=== PATIENT | female | born 1935 | race Caucasian/White ===

== ENCOUNTER 2017-02-13 10:57 | Inpatient (IN) ==
[2017-02-13] MEDS ORDERED: methylPREDNISolone 125 MG/2 ML VIAL IVP ONE (11:03)
[2017-02-13] MEDS ORDERED: Ipratropium/Albuterol Neb 3 ML IH ONE (11:03)
[2017-02-13] MEDS ORDERED: *HR* LORazepam 2 MG/ML VIAL IVP ONE (11:08)
--- NOTE | 2017-02-13 11:19 | Emergency Department Note ---
Disposition Clinical Impression: Supratherapeutic INR Acute on chronic congestive heart failure Qualifiers: Congestive heart failure type: unspecified congestive heart failure type Qualified Code(s): I50.9 - Heart failure, unspecified Disposition: Admitted As Inpatient Condition: Fair SOB HPI - General Chief Complaint: ED Shortness of Breath/Dyspnea Stated Complaint: REESE Time Seen by Provider: 02/13/17 11:03 Source: EMS Limitations: no limitations Nursing Notes Reviewed: Yes Vital Signs Reviewed: Yes - History of Present Illness Report received by EMS with patient able to nod or shake her head as responses. Patient dyspnea worsening for the past several days. Baseline she requires BiPAP continuous and his history of noncompliance with her BiPAP all the [facility] of [facility]. She tolerated BiPAP while at the facility. When she read it [facility] where she lives, patient became distressed and attempted to remove BiPAP after which her oxygen saturations dropped to approximately 72%. EMS was still there replaced BiPAP, and transported to this facility. Past medical history is negative for gout, COPD with emphysema, GERD, history cellulitis, obstructive sleep apnea, congestive heart failure, Patient is anticoagulated on Coumadin for A. Fib. - Related Data Home Medications Medication Instructions Recorded Confirmed Acetaminophen [Tylenol Arthritis] 650 mg PO Q6H PRN 02/13/17 02/13/17 Alendronate Sodium [Fosamax] 70 mg PO TH 02/13/17 02/13/17 Allopurinol [Zyloprim 100 MG] 100 mg PO DAILY 02/13/17 02/13/17 Budesonide/Formoterol 160/4.5 2 puff IH BIDR 02/13/17 02/13/17 [Symbicort 160/4.5] Calcium Carbonate/Vitamin D3 1 each PO BID 02/13/17 02/13/17 [Calcium 600 + Vit D Tablet] Furosemide [Lasix] 80 mg PO DAILY 02/13/17 02/13/17 Gabapentin [Neurontin] 400 mg PO TID 02/13/17 02/13/17 GuaiFENesin/Dextromethorphan 10 ml PO Q4H PRN 02/13/17 02/13/17 [Robitussin/DM] Guaifenesin [Mucinex] 600 mg PO BID 02/13/17 02/13/17 Hydrocortisone Acetate [Anusol-Hc] 25 mg RC BID PRN 02/13/17 02/13/17 Insulin Glargine [Lantus] 10 unit SQ HS 02/13/17 02/13/17 Ipratropium/Albuterol Neb [Duoneb] 3 ml IH Q6HR PRN 02/13/17 02/13/17 LORazepam [Ativan] 0.5 mg PO Q6H PRN 02/13/17 02/13/17 Labetalol HCl 600 mg PO BID 02/13/17 02/13/17 Levothyroxine Sodium 200 mcg PO 1400 02/13/17 02/13/17 Methocarbamol [Robaxin] 1,000 mg PO TID PRN 02/13/17 02/13/17 Multivitamin [One Daily Essential] 1 tab PO DAILY 02/13/17 02/13/17 Omeprazole [PriLOSEC] 40 mg PO DAILY 02/13/17 02/13/17 Ondansetron HCl [Zofran] 4 mg PO Q6H PRN 02/13/17 02/13/17 OxyCODONE/APAP 5/325 [Percocet 1 each PO Q12H PRN 02/13/17 02/13/17 5/325 MG] Oxygen 3 l NS AD 02/13/17 02/13/17 Potassium Chloride [K-Tab ER] 20 meq PO BID 02/13/17 02/13/17 Sennosides/Docusate Sodium 1 each PO DAILY PRN 02/13/17 02/13/17 [Senna-S Tablet] Sertraline [Zoloft] 50 mg PO DAILY 02/13/17 02/13/17 Simvastatin [Zocor] 20 mg PO HS 02/13/17 02/13/17 Warfarin [Coumadin] 1 mg PO Q48H 02/13/17 02/13/17 Warfarin [Coumadin] 1.5 mg PO Q48H 02/13/17 02/13/17 Allergies Allergy/AdvReac Type Severity Reaction Status Date / Time meperidine [From Demerol] Allergy Anaphylaxis Verified 02/13/17 11:01 Tetracycline Allergy Anaphylaxis Verified 02/13/17 11:01 Limitations: ROS unobtainable due to patients medical condition Past Medical History - Past Medical History Medical history: Reports: atrial fibrillation, CHF, COPD, diabetes, GERD, glaucoma, hyperlipidemia, hypertension, renal disease, thyroid disease Psychiatric history: Reports: anxiety, depression - Social History Smoking Status: Never smoker Smokeless Tobacco Status: No Alcohol use: Reports: none Drug use: Reports: none Physical Exam Patient's temperature is 97.3. She is tachypneic and tachycardic. General: Patient is alert, oriented, and in acute distress. She is currently tolerating BiPAP with O2 saturation in the high 90s. HEENT: No facial asymmetry. Head is normocephalic and atraumatic. PERRLA, EOMI. Cardiovascular: Heart sounds are distant with tachycardic rate without clicks, rubs, gallops, or murmurs. 1+ pitting bilateral pedal edema. Bilateral radial and posterior tibial pulses are 1-2/4 and symmetric. Respiratory: On BiPAP. Symmetric chest rise with her respiratory effort. Prolonged expiratory phase. Bilateral breath sounds are diffusely coarse. Abdomen: [place] obese. Bowel sounds present normoactive x-4 quadrants. Abdomen is soft, nondistended, and nontender. Able to assess organomegaly given patient's body habitus. Psych: Patient's affect is appropriate for situation. - General Limitations: no limitations General appearance: alert Course Course Narrative: Patient is full code per custodial documentation. Patient was at [facility] this morning for same complaint. She was discharged back to [facility] as she was at that time tolerating BiPAP and oxygen well. At [facility], she was attempting to remove BiPAP and was agitated where her oxygen saturation dipped to 72%. The same squad that transferred her from [facility] to [facility] state around and was able to reattach BiPAP and then transferred her to this facility. In route , patient's respirations were in the 30s to saturation on BiPAP in the mid 90s. On arrival, patient had some distress with BiPAP. Will provide Ativan. Review of documentation of [facility]: Patient had 2 asked x-rays at their facility within 2 hours. First x-ray interpretation not provided and documentation. Second x-ray interpretation was unchanged from previous study. They did note left-sided effusion with no pneumothorax. Diffuse haziness with interstitial pacing these more focal and left lower lobe. Electrolyte or unremarkable. No leukocytosis (9.1). ABG drawn today at 4 AM shows pH 7.34, PCO2 52.8, PO2 59, bicarbonate 27.5. Taken on 6 L nasal cannula. Patient received Lasix 40 mg IV x1. We will perform dyspnea and sepsis workup. Clinical concern for pneumonia vs CHF vs UT. Chest x-ray interpreted as likely congestive heart failure. Will begin nitroglycerin IV drip starting at 20 mics per minute as patient's blood pressure , though not hypotensive, is systolic 140s; will start low and titrate up. Patient has elevated INR. Patient A. Fib RVR. Pressure can support cardizem drip. Patient admitted to hospitalist, Dr. Nicole, for acute on CHF. Vital Signs Temperature 97.3 F L 02/13/17 11:00 Pulse Rate 123 02/13/17 11:00 Respiratory Rate 26 02/13/17 11:00 Blood Pressure 144/91 02/13/17 11:00 O2 Sat by Pulse Oximetry 94 02/13/17 11:00 Temperature 98.1 F 02/13/17 19:05 Pulse Rate 110 02/13/17 19:05 Respiratory Rate 26 02/13/17 19:05 Blood Pressure 147/93 02/13/17 19:05 O2 Sat by Pulse Oximetry 100 02/13/17 19:05 Oxygen Delivery Oxygen Delivery CPAP Mask O2 Shortness of Breath/Dyspnea - Medical Records Medical records reviewed: Yes I reviewed the patient's medical records. - Lab Data Lab results reviewed: Yes I reviewed the patient's lab results. Result diagrams: 02/13/17 10:56 02/13/17 10:56 Lab Results 02/13/17 02/13/17 02/13/17 Range/Units 10:56 10:56 10:56 WBC 10.6 (4.3-11.1) K/mcL RBC 3.48 L (3.82-4.97) M/mcL Hgb 9.6 L (11.5-15.4) g/dL Hct 32.7 L (35.3-44.9) % MCV 94.0 (83.0-100.0) fL MCH 27.6 L (28.0-33.3) pg MCHC 29.4 L (31.6-35.5) g/dL RDW 18.1 H (11.5-14.5) % Plt Count 171 (140-400) K/mcL MPV 9.5 (9.4-12.4) fL Immature Gran % 0.6 (0-4) % Seg Neutrophils % 87.2 % Lymphocytes % 7.5 % Monocytes % 3.6 % Eosinophils % 0.6 % Basophils % 0.5 % Neutrophils # 9.3 H (1.6-8.9) K/mcL Lymphocytes # 0.8 (0.6-4.6) K/mcL Monocytes # 0.4 (0.0-1.3) K/mcL Eosinophils # 0.1 (0.0-0.6) K/mcL Basophils # 0.1 (0.0-0.2) K/mcL Nucleated RBCs/100 WBC 0.2 H (0) /100 WBC PT (9.4-12.1) Seconds INR APTT (26.0-36.0) Seconds ABG pH (7.32-7.45) pH Units ABG pCO2 (35-45) mmHg ABG pO2 (85-104) mmHg ABG HCO3 (21-27) mEQ/L ABG Total CO2 (20-26) mEq/L ABG O2 Saturation (95-98) % ABG Base Excess (-2.0 to 3.0) mEq/L Blood Gas Modality Inspired O2 % Sodium 139 (136-145) mEq/L Potassium 5.1 H (3.5-4.5) mEq/L Chloride 102 (98-109) mEq/L Carbon Dioxide 25 (19-29) mEq/L BUN 22 H (7-20) mg/dL Creatinine 1.28 H (0.57-1.11) mg/dL Est GFR ( Amer) 49 L (> 60) Est GFR (Non-Af Amer) 40 L (> 60) BUN/Creatinine Ratio 17 (6-26) Glucose 163 H (70-99) mg/dL POC Glucose (58-89) Est Mean Plasma Glucose mg/dl Hemoglobin A1c ( - 5.6) % Calculated Osmolality 295 (280-300) Lactic Acid (0.5-2.2) mmol/L Calcium 9.3 (8.6-10.8) mg/dL Phosphorus 3.4 (2.3-4.7) mg/dL Magnesium 1.8 (1.6-2.6) mg/dL Troponin I 0.01 (0-0.03) ng/mL B-Natriuretic Peptide (0-100) pg/mL Urine Color (Yellow) Urine Clarity (Clear) Urine pH (5.0-8.0) pH Units Ur Specific [place] (1.010-1.025) Urine Protein (Neg-Trace) mg/dL Urine Glucose (UA) (Normal) mg/dL Urine Ketones (Negative) mg/dL Urine Blood (Negative) Urine Nitrite (Negative) Urine Bilirubin (Negative) Urine Urobilinogen (Normal) mg/dL Ur Leukocyte Esterase (Negative) Urine Microscopic RBC (0-3) per hpf Urine Microscopic WBC (0-3) per hpf Ur Squamous Epith Cells (None-Few) per lpf Urine Bacteria (None-Few) per hpf Hyaline Casts (None-Few) per lpf Ur Culture Indicated? (NO) 02/13/17 02/13/17 02/13/17 Range/Units 10:56 10:56 10:56 WBC (4.3-11.1) K/mcL RBC (3.82-4.97) M/mcL Hgb (11.5-15.4) g/dL Hct (35.3-44.9) % MCV (83.0-100.0) fL MCH (28.0-33.3) pg MCHC (31.6-35.5) g/dL RDW (11.5-14.5) % Plt Count (140-400) K/mcL MPV (9.4-12.4) fL Immature Gran % (0-4) % Seg Neutrophils % % Lymphocytes % % Monocytes % % Eosinophils % % Basophils % % Neutrophils # (1.6-8.9) K/mcL Lymphocytes # (0.6-4.6) K/mcL Monocytes # (0.0-1.3) K/mcL Eosinophils # (0.0-0.6) K/mcL Basophils # (0.0-0.2) K/mcL Nucleated RBCs/100 WBC (0) /100 WBC PT 52.3 H* (9.4-12.1) Seconds INR 4.6 H* APTT 44.6 H (26.0-36.0) Seconds ABG pH (7.32-7.45) pH Units ABG pCO2 (35-45) mmHg ABG pO2 (85-104) mmHg ABG HCO3 (21-27) mEQ/L ABG Total CO2 (20-26) mEq/L ABG O2 Saturation (95-98) % ABG Base Excess (-2.0 to 3.0) mEq/L Blood Gas Modality Inspired O2 % Sodium (136-145) mEq/L Potassium (3.5-4.5) mEq/L Chloride (98-109) mEq/L Carbon Dioxide (19-29) mEq/L BUN (7-20) mg/dL Creatinine (0.57-1.11) mg/dL Est GFR ( Amer) (> 60) Est GFR (Non-Af Amer) (> 60) BUN/Creatinine Ratio (6-26) Glucose (70-99) mg/dL POC Glucose (58-89) Est Mean Plasma Glucose mg/dl Hemoglobin A1c ( - 5.6) % Calculated Osmolality (280-300) Lactic Acid 1.6 (0.5-2.2) mmol/L Calcium (8.6-10.8) mg/dL Phosphorus (2.3-4.7) mg/dL Magnesium (1.6-2.6) mg/dL Troponin I (0-0.03) ng/mL B-Natriuretic Peptide 1219 H (0-100) pg/mL Urine Color (Yellow) Urine Clarity (Clear) Urine pH (5.0-8.0) pH Units Ur Specific [place] (1.010-1.025) Urine Protein (Neg-Trace) mg/dL Urine Glucose (UA) (Normal) mg/dL Urine Ketones (Negative) mg/dL Urine Blood (Negative) Urine Nitrite (Negative) Urine Bilirubin (Negative) Urine Urobilinogen (Normal) mg/dL Ur Leukocyte Esterase (Negative) Urine Microscopic RBC (0-3) per hpf Urine Microscopic WBC (0-3) per hpf Ur Squamous Epith Cells (None-Few) per lpf Urine Bacteria (None-Few) per hpf Hyaline Casts (None-Few) per lpf Ur Culture Indicated? (NO) 02/13/17 02/13/17 02/13/17 Range/Units 10:56 11:04 11:23 WBC (4.3-11.1) K/mcL RBC (3.82-4.97) M/mcL Hgb (11.5-15.4) g/dL Hct (35.3-44.9) % MCV (83.0-100.0) fL MCH (28.0-33.3) pg MCHC (31.6-35.5) g/dL RDW (11.5-14.5) % Plt Count (140-400) K/mcL MPV (9.4-12.4) fL Immature Gran % (0-4) % Seg Neutrophils % % Lymphocytes % % Monocytes % % Eosinophils % % Basophils % % Neutrophils # (1.6-8.9) K/mcL Lymphocytes # (0.6-4.6) K/mcL Monocytes # (0.0-1.3) K/mcL Eosinophils # (0.0-0.6) K/mcL Basophils # (0.0-0.2) K/mcL Nucleated RBCs/100 WBC (0) /100 WBC PT (9.4-12.1) Seconds INR APTT (26.0-36.0) Seconds ABG pH 7.33 (7.32-7.45) pH Units ABG pCO2 59 H (35-45) mmHg ABG pO2 93 (85-104) mmHg ABG HCO3 31.1 H (21-27) mEQ/L ABG Total CO2 32.9 H (20-26) mEq/L ABG O2 Saturation 97 (95-98) % ABG Base Excess 4.1 H (-2.0 to 3.0) mEq/L Blood Gas Modality [place] Inspired O2 60 % Sodium (136-145) mEq/L Potassium (3.5-4.5) mEq/L Chloride (98-109) mEq/L Carbon Dioxide (19-29) mEq/L BUN (7-20) mg/dL Creatinine (0.57-1.11) mg/dL Est GFR ( Amer) (> 60) Est GFR (Non-Af Amer) (> 60) BUN/Creatinine Ratio (6-26) Glucose (70-99) mg/dL POC Glucose 168 H (58-89) Est Mean Plasma Glucose 111 mg/dl Hemoglobin A1c 5.5 ( - 5.6) % Calculated Osmolality (280-300) Lactic Acid (0.5-2.2) mmol/L Calcium (8.6-10.8) mg/dL Phosphorus (2.3-4.7) mg/dL Magnesium (1.6-2.6) mg/dL Troponin I (0-0.03) ng/mL B-Natriuretic Peptide (0-100) pg/mL Urine Color (Yellow) Urine Clarity (Clear) Urine pH (5.0-8.0) pH Units Ur Specific [place] (1.010-1.025) Urine Protein (Neg-Trace) mg/dL Urine Glucose (UA) (Normal) mg/dL Urine Ketones (Negative) mg/dL Urine Blood (Negative) Urine Nitrite (Negative) Urine Bilirubin (Negative) Urine Urobilinogen (Normal) mg/dL Ur Leukocyte Esterase (Negative) Urine Microscopic RBC (0-3) per hpf Urine Microscopic WBC (0-3) per hpf Ur Squamous Epith Cells (None-Few) per lpf Urine Bacteria (None-Few) per hpf Hyaline Casts (None-Few) per lpf Ur Culture Indicated? (NO) 02/13/17 02/13/17 Range/Units 11:44 13:07 WBC (4.3-11.1) K/mcL RBC (3.82-4.97) M/mcL Hgb (11.5-15.4) g/dL Hct (35.3-44.9) % MCV (83.0-100.0) fL MCH (28.0-33.3) pg MCHC (31.6-35.5) g/dL RDW (11.5-14.5) % Plt Count (140-400) K/mcL MPV (9.4-12.4) fL Immature Gran % (0-4) % Seg Neutrophils % % Lymphocytes % % Monocytes % % Eosinophils % % Basophils % % Neutrophils # (1.6-8.9) K/mcL Lymphocytes # (0.6-4.6) K/mcL Monocytes # (0.0-1.3) K/mcL Eosinophils # (0.0-0.6) K/mcL Basophils # (0.0-0.2) K/mcL Nucleated RBCs/100 WBC (0) /100 WBC PT (9.4-12.1) Seconds INR APTT (26.0-36.0) Seconds ABG pH (7.32-7.45) pH Units ABG pCO2 (35-45) mmHg ABG pO2 (85-104) mmHg ABG HCO3 (21-27) mEQ/L ABG Total CO2 (20-26) mEq/L ABG O2 Saturation (95-98) % ABG Base Excess (-2.0 to 3.0) mEq/L Blood Gas Modality Inspired O2 % Sodium (136-145) mEq/L Potassium (3.5-4.5) mEq/L Chloride (98-109) mEq/L Carbon Dioxide (19-29) mEq/L BUN (7-20) mg/dL Creatinine (0.57-1.11) mg/dL Est GFR ( Amer) (> 60) Est GFR (Non-Af Amer) (> 60) BUN/Creatinine Ratio (6-26) Glucose (70-99) mg/dL POC Glucose (58-89) Est Mean Plasma Glucose mg/dl Hemoglobin A1c ( - 5.6) % Calculated Osmolality (280-300) Lactic Acid 1.3 (0.5-2.2) mmol/L Calcium (8.6-10.8) mg/dL Phosphorus (2.3-4.7) mg/dL Magnesium (1.6-2.6) mg/dL Troponin I (0-0.03) ng/mL B-Natriuretic Peptide (0-100) pg/mL Urine Color Yellow (Yellow) Urine Clarity Clear (Clear) Urine pH 5.5 (5.0-8.0) pH Units Ur Specific [place] 1.013 (1.010-1.025) Urine Protein Negative (Neg-Trace) mg/dL Urine Glucose (UA) Normal (Normal) mg/dL Urine Ketones Negative (Negative) mg/dL Urine Blood Negative (Negative) Urine Nitrite Positive A (Negative) Urine Bilirubin Negative (Negative) Urine Urobilinogen Normal (Normal) mg/dL Ur Leukocyte Esterase Small H (Negative) Urine Microscopic RBC 0-3 (0-3) per hpf Urine Microscopic WBC 5-15 H (0-3) per hpf Ur Squamous Epith Cells Many H (None-Few) per lpf Urine Bacteria Moderate H (None-Few) per hpf Hyaline Casts None Seen (None-Few) per lpf Ur Culture Indicated? YES A (NO) - Radiology Data Radiology results reviewed: Yes I reviewed the patient's radiology results. - EKG Data EKG attestation: Yes I reviewed and interpreted this EKG. EKG results narrative: EKG data [place] January 2017 at 11:03 interpreted as A. fib with RVR; rate of 119. No previous EKG for comparison. Per history, A. Fib is not new. Attestation Statement - Attestation Attestation: I examined this patient and my medical decision-making was reviewed with the PASTOR/PA/Advanced Practice Nurse/Resident Physician. I agree with the documented findings, disposition and treatment plan as described except to the extent set forth below. I examined this patient and my medical decision-making was reviewed with the PASTOR/PA/Advanced Practice Nurse/Resident Physician. I agree with the documented findings, disposition and treatment plan as described except to the extent set forth below. Patient to the emergency department with difficulty in breathing. Patient was evaluated at [facility] this morning and was placed on a CPAP. She was sent back to the custodial because she was tolerating it well. Medics were concerned about her respiratory status. She is evaluated when she got back to the custodial and they made the decision to send her here. She had admission there about a month ago for respiratory failure as well. She is supposed to be on a CPAP but her son states that they were unable to find a mask that fit her at the custodial. On exam she is awake alert. Not appropriately. Tachypneic. Diffuse wheezing. Plan. Cardiac workup and nebs. She was placed on BiPAP. X-ray looks consistent with decompensated heart failure. She is placed on a nitro drip. Patient will be admitted. Conversation with son regarding her CODE STATUS. He states that she is a full code and that he wants everything done for her. He states this is what she wants as well. Starting Cardize for A. fib with RVR in the 140s. Patient has a history of A. fib. 40 minutes of critical care exclusive of separately billable procedures.
[2017-02-13 11:33] LABS: ABG Base Excess 4.1 mEq/L (-2.0 to 3.0); ABG HCO3 31.1 mEQ/L (21-27); ABG Oxygen Saturation 97 % (95-98); ABG PCO2 59 mmHg (35-45); ABG PH 7.33 pH Units (7.32-7.45); ABG PO2 93 mmHg (85-104); ABG TCO2 32.9 mEq/L (20-26)
[2017-02-13 11:34] LABS: Basophils # 0.1 K/mcL (0.0-0.2); Basophils % 0.5 %; Eosinophils # 0.1 K/mcL (0.0-0.6); Eosinophils % 0.6 %; Hematocrit 32.7 % (35.3-44.9); Hemoglobin 9.6 g/dL (11.5-15.4); Immature Granulocytes % 0.6 % (0-4); Lymphocytes # 0.8 K/mcL (0.6-4.6); Lymphocytes % 7.5 %; Mean Corpuscular HGB Conc 29.4 g/dL (31.6-35.5); Mean Corpuscular Hemoglobin 27.6 pg (28.0-33.3); Mean Platelet Volume 9.5 fL (9.4-12.4); Monocytes # 0.4 K/mcL (0.0-1.3); Monocytes % 3.6 %; Neutrophils # 9.3 K/mcL (1.6-8.9); Nucleated Red Blood Cells 0.2 /100 WBC (0); Platelet Count 171 K/mcL (140-400); Red Blood Count 3.48 M/mcL (3.82-4.97); Red Cell Distribution Width 18.1 % (11.5-14.5); Segmented Neutrophils % 87.2 %
[2017-02-13 11:34] LABS: Blood Gas FiO2 60 %
[2017-02-13 11:40] LABS: Activated Partial Thrombo Time 44.6 Seconds (26.0-36.0)
[2017-02-13 11:42] LABS: INR 4.6; Prothrombin Time 52.3 Seconds (9.4-12.1)
[2017-02-13 11:44] LABS: Calcium 9.3 mg/dL (8.6-10.8); Magnesium 1.8 mg/dL (1.6-2.6); Phosphorous 3.4 mg/dL (2.3-4.7); Potassium 5.1 mEq/L (3.5-4.5)
[2017-02-13] MEDS ORDERED: Furosemide 40 MG/4 ML VIAL IVP ONE (11:44)
[2017-02-13] MEDS: Nitroglycerin 25 MG/250 ML INFUS..BTL IVC SCH (11:55)
[2017-02-13 11:57] LABS: Bilirubin,Urine Negative (Negative); Blood,Urine Negative (Negative); Clarity,Urine Clear (Clear); Color,Urine Yellow (Yellow); Glucose,Urine (UA) Normal (Normal); Ketones,Urine Negative (Negative); Leukocyte Esterase,Urine Small (Negative); Nitrite,Urine Positive (Negative); PH,Urine 5.5 pH Units (5.0-8.0); Protein,Urine Negative (Neg-Trace); Specific Gravity,Urine 1.013 (1.010-1.025); Urobilinogen,Urine Normal (Normal)
[2017-02-13 11:59] LABS: Bacteria,Urine Moderate per hpf (None-Few); Hyaline Casts,Urine None Seen per lpf (None-Few); RBC,Urine 0-3 per hpf (0-3); Squamous Epithelial Cell,Urine Many per lpf (None-Few)
[2017-02-13] MEDS ORDERED: Naloxone 0.4 MG/ML INJ IVP PRN (14:30)
[2017-02-13] MEDS ORDERED: Acetaminophen 325 MG TABLET PO PRN (14:46)
[2017-02-13] MEDS ORDERED: Sennosides/Docusate Sodium TABLET PO PRN (14:46)
[2017-02-13] MEDS ORDERED: D5% in Water 1,000 ML IVC PRN (14:51)
[2017-02-13] MEDS ORDERED: Dextrose Gel 15 GM PO PRN ×2 (14:51)
[2017-02-13] MEDS ORDERED: *HR* Dextrose 50 % in Water (Syg) 50 ML SYRINGE IVP PRN (14:51)
--- NOTE | 2017-02-13 15:00 | Internal Med History&Physical ---
Date of Encounter: 02/13/17 Time of Encounter: 14:56 Assessment and Plan (1) Acute on chronic congestive heart failure Current visit: Yes Status: Acute Patient presents with difficulty breathing. She is supposed to be on BiPAP 24 7 at home. Chest x-ray shows cardiomegaly with pulmonary edema. BNP elevated to 1219. Bilateral lower extremities with +1 edema. She was given 40 mg of Lasix IV at [facility] this morning, +40 mg of Lasix IV in the ER today. 60 mg Lasix IV push twice a day Nitro drip BiPAP continuous. Daily weights Strict I's and O's 1.5 L fluid restriction Consult to cardiology Qualifiers: Congestive heart failure type: unspecified congestive heart failure type Qualified Code(s): I50.9 - Heart failure, unspecified (2) Acute and chronic respiratory failure Current visit: Yes Status: Chronic Patient requires 24/7 BiPAP at home. Reports indicate patient not tolerating, or not compliant with BiPAP at her nursing facility. She was reportedly satting in the 70s on assessment by EMS. ABG reveals hypercapnia with PCO2 of 59. Acute respiratory failure secondary to exacerbation of congestive heart failure, with pulmonary edema seen on x-ray. BiPAP continuous Titrate oxygen to maintain O2 saturation greater than 88% Respiratory consult 60 mg Lasix IV push twice a day Qualifiers: Respiratory failure complication: hypoxia and hypercapnia Qualified Code(s) : J96.21 - Acute and chronic respiratory failure with hypoxia; J96.22 - Acute and chronic respiratory failure with hypercapnia (3) COPD (chronic obstructive pulmonary disease) Current visit: Yes Status: Acute Patient with known history of COPD, respiratory failure at this time seems to be due to exacerbation of congestive heart failure. Continue home dose of budesonide formoterol twice a day, DuoNeb treatments 4 times a day when necessary. Qualifiers: COPD type: emphysema Emphysema type: unspecified Qualified Code(s): J43.9 - Emphysema, unspecified (4) Full code status Current visit: Yes Status: Acute Paperwork from [facility] status patient is FULL CODE STATUS. He reports say discussion with son confirm this DULL CODE STATUS. Consider consult to palliative care for discussion of quality of life and goals of care. (5) Atrial fibrillation with RVR Current visit: Yes Status: Acute Patient with history of A. fib is on Coumadin for anticoagulation and labetalol for rate control. EKG shows A. fib with RVR heart rate in the 140s. Patient started on Cardizem drip, heart rate has improved to the 1 teens. Titrate Cardizem drip for heart rate less than 90. Continue home dose of labetalol. Hold Coumadin for supratherapeutic INR. Consult to cardiology. (6) Supratherapeutic INR Current visit: Yes Status: Acute Patient is on Coumadin for atrial fibrillation. INR today was supratherapeutic at 4.6. Hemoglobin 9.6, hematocrit 32.7. No signs of bleeding. No indication for transfusion at this time. Hold Coumadin this evening. Recheck CBC and PT/INR with a.m. labs Pharmacy to dose Coumadin tomorrow evening. (7) Hyperkalemia Current visit: Yes Status: Acute Potassium of 5.1. Patient given 80 of Lasix IV today [facility]. Hold potassium supplement. Recheck chemistry with a.m. labs. (8) Type 2 diabetes mellitus Current visit: Yes Status: Acute Diabetic diet Check blood sugar before meals at bedtime Continue basal dose of insulin 10 units Levemir at bedtime Sliding scale insulin before meals at bedtime Hyperglycemic protocol Qualifiers: Diabetes mellitus complication status: without complication Diabetes mellitus jail insulin use: with jail use Qualified Code(s): E11.9 - Type 2 diabetes mellitus without complications; Z79.4 - jail (current) use of insulin (9) DVT prophylaxis Current visit: Yes Status: Acute Antiembolic stockings INR supratherapeutic at 4.6, patient on Coumadin for A. fib, additional pharmacologic prophylaxis not indicated. Internal Medicine - H&P: HPI Chief complaint: shortness of breath Admitted From: Emergency Dept Plans for Post Hospital Care: Transfer [facility] History of present illness: Ms. Renee is a 81 year old female with COPD, diabetes, hypertension, hyperlipidemia, GERD, CAD, atrial fibrillation on Coumadin, CHF, was brought to the emergency Department by squad from her nursing called for difficulty breathing. Patient is reportedly on BiPAP 24 7 at her nursing facility, but reports from records state patient not compliant and/or the [facility]ci did not have appropriate sized mask for patient. She was reportedly brought to [facility] emergency department early this morning with similar complaints , where she was given 40mg of Lasix and started on BiPAP, she improved and was tolerating the BiPAP at bedtime so she was sent back to her [facility]ci. The squad brought her back to the fci was getting her set up in her room, and she was reportedly having difficulty breathing and the staff asked them to take her back for second opinion at [place]. According to ED notes, on arrival, patient was agitated trying to take off her BiPAP. She was given 2mg of Ativan. Her EKG showed A. fib with RVR with heart rate in the 140s. BNP was elevated to 1219. She was hyperkalemic with potassium of 5.1. Creatinine was elevated to 1.28 which is consistent with her history of CKD. INR was supratherapeutic at 4.6. Chest x-ray showed cardiomegaly with pulmonary edema. She was started on a nitro drip for her CHF, and a Cardizem drip for her A. fib with RVR. She was given another 40 mg of Lasix IV push. On exam, patient is somnolent, tachypneic, using accessory muscles, but satting 98% on the BiPAP and appears to tolerate it. Heart has tachycardic rhythm. Past Med Surg Social Fam HX - Past Medical History Medical history: atrial fibrillation, CHF, COPD, diabetes, GERD, glaucoma, hyperlipidemia, hypertension, renal disease, thyroid disease Psychiatric history: anxiety, depression - Social History Smoking Status: Never smoker Smokeless Tobacco Status: No Alcohol use: none Drug use: none - Family History Mother History Unknown: Yes (patient somnolent and unable to answers questions.) Internal Medicine - H&P: Meds Acetaminophen [Tylenol Arthritis] 650 mg PO Q6H PRN 02/13/17 [History] Alendronate Sodium [Fosamax] 70 mg PO TH 02/13/17 [History] Allopurinol [Zyloprim 100 MG] 100 mg PO DAILY 02/13/17 [History] Budesonide/Formoterol 160/4.5 [Symbicort 160/4.5] 2 puff IH BIDR 02/13/17 [ History] Calcium Carbonate/Vitamin D3 [Calcium 600 + Vit D Tablet] 1 each PO BID [History] Furosemide [Lasix] 80 mg PO DAILY 02/13/17 [History] Gabapentin [Neurontin] 400 mg PO TID 02/13/17 [History] GuaiFENesin/Dextromethorphan [Robitussin/DM] 10 ml PO Q4H PRN 02/13/17 [History] Guaifenesin [Mucinex] 600 mg PO BID 02/13/17 [History] Hydrocortisone Acetate [Anusol-Hc] 25 mg RC BID PRN 02/13/17 [History] Insulin Glargine [Lantus] 10 unit SQ HS 02/13/17 [History] Ipratropium/Albuterol Neb [Duoneb] 3 ml IH Q6HR PRN 02/13/17 [History] LORazepam [Ativan] 0.5 mg PO Q6H PRN 02/13/17 [History] Labetalol HCl 600 mg PO BID 02/13/17 [History] Levothyroxine Sodium 200 mcg PO 1400 02/13/17 [History] Methocarbamol [Robaxin] 1,000 mg PO TID PRN 02/13/17 [History] Multivitamin [One Daily Essential] 1 tab PO DAILY 02/13/17 [History] Omeprazole [PriLOSEC] 40 mg PO DAILY 02/13/17 [History] Ondansetron HCl [Zofran] 4 mg PO Q6H PRN 02/13/17 [History] OxyCODONE/APAP 5/325 [Percocet 5/325 MG] 1 each PO Q12H PRN 02/13/17 [History] Oxygen 3 l NS AD 02/13/17 [History] Potassium Chloride [K-Tab ER] 20 meq PO BID 02/13/17 [History] Sennosides/Docusate Sodium [Senna-S Tablet] 1 each PO DAILY PRN 02/13/17 [ History] Sertraline [Zoloft] 50 mg PO DAILY 02/13/17 [History] Simvastatin [Zocor] 20 mg PO HS 02/13/17 [History] Warfarin [Coumadin] 1 mg PO Q48H 02/13/17 [History] Warfarin [Coumadin] 1.5 mg PO Q48H 02/13/17 [History] Allergies meperidine [From Demerol] Allergy (Verified 02/13/17 11:01) Anaphylaxis Tetracycline Allergy (Verified 02/13/17 11:01) Anaphylaxis ROS unobtainable: due to mental status All Systems PM: A 10-system review of systems was performed and is negative for pertinent findings except as documented above in the HPI. - Constitutional Vitals: Temp Pulse Resp BP Pulse Ox 97.3 F L 121 24 149/84 98 02/13/17 11:00 02/13/17 13:35 02/13/17 13:35 02/13/17 13:35 02/13/17 13:35 General appearance: Present: morbidly obese - Head Head exam: Present: atraumatic, normocephalic - Eye Eye exam: Present: conjuntiva pink, sclera anicteric - Neck Neck exam general surgery: Present: supple, trachea midline. Absent: lymphadenopathy - Respiratory Respiratory exam: Present: accessory muscle use, prolonged expiratory phase, respiratory distress, rhonchi, tachypnea. Absent: rales, wheezes - Cardiovascular Cardiovascular exam: Present: +S1, +S2, tachycardia. Absent: diastolic murmur, gallop, rubs, systolic murmur - GI/Abdominal GI/Abdominal exam: Present: normal bowel sounds, soft, no peritoneal signs. Absent: distended, tenderness - Extremities Exam Extremities exam: Present: pedal edema (+1 BLE ), warm, radial pulses palpable and symetrical. Absent: calf tenderness, cyanotic - Neurological Exam Neurological exam: Absent: facial droop Additional comments: patient somnolent, unable to answer questions. - Skin Skin exam: Present: dry, intact Internal Med - H&P Results - Labs CBC & Chem 7: 02/13/17 10:56 02/13/17 10:56 Labs: All Lab Results (24 Hours) 02/13/17 02/13/17 02/13/17 Range/Units 10:56 10:56 10:56 WBC 10.6 (4.3-11.1) K/mcL RBC 3.48 L (3.82-4.97) M/mcL Hgb 9.6 L (11.5-15.4) g/dL Hct 32.7 L (35.3-44.9) % MCV 94.0 (83.0-100.0) fL MCH 27.6 L (28.0-33.3) pg MCHC 29.4 L (31.6-35.5) g/dL RDW 18.1 H (11.5-14.5) % Plt Count 171 (140-400) K/mcL MPV 9.5 (9.4-12.4) fL Immature Gran % 0.6 (0-4) % Seg Neutrophils % 87.2 % Lymphocytes % 7.5 % Monocytes % 3.6 % Eosinophils % 0.6 % Basophils % 0.5 % Neutrophils # 9.3 H (1.6-8.9) K/mcL Lymphocytes # 0.8 (0.6-4.6) K/mcL Monocytes # 0.4 (0.0-1.3) K/mcL Eosinophils # 0.1 (0.0-0.6) K/mcL Basophils # 0.1 (0.0-0.2) K/mcL Nucleated RBCs/100 WBC 0.2 H (0) /100 WBC PT (9.4-12.1) Seconds INR APTT (26.0-36.0) Seconds ABG pH (7.32-7.45) pH Units ABG pCO2 (35-45) mmHg ABG pO2 (85-104) mmHg ABG HCO3 (21-27) mEQ/L ABG Total CO2 (20-26) mEq/L ABG O2 Saturation (95-98) % ABG Base Excess (-2.0 to 3.0) mEq/L Blood Gas Modality Inspired O2 % Sodium 139 (136-145) mEq/L Potassium 5.1 H (3.5-4.5) mEq/L Chloride 102 (98-109) mEq/L Carbon Dioxide 25 (19-29) mEq/L BUN 22 H (7-20) mg/dL Creatinine 1.28 H (0.57-1.11) mg/dL Est GFR ( Amer) 49 L (> 60) Est GFR (Non-Af Amer) 40 L (> 60) BUN/Creatinine Ratio 17 (6-26) Glucose 163 H (70-99) mg/dL POC Glucose (58-89) Calculated Osmolality 295 (280-300) Lactic Acid (0.5-2.2) mmol/L Calcium 9.3 (8.6-10.8) mg/dL Phosphorus 3.4 (2.3-4.7) mg/dL Magnesium 1.8 (1.6-2.6) mg/dL Troponin I 0.01 (0-0.03) ng/mL B-Natriuretic Peptide (0-100) pg/mL Urine Color (Yellow) Urine Clarity (Clear) Urine pH (5.0-8.0) pH Units Ur Specific [place] (1.010-1.025) Urine Protein (Neg-Trace) mg/dL Urine Glucose (UA) (Normal) mg/dL Urine Ketones (Negative) mg/dL Urine Blood (Negative) Urine Nitrite (Negative) Urine Bilirubin (Negative) Urine Urobilinogen (Normal) mg/dL Ur Leukocyte Esterase (Negative) Urine Microscopic RBC (0-3) per hpf Urine Microscopic WBC (0-3) per hpf Ur Squamous Epith Cells (None-Few) per lpf Urine Bacteria (None-Few) per hpf Hyaline Casts (None-Few) per lpf Ur Culture Indicated? (NO) 02/13/17 02/13/17 02/13/17 Range/Units 10:56 10:56 10:56 WBC (4.3-11.1) K/mcL RBC (3.82-4.97) M/mcL Hgb (11.5-15.4) g/dL Hct (35.3-44.9) % MCV (83.0-100.0) fL MCH (28.0-33.3) pg MCHC (31.6-35.5) g/dL RDW (11.5-14.5) % Plt Count (140-400) K/mcL MPV (9.4-12.4) fL Immature Gran % (0-4) % Seg Neutrophils % % Lymphocytes % % Monocytes % % Eosinophils % % Basophils % % Neutrophils # (1.6-8.9) K/mcL Lymphocytes # (0.6-4.6) K/mcL Monocytes # (0.0-1.3) K/mcL Eosinophils # (0.0-0.6) K/mcL Basophils # (0.0-0.2) K/mcL Nucleated RBCs/100 WBC (0) /100 WBC PT 52.3 H* (9.4-12.1) Seconds INR 4.6 H* APTT 44.6 H (26.0-36.0) Seconds ABG pH (7.32-7.45) pH Units ABG pCO2 (35-45) mmHg ABG pO2 (85-104) mmHg ABG HCO3 (21-27) mEQ/L ABG Total CO2 (20-26) mEq/L ABG O2 Saturation (95-98) % ABG Base Excess (-2.0 to 3.0) mEq/L Blood Gas Modality Inspired O2 % Sodium (136-145) mEq/L Potassium (3.5-4.5) mEq/L Chloride (98-109) mEq/L Carbon Dioxide (19-29) mEq/L BUN (7-20) mg/dL Creatinine (0.57-1.11) mg/dL Est GFR ( Amer) (> 60) Est GFR (Non-Af Amer) (> 60) BUN/Creatinine Ratio (6-26) Glucose (70-99) mg/dL POC Glucose (58-89) Calculated Osmolality (280-300) Lactic Acid 1.6 (0.5-2.2) mmol/L Calcium (8.6-10.8) mg/dL Phosphorus (2.3-4.7) mg/dL Magnesium (1.6-2.6) mg/dL Troponin I (0-0.03) ng/mL B-Natriuretic Peptide 1219 H (0-100) pg/mL Urine Color (Yellow) Urine Clarity (Clear) Urine pH (5.0-8.0) pH Units Ur Specific [place] (1.010-1.025) Urine Protein (Neg-Trace) mg/dL Urine Glucose (UA) (Normal) mg/dL Urine Ketones (Negative) mg/dL Urine Blood (Negative) Urine Nitrite (Negative) Urine Bilirubin (Negative) Urine Urobilinogen (Normal) mg/dL Ur Leukocyte Esterase (Negative) Urine Microscopic RBC (0-3) per hpf Urine Microscopic WBC (0-3) per hpf Ur Squamous Epith Cells (None-Few) per lpf Urine Bacteria (None-Few) per hpf Hyaline Casts (None-Few) per lpf Ur Culture Indicated? (NO) 02/13/17 02/13/17 02/13/17 Range/Units 11:04 11:23 11:44 WBC (4.3-11.1) K/mcL RBC (3.82-4.97) M/mcL Hgb (11.5-15.4) g/dL Hct (35.3-44.9) % MCV (83.0-100.0) fL MCH (28.0-33.3) pg MCHC (31.6-35.5) g/dL RDW (11.5-14.5) % Plt Count (140-400) K/mcL MPV (9.4-12.4) fL Immature Gran % (0-4) % Seg Neutrophils % % Lymphocytes % % Monocytes % % Eosinophils % % Basophils % % Neutrophils # (1.6-8.9) K/mcL Lymphocytes # (0.6-4.6) K/mcL Monocytes # (0.0-1.3) K/mcL Eosinophils # (0.0-0.6) K/mcL Basophils # (0.0-0.2) K/mcL Nucleated RBCs/100 WBC (0) /100 WBC PT (9.4-12.1) Seconds INR APTT (26.0-36.0) Seconds ABG pH 7.33 (7.32-7.45) pH Units ABG pCO2 59 H (35-45) mmHg ABG pO2 93 (85-104) mmHg ABG HCO3 31.1 H (21-27) mEQ/L ABG Total CO2 32.9 H (20-26) mEq/L ABG O2 Saturation 97 (95-98) % ABG Base Excess 4.1 H (-2.0 to 3.0) mEq/L Blood Gas Modality [place] Inspired O2 60 % Sodium (136-145) mEq/L Potassium (3.5-4.5) mEq/L Chloride (98-109) mEq/L Carbon Dioxide (19-29) mEq/L BUN (7-20) mg/dL Creatinine (0.57-1.11) mg/dL Est GFR ( Amer) (> 60) Est GFR (Non-Af Amer) (> 60) BUN/Creatinine Ratio (6-26) Glucose (70-99) mg/dL POC Glucose 168 H (58-89) Calculated Osmolality (280-300) Lactic Acid (0.5-2.2) mmol/L Calcium (8.6-10.8) mg/dL Phosphorus (2.3-4.7) mg/dL Magnesium (1.6-2.6) mg/dL Troponin I (0-0.03) ng/mL B-Natriuretic Peptide (0-100) pg/mL Urine Color Yellow (Yellow) Urine Clarity Clear (Clear) Urine pH 5.5 (5.0-8.0) pH Units Ur Specific [place] 1.013 (1.010-1.025) Urine Protein Negative (Neg-Trace) mg/dL Urine Glucose (UA) Normal (Normal) mg/dL Urine Ketones Negative (Negative) mg/dL Urine Blood Negative (Negative) Urine Nitrite Positive A (Negative) Urine Bilirubin Negative (Negative) Urine Urobilinogen Normal (Normal) mg/dL Ur Leukocyte Esterase Small H (Negative) Urine Microscopic RBC 0-3 (0-3) per hpf Urine Microscopic WBC 5-15 H (0-3) per hpf Ur Squamous Epith Cells Many H (None-Few) per lpf Urine Bacteria Moderate H (None-Few) per hpf Hyaline Casts None Seen (None-Few) per lpf Ur Culture Indicated? YES A (NO) 02/13/17 Range/Units 13:07 WBC (4.3-11.1) K/mcL RBC (3.82-4.97) M/mcL Hgb (11.5-15.4) g/dL Hct (35.3-44.9) % MCV (83.0-100.0) fL MCH (28.0-33.3) pg MCHC (31.6-35.5) g/dL RDW (11.5-14.5) % Plt Count (140-400) K/mcL MPV (9.4-12.4) fL Immature Gran % (0-4) % Seg Neutrophils % % Lymphocytes % % Monocytes % % Eosinophils % % Basophils % % Neutrophils # (1.6-8.9) K/mcL Lymphocytes # (0.6-4.6) K/mcL Monocytes # (0.0-1.3) K/mcL Eosinophils # (0.0-0.6) K/mcL Basophils # (0.0-0.2) K/mcL Nucleated RBCs/100 WBC (0) /100 WBC PT (9.4-12.1) Seconds INR APTT (26.0-36.0) Seconds ABG pH (7.32-7.45) pH Units ABG pCO2 (35-45) mmHg ABG pO2 (85-104) mmHg ABG HCO3 (21-27) mEQ/L ABG Total CO2 (20-26) mEq/L ABG O2 Saturation (95-98) % ABG Base Excess (-2.0 to 3.0) mEq/L Blood Gas Modality Inspired O2 % Sodium (136-145) mEq/L Potassium (3.5-4.5) mEq/L Chloride (98-109) mEq/L Carbon Dioxide (19-29) mEq/L BUN (7-20) mg/dL Creatinine (0.57-1.11) mg/dL Est GFR ( Amer) (> 60) Est GFR (Non-Af Amer) (> 60) BUN/Creatinine Ratio (6-26) Glucose (70-99) mg/dL POC Glucose (58-89) Calculated Osmolality (280-300) Lactic Acid 1.3 (0.5-2.2) mmol/L Calcium (8.6-10.8) mg/dL Phosphorus (2.3-4.7) mg/dL Magnesium (1.6-2.6) mg/dL Troponin I (0-0.03) ng/mL B-Natriuretic Peptide (0-100) pg/mL Urine Color (Yellow) Urine Clarity (Clear) Urine pH (5.0-8.0) pH Units Ur Specific [place] (1.010-1.025) Urine Protein (Neg-Trace) mg/dL Urine Glucose (UA) (Normal) mg/dL Urine Ketones (Negative) mg/dL Urine Blood (Negative) Urine Nitrite (Negative) Urine Bilirubin (Negative) Urine Urobilinogen (Normal) mg/dL Ur Leukocyte Esterase (Negative) Urine Microscopic RBC (0-3) per hpf Urine Microscopic WBC (0-3) per hpf Ur Squamous Epith Cells (None-Few) per lpf Urine Bacteria (None-Few) per hpf Hyaline Casts (None-Few) per lpf Ur Culture Indicated? (NO) - Diagnostic Studies Chest x-ray Additional comments: Chest X-Ray 02/13/17 11:03 IMPRESSION: Cardiomegaly and pulmonary edema. Findings may reflect congestive heart failure. D/ / 02/13/2017 11:57:56 Lynda Julio MD / [email or web address] Interpreting Provider: Lynda Julio MD
--- NOTE | 2017-02-13 15:16 | Event Note ---
Date of Encounter: 02/13/17 Time of Encounter: 15:13 Patient seen and examined. 81-year-old [facility] patient on 24/7 BiPAP support. She presents with acute respiratory failure. X-rays suggestive of acute pulmonary edema. IV Lasix and nitroglycerin drip. Patient is also in AFib/flutter with RVR. She is on low-dose Cardizem drip continue. Echocardiogram will be checked. Serial cardiac markers. She denies chest pain. EKG shows no ST segment shifts. No pneumonia on Xray. ABG shows mild respiratory acidosis. She has full code.
[2017-02-13 15:46] LABS: Hemoglobin A1C 5.5 %
--- NOTE | 2017-02-13 15:58 | Cardiology Consult Note ---
Date of Encounter: 02/13/17 Time of Encounter: 15:30 Assessment and Plan (1) Acute on chronic congestive heart failure Current Visit: Yes Status: Acute Per cardiology: -Apparent CHF exacerbation. No previous records for review, pateint states no echo for "several years." -Appears fluid overloaded. 1+ bilatera lower extremity pitting edema. -IV lasix given in ER, IV lasix ordered BID by primary service. On nitro drip. -On Bipap. -CHest x-ray with cardiomegaly and pulmonary edema. -Echo pending. -Agree with strict i/os, daily weights, and fluid restrictions. -Further recommendations pendings echo. Qualifiers: Congestive heart failure type: unspecified congestive heart failure type Qualified Code(s): I50.9 - Heart failure, unspecified (2) Acute and chronic respiratory failure Current Visit: Yes Status: Chronic Per cardiology: -KNown respiratiory failure. -Per patient and family requires BIpap at all time. -On bipap with FiO2 50%. -On nebs. -Management per primary service. -Can consider pulmonary consult. Qualifiers: Respiratory failure complication: hypoxia and hypercapnia Qualified Code(s) : J96.21 - Acute and chronic respiratory failure with hypoxia; J96.22 - Acute and chronic respiratory failure with hypercapnia (3) Atrial fibrillation with RVR Current Visit: Yes Status: Acute Per cardiology: -KNown atrial fibrillation. -Currently atrial fibrillation with RVR, HR 119. -On cardizem drip at 5mg/hour. -ON coumadin, INR supratherapeutic. -Recommned titrating cardizem drip to maintain HR less than 100 and BP greater than 90 systolic. -Further recommendations pending echo. -COumadin per Pharmacy dosing. Discussion w patient/family: The assessment and plan as outlined above was discussed with the patient and/or family members who expressed understanding and agreement. All questions were answered. Thank you for involving us in the care of your patient. Please call with any questions. Discusssed and reviewed with . History of Present Illness Consult date: 02/13/17 Requesting physician: Karen Bishop Consult reason: CHF, atrial fibrillation RVR Chief complaint: shortness of breath History of present illness: Ms. Renee is a 81 year old female with a relevant past medical history of CAD s/ p stent 2001, COPD, sleep apnea, atrial fibrillation, and CHF. Patient was recently discharged from outside facility and was to return to [facility] with Bipap 22/04. Patient arived at [facility] with EMS and refused to wear Bipap. Patient's SpO2 70% at [facility]. EMS loaded patient back in squad and brought patient to [facility]. Pateint was given lasix IV per ER. Patient admits shortness of breath. Denies chest pain. Patient states she feels better now. Past Med Surg Social Fam HX - Past Medical History Attestation: Yes The following information was validated with the patient. Source: patient, obtained from family Medical history: atrial fibrillation, CHF, COPD, diabetes, GERD, glaucoma, hyperlipidemia, hypertension, renal disease, thyroid disease Psychiatric history: anxiety, depression - Social History Smoking Status: Never smoker Smokeless Tobacco Status: No Alcohol use: none Drug use: none - Family History Mother History Unknown: Yes (patient somnolent and unable to answers questions.) Medications and Allergies Acetaminophen [Tylenol Arthritis] 650 mg PO Q6H PRN 02/13/17 [History] Alendronate Sodium [Fosamax] 70 mg PO TH 02/13/17 [History] Allopurinol [Zyloprim 100 MG] 100 mg PO DAILY 02/13/17 [History] Budesonide/Formoterol 160/4.5 [Symbicort 160/4.5] 2 puff IH BIDR 02/13/17 [ History] Calcium Carbonate/Vitamin D3 [Calcium 600 + Vit D Tablet] 1 each PO BID [History] Furosemide [Lasix] 80 mg PO DAILY 02/13/17 [History] Gabapentin [Neurontin] 400 mg PO TID 02/13/17 [History] GuaiFENesin/Dextromethorphan [Robitussin/DM] 10 ml PO Q4H PRN 02/13/17 [History] Guaifenesin [Mucinex] 600 mg PO BID 02/13/17 [History] Hydrocortisone Acetate [Anusol-Hc] 25 mg RC BID PRN 02/13/17 [History] Insulin Glargine [Lantus] 10 unit SQ HS 02/13/17 [History] Ipratropium/Albuterol Neb [Duoneb] 3 ml IH Q6HR PRN 02/13/17 [History] LORazepam [Ativan] 0.5 mg PO Q6H PRN 02/13/17 [History] Labetalol HCl 600 mg PO BID 02/13/17 [History] Levothyroxine Sodium 200 mcg PO 1400 02/13/17 [History] Methocarbamol [Robaxin] 1,000 mg PO TID PRN 02/13/17 [History] Multivitamin [One Daily Essential] 1 tab PO DAILY 02/13/17 [History] Omeprazole [PriLOSEC] 40 mg PO DAILY 02/13/17 [History] Ondansetron HCl [Zofran] 4 mg PO Q6H PRN 02/13/17 [History] OxyCODONE/APAP 5/325 [Percocet 5/325 MG] 1 each PO Q12H PRN 02/13/17 [History] Oxygen 3 l NS AD 02/13/17 [History] Potassium Chloride [K-Tab ER] 20 meq PO BID 02/13/17 [History] Sennosides/Docusate Sodium [Senna-S Tablet] 1 each PO DAILY PRN 02/13/17 [ History] Sertraline [Zoloft] 50 mg PO DAILY 02/13/17 [History] Simvastatin [Zocor] 20 mg PO HS 02/13/17 [History] Warfarin [Coumadin] 1 mg PO Q48H 02/13/17 [History] Warfarin [Coumadin] 1.5 mg PO Q48H 02/13/17 [History] Allergies meperidine [From Demerol] Allergy (Verified 02/13/17 11:01) Anaphylaxis Tetracycline Allergy (Verified 02/13/17 11:01) Anaphylaxis All Systems Review: A 10-system review of systems was performed and is negative for pertinent findings except as documented above in the HPI. - Cardiovascular Cardiovascular: as per HPI, dyspnea at rest, dyspnea on exertion Physical Examination Vital Signs, Last 4 Hours Pulse Resp BP Pulse Ox 02/13/17 15:49 24 147/95 02/13/17 15:38 122 22 148/95 95 General: Conversant, No Apparent Distress HEENT: Atraumatic, Normocephaly, Mucus Membranes Moist Neck: No JVD, Normal carotid pulses Cardiac: Other (Irregularly, irregular) Lungs: Other (Lung sounds dimished throughout. On Bipap with FiO2 50%. ) Neuro: Alert and responsive, No focal deficits noted Abdomen: Soft, Non-Tender Skin: Other (Bilateral lower extremitties with discoloration. ) Musculoskeletal: No Chest Wall Tenderness Extremities: No Clubbing, No Cyanosis, Other (1+ bilateral lower extremity pitting edema. 1+ bilateral lower extremity pedal pulses. ) Results 02/13/17 10:56 02/13/17 10:56 Impressions Chest X-Ray 02/13/17 11:03 IMPRESSION: Cardiomegaly and pulmonary edema. Findings may reflect congestive heart failure. D/ / 02/13/2017 11:57:56 Lynda Julio MD / [email or web address] Interpreting Provider: Lynda Julio MD Active Medications Acetaminophen (Tylenol) 650 mg PO Q6HR PRN PRN Reason: Mild Pain (1-3) Stop: 08/15/17 14:31 Acetaminophen (Tylenol) 650 mg PO Q6H PRN PRN Reason: Mild Pain Allopurinol (Zyloprim) 100 mg PO DAILY [facility] Stop: 08/16/17 09:01 Budesonide/Formoterol Fumarate (Symbicort) 2 puff IH BIDR [facility] PRN Reason: Protocol Stop: 08/15/17 22:01 Dextrose/Water (Dextrose 50% (Syg)) 25 ml IVP AD PRN PRN Reason: Hypoglycemia Stop: 08/15/17 14:52 Furosemide (Lasix) 60 mg IVP BIDDIURETIC [facility] Stop: 08/15/17 17:01 Gabapentin (Neurontin) 400 mg PO TID [facility] Stop: 08/15/17 15:01 Glucagon (Glucagen) 1 mg IM ONCE PRN PRN Reason: Hypoglycemia Stop: 08/15/17 14:52 Glucose (Gluctose) 15 gm PO ONCE PRN PRN Reason: Hypoglycemia Stop: 08/15/17 14:52 Glucose (Gluctose) 30 gm PO ONCE PRN PRN Reason: Hypoglycemia Stop: 08/15/17 14:52 Guaifenesin (Mucinex) 600 mg PO BID [facility] Stop: 08/15/17 21:01 Nitroglycerin (Nitroglycerin) 25 mg in 250 mls @ 12 mls/hr IVC .[id number] VIC PRN Reason: 20 MCG/MIN Stop: 08/15/17 11:46 Last Admin: 02/13/17 11:55 Dose: 20 mcg/min, 12 mls/hr Diltiazem HCl 125 mg/ Dextrose 125 mls @ 5 mls/hr IVC .Q24H VIC; 5 MG/HR PRN Reason: Protocol Stop: 08/15/17 13:16 Last Admin: 02/13/17 13:33 Dose: 5 mg/hr, 5 mls/hr Dextrose (Dextrose 5%) 1,000 mls @ 100 mls/hr IVC .Q10H PRN PRN Reason: HYPOGLYCEMIA Stop: 08/15/17 14:52 Insulin Detemir (Levemir) 10 unit SQ HS [facility] Stop: 08/15/17 21:01 Insulin Human Lispro (Humalog) 0 units SQ HS [facility] PRN Reason: Protocol Stop: 08/15/17 21:01 Insulin Human Lispro (Humalog) 0 units SQ TIDAC [facility] PRN Reason: Protocol Stop: 08/15/17 16:31 Labetalol HCl (Trandate) 600 mg PO BID [facility] Stop: 08/15/17 21:01 Levothyroxine Sodium (Synthroid) 200 mcg PO 0630 [facility] Stop: 08/16/17 06:31 Lorazepam (Ativan) 0.5 mg PO Q6H PRN PRN Reason: Anxiety Stop: 08/15/17 14:47 Naloxone HCl (Narcan) 0.4 mg IVP Q2MIN PRN PRN Reason: Opioid Reversal Stop: 08/15/17 14:31 Omeprazole (Prilosec) 40 mg PO 0630 [facility] Stop: 08/16/17 06:31 Oxycodone/Acetaminophen (Percocet 5/325) 1 each PO Q12H PRN PRN Reason: Mild Pain Stop: 08/15/17 14:47 Senna/Docusate Sodium (Senna Plus) 1 each PO DAILY PRN; Protocol PRN Reason: Constipation Stop: 08/15/17 14:47 Sertraline HCl (Zoloft) 50 mg PO DAILY [facility] Stop: 08/16/17 09:01 Simvastatin (Zocor) 20 mg PO HS [facility] PRN Reason: Protocol Stop: 08/15/17 21:01 Warfarin Sodium (Coumadin Perpt) 1 each PO DAILY@1800 PRN PRN Reason: SEE COMMENTS Stop: 08/16/17 18:01 Laboratory Tests 02/13/17 02/13/17 02/13/17 10:56 10:56 10:56 Hgb 9.6 L Hct 32.7 L INR Potassium 5.1 H Creatinine 1.28 H Troponin I 0.01 B-Natriuretic Peptide 02/13/17 02/13/17 10:56 10:56 Hgb Hct INR 4.6 H* Potassium Creatinine Troponin I B-Natriuretic Peptide 1219 H - Imaging and Cardiology Chest Xray: report reviewed Echo: pending - EKG Interpretation EKG results cardiology: personally reviewed (ECG with atrial fibrillation RVR, HR 119.) Consult Discharge Plan - Plan Referrals: NO,PCP [Primary Care Provider] -
[2017-02-13] MEDS: Furosemide 40 MG/4 ML VIAL IVP SCH (17:05)
[2017-02-13] MEDS: Insulin LISPRO 300 UNITS/3 ML VIAL SQ SCH ×2 (17:12→21:45)
[2017-02-13] MEDS: Gabapentin 400 MG CAPSULE PO SCH ×2 (17:13→21:45)
[2017-02-13] MEDS ORDERED: Ondansetron ODT 4 MG TAB.RAPDIS PO PRN (17:34)
[2017-02-13] MEDS: Ondansetron 4 MG/2 ML VIAL IVP PRN (17:41)
[2017-02-13] MEDS: Budesonide/Formoterol 160/4.5 MDI IH SCH (19:56)
[2017-02-13] MEDS ORDERED: Insulin DETEMIR 100 UNIT/ML X5UNITS SQ SCH (21:00)
[2017-02-13] MEDS ORDERED: Perflutren Lipid Microsphere 1.3 ML in 0.9 % Sodium Chloride 8.7 ML IVP ONE (21:58)
[2017-02-14 05:36] LABS: Activated Partial Thrombo Time 43.3 Seconds (26.0-36.0)
[2017-02-14 05:41] LABS: Hematocrit 29.1 % (35.3-44.9); Hemoglobin 8.7 g/dL (11.5-15.4); Immature Granulocytes % 0.6 % (0-4); Lymphocytes # 0.6 K/mcL (0.6-4.6); Lymphocytes % 5.4 %; Mean Corpuscular HGB Conc 29.9 g/dL (31.6-35.5); Mean Corpuscular Hemoglobin 27.9 pg (28.0-33.3); Mean Corpuscular Volume 93.3 fL (83.0-100.0); Mean Platelet Volume 9.7 fL (9.4-12.4); Monocytes # 0.4 K/mcL (0.0-1.3); Neutrophils # 9.8 K/mcL (1.6-8.9); Platelet Count 171 K/mcL (140-400); Red Blood Count 3.12 M/mcL (3.82-4.97); Red Cell Distribution Width 18.3 % (11.5-14.5)
[2017-02-14 05:54] LABS: INR 6.5
[2017-02-14 05:59] LABS: Calcium 8.9 mg/dL (8.6-10.8); Potassium 4.3 mEq/L (3.5-4.5)
[2017-02-14] MEDS: Gabapentin 400 MG CAPSULE PO SCH ×2 (07:52→20:45)
[2017-02-14] MEDS: Furosemide 40 MG/4 ML VIAL IVP SCH ×2 (07:56→16:11)
[2017-02-14 08:00] LABS: Enterococcus by PCR Not Detected (Not Detect); Staphylococcus aureus by PCR Not Detected (Not Detect); Streptococcus agalactiae(B)PCR Not Detected (Not Detect); Streptococcus by PCR Not Detected (Not Detect); Streptococcus pneumoniae PCR Not Detected (Not Detect); Streptococcus pyogenes (A) PCR Not Detected (Not Detect); blaKPC Carbapenem-Resist Gene Not Detected (Not Detect)
[2017-02-14 08:01] LABS: Acinetobacter baumannii by PCR Not Detected (Not Detect); Candida albicans by PCR Not Detected (Not Detect); Candida glabrata by PCR Not Detected (Not Detect); Candida krusei by PCR Not Detected (Not Detect); Candida parapsilosis by PCR Not Detected (Not Detect); Candida tropicalis by PCR Not Detected (Not Detect); Escherichia coli by PCR ***DETECTED*** (Not Detect); Klebsiella oxytoca by PCR Not Detected (Not Detect); Klebsiella pneumoniae by PCR Not Detected (Not Detect); Pseudomonas aeruginosa by PCR Not Detected (Not Detect); Serratia marcescens by PCR Not Detected (Not Detect)
[2017-02-14] MEDS: Budesonide/Formoterol 160/4.5 MDI IH SCH ×2 (08:49→19:42)
[2017-02-14] MEDS: Ondansetron 4 MG/2 ML VIAL IVP PRN (09:06)
--- NOTE | 2017-02-14 09:10 | Cardiology Progress Note ---
Date of Encounter: 02/14/17 Time of Encounter: 08:30 Assessment and Plan (1) Acute on chronic congestive heart failure Current Visit: Yes Status: Acute Per cardiology: -Apparent CHF exacerbation. No previous records for review, pateint states no echo for "several years." -IV lasix given in ER, IV lasix ordered BID by primary service. On nitro drip. -Net negative 2138ml this admission. -Mild bilateral pedal edema noted. -On Bipap, FiO2 50%. -CHest x-ray with cardiomegaly and pulmonary edema. -Echo pending. -Agree with strict i/os, daily weights, and fluid restrictions. -BNP on admission 1200s. -Further recommendations pendings echo. -Can consider stopping nitro drip. Qualifiers: Congestive heart failure type: unspecified congestive heart failure type Qualified Code(s): I50.9 - Heart failure, unspecified (2) Acute and chronic respiratory failure Current Visit: Yes Status: Chronic Per cardiology: -KNown respiratiory failure. -Per patient and family requires BIpap at all time. -On bipap with FiO2 50%. -On nebs. -Per patient's bedside nurse, tolerated being off Bipap for a short time. -Of note, patient's blood cultures positive for gram negative antonio. -Management per primary service. -Can consider pulmonary consult. Qualifiers: Respiratory failure complication: hypoxia and hypercapnia Qualified Code(s) : J96.21 - Acute and chronic respiratory failure with hypoxia; J96.22 - Acute and chronic respiratory failure with hypercapnia (3) Atrial fibrillation with RVR Current Visit: Yes Status: Acute Per cardiology: -KNown atrial fibrillation. -Currently atrial fibrillation with average HR 93. -On cardizem drip at 10mg/hour. -[id number] score 6 (age, gender, HTN, vascular history). On coumadin. -ON coumadin, INR supratherapeutic. INR higher today. Coumadin being managed by pharmacy while inpatient. No active signs of bleeding noted. OF note, hemoglobin with worsening anemia today. -Will stop IV cardizem and will start cardizem 60mg po [id number]. -Further recommendations pending echo. (4) Anemia Current Visit: Yes Status: Acute Per cardiology: -Unknown history of anemia. -Hemoglobin now 8.7. -On coumadin, however INR supratherapeutic. Being managed by pharmacy while inpatient. -No asa at this time due to anemia and supratherapeutic INR. -Management per primary service. -Recommend close observation with high INR. Qualifiers: Anemia type: unspecified type Qualified Code(s): D64.9 - Anemia, unspecified Discussion w patient/family: The assessment and plan as outlined above was discussed with the patient who expressed understanding and agreement. All questions were answered. Thank you for involving us in the care of your patient. Please call with any questions. Discusssed and reviewed with . Subjective Principal diagnosis: shortness of breath Interval history: Patient was recently discharged from outside facility and was to return to [facility]way with Bipap 22/04. Patient arrived at [facility]-way with EMS and refused to wear Bipap. Patient's SpO2 70% at half-way. EMS loaded patient back in squad and brought patient to [facility]. Pateint was given lasix IV per ER. Patient admits shortness of breath. Denies chest pain. Patient states her breathing is much better today. Patient denies palpitations/fluttering. Objective Vital Signs, Last 4 Hours Temp Pulse Resp BP Pulse Ox 02/14/17 08:46 21 98 02/14/17 07:29 98.0 F 96 25 127/92 98 02/14/17 07:00 97 123/80 02/14/17 06:00 105 114/66 General: Conversant (On bipap. ), No Apparent Distress HEENT: Atraumatic, Normocephaly, Mucus Membranes Moist Neck: No JVD, Normal carotid pulses Cardiac: Other (Irregularly, irregular) Lungs: Other (Lung sounds diminished throughout. ON bipap with FiO2 50%. ) Neuro: Alert and responsive, No focal deficits noted Abdomen: Soft, Non-Tender Skin: No rashes noted on visualized skin, Other (Bilateral lower extremities discolored. ) Musculoskeletal: No Chest Wall Tenderness Extremities: No Clubbing, No Cyanosis, Other (Bilateral pedal pulses 1+, mild bilateral pedal edema noted. ) Results 02/14/17 04:59 02/14/17 04:59 Lab Results Impressions Chest X-Ray 02/13/17 11:03 IMPRESSION: Cardiomegaly and pulmonary edema. Findings may reflect congestive heart failure. D/ / 02/13/2017 11:57:56 Lynda Julio MD / [email or web address] Interpreting Provider: Lynda Julio MD Active Medications Acetaminophen (Tylenol) 650 mg PO Q6HR PRN PRN Reason: Mild Pain (1-3) Stop: 08/15/17 14:31 Acetaminophen (Tylenol) 650 mg PO Q6H PRN PRN Reason: Mild Pain Allopurinol (Zyloprim) 100 mg PO DAILY [facility] Stop: 08/16/17 09:01 Last Admin: 02/14/17 07:55 Dose: 100 mg Budesonide/Formoterol Fumarate (Symbicort) 2 puff IH BIDR [facility] PRN Reason: Protocol Stop: 08/15/17 22:01 Last Admin: 02/14/17 08:49 Dose: 2 puff Dextrose/Water (Dextrose 50% (Syg)) 25 ml IVP AD PRN PRN Reason: Hypoglycemia Stop: 08/15/17 14:52 Diltiazem HCl (Cardizem) 60 mg PO Q6HR [facility] Stop: 08/16/17 12:01 Furosemide (Lasix) 60 mg IVP BIDDIURETIC [facility] Stop: 08/15/17 17:01 Last Admin: 02/14/17 07:56 Dose: 60 mg Gabapentin (Neurontin) 400 mg PO TID [facility] Stop: 08/15/17 15:01 Last Admin: 02/14/17 07:52 Dose: 400 mg Glucagon (Glucagen) 1 mg IM ONCE PRN PRN Reason: Hypoglycemia Stop: 08/15/17 14:52 Glucose (Gluctose) 15 gm PO ONCE PRN PRN Reason: Hypoglycemia Stop: 08/15/17 14:52 Glucose (Gluctose) 30 gm PO ONCE PRN PRN Reason: Hypoglycemia Stop: 08/15/17 14:52 Guaifenesin (Mucinex) 600 mg PO BID [facility] Stop: 08/15/17 21:01 Last Admin: 02/14/17 07:56 Dose: 600 mg Nitroglycerin (Nitroglycerin) 25 mg in 250 mls @ 12 mls/hr IVC .[id number] VIC PRN Reason: 20 MCG/MIN Stop: 08/15/17 11:46 Last Infusion: 02/13/17 23:30 Dose: 15 mcg/min, 9 mls/hr Dextrose (Dextrose 5%) 1,000 mls @ 100 mls/hr IVC .Q10H PRN PRN Reason: HYPOGLYCEMIA Stop: 08/15/17 14:52 Insulin Detemir (Levemir) 10 unit SQ HS [facility] Stop: 08/15/17 21:01 Last Admin: 02/13/17 21:45 Dose: 10 unit Insulin Human Lispro (Humalog) 0 units SQ HS [facility] PRN Reason: Protocol Stop: 08/15/17 21:01 Last Admin: 02/13/17 21:45 Dose: Not Given Insulin Human Lispro (Humalog) 0 units SQ TIDAC [facility] PRN Reason: Protocol Stop: 08/15/17 16:31 Last Admin: 02/13/17 17:12 Dose: Not Given Labetalol HCl (Trandate) 600 mg PO BID [facility] Stop: 08/15/17 21:01 Last Admin: 02/14/17 07:52 Dose: 600 mg Levothyroxine Sodium (Synthroid) 200 mcg PO 0630 [facility] Stop: 08/16/17 06:31 Last Admin: 02/14/17 06:36 Dose: 200 mcg Lorazepam (Ativan) 0.5 mg PO Q6H PRN PRN Reason: Anxiety Stop: 08/15/17 14:47 Naloxone HCl (Narcan) 0.4 mg IVP Q2MIN PRN PRN Reason: Opioid Reversal Stop: 08/15/17 14:31 Omeprazole (Prilosec) 40 mg PO 0630 [facility] Stop: 08/16/17 06:31 Last Admin: 02/14/17 06:36 Dose: 40 mg Ondansetron HCl (Zofran) 4 mg IVP Q6HR PRN; Protocol PRN Reason: nausea Stop: 08/15/17 17:35 Last Admin: 02/14/17 09:06 Dose: 4 mg Ondansetron HCl (Zofran Odt) 4 mg PO Q6H PRN PRN Reason: Vomiting Oxycodone/Acetaminophen (Percocet 5/325) 1 each PO Q12H PRN PRN Reason: Mild Pain Stop: 08/15/17 14:47 Senna/Docusate Sodium (Senna Plus) 1 each PO DAILY PRN; Protocol PRN Reason: Constipation Stop: 08/15/17 14:47 Sertraline HCl (Zoloft) 50 mg PO DAILY [facility] Stop: 08/16/17 09:01 Last Admin: 02/14/17 07:52 Dose: 50 mg Simvastatin (Zocor) 20 mg PO HS [facility] PRN Reason: Protocol Stop: 08/15/17 21:01 Last Admin: 02/13/17 21:45 Dose: 20 mg Laboratory Tests 02/13/17 02/13/17 02/13/17 10:56 10:56 10:56 Hgb 9.6 L INR Potassium Creatinine 1.28 H Magnesium 1.8 Troponin I 0.01 B-Natriuretic Peptide Enterobacteriac sp PCR E. coli (PCR) 02/13/17 02/13/17 02/13/17 10:56 10:56 10:56 Hgb INR 4.6 H* Potassium Creatinine Magnesium Troponin I B-Natriuretic Peptide 1219 H Enterobacteriac sp PCR DETECTED A E. coli (PCR) DETECTED A 02/14/17 02/14/17 02/14/17 04:59 04:59 04:59 Hgb 8.7 L INR 6.5 H* Potassium 4.3 Creatinine 1.30 H Magnesium Troponin I B-Natriuretic Peptide Enterobacteriac sp PCR E. coli (PCR) - Imaging and Cardiology Chest Xray: report reviewed Echo: pending - EKG Interpretation EKG results cardiology: other (Telemetry reviewed with average HR 93 atrial fibrillation, previous 12 hours. PVCs and couplet PVCs noted. Longest pause 1.6 seconds.) Consult Discharge Plan - Plan Referrals: NO,PCP [Primary Care Provider] -
[2017-02-14] MEDS: Nitroglycerin 25 MG/250 ML INFUS..BTL IVC SCH (09:49)
[2017-02-14] MEDS: *HR* OxyCODONE/APAP 5/325 TABLET PO PRN (09:52)
[2017-02-14] MEDS: Insulin LISPRO 300 UNITS/3 ML VIAL SQ SCH ×4 (10:59→20:45)
--- NOTE | 2017-02-14 11:25 | ECHO - Doppler Report ---
Echo with Imaging Enhancement Agent Name: Leann Renee Date of Study: 02/13/2017 Date: 1935 Ht: 60.0 in Medical Record#: [id number] Age: 81 Wt: 304.0 lb Gender: Female BSA: 2.23 Order #: [id number] Location: [facility] Room #: 2N3 Reading Physician: Malina Zambrano DO Rounder And Backer: Junie Moran Ordering Physician: Naida Smith CNP Primary Physician: None Indications: Afib, Congestive heart failure exacerbation Impressions: Technically challenging study with suboptimal windows. LV systolic function difficult to estimate even with use of Definity. Function visually appears mildly reduced with mild to moderate LV dilation depending on view imaged. Possibly hypokinesis of the inferolateral wall. RV size is mildly dilated. Function is not well evaluated. Aortic sclerosis. Mild mitral regurgitation. Mild-moderate tricuspid regurgitation. Mild pulmonic regurgitation. Moderate pulmonary hypertension. No prior study for comparison. Left Ventricular Wall Motion: Rest Echo Findings The mid inferior, basal inferior and basal inferior lateral anand were hypokinetic. The mid anterior, basal anterior and mid inferior lateral anand were not visualized. All other wall segments showed normal motion. Findings: Study Quality * Technically sub-optimal due to body habitus. ECG Findings * Atrial fibrillation. Left Ventricle * Indeterminate diastolic function. * LVEF appears mildly reduced. * Mild to moderately dilated dilated left ventricle. Aorta * Normally sized aortic root. Mitral Valve * Normal mitral valve structure. * Mild mitral annular calcification * Mild mitral regurgitation. * MG 4 mmHg at 102 bpm. P1/2t 88 ms, normal calculated MVA. Aortic Valve * Trileaflet aortic valve. * Mildly calcified aortic valve leaflets. * Trace aortic regurgitation. * No aortic stenosis. * Aortic sclerosis. Tricuspid Valve * Tricuspid valve not well visualized. * Mild-moderate tricuspid regurgitation. * Estimated RA pressure is 8 mmHg. * Estimated RVSP is 53 mmHg. * Moderate pulmonary hypertension. Pulmonic Valve * Pulmonic valve is not well visualized. * No pulmonic stenosis. * Mild pulmonic regurgitation. Pulmonary Artery * Pulmonary artery not well visualized. Left Atrium * Severely dilated left atrium. Right Atrium * Moderately dilated right atrium. Interatrial Septum * Interatrial septum not well evaluated. IVC * The IVC is dilated. * > 50% respiratory change Right Ventricle * RV is mildly dilated. Function is not well evaluated. History Hypertension Diabetes Hypercholesteremia Years 51 Packs 2 Family History of CAD History of CAD/PTCA Congestive Heart Failure Contrast: Definity 1.3 ml in 8.7 ml of saline 2 ml. Measurements: BP: 147/ 93 2D Normal Values RVIDd: 3.50 cm <2.7 cm IVSd: 1.50 cm 0.6 - 1.0 cm LVIDd: 5.10 cm 3.7 - 5.6 cm LVPWd: 1.50 cm 0.6 - 1.1 cm LVIDs: 3.30 cm 1.5 - 3.6 cm AO: 3.30 cm < 4.0 cm LA: 5.20 cm 2.0 - 4.0cm %FS: 35.30 cm >25 % LA volume: 156 Mitral Valve Peak Velocity 2.08 m/sec Mean Velocity:1.05 m/sec Peak Grad:17.00 mmHg Mean Grad:5.50 mmHg Pressure Time:88.00 msec Valve Area:2.50 cm2 Peak E:1.72 m/sec LVOT Peak Apolinar:1.43 m/sec Mean Apolinar:.95 m/sec Peak Grad:8.00 mmHg Mean Grad:4.00 mmHg Aortic Valve Peak Apolinar:2.43 m/sec Mean Apolinar:1.66 m/sec Peak Grad:24.00 mmHg Mean Grad:13.00 mmHg Tricuspid Valve TV Regurg Peak Grad: 45.00mmHg TV Regurg Peak Apolinar: 3.35m/sec Updated by Malina Zambrano on 02/14/2017 11:19:22 AM electronically signed on 02/14/2017 11:21:11 AM with status of Final Wall Motion Gonzalez: 1=Normal, 2=Hypokinesis, 3=Akinesis, 4=Dyskinesis, 5=Aneurysmal, 6=Hyperkinetic, X=Not Visualized (Blank)=Missing
--- NOTE | 2017-02-14 17:15 | Electrocardiograph Report ---
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
[2017-02-14] MEDS ORDERED: Warfarin perPT PO PRN (18:00)
--- NOTE | 2017-02-14 18:29 | Internal Med Progress Note ---
Date of Encounter: 02/14/17 Time of Encounter: 08:45 - Assessment and plan (1) Acute and chronic respiratory failure Current Visit: Yes Status: Acute Assessment and plan: Secondary to acute heart failure exacerbation and atrial fibrillation with RVR. Patient uses BiPAP at all times. X-ray showed pulmonary vascular congestion. BNP 1200. Echocardiogram ordered. Appreciate cardiology input. Patient required Cardizem and nitroglycerin drip on admission. Blood pressure and heart rate well-controlled. Stopping Cardizem and nitro drip. Started on Cardizem. Hydralazine when necessary. Qualifiers: Respiratory failure complication: hypoxia and hypercapnia Qualified Code(s) : J96.21 - Acute and chronic respiratory failure with hypoxia; J96.22 - Acute and chronic respiratory failure with hypercapnia (2) Acute on chronic congestive heart failure Current Visit: Yes Status: Acute Assessment and plan: Acute systolic heart failure. As above. Qualifiers: Congestive heart failure type: unspecified congestive heart failure type Qualified Code(s): I50.9 - Heart failure, unspecified (3) Atrial fibrillation with RVR Current Visit: Yes Status: Acute Assessment and plan: Patient with history of of atrial fibrillation on Coumadin. INR at 4.6 on admission. Heart rate in the 140s on admission. Received IV Cardizem drip. Will stop Cardizem drip and start oral Cardizem. Appreciate cardiology input. (4) Bacteremia Current Visit: Yes Status: Acute Assessment and plan: GNR bacteremia. Source is GNR UTI. Urine and Blood cultures growing gram-negative rods. Continue IV ceftriaxone. Follow-up cultures results. Repeat blood culture in the morning. (5) UTI (urinary tract infection) Current Visit: Yes Status: Acute Assessment and plan: Plan as above. Qualifiers: Urinary tract infection type: acute cystitis Hematuria presence: without hematuria Qualified Code(s): N30.00 - Acute cystitis without hematuria (6) Type 2 diabetes mellitus Current Visit: Yes Status: Acute Assessment and plan: insulin sliding scale. Diabetic diet. Qualifiers: Diabetes mellitus complication status: without complication Diabetes mellitus fdc insulin use: with fdc use Qualified Code(s): E11.9 - Type 2 diabetes mellitus without complications; Z79.4 - loan consultant (current) use of insulin (7) COPD (chronic obstructive pulmonary disease) Current Visit: Yes Status: Acute Assessment and plan: Continue home meds. Qualifiers: COPD type: emphysema Emphysema type: unspecified Qualified Code(s): J43.9 - Emphysema, unspecified - Subjective Interval history: Patient reports slow improvement of her breathing. She still feels short of breath on minimal exertion - Constitutional Vitals: Temp Pulse Resp BP Pulse Ox 98.2 F 76 18 113/50 100 02/14/17 16:14 02/14/17 16:14 02/14/17 16:14 02/14/17 16:14 02/14/17 16:14 General appearance: Present: cooperative, morbidly obese, pleasant, no acute distress, answers questions appropriately Exam: BiPAP mask. - Neck Neck exam general surgery: Present: supple, trachea midline. Absent: lymphadenopathy - Respiratory Respiratory exam: Present: CTAB - Cardiovascular Cardiovascular exam: Present: RRR - GI/Abdominal GI/Abdominal exam: Present: normal bowel sounds, soft. Absent: distended, tenderness - Extremities Exam Extremities exam: Present: pedal edema - Neurological Exam Neurological exam: Present: alert, oriented X3. Absent: facial droop, speech deficit Internal Medicine: Result - Labs CBC & Chem 7: 02/14/17 04:59 02/14/17 04:59 Labs: Short CBC 02/14/17 Range/Units 04:59 WBC 10.9 (4.3-11.1) K/mcL Hgb 8.7 L (11.5-15.4) g/dL Hct 29.1 L (35.3-44.9) % Plt Count 171 (140-400) K/mcL Neutrophils # 9.8 H (1.6-8.9) K/mcL BMP 02/14/17 04:59 Sodium 141 Potassium 4.3 Chloride 101 Carbon Dioxide 29 BUN 26 H Creatinine 1.30 H Glucose 146 H Calcium 8.9 - ABG Interpretation ABG results: ABG ABG pH 7.33 pH Units (7.32-7.45) 02/13/17 11:23 ABG pCO2 59 mmHg (35-45) H 02/13/17 11:23 ABG pO2 93 mmHg (85-104) 02/13/17 11:23 ABG O2 Saturation 97 % (95-98) 02/13/17 11:23 PT/INR, D-dimer PT 74.0 Seconds (9.4-12.1) H* 02/14/17 04:59 Consult Discharge Plan - Plan Referrals: NO,PCP [Primary Care Provider] -
[2017-02-15] MEDS: *HR* OxyCODONE/APAP 5/325 TABLET PO PRN (03:52)
[2017-02-15 05:09] LABS: Basophils % 0.3 %; Eosinophils # 0.1 K/mcL (0.0-0.6); Eosinophils % 0.8 %; Hematocrit 29.4 % (35.3-44.9); Hemoglobin 8.8 g/dL (11.5-15.4); Immature Granulocytes % 0.5 % (0-4); Lymphocytes # 1.1 K/mcL (0.6-4.6); Lymphocytes % 9.2 %; Mean Corpuscular HGB Conc 29.9 g/dL (31.6-35.5); Mean Corpuscular Hemoglobin 28.1 pg (28.0-33.3); Mean Corpuscular Volume 93.9 fL (83.0-100.0); Mean Platelet Volume 9.5 fL (9.4-12.4); Monocytes # 0.6 K/mcL (0.0-1.3); Monocytes % 4.7 %; Neutrophils # 10.1 K/mcL (1.6-8.9); Platelet Count 179 K/mcL (140-400); Red Blood Count 3.13 M/mcL (3.82-4.97); Red Cell Distribution Width 18.4 % (11.5-14.5); Segmented Neutrophils % 84.5 %
[2017-02-15 05:27] LABS: Calcium 8.7 mg/dL (8.6-10.8); Magnesium 1.6 mg/dL (1.6-2.6); Phosphorous 3.1 mg/dL (2.3-4.7); Potassium 3.4 mEq/L (3.5-4.5)
[2017-02-15] MEDS: Budesonide/Formoterol 160/4.5 MDI IH SCH ×2 (07:58→20:30)
[2017-02-15] MEDS: Ipratropium/Albuterol Neb 3 ML IH SCH ×4 (07:58→20:29)
[2017-02-15] MEDS: Insulin LISPRO 300 UNITS/3 ML VIAL SQ SCH ×4 (07:59→20:40)
[2017-02-15] MEDS: Furosemide 40 MG/4 ML VIAL IVP SCH (08:08)
[2017-02-15] MEDS: Gabapentin 400 MG CAPSULE PO SCH ×2 (08:08→20:42)
[2017-02-15 09:54] LABS: Prothrombin Time 78.6 Seconds (9.4-12.1)
[2017-02-15 09:55] LABS: INR 6.9
[2017-02-15] MEDS ORDERED: *HR* Phytonadione 5 MG TABLET PO ONE (09:55)
--- NOTE | 2017-02-15 10:17 | Internal Med Progress Note ---
Date of Encounter: 02/15/17 Time of Encounter: 08:30 - Assessment and plan (1) Acute and chronic respiratory failure Current Visit: Yes Status: Acute Assessment and plan: Secondary to acute systolic heart failure exacerbation and atrial fibrillation with RVR. Patient has COPD and uses BiPAP at home. Patient required Cardizem and nitroglycerin drip for a short course on admission. X-ray showed pulmonary vascular congestion. BNP 1200. Echocardiogram shows mildly reduced LVEF, moderate pulmonary hypertension. Appreciate cardiology input. slowly improving, now she is tolerating 4 L high flow nasal cannula well. switch to regular nasal cannula. continue BIPAP at bedtime, Cardizem, nebulizations, lasix, fluid restriction, mucinex, symbicort. Qualifiers: Respiratory failure complication: hypoxia and hypercapnia Qualified Code(s) : J96.21 - Acute and chronic respiratory failure with hypoxia; J96.22 - Acute and chronic respiratory failure with hypercapnia (2) Acute on chronic congestive heart failure Current Visit: Yes Status: Acute Assessment and plan: Acute systolic heart failure. As above. Qualifiers: Congestive heart failure type: unspecified congestive heart failure type Qualified Code(s): I50.9 - Heart failure, unspecified (3) Bacteremia Current Visit: Yes Status: Acute Assessment and plan: GNR bacteremia. Source is GNR UTI. Urine and Blood cultures growing gram-negative rods. Continue IV ceftriaxone. Follow-up cultures results. Repeat blood culture in the morning. (4) Atrial fibrillation with RVR Current Visit: Yes Status: Acute Assessment and plan: Patient with history of of atrial fibrillation on Coumadin. INR at 4.6 on admission. Heart rate in the 140s on admission. Received IV Cardizem drip. 02/15: heart rate is adequate on oral Cardizem. Appreciate cardiology input. (5) UTI (urinary tract infection) Current Visit: Yes Status: Acute Assessment and plan: Plan as above. Qualifiers: Urinary tract infection type: acute cystitis Hematuria presence: without hematuria Qualified Code(s): N30.00 - Acute cystitis without hematuria (6) Type 2 diabetes mellitus Current Visit: Yes Status: Acute Assessment and plan: accuchecks are adequate. insulin sliding scale. Diabetic diet. 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 Qualifiers: COPD type: emphysema Emphysema type: unspecified Qualified Code(s): J43.9 - Emphysema, unspecified - Subjective Interval history: Patient reports her shortness of breath has improved mildly compared to admission. - Constitutional Vitals: Temp Pulse Resp BP Pulse Ox 97.7 F 82 18 128/88 92 02/15/17 07:16 02/15/17 07:53 02/15/17 07:58 02/15/17 07:16 02/15/17 07:58 General appearance: Present: cooperative, morbidly obese, pleasant, no acute distress, answers questions appropriately Exam: high flow nasal cannula - Neck Neck exam general surgery: Present: supple, trachea midline. Absent: lymphadenopathy - Respiratory Respiratory exam: Present: CTAB - Cardiovascular Cardiovascular exam: Present: RRR - GI/Abdominal GI/Abdominal exam: Present: normal bowel sounds, soft. Absent: distended, tenderness - Extremities Exam Extremities exam: Absent: pedal edema - Back Exam Back exam: Absent: CVA tenderness (L), CVA tenderness (R) - Neurological Exam Neurological exam: Present: alert, oriented X3, no focal deficits, strengths equal and symetr throughout. Absent: facial droop, speech deficit - Skin Skin exam: Absent: rash Internal Medicine: Result - Labs CBC & Chem 7: 02/15/17 04:54 02/15/17 04:54 Labs: Short CBC 02/15/17 Range/Units 04:54 WBC 11.9 H (4.3-11.1) K/mcL Hgb 8.8 L (11.5-15.4) g/dL Hct 29.4 L (35.3-44.9) % Plt Count 179 (140-400) K/mcL Neutrophils # 10.1 H (1.6-8.9) K/mcL BMP 02/15/17 04:54 Sodium 143 Potassium 3.4 L Chloride 101 Carbon Dioxide 32 H BUN 30 H Creatinine 1.31 H Glucose 111 H Calcium 8.7 - ABG Interpretation ABG results: ABG ABG pH 7.33 pH Units (7.32-7.45) 02/13/17 11:23 ABG pCO2 59 mmHg (35-45) H 02/13/17 11:23 ABG pO2 93 mmHg (85-104) 02/13/17 11:23 ABG O2 Saturation 97 % (95-98) 02/13/17 11:23 PT/INR, D-dimer PT 78.6 Seconds (9.4-12.1) H* 02/15/17 09:17 - VTE Documentation of Mechanical Device: Graduated compression elastic hosiery Consult Discharge Plan - Plan Referrals: NO,PCP [Primary Care Provider] -
--- NOTE | 2017-02-15 10:55 | Cardiology Progress Note ---
Date of Encounter: 02/15/17 Time of Encounter: 08:00 Assessment and Plan (1) Acute on chronic congestive heart failure Current Visit: Yes Status: Acute Per cardiology: -Apparent CHF exacerbation. No previous records for review, pateint states no echo for "several years." -IV lasix ordered BID by primary service. SLight pedal edema noted. Patient states this is at baseline for her. -Net negative 3840ml this admission. -On nasal cannula at 4LPM. No conversational dyspnea noted. -CHest x-ray with cardiomegaly and pulmonary edema. -Echo technically challenging, LV function appears mildly reduced with mild to moderate LV dilation, possibly hypokinesis of inferolateral wall, RV mildly dialted, aortic sclerosis, mild mitral regurgitation, mild-moderate tricuspid regurgitation, mild pulmonic regurgitation, moderate pulmonary hypertension, mid inferior, basal inferior, and basal lateral anand hypokinetic. -Agree with strict i/os, daily weights, and fluid restrictions. -BNP on admission 1200s. -K today 3.4. -Will convert lasix to PO. -Will start K 10mEq daily. Will re-check BMP tomorrow. -Will continue to monitor. Qualifiers: Congestive heart failure type: unspecified congestive heart failure type Qualified Code(s): I50.9 - Heart failure, unspecified (2) Acute and chronic respiratory failure Current Visit: Yes Status: Acute Per cardiology: -KNown respiratiory failure. -Per patient and family requires BIpap at all time. -On nasal cannula at 4lpm -On nebs. -Per patient's bedside nurse, tolerated being off Bipap for a short time. -Of note, patient's blood cultures positive for gram negative antonio. -Management per primary service. -Can consider pulmonary consult. Qualifiers: Respiratory failure complication: hypoxia and hypercapnia Qualified Code(s) : J96.21 - Acute and chronic respiratory failure with hypoxia; J96.22 - Acute and chronic respiratory failure with hypercapnia (3) Atrial fibrillation with RVR Current Visit: Yes Status: Acute Per cardiology: -KNown atrial fibrillation. -Currently atrial fibrillation with average HR 93. -On cardizem 60mg [id number]. -[id number] score 6 (age, gender, HTN, vascular history). On coumadin. -ON coumadin, INR supratherapeutic. INR higher today. Coumadin being managed by pharmacy while inpatient. No active signs of bleeding noted. OF note, hemoglobin with worsening anemia today. -Will start cardizem CD 240mg po daily. -Will continue to monitor. (4) Anemia Current Visit: Yes Status: Acute Per cardiology: -Unknown history of anemia. -Hemoglobin now 8.8. -On coumadin, however INR supratherapeutic. Being managed by pharmacy while inpatient. -No asa at this time due to anemia and supratherapeutic INR. -Management per primary service. Of note vitamin K being given today by primary team for INR 6.9. -Recommend close observation with high INR. Qualifiers: Anemia type: unspecified type Qualified Code(s): D64.9 - Anemia, unspecified (5) Non-sustained ventricular tachycardia Current Visit: Yes Status: Acute Per cardiology: -Per telemetry review, 3 short runs of non-sustained ventricular tachycardia noted. Longest 7 beats. -Per review of records, patient's home beta gi was stopped per primary service. -Will resume home beta gi. -Recommend close monitoring of telemetry and BP. (6) CAD (coronary artery disease) Current Visit: Yes Status: Chronic Per cardiology: -Remote history of coronary stenting in 2001 per pateint. -Denies chest pain. -Echo as above, unknown previous echo -Troponin negative. -ECG with no ischemic changes. -Can consider further ischemic work up as outpatient. Unable to perform work up as inpatient due to bacteremia, respiratory status, and INR of 6.9. -Will continue to monitor. Qualifiers: Coronary Disease-Associated Artery/Lesion type: [place] artery [place] vs. transplanted heart: [place] heart Associated angina: without angina Qualified Code(s): I25.10 - Atherosclerotic heart disease of [place] coronary artery without angina pectoris (7) Bacteremia Current Visit: Yes Status: Acute Per cardiology: -Gram negative antonio noted by blood culture and urine culture. -ON ATB. -Management per primary service. Discussion w patient/family: The assessment and plan as outlined above was discussed with the patient who expressed understanding and agreement. All questions were answered. Thank you for involving us in the care of your patient. Please call with any questions. Discusssed and reviewed with . Subjective Principal diagnosis: shortness of breath Interval history: Patient was recently discharged from outside facility and was to return to [facility] with Bipap 22/04. Patient arrived at [facility] with EMS and refused to wear Bipap. Patient's SpO2 70% at [facility]. EMS loaded patient back in squad and brought patient to [facility]. Patient has been receiving lasix IV while inpatient. Patient states breathing is much better today. Objective Vital Signs, Last 4 Hours Temp Pulse Resp BP Pulse Ox 02/15/17 07:58 18 92 02/15/17 07:53 82 02/15/17 07:16 97.7 F 82 24 128/88 92 General: Conversant, No Apparent Distress HEENT: Atraumatic, Normocephaly, Mucus Membranes Moist Neck: No JVD, Normal carotid pulses Cardiac: Other (Irregularly, irregular) Lungs: Other (Lungs sounds diminished throughout. On nasal cannula. ) Neuro: Alert and responsive, No focal deficits noted Abdomen: Soft, Non-Tender Skin: No rashes noted on visualized skin Musculoskeletal: No Chest Wall Tenderness Extremities: No Clubbing, No Cyanosis, Other (Mild bilateral lower extremity non -pitting edema. 1+ bilateral pedal pulses. ) Results 02/15/17 04:54 02/15/17 04:54 Lab Results Active Medications Acetaminophen (Tylenol) 650 mg PO Q6HR PRN PRN Reason: Mild Pain (1-3) Stop: 08/15/17 14:31 Albuterol/Ipratropium (Duoneb) 3 ml IH [id number] VIC PRN Reason: Protocol Stop: 08/17/17 08:01 Last Admin: 02/15/17 07:58 Dose: 3 ml Allopurinol (Zyloprim) 100 mg PO DAILY VIC Stop: 08/16/17 09:01 Last Admin: 02/15/17 08:08 Dose: 100 mg Budesonide/Formoterol Fumarate (Symbicort) 2 puff IH BIDR VIC PRN Reason: Protocol Stop: 08/15/17 22:01 Last Admin: 02/15/17 07:58 Dose: 2 puff Dextrose/Water (Dextrose 50% (Syg)) 25 ml IVP AD PRN PRN Reason: Hypoglycemia Stop: 08/15/17 14:52 Diltiazem HCl (Cardizem Cd) 240 mg PO DAILY VIC Stop: 08/17/17 12:01 Furosemide (Lasix) 60 mg IVP BIDDIURETIC VIC Stop: 08/15/17 17:01 Last Admin: 02/15/17 08:08 Dose: 60 mg Gabapentin (Neurontin) 400 mg PO BID VIC Stop: 08/15/17 15:01 Last Admin: 02/15/17 08:08 Dose: 400 mg Glucagon (Glucagen) 1 mg IM ONCE PRN PRN Reason: Hypoglycemia Stop: 08/15/17 14:52 Glucose (Gluctose) 15 gm PO ONCE PRN PRN Reason: Hypoglycemia Stop: 08/15/17 14:52 Glucose (Gluctose) 30 gm PO ONCE PRN PRN Reason: Hypoglycemia Stop: 08/15/17 14:52 Guaifenesin (Mucinex) 600 mg PO BID VIC Stop: 08/15/17 21:01 Last Admin: 02/15/17 08:08 Dose: 600 mg Hydralazine HCl (Hydralazine) 5 mg IVP Q6HR PRN PRN Reason: Hypertension Stop: 08/16/17 18:28 Dextrose (Dextrose 5%) 1,000 mls @ 100 mls/hr IVC .Q10H PRN PRN Reason: HYPOGLYCEMIA Stop: 08/15/17 14:52 Ceftriaxone Sodium 2,000 mg/ (Dextrose) 100 mls @ 200 mls/hr IVPB Q24H VIC Stop: 08/17/17 08:01 Last Admin: 02/15/17 08:09 Dose: 200 mls/hr Insulin Human Lispro (Humalog) 0 units SQ HS VIC PRN Reason: Protocol Stop: 08/15/17 21:01 Last Admin: 02/14/17 20:45 Dose: Not Given Insulin Human Lispro (Humalog) 0 units SQ TIDAC VIC PRN Reason: Protocol Stop: 08/15/17 16:31 Last Admin: 02/15/17 07:59 Dose: Not Given Levothyroxine Sodium (Synthroid) 200 mcg PO 0630 [facility] Stop: 08/16/17 06:31 Last Admin: 02/15/17 06:11 Dose: 200 mcg Lorazepam (Ativan) 0.5 mg PO Q6H PRN PRN Reason: Anxiety Stop: 08/15/17 14:47 Naloxone HCl (Narcan) 0.4 mg IVP Q2MIN PRN PRN Reason: Opioid Reversal Stop: 08/15/17 14:31 Omeprazole (Prilosec) 40 mg PO 0630 VIC Stop: 08/16/17 06:31 Last Admin: 02/15/17 06:11 Dose: 40 mg Ondansetron HCl (Zofran) 4 mg IVP Q6HR PRN; Protocol PRN Reason: nausea Stop: 08/15/17 17:35 Last Admin: 02/14/17 09:06 Dose: 4 mg Ondansetron HCl (Zofran Odt) 4 mg PO Q6H PRN PRN Reason: Vomiting Oxycodone/Acetaminophen (Percocet 5/325) 1 each PO Q12H PRN PRN Reason: moderate to severe pain Stop: 08/15/17 14:47 Last Admin: 02/15/17 03:52 Dose: 1 each Senna/Docusate Sodium (Senna Plus) 1 each PO DAILY PRN; Protocol PRN Reason: Constipation Stop: 08/15/17 14:47 Sertraline HCl (Zoloft) 50 mg PO DAILY VIC Stop: 08/16/17 09:01 Last Admin: 02/15/17 08:08 Dose: 50 mg Simvastatin (Zocor) 20 mg PO HS VIC PRN Reason: Protocol Stop: 08/15/17 21:01 Last Admin: 02/14/17 20:44 Dose: 20 mg Laboratory Tests 02/13/17 02/15/17 02/15/17 10:56 04:54 04:54 WBC 11.9 H Hgb 8.8 L INR Potassium 3.4 L Creatinine 1.31 H B-Natriuretic Peptide 1219 H 02/15/17 09:17 WBC Hgb INR 6.9 H* Potassium Creatinine B-Natriuretic Peptide - Imaging and Cardiology Chest Xray: report reviewed Echo: report reviewed - EKG Interpretation EKG results cardiology: other (Telemetry reviewed with tamie HR 80, atrial fibrillation. Longest pause 1.8 seconds. PVCs, couplets and 3 runs of ventricular tachycardia noted. Longest run of ventricular tachycardia noted to be 7 beats.) - VTE Documentation of Mechanical Device: Graduated compression elastic hosiery Consult Discharge Plan - Plan Referrals: NO,PCP [Primary Care Provider] -
[2017-02-15] MEDS: Diltiazem CD (24hr) 240 MG CAPSULE PO SCH (12:30)
[2017-02-16] MEDS: Ipratropium/Albuterol Neb 3 ML IH SCH ×6 (00:48→21:44)
[2017-02-16 04:17] LABS: Basophils % 0.2 %; Eosinophils # 0.2 K/mcL (0.0-0.6); Eosinophils % 2.1 %; Hemoglobin 9.2 g/dL (11.5-15.4); Immature Granulocytes % 0.4 % (0-4); Lymphocytes # 0.9 K/mcL (0.6-4.6); Mean Corpuscular HGB Conc 29.7 g/dL (31.6-35.5); Mean Corpuscular Hemoglobin 27.7 pg (28.0-33.3); Mean Corpuscular Volume 93.4 fL (83.0-100.0); Mean Platelet Volume 9.2 fL (9.4-12.4); Monocytes # 0.6 K/mcL (0.0-1.3); Monocytes % 5.8 %; Neutrophils # 8.6 K/mcL (1.6-8.9); Platelet Count 178 K/mcL (140-400); Red Blood Count 3.32 M/mcL (3.82-4.97); Segmented Neutrophils % 82.5 %
[2017-02-16 04:31] LABS: Calcium 8.8 mg/dL (8.6-10.8); Magnesium 1.6 mg/dL (1.6-2.6); Potassium 2.9 mEq/L (3.5-4.5)
[2017-02-16 04:46] LABS: INR 2.1; Prothrombin Time 23.4 Seconds (9.4-12.1)
[2017-02-16] MEDS: *HR* OxyCODONE/APAP 5/325 TABLET PO PRN ×2 (06:00→21:27)
[2017-02-16] MEDS ORDERED: Potassium Chloride 20 MEQ, Lidocaine 1% 2 ML in D5% in Water 250 ML IVPB ONE (07:47)
[2017-02-16] MEDS: Insulin LISPRO 300 UNITS/3 ML VIAL SQ SCH ×4 (07:56→21:24)
[2017-02-16] MEDS: Diltiazem CD (24hr) 240 MG CAPSULE PO SCH (08:02)
[2017-02-16] MEDS: Gabapentin 400 MG CAPSULE PO SCH ×2 (08:02→21:23)
[2017-02-16] MEDS: Magnesium Oxide 400 MG TABLET PO SCH (08:02)
[2017-02-16] MEDS: Budesonide/Formoterol 160/4.5 MDI IH SCH ×2 (11:05→21:45)
--- NOTE | 2017-02-16 11:05 | Internal Med Progress Note ---
Date of Encounter: 02/16/17 Time of Encounter: 08:45 - Assessment and plan (1) Acute and chronic respiratory failure Current Visit: Yes Status: Acute Assessment and plan: Secondary to acute systolic heart failure exacerbation and atrial fibrillation with RVR. Patient has COPD and uses BiPAP at home. Patient required Cardizem and nitroglycerin drip for a short course on admission. X-ray showed pulmonary vascular congestion. BNP 1200. Echocardiogram shows mildly reduced LVEF, moderate pulmonary hypertension. Appreciate cardiology input. slowly improving, now she is tolerating 4 L nasal cannula well. Continue BIPAP at bedtime, Cardizem, nebulizations, lasix, fluid restriction, mucinex, symbicort. Qualifiers: Respiratory failure complication: hypoxia and hypercapnia Qualified Code(s) : J96.21 - Acute and chronic respiratory failure with hypoxia; J96.22 - Acute and chronic respiratory failure with hypercapnia (2) Acute on chronic congestive heart failure Current Visit: Yes Status: Acute Assessment and plan: Acute systolic heart failure. As above. Qualifiers: Congestive heart failure type: unspecified congestive heart failure type Qualified Code(s): I50.9 - Heart failure, unspecified (3) Bacteremia Current Visit: Yes Status: Acute Assessment and plan: ESBL E coli bacteremia on 02/13. Source is ESBL E coli UTI. repeat blood cultures negative so far 02/15 Urine and Blood cultures grew ESBL E coli. stop IV ceftriaxone. start IV ertapenem. Repeat blood culture in the morning. (4) Non-sustained ventricular tachycardia Current Visit: Yes Status: Acute Assessment and plan: 02/15: patient had 3 episodes of NSVT (7 beats) continue home med labetalol. (5) Atrial fibrillation with RVR Current Visit: Yes Status: Acute Assessment and plan: Patient with history of of atrial fibrillation on Coumadin. INR at 4.6 on admission. Heart rate in the 140s on admission. Received IV Cardizem drip. heart rate is adequate on oral Cardizem. Appreciate cardiology input. (6) UTI (urinary tract infection) Current Visit: Yes Status: Acute Assessment and plan: ESBL E coli UTI. Plan as above. Qualifiers: Urinary tract infection type: acute cystitis Hematuria presence: without hematuria Qualified Code(s): N30.00 - Acute cystitis without hematuria (7) Type 2 diabetes mellitus Current Visit: Yes Status: Acute Assessment and plan: accuchecks are adequate. insulin sliding scale. Diabetic diet. 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 Qualifiers: COPD type: emphysema Emphysema type: unspecified Qualified Code(s): J43.9 - Emphysema, unspecified - Subjective Interval history: Patient reports her breathing is better compared to admission, has only trouble breathing at exertion. - Constitutional Vitals: Temp Pulse Resp BP Pulse Ox 97.8 F 77 18 155/65 96 02/16/17 07:48 02/16/17 08:00 02/16/17 07:48 02/16/17 07:48 02/16/17 07:48 General appearance: Present: cooperative, A&O X 3, morbidly obese, pleasant, no acute distress, answers questions appropriately - Neck Neck exam general surgery: Present: supple, trachea midline. Absent: lymphadenopathy - Respiratory Respiratory exam: Present: CTAB - Cardiovascular Cardiovascular exam: Present: RRR - GI/Abdominal GI/Abdominal exam: Present: normal bowel sounds, soft. Absent: distended, tenderness - Extremities Exam Extremities exam: Present: pedal edema (1+ le edema) - Neurological Exam Neurological exam: Present: alert, oriented X3, no focal deficits, strengths equal and symetr throughout. Absent: facial droop, speech deficit Internal Medicine: Result - Labs CBC & Chem 7: 02/16/17 03:53 02/16/17 03:53 Labs: Short CBC 02/16/17 Range/Units 03:53 WBC 10.4 (4.3-11.1) K/mcL Hgb 9.2 L (11.5-15.4) g/dL Hct 31.0 L (35.3-44.9) % Plt Count 178 (140-400) K/mcL Neutrophils # 8.6 (1.6-8.9) K/mcL BMP 02/16/17 03:53 Sodium 144 Potassium 2.9 L Chloride 99 Carbon Dioxide 36 H BUN 25 H Creatinine 1.13 H Glucose 125 H Calcium 8.8 - ABG Interpretation ABG results: ABG ABG pH 7.33 pH Units (7.32-7.45) 02/13/17 11:23 ABG pCO2 59 mmHg (35-45) H 02/13/17 11:23 ABG pO2 93 mmHg (85-104) 02/13/17 11:23 ABG O2 Saturation 97 % (95-98) 02/13/17 11:23 PT/INR, D-dimer PT 23.4 Seconds (9.4-12.1) H D 02/16/17 03:53 - VTE Documentation of Mechanical Device: Graduated compression elastic hosiery Consult Discharge Plan - Plan Referrals: NO,PCP [Primary Care Provider] -
--- NOTE | 2017-02-16 11:36 | Cardiology Progress Note ---
Date of Encounter: 02/16/17 Time of Encounter: 11:32 Assessment and Plan (1) Acute on chronic congestive heart failure Current Visit: Yes Status: Acute Per cardiology: Acute on chronc CHF exacerbation. No previous records for review, pateint states no echo for "several years." On oral Lasix. -1977 mL over 24 hours. Continues to have orthopnea. Lasix change from IV to oral yesterday due to increasing creatinine. Creatinine improved today. Potassium only 2.9. Continue potassium replacement. Re-check CXR and BNP. BNP on admission 1200s. Echo technically challenging, LV function appears mildly reduced with mild to moderate LV dilation, possibly hypokinesis of inferolateral wall, RV mildly dialted, aortic sclerosis, mild mitral regurgitation, mild-moderate tricuspid regurgitation, mild pulmonic regurgitation, moderate pulmonary hypertension, mid inferior, basal inferior, and basal lateral anand hypokinetic. Agree with strict i/os, daily weights, and fluid restrictions. Qualifiers: Congestive heart failure type: unspecified congestive heart failure type Qualified Code(s): I50.9 - Heart failure, unspecified (2) Atrial fibrillation with RVR Current Visit: Yes Status: Acute Per cardiology: -KNown atrial fibrillation. -Currently atrial fibrillation with average HR 86. -On cardizem CD 240 mg daily. -[id number] score 6 (age, gender, HTN, vascular history). On coumadin. -ON coumadin, INR 2.2. Coumadin being managed by pharmacy while inpatient. No active signs of bleeding noted. Hgb stable today. -Will continue to monitor. (3) Supratherapeutic INR Current Visit: Yes Status: Acute INR improved. Coumadin dosing per pharmacy. (4) Non-sustained ventricular tachycardia Current Visit: Yes Status: Acute Per cardiology: Telemetry review shows intermittent small runs of NSVT up to 4 beats long. Increase beta gi as tolerated. Replace potassium. (5) CAD (coronary artery disease) Current Visit: Yes Status: Chronic Per cardiology: -Remote history of coronary stenting in 2001 per pateint. -Denies chest pain. -Echo as above, unknown previous echo -Troponin negative. -ECG with no ischemic changes. -Can consider further ischemic work up as outpatient. Unable to perform work up as inpatient due to bacteremia, respiratory status, anemia. -Will continue to monitor. Qualifiers: Coronary Disease-Associated Artery/Lesion type: [place] artery [place] vs. transplanted heart: [place] heart Associated angina: without angina Qualified Code(s): I25.10 - Atherosclerotic heart disease of [place] coronary artery without angina pectoris Discussion w patient/family: The assessment and plan as outlined above was discussed with the patient and/or family members who expressed understanding and agreement. All questions were answered. Thank you for involving us in the care of your patient. Please call with any questions. Subjective Principal diagnosis: shortness of breath Interval history: No new complaints. Continues to have orthopnea. Objective Vital Signs, Last 4 Hours Temp Pulse Resp BP Pulse Ox 02/16/17 11:24 97.6 F 75 18 112/65 95 02/16/17 11:05 18 95 02/16/17 08:00 77 02/16/17 07:48 97.8 F 90 18 155/65 96 General: Conversant, No Apparent Distress HEENT: Atraumatic, Normocephaly, Mucus Membranes Moist Neck: No JVD, Normal carotid pulses Cardiac: Reg Rate and Rhythm (Apical irregular) Lungs: Other (Diminished throughout) Neuro: Alert and responsive, No focal deficits noted Abdomen: Soft, Non-Tender Skin: No rashes noted on visualized skin Musculoskeletal: No Chest Wall Tenderness Extremities: No Clubbing, No Cyanosis, Normal Pulses, Other (Wrinkling of the skin from decreasing edema. 1+ edema up to mid yoo.) Results 02/16/17 03:53 02/16/17 03:53 Lab Results 02/16/17 02/16/17 02/16/17 03:53 03:53 03:53 WBC 10.4 Hgb 9.2 L Hct 31.0 L Plt Count 178 INR 2.1 D Sodium 144 Potassium 2.9 L Chloride 99 Carbon Dioxide 36 H BUN 25 H Creatinine 1.13 H Glucose 125 H Calcium 8.8 Magnesium 1.6 - EKG Interpretation EKG results cardiology: other (24 hour telemetry review shows average heart rate of 86 bpm. Atrial fibrillation rate controlled. There is 4 and 3 beat runs of NSVT seen.) - VTE Documentation of Mechanical Device: Graduated compression elastic hosiery Consult Discharge Plan - Plan Referrals: NO,PCP [Primary Care Provider] -
[2017-02-16] MEDS: Ertapenem 1,000 MG in 0.9 % Sodium Chloride Mini Bag 100 ML IVPB SCH (11:44)
[2017-02-16] MEDS ORDERED: *HR* Warfarin 1 MG TABLET PO SCH (18:00)
[2017-02-17] MEDS: Ipratropium/Albuterol Neb 3 ML IH SCH ×7 (00:13→23:40)
[2017-02-17] MEDS: Acetaminophen 325 MG TABLET PO PRN ×3 (03:54→23:39)
[2017-02-17] MEDS: *HR* LORazepam 0.5 MG TABLET PO PRN ×2 (03:55→21:18)
[2017-02-17 04:09] LABS: Basophils % 0.4 %; Eosinophils # 0.3 K/mcL (0.0-0.6); Eosinophils % 3.3 %; Hematocrit 31.8 % (35.3-44.9); Hemoglobin 9.5 g/dL (11.5-15.4); Immature Granulocytes % 0.4 % (0-4); Lymphocytes # 1.3 K/mcL (0.6-4.6); Lymphocytes % 12.7 %; Mean Corpuscular HGB Conc 29.9 g/dL (31.6-35.5); Mean Corpuscular Hemoglobin 27.9 pg (28.0-33.3); Mean Corpuscular Volume 93.3 fL (83.0-100.0); Mean Platelet Volume 9.5 fL (9.4-12.4); Monocytes # 0.6 K/mcL (0.0-1.3); Monocytes % 5.5 %; Platelet Count 178 K/mcL (140-400); Red Blood Count 3.41 M/mcL (3.82-4.97); Red Cell Distribution Width 17.9 % (11.5-14.5); Segmented Neutrophils % 77.7 %
[2017-02-17 04:11] LABS: INR 1.5; Prothrombin Time 16.1 Seconds (9.4-12.1)
[2017-02-17 04:25] LABS: Calcium 8.6 mg/dL (8.6-10.8); Magnesium 1.6 mg/dL (1.6-2.6); Potassium 3.4 mEq/L (3.5-4.5)
[2017-02-17] MEDS: Insulin LISPRO 300 UNITS/3 ML VIAL SQ SCH ×4 (07:27→21:19)
[2017-02-17] MEDS: Magnesium Oxide 400 MG TABLET PO SCH (07:38)
[2017-02-17] MEDS: Diltiazem CD (24hr) 240 MG CAPSULE PO SCH (07:38)
[2017-02-17] MEDS: Ertapenem 1,000 MG in 0.9 % Sodium Chloride Mini Bag 100 ML IVPB SCH (07:39)
[2017-02-17] MEDS: Gabapentin 400 MG CAPSULE PO SCH ×2 (07:39→21:19)
[2017-02-17] MEDS: Budesonide/Formoterol 160/4.5 MDI IH SCH ×2 (07:57→20:05)
--- NOTE | 2017-02-17 09:59 | Cardiology Progress Note ---
Date of Encounter: 02/17/17 Time of Encounter: 09:56 Assessment and Plan (1) Acute on chronic congestive heart failure Current Visit: Yes Status: Acute [facility]: [facility]. No previous records for review, pateint states no echo for "several years." On oral Lasix. +354 mL over 24 hours. Net negative -4500 ml for stay. Lasix change from IV to oral 02/15/17 due to increasing creatinine. Creatinine improved and stable today. Repeat chest x-ray shows continued pulmonary edema and small bilateral pleural effusions. BNP has decreased from 1219 to 826. Reports improvement in symptoms. Echo technically challenging, LV function appears mildly reduced with mild to moderate LV dilation, possibly hypokinesis of inferolateral wall, RV mildly dialted, aortic sclerosis, mild mitral regurgitation, mild-moderate tricuspid regurgitation, mild pulmonic regurgitation, moderate pulmonary hypertension, mid inferior, basal inferior, and basal lateral anand hypokinetic. Agree with strict I/O's, daily weights, and fluid restrictions. Continue oral lasix a present dose. Schedule potassium replacement. Close out-patient f/u with cardiology. Please call with questions. Qualifiers: Congestive heart failure type: unspecified congestive heart failure type Qualified Code(s): I50.9 - Heart failure, unspecified (2) Atrial fibrillation with RVR Current Visit: Yes Status: Acute Per cardiology: -KNown atrial fibrillation. -Currently atrial fibrillation with average HR 86. Rate controlled. -On cardizem CD 240 mg daily. -[id number] score 6 (age, gender, HTN, vascular history). On coumadin. -ON coumadin, INR 1.5. Coumadin being managed by hospitalist. Initially held for supra-therapeutic INR. Hgb stable. No signs of bleeding. INR monitored by PCP in [facility]. (3) Non-sustained ventricular tachycardia Current Visit: Yes Status: Acute Per cardiology: Telemetry review shows less NSVT with increased bb. Continue potassium replacement as needed. There was one [place] seen. No other runs of NSVT. (4) CAD (coronary artery disease) Current Visit: Yes Status: Chronic Per cardiology: -Remote history of coronary stenting in 2001 per patient. -Denies chest pain. -Echo as above, unknown previous echo -Troponin negative. -ECG with no ischemic changes. -Can consider further ischemic work up as outpatient. Unable to perform work up as inpatient due to bacteremia, respiratory status, anemia. -Will continue to monitor. Qualifiers: Coronary Disease-Associated Artery/Lesion type: [place] artery [place] vs. transplanted heart: [place] heart Associated angina: without angina Qualified Code(s): I25.10 - Atherosclerotic heart disease of [place] coronary artery without angina pectoris Discussion w patient/family: The assessment and plan as outlined above was discussed with the patient and/or family members who expressed understanding and agreement. All questions were answered. Thank you for involving us in the care of your patient. Please call with any questions. Subjective Principal diagnosis: shortness of breath Interval history: No new complaints. Objective Vital Signs, Last 4 Hours Temp Pulse Resp BP Pulse Ox 02/17/17 07:57 18 98 02/17/17 07:52 77 02/17/17 07:19 97.9 F 87 16 123/73 98 General: Conversant, No Apparent Distress HEENT: Atraumatic, Normocephaly, Mucus Membranes Moist Neck: No JVD, Normal carotid pulses Cardiac: Other (Irregularly irregular) Lungs: Normal Breath Sounds, No Wheeze, Rales, Rhonchi Neuro: Alert and responsive, No focal deficits noted Abdomen: Soft, Non-Tender Skin: No rashes noted on visualized skin Musculoskeletal: No Chest Wall Tenderness Extremities: No Clubbing, No Cyanosis, Normal Pulses, Other (Trace bilateral lower extremity edema with wrinkling of the skin secondary to diuresis) Results 02/17/17 03:35 02/17/17 03:35 Lab Results 02/16/17 02/17/17 02/17/17 04:02 03:35 03:35 WBC 10.3 Hgb 9.5 L Hct 31.8 L Plt Count 178 INR Sodium 143 Potassium 3.4 L Chloride 98 Carbon Dioxide 38 H BUN 20 Creatinine 1.18 H Glucose 131 H Calcium 8.6 Magnesium 1.6 B-Natriuretic Peptide 826 H 02/17/17 03:35 WBC Hgb Hct Plt Count INR 1.5 Sodium Potassium Chloride Carbon Dioxide BUN Creatinine Glucose Calcium Magnesium B-Natriuretic Peptide - VTE Documentation of Mechanical Device: Graduated compression elastic hosiery Consult Discharge Plan - Plan Referrals: NO,PCP [Primary Care Provider] -
--- NOTE | 2017-02-17 16:59 | Internal Med Progress Note ---
Date of Encounter: 02/17/17 Time of Encounter: 08:30 - Assessment and plan (1) Acute and chronic respiratory failure Current Visit: Yes Status: Acute Assessment and plan: Secondary to acute systolic heart failure exacerbation and atrial fibrillation with RVR. Patient has COPD and uses BiPAP at home. Patient required Cardizem and nitroglycerin drip for a short course on admission. X-ray showed pulmonary vascular congestion. BNP 1200. Echocardiogram shows mildly reduced LVEF, moderate pulmonary hypertension. Appreciate cardiology input. slowly improving, now she is tolerating 3 L of oxygen via nasal cannula well. Continue BIPAP at bedtime, Cardizem, nebulizations, lasix, fluid restriction, mucinex, and symbicort. Qualifiers: Respiratory failure complication: hypoxia and hypercapnia Qualified Code(s) : J96.21 - Acute and chronic respiratory failure with hypoxia; J96.22 - Acute and chronic respiratory failure with hypercapnia (2) Acute on chronic congestive heart failure Current Visit: Yes Status: Acute Assessment and plan: Acute systolic heart failure. As above. Qualifiers: Congestive heart failure type: unspecified congestive heart failure type Qualified Code(s): I50.9 - Heart failure, unspecified (3) Bacteremia Current Visit: Yes Status: Acute Assessment and plan: ESBL E coli bacteremia on 02/13. Source is ESBL E coli UTI. repeat blood cultures negative so far 02/15 Urine and Blood cultures grew ESBL E coli. continue IV ertapenem. (4) Non-sustained ventricular tachycardia Current Visit: Yes Status: Acute Assessment and plan: no new episodes. 02/15: patient had 3 episodes of NSVT (7 beats) continue home med labetalol. (5) Atrial fibrillation with RVR Current Visit: Yes Status: Acute Assessment and plan: Patient with history of of atrial fibrillation on Coumadin. INR at 4.6 on admission. Heart rate in the 140s on admission. Received IV Cardizem drip. heart rate is adequate on oral Cardizem. Appreciate cardiology input. (6) UTI (urinary tract infection) Current Visit: Yes Status: Acute Assessment and plan: ESBL E coli UTI. Plan as above. Qualifiers: Urinary tract infection type: acute cystitis Hematuria presence: without hematuria Qualified Code(s): N30.00 - Acute cystitis without hematuria (7) Type 2 diabetes mellitus Current Visit: Yes Status: Acute Assessment and plan: accuchecks are adequate. insulin sliding scale. Diabetic diet. 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 Qualifiers: COPD type: emphysema Emphysema type: unspecified Qualified Code(s): J43.9 - Emphysema, unspecified - Subjective Interval history: Patient reports dyspnea on exertion. - Constitutional Vitals: Temp Pulse Resp BP Pulse Ox 97.9 F 79 18 139/89 97 02/17/17 16:38 02/17/17 16:38 02/17/17 16:38 02/17/17 16:38 02/17/17 16:38 General appearance: Present: cooperative, A&O X 3, morbidly obese, pleasant, no acute distress, answers questions appropriately - Respiratory Respiratory exam: Present: rhonchi - Cardiovascular Cardiovascular exam: Present: RRR - GI/Abdominal GI/Abdominal exam: Present: normal bowel sounds, soft. Absent: distended, tenderness - Extremities Exam Extremities exam: Present: pedal edema - Back Exam Back exam: Absent: CVA tenderness (L), CVA tenderness (R) - Neurological Exam Neurological exam: Present: alert, oriented X3. Absent: facial droop, speech deficit Internal Medicine: Result - Labs CBC & Chem 7: 02/17/17 03:35 02/17/17 03:35 Labs: Short CBC 02/17/17 Range/Units 03:35 WBC 10.3 (4.3-11.1) K/mcL Hgb 9.5 L (11.5-15.4) g/dL Hct 31.8 L (35.3-44.9) % Plt Count 178 (140-400) K/mcL Neutrophils # 8.0 (1.6-8.9) K/mcL BMP 02/17/17 03:35 Sodium 143 Potassium 3.4 L Chloride 98 Carbon Dioxide 38 H BUN 20 Creatinine 1.18 H Glucose 131 H Calcium 8.6 - ABG Interpretation ABG results: ABG ABG pH 7.33 pH Units (7.32-7.45) 02/13/17 11:23 ABG pCO2 59 mmHg (35-45) H 02/13/17 11:23 ABG pO2 93 mmHg (85-104) 02/13/17 11:23 ABG O2 Saturation 97 % (95-98) 02/13/17 11:23 PT/INR, D-dimer PT 16.1 Seconds (9.4-12.1) H 02/17/17 03:35 - VTE Documentation of Mechanical Device: Graduated compression elastic hosiery Consult Discharge Plan - Plan Referrals: NO,PCP [Primary Care Provider] -
[2017-02-17] MEDS ORDERED: *HR* Warfarin 1 MG TABLET PO SCH (18:00)
[2017-02-17] MEDS: *HR* OxyCODONE/APAP 5/325 TABLET PO PRN (21:19)
[2017-02-18] MEDS: Ipratropium/Albuterol Neb 3 ML IH SCH ×4 (03:45→15:48)
[2017-02-18 04:38] LABS: INR 1.4; Prothrombin Time 14.8 Seconds (9.4-12.1)
[2017-02-18 04:56] LABS: BUN/Creatinine Ratio 16 (6-26); Blood Urea Nitrogen 16 mg/dL (7-20); Calcium 8.6 mg/dL (8.6-10.8); Carbon Dioxide 32 mEq/L (19-29); Chloride 99 mEq/L (98-109); Glucose 148 mg/dL (70-99); Magnesium 1.7 mg/dL (1.6-2.6); Osmolality,Calculated 296 (280-300); Phosphorous 2.1 mg/dL (2.3-4.7); Potassium 3.4 mEq/L (3.5-4.5); Sodium 141 mEq/L (136-145); eGFR For African Americans > 60 (> 60); eGFR For Non-African Americans 55 (> 60)
[2017-02-18] MEDS: Budesonide/Formoterol 160/4.5 MDI IH SCH (07:45)
[2017-02-18] MEDS: Insulin LISPRO 300 UNITS/3 ML VIAL SQ SCH ×2 (07:51→12:02)
[2017-02-18] MEDS: Diltiazem CD (24hr) 240 MG CAPSULE PO SCH (07:59)
[2017-02-18] MEDS: Magnesium Oxide 400 MG TABLET PO SCH (07:59)
[2017-02-18] MEDS: Gabapentin 400 MG CAPSULE PO SCH (07:59)
[2017-02-18] MEDS: Ertapenem 1,000 MG in 0.9 % Sodium Chloride Mini Bag 100 ML IVPB SCH (08:00)
[2017-02-18] MEDS: *HR* OxyCODONE/APAP 5/325 TABLET PO PRN (08:12)
[2017-02-18 11:31] VITALS: BP 138/78
--- NOTE | 2017-02-18 16:13 | Discharge Summary ---
Date of Encounter: 02/18/17 Time of Encounter: 11:00 - Discharge Diagnosis (1) Acute and chronic respiratory failure Priority: Primary Status: Acute Qualifiers: Respiratory failure complication: hypoxia and hypercapnia Qualified Code(s) : J96.21 - Acute and chronic respiratory failure with hypoxia; J96.22 - Acute and chronic respiratory failure with hypercapnia (2) Acute on chronic congestive heart failure Priority: Primary Status: Acute Qualifiers: Congestive heart failure type: unspecified congestive heart failure type Qualified Code(s): I50.9 - Heart failure, unspecified (3) Bacteremia Priority: Primary Status: Acute (4) Non-sustained ventricular tachycardia Priority: Primary Status: Acute (5) Atrial fibrillation with RVR Priority: Primary Status: Acute (6) UTI (urinary tract infection) Priority: Primary Status: Acute Qualifiers: Urinary tract infection type: acute cystitis Hematuria presence: without hematuria Qualified Code(s): N30.00 - Acute cystitis without hematuria (7) Type 2 diabetes mellitus Priority: Secondary Status: Chronic Qualifiers: Diabetes mellitus complication status: without complication 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: with [facility] use Qualified Code(s): E11.9 - Type 2 diabetes mellitus without complications; 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 (8) RODOLFO (acute kidney injury) Priority: Primary Status: Acute (9) COPD (chronic obstructive pulmonary disease) Priority: Secondary Status: Chronic Qualifiers: COPD type: emphysema Emphysema type: unspecified Qualified Code(s): J43.9 - Emphysema, unspecified - Discharge Medications Prescriptions: Atorvastatin [Lipitor] 40 mg PO HS #30 tablet Ertapenem [INVanz] 1,000 mg IVPB DAILY #10 vial Furosemide [Lasix] 60 mg PO BID #60 tablet LORazepam [Ativan] 0.5 mg PO BID PRN #14 tablet PRN Reason: Anxiety OxyCODONE/APAP 5/325 [Percocet 5/325 MG] 1 each PO Q12H PRN #20 tablet PRN Reason: Mild Pain Home Medications: Acetaminophen [Tylenol Arthritis] 650 mg PO Q6H PRN 02/13/17 [History] Alendronate Sodium [Fosamax] 70 mg PO TH 02/13/17 [History] Allopurinol [Zyloprim 100 MG] 100 mg PO DAILY 02/13/17 [History] Budesonide/Formoterol 160/4.5 [Symbicort 160/4.5] 2 puff IH BIDR 02/13/17 [ History] Calcium Carbonate/Vitamin D3 [Calcium 600 + Vit D Tablet] 1 each PO BID [History] GuaiFENesin/Dextromethorphan [Robitussin/Dm] 10 ml PO Q4H PRN 02/13/17 [History] Hydrocortisone Acetate [Anusol-Hc] 25 mg RC BID PRN 02/13/17 [History] Insulin Glargine [Lantus] 10 unit SQ HS 02/13/17 [History] Levothyroxine Sodium 200 mcg PO 1400 02/13/17 [History] Multivitamin [One Daily Essential] 1 tab PO DAILY 02/13/17 [History] Omeprazole [PriLOSEC] 40 mg PO DAILY 02/13/17 [History] Ondansetron HCl [Zofran] 4 mg PO Q6H PRN 02/13/17 [History] Oxygen 3 l NS AD 02/13/17 [History] Potassium Chloride [K-Tab ER] 20 meq PO BID 02/13/17 [History] Sennosides/Docusate Sodium [Senna-S Tablet] 1 each PO DAILY PRN 02/13/17 [ History] Sertraline [Zoloft] 50 mg PO DAILY 02/13/17 [History] Warfarin [Coumadin] 1 mg PO Q48H 02/13/17 [History] Warfarin [Coumadin] 1.5 mg PO Q48H 02/13/17 [History] Atorvastatin [Lipitor] 40 mg PO HS #30 tablet 02/18/17 [Rx] Diltiazem CD (24hr) [Cardizem CD] 240 mg PO DAILY cap.er.24h 02/18/17 [Rx] Ertapenem [INVanz] 1,000 mg IVPB DAILY #10 vial 02/18/17 [Rx] Furosemide [Lasix] 60 mg PO BID #60 tablet 02/18/17 [Rx] Gabapentin [Neurontin] 400 mg PO BID capsule 02/18/17 [Rx] Ipratropium/Albuterol Neb [Duoneb] 3 ml IH [id number] inhsol 02/18/17 [Rx] LORazepam [Ativan] 0.5 mg PO BID PRN #14 tablet 02/18/17 [Rx] Labetalol [Trandate] 100 mg PO BID tablet 02/18/17 [Rx] Magnesium Oxide [Mag-Ox] 400 mg PO DAILY tablet 02/18/17 [Rx] OxyCODONE/APAP 5/325 [Percocet 5/325 MG] 1 each PO Q12H PRN #20 tablet 02/18/17 [Rx] Allergies/Adverse Reactions: Allergies meperidine [From Demerol] Allergy (Verified 02/13/17 11:01) Anaphylaxis Tetracycline Allergy (Verified 02/13/17 11:01) Anaphylaxis Date of admission: 02/13/17 14:06 Primary care physician: PCP NO Consults: 02/13/17 14:58 Consult to Cardiology [CONS] Routine Comment: Consulting Provider: Cardiology Jessie Reason for Consult: acute on chronic CHF, afib with RVR on bipap, nitro, and cardizem drip Call Completed: Yes 02/18/17 08:10 Consult to Invasive Line Access Team [CONS] Routine Reason for Consult: IV ATB x 10 days Line Type: EPIV - Patient Status Disposition: Transfer SNF Condition: Good Functional capacity at discharge: uses cane/walker Overall status at discharge: patient is progressing back to baseline - Discharge Instructions Instructions: Heart Failure (DC), Atrial Fibrillation (DC), Urinary Tract Infection in Women (DC) Follow Up With: NO,PCP [Primary Care Provider] - - Diet and Activity Diet: low fat, low cholesterol, low salt diet, other (fluid restriction 1.9 liter a day) Interval History: patient reports her breathing is better compared to admission. Hospital course: Ms. Renee is a 81 year old female with past medical history of COPD on 3L NC, [place] on CPAP at home, afib, DM and morbid obesity who presented with progressive shortness of breath. CX-ray showed pulmonary vascular congestion. BNP 1200. She was admitted with diagnosis of respiratory failure secondary to acute systolic heart failure exacerbation and atrial fibrillation with RVR. Patient required Cardizem drip and nitroglycerin drip for a short course and then transitioned to oral cardizem. Echocardiogram shows mildly reduced LVEF. She was also found to have E coli bacteremia and UTI and was started on Ceftriaxone and then switched to Ertapenem after final culture results. Patient improved clinically and was tolerating 3L NC well at discharge. I spoke with son and patient about diagnosis, treatment and diet. They verbalized understanding and agreed with the plan. all questions answered. PLAN: complete course of Ertapenem for a total of 14 days after negative blood cultures. Not on Acei due to RODOLFO. May start Acei/arb as outpatient. f/u in the cardiology clinic as scheduled. CPAP at bedtime. - Time Spent with Patient Total time spent providing and/or coordinating discharge services: - Constitutional Vitals: Temp Pulse Resp BP Pulse Ox 98.4 F 76 16 138/78 98 02/18/17 11:29 02/18/17 11:29 02/18/17 15:48 02/18/17 15:48 02/18/17 15:48 General appearance: Present: cooperative, A&O X 3, morbidly obese, pleasant, no acute distress, answers questions appropriately - Respiratory Respiratory exam: Present: rhonchi - Cardiovascular Cardiovascular exam: Present: RRR - GI/Abdominal GI/Abdominal exam: Present: normal bowel sounds, soft. Absent: distended, tenderness - Extremities Exam Extremities exam: Present: pedal edema - Neurological Exam Neurological exam: Present: alert, oriented X3, no focal deficits - VTE Documentation of Mechanical Device: Graduated compression elastic hosiery
--- NOTE | 2017-02-18 16:29 | Physician Discharge Referral ---
ExtendedCare Referral Info Transfer To: [facility] Provider in Charge: vinnie Provider in Charge after Transfer: PCP Institutional Level of Care: Skilled - Diagnosis (1) Acute and chronic respiratory failure Status: Acute (2) Acute on chronic congestive heart failure Status: Acute (3) Bacteremia Status: Acute (4) Non-sustained ventricular tachycardia Status: Acute (5) Atrial fibrillation with RVR Status: Acute (6) UTI (urinary tract infection) Status: Acute (7) Type 2 diabetes mellitus Status: Acute (8) COPD (chronic obstructive pulmonary disease) Status: Acute - Transfer Medications Prescriptions: Atorvastatin [Lipitor] 40 mg PO HS #30 tablet Ertapenem [INVanz] 1,000 mg IVPB DAILY #10 vial Furosemide [Lasix] 60 mg PO BID #60 tablet LORazepam [Ativan] 0.5 mg PO BID PRN #14 tablet PRN Reason: Anxiety OxyCODONE/APAP 5/325 [Percocet 5/325 MG] 1 each PO Q12H PRN #20 tablet PRN Reason: Mild Pain Home Medications: Acetaminophen [Tylenol Arthritis] 650 mg PO Q6H PRN 02/13/17 [History] Alendronate Sodium [Fosamax] 70 mg PO TH 02/13/17 [History] Allopurinol [Zyloprim 100 MG] 100 mg PO DAILY 02/13/17 [History] Budesonide/Formoterol 160/4.5 [Symbicort 160/4.5] 2 puff IH BIDR 02/13/17 [ History] Calcium Carbonate/Vitamin D3 [Calcium 600 + Vit D Tablet] 1 each PO BID [History] Furosemide [Lasix] 80 mg PO DAILY 02/13/17 [History] Gabapentin [Neurontin] 400 mg PO TID 02/13/17 [History] GuaiFENesin/Dextromethorphan [Robitussin/Dm] 10 ml PO Q4H PRN 02/13/17 [History] Guaifenesin [Mucinex] 600 mg PO BID 02/13/17 [History] Hydrocortisone Acetate [Anusol-Hc] 25 mg RC BID PRN 02/13/17 [History] Insulin Glargine [Lantus] 10 unit SQ HS 02/13/17 [History] Levothyroxine Sodium 200 mcg PO 1400 02/13/17 [History] Multivitamin [One Daily Essential] 1 tab PO DAILY 02/13/17 [History] Omeprazole [PriLOSEC] 40 mg PO DAILY 02/13/17 [History] Ondansetron HCl [Zofran] 4 mg PO Q6H PRN 02/13/17 [History] Oxygen 3 l NS AD 02/13/17 [History] Potassium Chloride [K-Tab ER] 20 meq PO BID 02/13/17 [History] Sennosides/Docusate Sodium [Senna-S Tablet] 1 each PO DAILY PRN 02/13/17 [ History] Sertraline [Zoloft] 50 mg PO DAILY 02/13/17 [History] Warfarin [Coumadin] 1 mg PO Q48H 02/13/17 [History] Warfarin [Coumadin] 1.5 mg PO Q48H 02/13/17 [History] Atorvastatin [Lipitor] 40 mg PO HS #30 tablet 02/18/17 [Rx] Diltiazem CD (24hr) [Cardizem CD] 240 mg PO DAILY cap.er.24h 02/18/17 [Rx] Ertapenem [INVanz] 1,000 mg IVPB DAILY #10 vial 02/18/17 [Rx] Furosemide [Lasix] 60 mg PO BID #60 tablet 02/18/17 [Rx] Gabapentin [Neurontin] 400 mg PO BID capsule 02/18/17 [Rx] Ipratropium/Albuterol Neb [Duoneb] 3 ml IH [id number] inhsol 02/18/17 [Rx] LORazepam [Ativan] 0.5 mg PO BID PRN #14 tablet 02/18/17 [Rx] Labetalol [Trandate] 100 mg PO BID tablet 02/18/17 [Rx] Magnesium Oxide [Mag-Ox] 400 mg PO DAILY tablet 02/18/17 [Rx] OxyCODONE/APAP 5/325 [Percocet 5/325 MG] 1 each PO Q12H PRN #20 tablet 02/18/17 [Rx] Allergies/Adverse Reactions: Allergies meperidine [From Demerol] Allergy (Verified 02/13/17 11:01) Anaphylaxis Tetracycline Allergy (Verified 02/13/17 11:01) Anaphylaxis - Respiratory Orders Oxygen / L per min (2-3) Smoking Cessation: Smoking cessation has been advised. For more information, call the [place] Tobacco Quit Line at 8-314-GUMT-NOW. - Lab Orders Lab Orders: Other (include drug levels w/frequency) (INR, potassium, phosphoros on 02/20/17.) - Advance Directives Code Status: Full Code - Mobility Orders Ambulate - Rehabiliation Orders Rehab Potential: Fair Rehab Orders: Evaluation for Physical Therapy, Evaluation for Occupational Therapy - Treatments List/Other: MAKE SURE PATIENT HAS A LOW SALT AND LOW CHOLESTEROL DIET. START A WEIGHT LOSS PROGRAM AT [facility] MAKE SURE PATIENT WEARS CPAP MACHINE INSTRUCTED. - Diet Orders No Added Salt (ANIA), Cardiac CERTIFICATION: I certify that the transfer of the above named patient to an Extended Care Facility is necessary for the continuing treatment of the diagnosis listed. The above information is true and accurate reflection of patient's current condition. Confidential - Redisclosure prohibited without a patient's written consent.
== END 2017-02-18 19:05 | DRG 291 ==
LOC: EMEROO 10:57 → 2NNU 14:06
PROVIDERS: ADMIT Hospitalist; ATTEND Internal Medicine

== ENCOUNTER 2017-03-20 | Inpatient (IN) ==
[2017-03-20] MEDS ORDERED: 0.9 % Sodium Chloride 1,000 ML IVC ONE (00:09)
--- NOTE | 2017-03-20 00:09 | Emergency Department Note ---
Disposition Clinical Impression: Sepsis Qualifiers: Sepsis type: sepsis due to unspecified organism Qualified Code(s): A41.9 - Sepsis, unspecified organism UTI (urinary tract infection) Qualifiers: Urinary tract infection type: acute cystitis Hematuria presence: without hematuria Qualified Code(s): N30.00 - Acute cystitis without hematuria Acute on chronic congestive heart failure Qualifiers: Congestive heart failure type: unspecified congestive heart failure type Qualified Code(s): I50.9 - Heart failure, unspecified Type 2 diabetes mellitus Qualifiers: Diabetes mellitus complication status: with unspecified complications Diabetes mellitus correction insulin use: unspecified correction insulin use status Qualified Code(s): E11.8 - Type 2 diabetes mellitus with unspecified complications Disposition: Admitted As Inpatient Condition: Good Referrals: NO,PCP [Primary Care Provider] - Forms: ED Satisfaction Letter, Work/School Release Time of Disposition: 02:28 General Adult HPI - General Chief complaint: ED General Medical Stated complaint: Abnormal Labs Time Seen by Provider: 03/20/17 00:06 Source: EMS Mode of arrival: EMS Limitations: altered mental status, age Nursing Notes Reviewed: Yes Vital Signs Reviewed: Yes - History of Present Illness HPI Narrative: 81-year-old female with history of diabetes, hypertension hyperlipidemia, presents with cough and congestion also with dysuria, patient was sent from [place] due to leukocytosis, concern for "an infection" patient states that she has had some cough and congestion, she also states intermittent fevers chills Onset (ago): hour(s) Location: chest Radiation: non-radiation Pain Severity: moderate Improves with: nothing Worsens with: nothing Associated symptoms: Reports: confusion, nausea/vomiting. Denies: chest pain, cough, diaphoresis, headaches, loss of appetite, malaise Treatments Prior to Arrival: none - Related Data Home Medications Medication Instructions Recorded Confirmed Acetaminophen [Tylenol Arthritis] 650 mg PO Q6H PRN 02/13/17 02/13/17 Alendronate Sodium [Fosamax] 70 mg PO TH 02/13/17 02/13/17 Allopurinol [Zyloprim 100 MG] 100 mg PO DAILY 02/13/17 02/13/17 Budesonide/Formoterol 160/4.5 2 puff IH BIDR 02/13/17 02/13/17 [Symbicort 160/4.5] Calcium Carbonate/Vitamin D3 1 each PO BID 02/13/17 02/13/17 [Calcium 600 + Vit D Tablet] GuaiFENesin/Dextromethorphan 10 ml PO Q4H PRN 02/13/17 02/13/17 [Robitussin/Dm] Hydrocortisone Acetate [Anusol-Hc] 25 mg RC BID PRN 02/13/17 02/13/17 Insulin Glargine [Lantus] 10 unit SQ HS 02/13/17 02/13/17 Levothyroxine Sodium 200 mcg PO 1400 02/13/17 02/13/17 Multivitamin [One Daily Essential] 1 tab PO DAILY 02/13/17 02/13/17 Omeprazole [PriLOSEC] 40 mg PO DAILY 02/13/17 02/13/17 Ondansetron HCl [Zofran] 4 mg PO Q6H PRN 02/13/17 02/13/17 Oxygen 3 l NS AD 02/13/17 02/13/17 Potassium Chloride [K-Tab ER] 20 meq PO BID 02/13/17 02/13/17 Sennosides/Docusate Sodium 1 each PO DAILY PRN 02/13/17 02/13/17 [Senna-S Tablet] Sertraline [Zoloft] 50 mg PO DAILY 02/13/17 02/13/17 Warfarin [Coumadin] 1 mg PO Q48H 02/13/17 02/13/17 Warfarin [Coumadin] 1.5 mg PO Q48H 02/13/17 02/13/17 Previous Rx's Medication Instructions Recorded Atorvastatin [Lipitor] 40 mg PO HS #30 tablet 02/18/17 Diltiazem CD (24hr) [Cardizem CD] 240 mg PO DAILY cap.er.24h 02/18/17 Ertapenem [INVanz] 1,000 mg IVPB DAILY #10 vial 02/18/17 Furosemide [Lasix] 60 mg PO BID #60 tablet 02/18/17 Gabapentin [Neurontin] 400 mg PO BID capsule 02/18/17 Ipratropium/Albuterol Neb [Duoneb] 3 ml IH [id number] inhsol 02/18/17 LORazepam [Ativan] 0.5 mg PO BID PRN #14 tablet 02/18/17 Labetalol [Trandate] 100 mg PO BID tablet 02/18/17 Magnesium Oxide [Mag-Ox] 400 mg PO DAILY tablet 02/18/17 OxyCODONE/APAP 5/325 [Percocet 1 each PO Q12H PRN #20 tablet 02/18/17 5/325 MG] Allergies Allergy/AdvReac Type Severity Reaction Status Date / Time meperidine [From Demerol] Allergy Anaphylaxis Verified 02/13/17 11:01 Tetracycline Allergy Anaphylaxis Verified 02/13/17 11:01 All systems ED: reviewed and negative except as stated. (Somewhat limited historian, questionable history) Constitutional: Reports: fever, chills, weakness Cardiovascular: Denies: chest pain, paroxysmal nocturnal dyspnea Respiratory: Reports: as per HPI, cough, dyspnea Gastrointestinal: Reports: as per HPI, nausea. Denies: abdominal pain, vomiting Genitourinary: Reports: as per HPI, urgency, dysuria Musculoskeletal: Denies: back pain, neck pain Integumentary: Denies: rash Neurological: Denies: headache, weakness Past Medical History - Past Medical History Attestation: Yes The following information was validated with the patient. Source: patient Medical history: Reports: atrial fibrillation, CHF, COPD, diabetes, GERD, glaucoma, hyperlipidemia, hypertension, renal disease, thyroid disease Surgical history: Reports: appendectomy, cholecystectomy Psychiatric history: Reports: anxiety, depression - Social History Smoking Status: Never smoker Smokeless Tobacco Status: No Alcohol use: Reports: none Drug use: Reports: none Physical Exam Constitutional: Patient pleasantly confused, in no acute distress, tachycardic and tachypneic Neck: normal inspection, neck is supple, trachea midline Resp: Rhonchi bilaterally and fine bibasilar crackles. CV: tachycardic GI: normal inspection, Soft, NTND, BS present Back: normal inspection, no tenderness to palpation Neuro: A&O3, no gross motor or sensory deficits bilaterally MSK: normal inspection, bilateral UE and LE with normal ROM Skin: extremities with venous stasis dermatitis bilaterally, +2 pitting edema Course Course Narrative: 81-year-old female with shortness of breath, cough congestion, given leukocytosis at outpatient lab will repeat lab work blood cultures, also check a urinalysis, this point patient does meet criteria for Sirs, infection could be pneumonia versus UTI, however her blood pressure is stable we will initially give fluids however concern about volume overload given heart failure and bibasilar crackles and lungs therefore we will give judicious fluids - Reevaluation(s) Reevaluation #1: Patient with evidence of sepsis, UTI, we will not give a 30 mL pretty bolus that she does not meet criteria for severe sepsis or septic shock, we will treat UTI. We with ceftriaxone. Admitted to medicine service Dr. Alicea Time: 02:27 Vital Signs Temperature 98.6 F 03/20/17 00:06 Pulse Rate 100 03/20/17 00:06 Respiratory Rate 24 03/20/17 00:06 Blood Pressure 139/79 03/20/17 00:06 O2 Sat by Pulse Oximetry 89 03/20/17 00:06 Temperature 98.6 F 03/20/17 00:06 Pulse Rate 100 03/20/17 01:22 Respiratory Rate 18 03/20/17 01:22 Blood Pressure 126/72 03/20/17 01:22 O2 Sat by Pulse Oximetry 96 03/20/17 01:22 Oxygen Delivery Oxygen Delivery Room Air Medical Decision Making - Medical Records Medical records reviewed: Yes I reviewed the patient's medical records. - Lab Data Lab results reviewed: Yes I reviewed the patient's lab results. Result diagrams: 03/20/17 00:39 03/20/17 00:39 Lab Results 03/20/17 03/20/17 03/20/17 Range/Units 00:39 00:39 00:39 WBC 16.8 H (4.3-11.1) K/mcL RBC 3.92 (3.82-4.97) M/mcL Hgb 10.7 L (11.5-15.4) g/dL Hct 34.8 L (35.3-44.9) % MCV 88.8 (83.0-100.0) fL MCH 27.3 L (28.0-33.3) pg MCHC 30.7 L (31.6-35.5) g/dL RDW 15.3 H (11.5-14.5) % Plt Count 212 (140-400) K/mcL MPV 9.7 (9.4-12.4) fL Immature Gran % 0.7 (0-4) % Seg Neutrophils % 84.6 % Lymphocytes % 7.7 % Monocytes % 5.3 % Eosinophils % 1.3 % Basophils % 0.4 % Neutrophils # 14.2 H (1.6-8.9) K/mcL Lymphocytes # 1.3 (0.6-4.6) K/mcL Monocytes # 0.9 (0.0-1.3) K/mcL Eosinophils # 0.2 (0.0-0.6) K/mcL Basophils # 0.1 (0.0-0.2) K/mcL Sodium 138 (136-145) mEq/L Potassium 4.4 (3.5-4.5) mEq/L Chloride 100 (98-109) mEq/L Carbon Dioxide 26 (19-29) mEq/L BUN 14 (7-20) mg/dL Creatinine 1.11 (0.57-1.11) mg/dL Est GFR ( Amer) 57 L (> 60) Est GFR (Non-Af Amer) 47 L (> 60) BUN/Creatinine Ratio 13 (6-26) Glucose 116 H (70-99) mg/dL Calculated Osmolality 287 (280-300) Lactic Acid 1.5 (0.5-2.2) mmol/L Calcium 9.5 (8.6-10.8) mg/dL Troponin I (0-0.03) ng/mL Urine Color (Yellow) Urine Clarity (Clear) Urine pH (5.0-8.0) pH Units Ur Specific [place] (1.010-1.025) Urine Protein (Neg-Trace) mg/dL Urine Glucose (UA) (Normal) mg/dL Urine Ketones (Negative) mg/dL Urine Blood (Negative) Urine Nitrite (Negative) Urine Bilirubin (Negative) Urine Urobilinogen (Normal) mg/dL Ur Leukocyte Esterase (Negative) Urine Microscopic RBC (0-3) per hpf Urine Microscopic WBC (0-3) per hpf Ur Squamous Epith Cells (None-Few) per lpf Urine Bacteria (None-Few) per hpf Hyaline Casts (None-Few) per lpf Ur Culture Indicated? (NO) 03/20/17 03/20/17 Range/Units 00:39 01:15 WBC (4.3-11.1) K/mcL RBC (3.82-4.97) M/mcL Hgb (11.5-15.4) g/dL Hct (35.3-44.9) % MCV (83.0-100.0) fL MCH (28.0-33.3) pg MCHC (31.6-35.5) g/dL RDW (11.5-14.5) % Plt Count (140-400) K/mcL MPV (9.4-12.4) fL Immature Gran % (0-4) % Seg Neutrophils % % Lymphocytes % % Monocytes % % Eosinophils % % Basophils % % Neutrophils # (1.6-8.9) K/mcL Lymphocytes # (0.6-4.6) K/mcL Monocytes # (0.0-1.3) K/mcL Eosinophils # (0.0-0.6) K/mcL Basophils # (0.0-0.2) K/mcL Sodium (136-145) mEq/L Potassium (3.5-4.5) mEq/L Chloride (98-109) mEq/L Carbon Dioxide (19-29) mEq/L BUN (7-20) mg/dL Creatinine (0.57-1.11) mg/dL Est GFR ( Amer) (> 60) Est GFR (Non-Af Amer) (> 60) BUN/Creatinine Ratio (6-26) Glucose (70-99) mg/dL Calculated Osmolality (280-300) Lactic Acid (0.5-2.2) mmol/L Calcium (8.6-10.8) mg/dL Troponin I 0.02 (0-0.03) ng/mL Urine Color Yellow (Yellow) Urine Clarity Cloudy A (Clear) Urine pH 7.0 (5.0-8.0) pH Units Ur Specific [place] 1.013 (1.010-1.025) Urine Protein Negative (Neg-Trace) mg/dL Urine Glucose (UA) Normal (Normal) mg/dL Urine Ketones Negative (Negative) mg/dL Urine Blood Negative (Negative) Urine Nitrite Positive A (Negative) Urine Bilirubin Negative (Negative) Urine Urobilinogen Normal (Normal) mg/dL Ur Leukocyte Esterase Small H (Negative) Urine Microscopic RBC 0-3 (0-3) per hpf Urine Microscopic WBC 15-30 H (0-3) per hpf Ur Squamous Epith Cells None Seen (None-Few) per lpf Urine Bacteria Many H (None-Few) per hpf Hyaline Casts None Seen (None-Few) per lpf Ur Culture Indicated? YES A (NO) - Radiology Data Radiology results reviewed: Yes I reviewed the patient's radiology results. Chest X-Ray 03/20/17 00:08 IMPRESSION: Cardiomegaly with mild central pulmonary edema and small bilateral pleural effusions improved since prior examination suggesting improving CHF. D/ / Dariusz Martins MD / Dariusz Martins MD Interpreting Provider: Dariusz Martins MD - EKG Data EKG #1 EKG attestation: Yes I reviewed and interpreted this EKG. EKG shows normal: sinus rhythm (10 2 bpm QRS 92) Rate: normal Rhythm: NSR [place]/QRS: RBBB ( right bundle branch block) Interpretation: nonspecific ST-T wave changes - Core Measures AMI Core Measures Followed: No
--- NOTE | 2017-03-20 00:09 | Emergency Department Note ---
Disposition Clinical Impression: Sepsis, UTI (urinary tract infection), Acute on chronic congestive heart failure, Type 2 diabetes mellitus Disposition: Admitted As Inpatient Condition: Good General Adult HPI - General Chief complaint: ED General Medical Stated complaint: Abnormal Labs Time Seen by Provider: 03/20/17 00:06 - Related Data Home Medications Medication Instructions Recorded Confirmed Acetaminophen [Tylenol Arthritis] 650 mg PO Q6H PRN 02/13/17 03/20/17 Alendronate Sodium [Fosamax] 70 mg PO TH 02/13/17 03/20/17 Allopurinol [Zyloprim 100 MG] 100 mg PO DAILY 02/13/17 03/20/17 Budesonide/Formoterol 160/4.5 2 puff IH BIDR 02/13/17 03/20/17 [Symbicort 160/4.5] Calcium Carbonate/Vitamin D3 1 each PO BID 02/13/17 03/20/17 [Calcium 600 + Vit D Tablet] GuaiFENesin/Dextromethorphan 10 ml PO Q4H PRN 02/13/17 03/20/17 [Robitussin/Dm] Hydrocortisone Acetate [Anusol-Hc] 25 mg RC BID PRN 02/13/17 03/20/17 Levothyroxine Sodium 200 mcg PO 1400 02/13/17 03/20/17 Multivitamin [One Daily Essential] 1 tab PO DAILY 02/13/17 03/20/17 Omeprazole [PriLOSEC] 40 mg PO DAILY 02/13/17 03/20/17 Ondansetron HCl [Zofran] 4 mg PO Q6H PRN 02/13/17 03/20/17 Oxygen 4 l NS AD 02/13/17 03/20/17 Potassium Chloride [K-Tab ER] 20 meq PO BID 02/13/17 03/20/17 Sennosides/Docusate Sodium 1 each PO DAILY PRN 02/13/17 03/20/17 [Senna-S Tablet] Sertraline [Zoloft] 50 mg PO DAILY 02/13/17 03/20/17 GuaiFENesin ER [Mucinex] 600 mg PO BID 03/20/17 03/20/17 Ipratropium/Albuterol Neb [Duoneb] 3 ml IH QID 03/20/17 03/20/17 Warfarin [Coumadin] 2 mg PO DAILY 03/20/17 03/20/17 Previous Rx's Medication Instructions Recorded Atorvastatin [Lipitor] 40 mg PO HS #30 tablet 02/18/17 Diltiazem CD (24hr) [Cardizem CD] 240 mg PO DAILY cap.er.24h 02/18/17 Furosemide [Lasix] 60 mg PO BID #60 tablet 02/18/17 Gabapentin [Neurontin] 400 mg PO BID capsule 02/18/17 LORazepam [Ativan] 0.5 mg PO BID PRN #14 tablet 02/18/17 Labetalol [Trandate] 100 mg PO BID tablet 02/18/17 Magnesium Oxide [Mag-Ox] 400 mg PO DAILY tablet 02/18/17 OxyCODONE/APAP 5/325 [Percocet 1 each PO Q12H PRN #20 tablet 02/18/17 5/325 MG] Allergies Allergy/AdvReac Type Severity Reaction Status Date / Time meperidine [From Demerol] Allergy Anaphylaxis Verified 02/13/17 11:01 Tetracycline Allergy Anaphylaxis Verified 02/13/17 11:01 Past Medical History - Past Medical History Medical history: Reports: atrial fibrillation, CHF, COPD, diabetes, GERD, glaucoma, hyperlipidemia, hypertension, renal disease, thyroid disease Surgical history: Reports: appendectomy, cholecystectomy Psychiatric history: Reports: anxiety, depression - Social History Smoking Status: Never smoker Smokeless Tobacco Status: No Alcohol use: Reports: none Drug use: Reports: none Course Vital Signs Temperature 98.6 F 03/20/17 00:06 Pulse Rate 100 03/20/17 00:06 Respiratory Rate 24 03/20/17 00:06 Blood Pressure 139/79 03/20/17 00:06 O2 Sat by Pulse Oximetry 89 03/20/17 00:06 Temperature 0 F L 03/20/17 02:49 Pulse Rate 100 03/20/17 01:22 Respiratory Rate 20 03/20/17 02:49 Blood Pressure 127/68 03/20/17 02:49 O2 Sat by Pulse Oximetry 96 03/20/17 01:22 Oxygen Delivery Oxygen Delivery Nasal Cannula Medical Decision Making - Lab Data Result diagrams: 03/20/17 00:39 03/20/17 00:39 Lab Results 03/20/17 03/20/17 03/20/17 Range/Units 00:31 00:39 00:39 WBC 16.8 H (4.3-11.1) K/mcL RBC 3.92 (3.82-4.97) M/mcL Hgb 10.7 L (11.5-15.4) g/dL Hct 34.8 L (35.3-44.9) % MCV 88.8 (83.0-100.0) fL MCH 27.3 L (28.0-33.3) pg MCHC 30.7 L (31.6-35.5) g/dL RDW 15.3 H (11.5-14.5) % Plt Count 212 (140-400) K/mcL MPV 9.7 (9.4-12.4) fL Immature Gran % 0.7 (0-4) % Seg Neutrophils % 84.6 % Lymphocytes % 7.7 % Monocytes % 5.3 % Eosinophils % 1.3 % Basophils % 0.4 % Neutrophils # 14.2 H (1.6-8.9) K/mcL Lymphocytes # 1.3 (0.6-4.6) K/mcL Monocytes # 0.9 (0.0-1.3) K/mcL Eosinophils # 0.2 (0.0-0.6) K/mcL Basophils # 0.1 (0.0-0.2) K/mcL PT 27.3 H (9.4-12.1) Seconds INR 2.5 Sodium 138 (136-145) mEq/L Potassium 4.4 (3.5-4.5) mEq/L Chloride 100 (98-109) mEq/L Carbon Dioxide 26 (19-29) mEq/L BUN 14 (7-20) mg/dL Creatinine 1.11 (0.57-1.11) mg/dL Est GFR ( Amer) 57 L (> 60) Est GFR (Non-Af Amer) 47 L (> 60) BUN/Creatinine Ratio 13 (6-26) Glucose 116 H (70-99) mg/dL Calculated Osmolality 287 (280-300) Lactic Acid (0.5-2.2) mmol/L Calcium 9.5 (8.6-10.8) mg/dL Troponin I (0-0.03) ng/mL Urine Color (Yellow) Urine Clarity (Clear) Urine pH (5.0-8.0) pH Units Ur Specific [place] (1.010-1.025) Urine Protein (Neg-Trace) mg/dL Urine Glucose (UA) (Normal) mg/dL Urine Ketones (Negative) mg/dL Urine Blood (Negative) Urine Nitrite (Negative) Urine Bilirubin (Negative) Urine Urobilinogen (Normal) mg/dL Ur Leukocyte Esterase (Negative) Urine Microscopic RBC (0-3) per hpf Urine Microscopic WBC (0-3) per hpf Ur Squamous Epith Cells (None-Few) per lpf Urine Bacteria (None-Few) per hpf Hyaline Casts (None-Few) per lpf Ur Culture Indicated? (NO) 03/20/17 03/20/17 03/20/17 Range/Units 00:39 00:39 01:15 WBC (4.3-11.1) K/mcL RBC (3.82-4.97) M/mcL Hgb (11.5-15.4) g/dL Hct (35.3-44.9) % MCV (83.0-100.0) fL MCH (28.0-33.3) pg MCHC (31.6-35.5) g/dL RDW (11.5-14.5) % Plt Count (140-400) K/mcL MPV (9.4-12.4) fL Immature Gran % (0-4) % Seg Neutrophils % % Lymphocytes % % Monocytes % % Eosinophils % % Basophils % % Neutrophils # (1.6-8.9) K/mcL Lymphocytes # (0.6-4.6) K/mcL Monocytes # (0.0-1.3) K/mcL Eosinophils # (0.0-0.6) K/mcL Basophils # (0.0-0.2) K/mcL PT (9.4-12.1) Seconds INR Sodium (136-145) mEq/L Potassium (3.5-4.5) mEq/L Chloride (98-109) mEq/L Carbon Dioxide (19-29) mEq/L BUN (7-20) mg/dL Creatinine (0.57-1.11) mg/dL Est GFR ( Amer) (> 60) Est GFR (Non-Af Amer) (> 60) BUN/Creatinine Ratio (6-26) Glucose (70-99) mg/dL Calculated Osmolality (280-300) Lactic Acid 1.5 (0.5-2.2) mmol/L Calcium (8.6-10.8) mg/dL Troponin I 0.02 (0-0.03) ng/mL Urine Color Yellow (Yellow) Urine Clarity Cloudy A (Clear) Urine pH 7.0 (5.0-8.0) pH Units Ur Specific [place] 1.013 (1.010-1.025) Urine Protein Negative (Neg-Trace) mg/dL Urine Glucose (UA) Normal (Normal) mg/dL Urine Ketones Negative (Negative) mg/dL Urine Blood Negative (Negative) Urine Nitrite Positive A (Negative) Urine Bilirubin Negative (Negative) Urine Urobilinogen Normal (Normal) mg/dL Ur Leukocyte Esterase Small H (Negative) Urine Microscopic RBC 0-3 (0-3) per hpf Urine Microscopic WBC 15-30 H (0-3) per hpf Ur Squamous Epith Cells None Seen (None-Few) per lpf Urine Bacteria Many H (None-Few) per hpf Hyaline Casts None Seen (None-Few) per lpf Ur Culture Indicated? YES A (NO) Attestation Statement - Attestation Attestation: I examined this patient and my medical decision-making was reviewed with the ELECTRON[employer] PROCESSING SUPERVISOR/PA/Advanced Practice Nurse/Resident Physician. I agree with the documented findings, disposition and treatment plan as described except to the extent set forth below. [id number] time provided Patient arrives by EMS from the extended-care care facility for cough and chest congestion. She is home oxygen dependent. Seen earlier [facility] at [facility]. Appears in no acute distress on exam
[2017-03-20 00:47] LABS: Basophils # 0.1 K/mcL (0.0-0.2); Basophils % 0.4 %; Eosinophils # 0.2 K/mcL (0.0-0.6); Eosinophils % 1.3 %; Hematocrit 34.8 % (35.3-44.9); Hemoglobin 10.7 g/dL (11.5-15.4); Immature Granulocytes % 0.7 % (0-4); Lymphocytes # 1.3 K/mcL (0.6-4.6); Lymphocytes % 7.7 %; Mean Corpuscular HGB Conc 30.7 g/dL (31.6-35.5); Mean Corpuscular Hemoglobin 27.3 pg (28.0-33.3); Mean Corpuscular Volume 88.8 fL (83.0-100.0); Mean Platelet Volume 9.7 fL (9.4-12.4); Monocytes # 0.9 K/mcL (0.0-1.3); Monocytes % 5.3 %; Neutrophils # 14.2 K/mcL (1.6-8.9); Platelet Count 212 K/mcL (140-400); Red Blood Count 3.92 M/mcL (3.82-4.97); Red Cell Distribution Width 15.3 % (11.5-14.5); Segmented Neutrophils % 84.6 %
[2017-03-20 01:01] LABS: Calcium 9.5 mg/dL (8.6-10.8); Potassium 4.4 mEq/L (3.5-4.5)
[2017-03-20 01:26] LABS: Bilirubin,Urine Negative (Negative); Blood,Urine Negative (Negative); Clarity,Urine Cloudy (Clear); Color,Urine Yellow (Yellow); Glucose,Urine (UA) Normal (Normal); Ketones,Urine Negative (Negative); Leukocyte Esterase,Urine Small (Negative); Nitrite,Urine Positive (Negative); Protein,Urine Negative (Neg-Trace); Specific Gravity,Urine 1.013 (1.010-1.025); Urobilinogen,Urine Normal (Normal)
[2017-03-20 01:29] LABS: Bacteria,Urine Many per hpf (None-Few); Hyaline Casts,Urine None Seen per lpf (None-Few); RBC,Urine 0-3 per hpf (0-3); Squamous Epithelial Cell,Urine None Seen per lpf (None-Few); WBC,Urine 15-30 per hpf (0-3)
[2017-03-20 01:49] LABS: INR 2.5; Prothrombin Time 27.3 Seconds (9.4-12.1)
[2017-03-20] MEDS ORDERED: Ondansetron 4 MG/2 ML VIAL IVP PRN (03:01)
[2017-03-20] MEDS ORDERED: Naloxone 0.4 MG/ML INJ IVP PRN (03:01)
--- NOTE | 2017-03-20 03:06 | Internal Med History&Physical ---
Date of Encounter: 03/20/17 Time of Encounter: 03:00 Assessment and Plan (1) Sepsis Current visit: Yes Status: Acute Secondary to UTI. Patient has tachycardia and elevated white count Chest x-ray shows cardiomegaly with mild central pulmonary edema and small bilateral pleural effusions which are improving. Lactic acid is 1.5. Urine cultures and blood cultures pending. Patient recently discharged from hospital after being treated for ESBL in urine. Hold off on fluids for now because of chronic CHF and mild pulmonary edema seen on CXR. Hemodynamically stable. Continue home meds. IV Zosyn, Vancomycin. Labs in a.m. Qualifiers: Sepsis type: sepsis due to unspecified organism Qualified Code(s): A41.9 - Sepsis, unspecified organism (2) Acute on chronic congestive heart failure Current visit: Yes Status: Acute Probable systolic dysfunction. mildly reduced LVEF. CXR - mild pulmonary edema, b/l pleural effusion Cardiology has evaluated on previous admission advised to continue Lasix. continue Cardizem CD 240 mg and Coumadin. Continue home medications. BNP pending Daily weight. Strict intake and output. consult cardiology Qualifiers: Congestive heart failure type: combined Qualified Code(s): I50.43 - Acute on chronic combined systolic (congestive) and diastolic (congestive) heart failure (3) Atrial fibrillation with RVR Current visit: No Status: Acute Chronic atrial fibrillation with RVR. Currently not rate controlled. Continue Coumadin for anticoagulation. Continue home medications for rate control. consult cardiology (4) COPD (chronic obstructive pulmonary disease) Current visit: No Status: Chronic Chronic. Not in exacerbation. Continue 3 L O2 via nasal cannula. As per records patient uses BiPAP at home. Qualifiers: COPD type: unspecified COPD Qualified Code(s): J44.9 - Chronic obstructive pulmonary disease, unspecified (5) Type 2 diabetes mellitus Current visit: Yes Status: Chronic Hyperglycemia, [id number]. Continue sliding scale insulin. Qualifiers: Diabetes mellitus complication status: with unspecified complications Diabetes mellitus buttermaker insulin use: unspecified penitentiary insulin use status Qualified Code(s): E11.8 - Type 2 diabetes mellitus with unspecified complications (6) Declining functional status Current visit: Yes Status: Acute patient is mostly wheelchair bound or bed bound Poor functional status (7) DVT prophylaxis Current visit: No Status: Acute Continue Coumadin. INR therapeutic Internal Medicine - H&P: HPI Admitted From: Emergency Dept History of present illness: Ms. Renee is a 81 year old female with past medical history of atrial fibrillation, CHF, type 2 diabetes mellitus, hypertension, hyperlipidemia, COPD and GERD. She presented to the ED from care home facility. She presented with complaints of shortness of breath, cough and congestion. Patient went to [place], and then sent here. Patient complained of generalized weakness as well. Patient states symptoms started about 1-2 days ago. Symptoms have gradually worsened. No aggravating or alleviating factors. No other associated symptoms. She states she has been taking all her medications. She has been recently discharged after being treated for acute exacerbation of CHF. She was also being treated for a UTI with ESBL with IV ertapenem. On examination patient is awake and alert. Not in any distress. She denies chest pain. She complains of mild shortness of breath. She uses 4 L O2 via nasal cannula. Patient denies abdominal pain, headache, dizziness, palpitations or any other problems. Initial ED workup reveals elevated white count and a UA which is positive for nitrites and leukocyte esterase. Patient is also tachycardic. She does have bilateral crackles and pulmonary edema seen on x-ray , however this is improving. Patient will be given 1 dose IV Lasix and continue the by mouth Lasix that she usually takes. Patient was started on empiric IV antibiotics. We will also continue DuoNeb breathing treatment. She will be on strict I's and O's and also daily weights will be recorded. Patient has been explained about her condition and plan of care in detail. She understood and agreed, has no unanswered questions. Past Med Surg Social Fam HX - Past Medical History Medical history: atrial fibrillation, CHF, COPD, diabetes, GERD, glaucoma, hyperlipidemia, hypertension, renal disease, thyroid disease Psychiatric history: anxiety, depression - Past Surgical History Surgical History: appendectomy, cholecystectomy - Social History Smoking Status: Never smoker Smokeless Tobacco Status: No Alcohol use: none Drug use: none Internal Medicine - H&P: Meds Acetaminophen [Tylenol Arthritis] 650 mg PO Q6H PRN 02/13/17 [History] Alendronate Sodium [Fosamax] 70 mg PO TH 02/13/17 [History] Allopurinol [Zyloprim 100 MG] 100 mg PO DAILY 02/13/17 [History] Budesonide/Formoterol 160/4.5 [Symbicort 160/4.5] 2 puff IH BIDR 02/13/17 [ History] Calcium Carbonate/Vitamin D3 [Calcium 600 + Vit D Tablet] 1 each PO BID [History] GuaiFENesin/Dextromethorphan [Robitussin/Dm] 10 ml PO Q4H PRN 02/13/17 [History] Hydrocortisone Acetate [Anusol-Hc] 25 mg RC BID PRN 02/13/17 [History] Levothyroxine Sodium 200 mcg PO 1400 02/13/17 [History] Multivitamin [One Daily Essential] 1 tab PO DAILY 02/13/17 [History] Omeprazole [PriLOSEC] 40 mg PO DAILY 02/13/17 [History] Ondansetron HCl [Zofran] 4 mg PO Q6H PRN 02/13/17 [History] Oxygen 4 l NS AD 02/13/17 [History] Potassium Chloride [K-Tab ER] 20 meq PO BID 02/13/17 [History] Sennosides/Docusate Sodium [Senna-S Tablet] 1 each PO DAILY PRN 02/13/17 [ History] Sertraline [Zoloft] 50 mg PO DAILY 02/13/17 [History] Atorvastatin [Lipitor] 40 mg PO HS #30 tablet 02/18/17 [Rx] Diltiazem CD (24hr) [Cardizem CD] 240 mg PO DAILY cap.er.24h 02/18/17 [Rx] Furosemide [Lasix] 60 mg PO BID #60 tablet 02/18/17 [Rx] Gabapentin [Neurontin] 400 mg PO BID capsule 02/18/17 [Rx] LORazepam [Ativan] 0.5 mg PO BID PRN #14 tablet 02/18/17 [Rx] Labetalol [Trandate] 100 mg PO BID tablet 02/18/17 [Rx] Magnesium Oxide [Mag-Ox] 400 mg PO DAILY tablet 02/18/17 [Rx] OxyCODONE/APAP 5/325 [Percocet 5/325 MG] 1 each PO Q12H PRN #20 tablet 02/18/17 [Rx] GuaiFENesin ER [Mucinex] 600 mg PO BID 03/20/17 [History] Ipratropium/Albuterol Neb [Duoneb] 3 ml IH QID 03/20/17 [History] Warfarin [Coumadin] 2 mg PO DAILY 03/20/17 [History] Allergies meperidine [From Demerol] Allergy (Verified 02/13/17 11:01) Anaphylaxis Tetracycline Allergy (Verified 02/13/17 11:01) Anaphylaxis All Systems PM: A 10-system review of systems was performed and is negative for pertinent findings except as documented above in the HPI. - Constitutional Constitutional: as per HPI, fatigue, weakness - Cardiovascular Cardiovascular ROS IM: dyspnea, dyspnea on exertion, orthopnea, no chest pain, no lightheadedness - Respiratory Respiratory: cough, dyspnea, dyspnea on exertion, chest congestion - Gastrointestinal Gastrointestinal: no abdominal pain, no bloating, no diarrhea - Neurological Neurological ROS: no abnormal speech, no confusion, no dizziness, no focal weakness, no loss of vision - Constitutional Vitals: Temp Pulse Resp BP Pulse Ox 0 F L 100 20 127/68 96 03/20/17 02:49 03/20/17 01:22 03/20/17 02:49 03/20/17 02:49 03/20/17 01:22 General appearance: Present: A&O X 3, pleasant, no acute distress, answers questions appropriately - Head Head exam: Present: atraumatic - Neck Neck exam general surgery: Present: supple - Respiratory Respiratory exam: Present: rales (b/l with good air entry). Absent: wheezes - Cardiovascular Cardiovascular exam: Present: irregular rhythm, +S1, +S2, systolic murmur - GI/Abdominal GI/Abdominal exam: Present: distended (obese), soft. Absent: guarding, tenderness - Extremities Exam Extremities exam: Present: pedal edema (b/l 3+), radial pulses palpable and symetrical. Absent: cyanotic Additional comments: stasis dermatitis+ - Neurological Exam Neurological exam: Present: alert, oriented X3, no focal deficits. Absent: speech deficit Internal Med - H&P Results - Labs CBC & Chem 7: 03/20/17 00:39 03/20/17 00:39
[2017-03-20] MEDS ORDERED: Sennosides/Docusate Sodium TABLET PO PRN (03:17)
[2017-03-20] MEDS ORDERED: NON-FORMULARY MEDICATION 1 EACH EACH (Oxygen [Oxygen] 4 L) NS SCH (03:30)
[2017-03-20] MEDS ORDERED: Vancomycin 2,000 MG in D5% in Water 500 ML IVPB ONE (04:00)
[2017-03-20] MEDS ORDERED: Furosemide 20 MG/2 ML VIAL IVP ONE (04:00)
[2017-03-20 04:10] LABS: Basophils # 0.1 K/mcL (0.0-0.2); Basophils % 0.3 %; Eosinophils # 0.2 K/mcL (0.0-0.6); Eosinophils % 1.2 %; Hematocrit 30.9 % (35.3-44.9); Hemoglobin 9.6 g/dL (11.5-15.4); Immature Granulocytes % 0.4 % (0-4); Immature Platelets 1.6 % (1.1-6.1); Lymphocytes # 1.5 K/mcL (0.6-4.6); Lymphocytes % 9.2 %; Mean Corpuscular HGB Conc 31.1 g/dL (31.6-35.5); Mean Corpuscular Hemoglobin 27.6 pg (28.0-33.3); Mean Corpuscular Volume 88.8 fL (83.0-100.0); Monocytes % 6.1 %; Neutrophils # 13.4 K/mcL (1.6-8.9); Platelet Count 202 K/mcL (140-400); Red Blood Count 3.48 M/mcL (3.82-4.97); Red Cell Distribution Width 15.4 % (11.5-14.5); Segmented Neutrophils % 82.8 %
[2017-03-20 04:16] LABS: INR 2.6; Prothrombin Time 28.5 Seconds (9.4-12.1)
[2017-03-20 04:21] LABS: BUN/Creatinine Ratio 13 (6-26); Blood Urea Nitrogen 14 mg/dL (7-20); Calcium 8.7 mg/dL (8.6-10.8); Carbon Dioxide 28 mEq/L (19-29); Chloride 102 mEq/L (98-109); Glucose 117 mg/dL (70-99); Osmolality,Calculated 290 (280-300); Potassium 3.7 mEq/L (3.5-4.5); Sodium 139 mEq/L (136-145); eGFR For African Americans > 60 (> 60); eGFR For Non-African Americans 51 (> 60)
[2017-03-20] MEDS: Piperacillin/Tazobactam 3.375 GM in D5% in Water (Mini-Bag+) 100 ML IVPB SCH ×2 (06:46→18:15)
[2017-03-20] MEDS: Multivit/Ca/Min/Fe/FA 1 TAB TABLET PO SCH (07:59)
[2017-03-20] MEDS: Gabapentin 400 MG CAPSULE PO SCH ×2 (07:59→20:58)
[2017-03-20] MEDS: Famotidine 20 MG TABLET PO SCH ×2 (07:59→20:58)
[2017-03-20] MEDS: Magnesium Oxide 400 MG TABLET PO SCH (08:00)
[2017-03-20] MEDS: Diltiazem CD (24hr) 240 MG CAPSULE PO SCH (08:00)
[2017-03-20] MEDS ORDERED: Furosemide 40 MG TABLET PO SCH (08:00)
[2017-03-20] MEDS ORDERED: (Calcium Carbonate/Vitamin D3 [Calcium 600 + Vit D Ta) PO SCH (09:00)
[2017-03-20] MEDS ORDERED: Ipratropium/Albuterol Neb 3 ML IH SCH (09:00)
[2017-03-20] MEDS: Budesonide/Formoterol 160/4.5 MDI IH SCH ×2 (09:18→23:06)
--- NOTE | 2017-03-20 10:28 | Cardiology Consult Note ---
<Donato Dunn - Last Filed: 03/20/17 13:59> Date of Encounter: 03/20/17 Time of Encounter: 10:27 Assessment and Plan (1) Acute on chronic congestive heart failure Current Visit: Yes Status: Acute [facility] cardiology: [facility]. Received one time dose of IV Lasix on admission, currently on PO Lasix 60mg BID. Output -800mL yesterday, no input recorded. Pt reports breathing has improved. BNP 602, CXR with small bilateral pleural effusions, but improving compared to prior. Echo technically challenging, LV function appears mildly reduced with mild to moderate LV dilation, possibly hypokinesis of inferolateral wall, RV mildly dialted, aortic sclerosis, mild mitral regurgitation, mild-moderate tricuspid regurgitation, mild pulmonic regurgitation, moderate pulmonary hypertension, mid inferior, basal inferior, and basal lateral anand hypokinetic. Agree with strict I/O's, daily weights, and fluid restrictions. Would recommend continued IV diuresis while inpt since she still has small bilateral pleural effusions on CXR and since renal function is normal. Close out-patient f/u with cardiology. Anticipate sign off once seen and evaluated by Dr. Zambrano. Qualifiers: Congestive heart failure type: combined Qualified Code(s): I50.43 - Acute on chronic combined systolic (congestive) and diastolic (congestive) heart failure (2) A-fib Current Visit: Yes Status: Chronic Per cardiology: -Known atrial fibrillation. -Currently atrial fibrillation with average HR 93. Rate controlled. -On cardizem CD 240 mg daily and Labetolol 100mg BID. -Yjehu4oqqz score 6 (age, gender, HTN, vascular history). On coumadin. INR therapeutic 2.6. -INR monitored by PCP in [facility]. Qualifiers: Atrial fibrillation type: unspecified Qualified Code(s): I48.91 - Unspecified atrial fibrillation (3) CAD (coronary artery disease) Current Visit: No Status: Chronic Per cardiology: -Remote history of coronary stenting in 2001 per patient. -Denies chest pain. -Echo as above, unknown previous echo -Troponin negative. -ECG with no ischemic changes. -Can consider further ischemic work up as outpatient. Qualifiers: Coronary Disease-Associated Artery/Lesion type: [place] artery [place] vs. transplanted heart: comanche heart Associated angina: without angina Qualified Code(s): I25.10 - Atherosclerotic heart disease of com[place] coronary artery without angina pectoris Discussion w patient/family: The assessment and plan as outlined above was discussed with the patient and/or family members who expressed understanding and agreement. All questions were answered. Thank you for involving us in the care of your patient. Please call with any questions. I will discuss all the above with Dr. Zambrano and make changes as necessary. History of Present Illness Consult date: 03/20/17 Requesting physician: Luz Elena England Consult reason: CHF Chief complaint: shortness of breath History of present illness: Ms. Renee is a pleasant alert and oriented x 3, 81 year old female with PMH of A.Fib, CHF, DM type 2, HTN, hyperlipidemia, COPD, CAD with PCI in remote past and GERD. She presented yesterday to outside facility ED from [facility]. She was then transferred to [place]. She presented with complaints of dyspnea, cough, congestion, and generalized weakness. Patient states symptoms started about 1-2 days ago. Symptoms have gradually worsened. Patient states lower extremity edema is worsening. States is weighed weekly at [facility] but does not know weight history. Patient takes lasix, coumadin, labetolol, and lipitor. Denies missing any medications. Received 1 dose 20 mg IV lasix in the ED. She was recently discharged after being treated for acute exacerbation of CHF at an outside facility. Patient denies CP. Reports dyspnea has improved since admission. Patient reports she does not follow with a family practice physician, stating that the one she used to see in [place] is no longer there. Patient had a scheduled appointment with our cardiology department 03/13/17 that was rescheduled to a later date. Currently a.fib/a. flutter. 24 hour tele avg. HR 91. Pt found to be septic, BNP 602. CXR with bilateral pleural effusions, improving from prior study. Previous CV testing: Echocardiogram 02/13/17: poorly visualized report, function mildly reduced Mild-mod LV dilation Possible hypokinesis inferior lateral wall RV mildly dilated Mild MR Mild-moderate TR Mild NC Moderate pulmonary HTN Past Med Surg Social Fam HX - Past Medical History Medical history: atrial fibrillation, CHF, COPD, coronary artery disease, diabetes, GERD, glaucoma, hyperlipidemia, hypertension, renal disease, thyroid disease Psychiatric history: anxiety, depression - Past Surgical History Surgical History: angioplasty/stent, appendectomy, cholecystectomy - Social History Smoking Status: Never smoker Smokeless Tobacco Status: No Alcohol use: none Drug use: none - Family History Father Hx Family Cancer: Yes (Cancer) Hx Family Neurologic Disorders: Yes (CVA) Medications and Allergies Acetaminophen [Tylenol Arthritis] 650 mg PO Q6H PRN 02/13/17 [History] Alendronate Sodium [Fosamax] 70 mg PO TH 02/13/17 [History] Allopurinol [Zyloprim 100 MG] 100 mg PO DAILY 02/13/17 [History] Budesonide/Formoterol 160/4.5 [Symbicort 160/4.5] 2 puff IH BID 02/13/17 [ History] Calcium Carbonate/Vitamin D3 [Calcium 600 + Vit D Tablet] 1 each PO BID [History] Hydrocortisone Acetate [Anusol-Hc] 25 mg RC BID PRN 02/13/17 [History] Levothyroxine Sodium 200 mcg PO DAILY 02/13/17 [History] Multivitamin [One Daily Essential] 1 tab PO DAILY 02/13/17 [History] Omeprazole [PriLOSEC] 40 mg PO DAILY 02/13/17 [History] Ondansetron HCl [Zofran] 4 mg PO Q6H PRN 02/13/17 [History] Oxygen 4 l NS AD 02/13/17 [History] Potassium Chloride [K-Tab ER] 20 meq PO BID 02/13/17 [History] Sennosides/Docusate Sodium [Senna-S Tablet] 1 each PO DAILY PRN 02/13/17 [ History] Sertraline [Zoloft] 50 mg PO DAILY 02/13/17 [History] Atorvastatin [Lipitor] 40 mg PO HS #30 tablet 02/18/17 [Rx] Diltiazem CD (24hr) [Cardizem CD] 240 mg PO DAILY cap.er.24h 02/18/17 [Rx] Furosemide [Lasix] 60 mg PO BID #60 tablet 02/18/17 [Rx] Gabapentin [Neurontin] 400 mg PO BID capsule 02/18/17 [Rx] LORazepam [Ativan] 0.5 mg PO BID PRN #14 tablet 02/18/17 [Rx] Labetalol [Trandate] 100 mg PO BID tablet 02/18/17 [Rx] Magnesium Oxide [Mag-Ox] 400 mg PO DAILY tablet 02/18/17 [Rx] OxyCODONE/APAP 5/325 [Percocet 5/325 MG] 1 each PO Q12H PRN #20 tablet 02/18/17 [Rx] GuaiFENesin ER [Mucinex] 600 mg PO BID 03/20/17 [History] Ipratropium/Albuterol Neb [Duoneb] 3 ml IH QID 03/20/17 [History] Warfarin [Coumadin] 2 mg PO DAILY 03/20/17 [History] Allergies meperidine [From Demerol] Allergy (Verified 02/13/17 11:01) Anaphylaxis Tetracycline Allergy (Verified 02/13/17 11:01) Anaphylaxis All Systems Review: A 10-system review of systems was performed and is negative for pertinent findings except as documented above in the HPI. - Cardiovascular Cardiovascular: as per HPI, dyspnea at rest, dyspnea on exertion, leg edema - Respiratory Respiratory: cough, dyspnea, wheezing Physical Examination Vital Signs, Last 4 Hours Temp Pulse Resp BP Pulse Ox 03/20/17 07:02 98.6 F 83 16 121/68 97 Vital Signs Temp Pulse Resp BP Pulse Ox 03/20/17 10:52 98.2 F 80 16 111/52 97 03/20/17 07:02 98.6 F 83 16 121/68 97 03/20/17 04:19 97 03/20/17 03:31 99.0 F 95 24 113/79 97 03/20/17 02:49 0 F L 20 127/68 03/20/17 01:22 100 18 126/72 96 03/20/17 00:13 98 03/20/17 00:06 98.6 F 100 24 139/79 89 Intake and Output 03/19/17 03/20/17 03/20/17 23:59 07:59 15:59 Output Total 800 / 800 Balance -800 / -800 Output: Catheter 800 / 800 Other: Weight 129.8 kg Blood Glucose* 173 193 Patient Weight 03/20/17 23:59 Weight 129.8 kg General: Conversant, No Apparent Distress HEENT: Atraumatic, Normocephaly, Mucus Membranes Moist Neck: No JVD, Normal carotid pulses Cardiac: Other (irregular) Lungs: Other (rhonchi and crackles noted) Neuro: Alert and responsive, No focal deficits noted Abdomen: Soft, Non-Tender Skin: No rashes noted on visualized skin Musculoskeletal: No Chest Wall Tenderness Extremities: Other (mild BLE edema) Results 03/20/17 04:01 03/20/17 04:01 Lab Results 03/20/17 03/20/17 03/20/17 04:01 04:01 04:01 WBC 16.2 H Hgb 9.6 L Hct 30.9 L Plt Count 202 INR 2.6 APTT 38.0 H Sodium Potassium Chloride Carbon Dioxide BUN Creatinine Glucose Calcium B-Natriuretic Peptide 03/20/17 03/20/17 04:01 04:01 WBC Hgb Hct Plt Count INR APTT Sodium 139 Potassium 3.7 Chloride 102 Carbon Dioxide 28 BUN 14 Creatinine 1.04 Glucose 117 H Calcium 8.7 B-Natriuretic Peptide 602 H Short CBC 03/20/17 03/20/17 Range/Units 04:01 00:39 WBC 16.2 H 16.8 H (4.3-11.1) K/mcL Hgb 9.6 L 10.7 L (11.5-15.4) g/dL Hct 30.9 L 34.8 L (35.3-44.9) % Plt Count 202 212 (140-400) K/mcL Neutrophils # 13.4 H 14.2 H (1.6-8.9) K/mcL BMP 03/20/17 03/20/17 Range/Units 04:01 00:39 Sodium 139 138 (136-145) mEq/L Potassium 3.7 4.4 (3.5-4.5) mEq/L Chloride 102 100 (98-109) mEq/L Carbon Dioxide 28 26 (19-29) mEq/L BUN 14 14 (7-20) mg/dL Creatinine 1.04 1.11 (0.57-1.11) mg/dL Glucose 117 H 116 H (70-99) mg/dL Calcium 8.7 9.5 (8.6-10.8) mg/dL Cardiac Enzymes 03/20/17 Range/Units 00:39 Troponin I 0.02 (0-0.03) ng/mL Urine 03/20/17 Range/Units 01:15 Urine Color Yellow (Yellow) Urine Clarity Cloudy A (Clear) Urine pH 7.0 (5.0-8.0) pH Units Ur Specific [place] 1.013 (1.010-1.025) Urine Protein Negative (Neg-Trace) mg/dL Urine Glucose (UA) Normal (Normal) mg/dL Impressions Chest X-Ray 03/20/17 00:08 IMPRESSION: Cardiomegaly with mild central pulmonary edema and small bilateral pleural effusions improved since prior examination suggesting improving CHF. D/ / Dariusz Martins MD / Dariusz Martins MD Interpreting Provider: Dariusz Martins MD Active Medications Acetaminophen (Tylenol) 650 mg PO Q6HR PRN PRN Reason: Mild Pain (1-3) Stop: 09/19/17 03:02 Albuterol/Ipratropium (Duoneb) 3 ml IH QIDR VIC PRN Reason: Protocol Stop: 09/19/17 09:01 Atorvastatin Calcium (Lipitor) 40 mg PO HS VIC Stop: 09/19/17 21:01 Budesonide/Formoterol Fumarate (Symbicort) 2 puff IH BIDR VIC PRN Reason: Protocol Stop: 09/19/17 10:01 Last Admin: 03/20/17 09:18 Dose: 2 puff Diltiazem HCl (Cardizem Cd) 240 mg PO DAILY VIC Stop: 09/19/17 09:01 Last Admin: 03/20/17 08:00 Dose: 240 mg Famotidine (Pepcid) 20 mg PO BID VIC Stop: 09/19/17 09:01 Last Admin: 03/20/17 07:59 Dose: 20 mg Furosemide (Lasix) 60 mg PO BIDDIURETIC VIC Stop: 09/19/17 08:01 Last Admin: 03/20/17 08:00 Dose: 60 mg Gabapentin (Neurontin) 400 mg PO BID VIC Stop: 09/19/17 09:01 Last Admin: 03/20/17 07:59 Dose: 400 mg Guaifenesin (Mucinex) 600 mg PO BID VIC Stop: 09/19/17 09:01 Last Admin: 03/20/17 07:59 Dose: 600 mg Piperacillin Sod/Tazobactam (Sod 3.375 gm/ Dextrose) 100 mls @ 25 mls/hr IVPB Q12HR VIC PRN Reason: Protocol Stop: 09/19/17 06:01 Last Admin: 03/20/17 06:46 Dose: 25 mls/hr Vancomycin HCl 1,750 mg/ (Dextrose) 500 mls @ 333.34 mls/hr IVPB Q12H [facility] Stop: 09/19/17 16:01 Labetalol HCl (Trandate) 100 mg PO BID [facility] Stop: 09/19/17 09:01 Last Admin: 03/20/17 07:59 Dose: 100 mg Levothyroxine Sodium (Synthroid) 200 mcg PO 0630 [facility] Stop: 09/19/17 06:31 Last Admin: 03/20/17 06:47 Dose: 200 mcg Magnesium Oxide (Mag-Ox) 400 mg PO DAILY VIC PRN Reason: Protocol Stop: 09/19/17 09:01 Last Admin: 03/20/17 08:00 Dose: 400 mg Multivitamins/Calcium (Thera M Plus) 1 tab PO DAILY [facility] Stop: 09/19/17 09:01 Last Admin: 03/20/17 07:59 Dose: 1 tab Naloxone HCl (Narcan) 0.4 mg IVP Q2MIN PRN PRN Reason: Opioid Reversal Stop: 09/19/17 03:02 Omeprazole (Prilosec) 40 mg PO DAILY [facility] Stop: 09/19/17 09:01 Last Admin: 03/20/17 07:59 Dose: 40 mg Ondansetron HCl (Zofran) 4 mg IVP Q8HR PRN PRN Reason: Nausea And Vomiting Stop: 09/19/17 03:02 Pharmacy Profile Note (Patient Taking Own Medication) 0 each PO BID [facility] Stop: 09/19/17 09:01 Last Admin: 03/20/17 08:00 Dose: Not Given Potassium Chloride (Potassium Chloride) 20 meq PO BID [facility] Stop: 09/19/17 09:01 Last Admin: 03/20/17 07:58 Dose: 20 meq Senna/Docusate Sodium (Senna Plus) 1 each PO DAILY PRN; Protocol PRN Reason: Constipation Stop: 09/19/17 03:18 Sertraline HCl (Zoloft) 50 mg PO DAILY [facility] Stop: 09/19/17 09:01 Last Admin: 03/20/17 07:59 Dose: 50 mg Warfarin Sodium (Coumadin) 2 mg PO 1800 VIC Stop: 09/19/17 18:01 - Imaging and Cardiology Echo: report reviewed - EKG Interpretation EKG results cardiology: personally reviewed, other (24 hour tele AVG HR 93, A- Fib) Consult Discharge Plan - Plan Referrals: NO,PCP [Primary Care Provider] - <MushtaqangelicMalina - Last Filed: 03/20/17 17:03> Date of Encounter: 03/20/17 Assessment and Plan Discussion w patient/family: The assessment and plan as outlined above was discussed with the patient and/or family members who expressed understanding and agreement. All questions were answered. Thank you for involving us in the care of your patient. Please call with any questions. History of Present Illness History of present illness: Ms. Renee is a 81 year old female All Systems Review: A 10-system review of systems was performed and is negative for pertinent findings except as documented above in the HPI. Physical Examination Vital Signs, Last 4 Hours Temp Pulse Resp BP Pulse Ox 03/20/17 15:46 98.1 F 95 18 135/75 96 Results 03/20/17 04:01 03/20/17 04:01 Lab Results 03/20/17 03/20/17 03/20/17 04:01 04:01 04:01 WBC 16.2 H Hgb 9.6 L Hct 30.9 L Plt Count 202 INR 2.6 APTT 38.0 H Sodium Potassium Chloride Carbon Dioxide BUN Creatinine Glucose Calcium B-Natriuretic Peptide 03/20/17 03/20/17 04:01 04:01 WBC Hgb Hct Plt Count INR APTT Sodium 139 Potassium 3.7 Chloride 102 Carbon Dioxide 28 BUN 14 Creatinine 1.04 Glucose 117 H Calcium 8.7 B-Natriuretic Peptide 602 H - Attending Attestation I examined this patient and my medical decision-making was reviewed with the TABLE LEVER OPERATOR/PA/Advanced Practice Nurse/Resident Physician. I agree with the documented findings, disposition and treatment plan. Patient presented with dyspnea and generalized weakness and found to have UTI and probable acute on chronic CHF. A recent echo was technically challenging and unable to estimate EF but suspected mild reduction. Recommend IV diuresis, daily weights and fluid restriction. Otherwise, she has known AFIB and appears to be rate controlled on AVN blockers and coumadin for anticoagulation. Recommend close outpatient follow up with cardiology. Will sign off. Please call with questions.
[2017-03-20] MEDS: Ipratropium/Albuterol Neb 3 ML IH SCH ×3 (11:57→23:06)
[2017-03-20] MEDS: Acetaminophen 325 MG TABLET PO PRN (15:12)
[2017-03-20] MEDS ORDERED: *HR* Dextrose 50 % in Water (Syg) 50 ML SYRINGE IVP PRN (16:20)
[2017-03-20] MEDS ORDERED: Dextrose Gel 15 GM PO PRN ×2 (16:20)
[2017-03-20] MEDS ORDERED: D5% in Water 1,000 ML IVC PRN (16:20)
--- NOTE | 2017-03-20 16:21 | Event Note ---
Date of Encounter: 03/20/17 Time of Encounter: 16:16 Patient is an 81y/o female with history of Afib on anticoagulation, CAD, CHF who was admitted for sepsis secondary to UTI and CHF decompensation. patient seen and examined at bedside. resting in bed and reports of feeling significantly better since admission. States her breathing is much better and is currently AAO x 3. Cardiology input appreciated. Will continue IV diuresis, monitor strict I/Os, daily weights, fluid restriction diet. O2 supplementation as needed Rate currently controlled and INR within therapeutic range Will continue empiric IV abx and follow up blood and urine cultures Noted to be hyperglycemic however last HbA1c in 02/13/17 was 5.5. Will closely monitor
--- NOTE | 2017-03-20 17:57 | Electrocardiograph Report ---
[place] [id number] Test Date: 2017-03-20 Pat Name: Leann Renee Department: 105 Room: 3B Gender: F Crew Chief: THUY : 1935 Requested By: Ruby Bowen Order Number: [id number] Reading MD: Jiagr Leal MD Measurements Intervals [place] Rate: 102 P: OK: 0 QRS: 68 QRSD: 92 T: 115 QT: 370 QTc: 429 Interpretive Statements ATRIAL FIBRILLATION WITH RAPID VENTRICULAR RESPONSE LOW QRS VOLTAGE IN EXTREMITY LEADS Electronically Signed On 03-20-2017 17:55:50 EDT by Jigar Leal MD
--- NOTE | 2017-03-20 17:58 | Electrocardiograph Report ---
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
[2017-03-20] MEDS ORDERED: Warfarin perPT PO PRN (18:00)
[2017-03-20] MEDS: Furosemide 40 MG/4 ML VIAL IVP SCH (18:15)
[2017-03-20] MEDS: Vancomycin 1,750 MG in D5% in Water 500 ML IVPB SCH (18:15)
[2017-03-20] MEDS: *HR* Warfarin 2 MG TABLET PO SCH (18:15)
[2017-03-20] MEDS: Insulin LISPRO 300 UNITS/3 ML VIAL SQ SCH ×2 (18:16→20:59)
[2017-03-21 03:51] LABS: Basophils # 0.1 K/mcL (0.0-0.2); Basophils % 0.6 %; Eosinophils # 0.4 K/mcL (0.0-0.6); Eosinophils % 3.7 %; Hematocrit 32.4 % (35.3-44.9); Hemoglobin 9.9 g/dL (11.5-15.4); Immature Granulocytes % 0.8 % (0-4); Lymphocytes # 1.2 K/mcL (0.6-4.6); Lymphocytes % 10.9 %; Mean Corpuscular HGB Conc 30.6 g/dL (31.6-35.5); Mean Corpuscular Hemoglobin 27.1 pg (28.0-33.3); Mean Corpuscular Volume 88.8 fL (83.0-100.0); Mean Platelet Volume 9.8 fL (9.4-12.4); Monocytes # 0.8 K/mcL (0.0-1.3); Monocytes % 7.5 %; Neutrophils # 8.1 K/mcL (1.6-8.9); Platelet Count 187 K/mcL (140-400); Red Blood Count 3.65 M/mcL (3.82-4.97); Segmented Neutrophils % 76.5 %
[2017-03-21 03:55] LABS: INR 2.7; Prothrombin Time 30.3 Seconds (9.4-12.1)
[2017-03-21 04:02] LABS: Hemoglobin A1C 5.7 %
[2017-03-21 04:08] LABS: Calcium 8.9 mg/dL (8.6-10.8); Magnesium 1.8 mg/dL (1.6-2.6); Phosphorous 3.8 mg/dL (2.3-4.7); Potassium 3.7 mEq/L (3.5-4.5)
[2017-03-21] MEDS: Ipratropium/Albuterol Neb 3 ML IH SCH ×4 (04:18→21:46)
[2017-03-21] MEDS: Vancomycin 1,750 MG in D5% in Water 500 ML IVPB SCH ×2 (06:11→15:35)
[2017-03-21] MEDS: Piperacillin/Tazobactam 3.375 GM in D5% in Water (Mini-Bag+) 100 ML IVPB SCH ×2 (06:11→17:57)
[2017-03-21] MEDS: Acetaminophen 325 MG TABLET PO PRN ×2 (06:16→21:02)
[2017-03-21] MEDS: Insulin LISPRO 300 UNITS/3 ML VIAL SQ SCH ×4 (08:38→21:01)
[2017-03-21] MEDS: Famotidine 20 MG TABLET PO SCH (08:38)
[2017-03-21] MEDS: Magnesium Oxide 400 MG TABLET PO SCH (08:38)
[2017-03-21] MEDS: Diltiazem CD (24hr) 240 MG CAPSULE PO SCH (08:38)
[2017-03-21] MEDS: Multivit/Ca/Min/Fe/FA 1 TAB TABLET PO SCH (08:39)
[2017-03-21] MEDS: Cholecalciferol (D-3) 1,000 UNIT TABLET PO SCH (08:39)
[2017-03-21] MEDS: Gabapentin 400 MG CAPSULE PO SCH ×2 (08:39→21:01)
[2017-03-21] MEDS: Furosemide 40 MG/4 ML VIAL IVP SCH (08:39)
[2017-03-21] MEDS: Budesonide/Formoterol 160/4.5 MDI IH SCH ×2 (10:11→21:46)
[2017-03-21] MEDS ORDERED: 0.9 % Sodium Chloride 250 ML IVC SCH (16:00)
--- NOTE | 2017-03-21 16:04 | Internal Med Progress Note ---
Date of Encounter: 03/21/17 Time of Encounter: 16:01 - Assessment and plan (1) UTI (urinary tract infection) Current Visit: No Status: Acute Assessment and plan: History of UTI with ESBL continue empiric IV abx therapy urine culture preliminary shows GNR will de-escalate therapy as per culture reports hold Vancomycin given trough Qualifiers: Urinary tract infection type: acute cystitis Hematuria presence: without hematuria Qualified Code(s): N30.00 - Acute cystitis without hematuria (2) Acute on chronic congestive heart failure Current Visit: Yes Status: Acute Assessment and plan: continue IV diuresis given RODOLFO and Vanco toxicity, will decrease lasix to 40IV qd closely monitor respiratory status will increase diuresis if signs of volume overload occur will closely monitor monitor I/Os, daily weights Qualifiers: Congestive heart failure type: combined Qualified Code(s): I50.43 - Acute on chronic combined systolic (congestive) and diastolic (congestive) heart failure (3) COPD (chronic obstructive pulmonary disease) Current Visit: No Status: Chronic Assessment and plan: not in acute exacerbation continue home meds O2 supplementation Qualifiers: COPD type: unspecified COPD Qualified Code(s): J44.9 - Chronic obstructive pulmonary disease, unspecified (4) Atrial fibrillation with RVR Current Visit: No Status: Acute Assessment and plan: Rate controlled with CCB and BB continue anticoagulation with coumadin pharmacy to dose coumadin and monitor INR goal INR: 2-3 (5) DVT prophylaxis Current Visit: No Status: Acute Assessment and plan: anticoagulated with coumadin (6) RODOLFO (acute kidney injury) Current Visit: No Status: Acute Assessment and plan: likely secondary to Vanco toxicity d/c vanco will change Lasix to 40mg IV qd will give small dose of IVF (50cc/hr of 250cc NS x 1 bag) will closely monitor renal function repeat vanco trough in am - Subjective Interval history: Patient seen and examined. Resting in bed and reports of feeling better since admission. Reports of having a chronic indwelling kahn catheter. states at baseline she does not ambulate much. Encouraged to get out of bed and increase activity as tolerated. No overnight issues reported. - Constitutional Vitals: Temp Pulse Resp BP Pulse Ox 97.9 F 55 16 157/99 99 03/21/17 15:45 03/21/17 15:45 03/21/17 15:45 03/21/17 15:45 03/21/17 15:45 General appearance: Present: A&O X 3, morbidly obese, pleasant, no acute distress, answers questions appropriately - Head Head exam: Present: atraumatic, normocephalic - Eye Eye exam: Present: conjuntiva pink, sclera anicteric - Respiratory Respiratory exam: Present: CTAB. Absent: respiratory distress, wheezes - Cardiovascular Cardiovascular exam: Present: RRR, +S1, +S2. Absent: diastolic murmur, gallop, rubs, systolic murmur - GI/Abdominal GI/Abdominal exam: Present: normal bowel sounds, soft, no peritoneal signs. Absent: distended, tenderness - Extremities Exam Extremities exam: Present: warm, radial pulses palpable and symetrical (chronic venous stasis bilaterally) - Neurological Exam Neurological exam: Present: alert, oriented X3 - Psychiatric Psychiatric exam: Present: normal affect, normal mood Internal Medicine: Result - Labs CBC & Chem 7: 03/21/17 03:16 03/21/17 03:16 Labs: Short CBC 03/21/17 Range/Units 03:16 WBC 10.6 (4.3-11.1) K/mcL Hgb 9.9 L (11.5-15.4) g/dL Hct 32.4 L (35.3-44.9) % Plt Count 187 (140-400) K/mcL Neutrophils # 8.1 (1.6-8.9) K/mcL BMP 03/21/17 03:16 Sodium 142 Potassium 3.7 Chloride 101 Carbon Dioxide 29 BUN 16 Creatinine 1.28 H Glucose 134 H Calcium 8.9 - ABG Interpretation ABG results: PT/INR, D-dimer PT 30.3 Seconds (9.4-12.1) H 03/21/17 03:16 Consult Discharge Plan - Plan Referrals: NO,PCP [Primary Care Provider] -
[2017-03-21] MEDS: *HR* Warfarin 2 MG TABLET PO SCH (17:56)
[2017-03-22] MEDS: Piperacillin/Tazobactam 3.375 GM in D5% in Water (Mini-Bag+) 100 ML IVPB SCH ×2 (00:53→08:03)
[2017-03-22] MEDS ORDERED: *HR* OxyCODONE/APAP 5/325 TABLET PO PRN (00:57)
[2017-03-22] MEDS: Ipratropium/Albuterol Neb 3 ML IH SCH ×3 (04:45→16:16)
[2017-03-22 05:28] LABS: Basophils # 0.1 K/mcL (0.0-0.2); Basophils % 0.5 %; Eosinophils # 0.4 K/mcL (0.0-0.6); Eosinophils % 3.3 %; Hematocrit 31.9 % (35.3-44.9); Hemoglobin 9.9 g/dL (11.5-15.4); Immature Granulocytes % 0.4 % (0-4); Lymphocytes # 1.2 K/mcL (0.6-4.6); Lymphocytes % 11.1 %; Mean Corpuscular Hemoglobin 27.7 pg (28.0-33.3); Mean Corpuscular Volume 89.1 fL (83.0-100.0); Mean Platelet Volume 9.8 fL (9.4-12.4); Monocytes # 0.6 K/mcL (0.0-1.3); Monocytes % 5.6 %; Neutrophils # 8.8 K/mcL (1.6-8.9); Platelet Count 202 K/mcL (140-400); Red Blood Count 3.58 M/mcL (3.82-4.97); Red Cell Distribution Width 14.8 % (11.5-14.5); Segmented Neutrophils % 79.1 %
[2017-03-22 05:35] LABS: INR 2.7; Prothrombin Time 30.4 Seconds (9.4-12.1)
[2017-03-22 05:41] LABS: Calcium 8.7 mg/dL (8.6-10.8); Magnesium 1.7 mg/dL (1.6-2.6); Phosphorous 3.1 mg/dL (2.3-4.7); Potassium 3.7 mEq/L (3.5-4.5)
[2017-03-22] MEDS: Diltiazem CD (24hr) 240 MG CAPSULE PO SCH (08:06)
[2017-03-22] MEDS: Magnesium Oxide 400 MG TABLET PO SCH (08:06)
[2017-03-22] MEDS: Multivit/Ca/Min/Fe/FA 1 TAB TABLET PO SCH (08:06)
[2017-03-22] MEDS: Cholecalciferol (D-3) 1,000 UNIT TABLET PO SCH (08:06)
[2017-03-22] MEDS: Gabapentin 400 MG CAPSULE PO SCH (08:06)
[2017-03-22] MEDS: Insulin LISPRO 300 UNITS/3 ML VIAL SQ SCH ×3 (08:07→17:19)
[2017-03-22] MEDS ORDERED: Furosemide 40 MG/4 ML VIAL IVP SCH (09:00)
[2017-03-22 11:28] VITALS: BP 144/86
[2017-03-22] MEDS: Budesonide/Formoterol 160/4.5 MDI IH SCH (11:29)
--- NOTE | 2017-03-22 12:38 | Discharge Summary ---
Date of Encounter: 03/22/17 Time of Encounter: 12:35 - Discharge Diagnosis (1) UTI (urinary tract infection) Priority: Primary Status: Acute Qualifiers: Urinary tract infection type: acute cystitis Hematuria presence: without hematuria Qualified Code(s): N30.00 - Acute cystitis without hematuria (2) Acute on chronic congestive heart failure Priority: Primary Status: Resolved Qualifiers: Congestive heart failure type: combined Qualified Code(s): I50.43 - Acute on chronic combined systolic (congestive) and diastolic (congestive) heart failure (3) COPD (chronic obstructive pulmonary disease) Priority: Secondary Status: Chronic Qualifiers: COPD type: unspecified COPD Qualified Code(s): J44.9 - Chronic obstructive pulmonary disease, unspecified (4) Atrial fibrillation with RVR Priority: Secondary Status: Chronic (5) DVT prophylaxis Priority: Secondary Status: Acute (6) RODOLFO (acute kidney injury) Priority: Secondary Status: Resolved - Discharge Medications Prescriptions: Meropenem [Merrem] 1,000 mg IVPB Q12HR #15 vial OxyCODONE/APAP 5/325 [Percocet 5/325 MG] 1 each PO Q12H PRN #20 tablet PRN Reason: Pain Home Medications: Acetaminophen [Tylenol Arthritis] 650 mg PO Q6H PRN 02/13/17 [History] Alendronate Sodium [Fosamax] 70 mg PO TH 02/13/17 [History] Allopurinol [Zyloprim 100 MG] 100 mg PO DAILY 02/13/17 [History] Budesonide/Formoterol 160/4.5 [Symbicort 160/4.5] 2 puff IH BID 02/13/17 [ History] Calcium Carbonate/Vitamin D3 [Calcium 600 + Vit D Tablet] 1 each PO BID [History] Hydrocortisone Acetate [Anusol-Hc] 25 mg RC BID PRN 02/13/17 [History] Levothyroxine Sodium 200 mcg PO DAILY 02/13/17 [History] Multivitamin [One Daily Essential] 1 tab PO DAILY 02/13/17 [History] Omeprazole [PriLOSEC] 40 mg PO DAILY 02/13/17 [History] Ondansetron HCl [Zofran] 4 mg PO Q6H PRN 02/13/17 [History] Oxygen 4 l NS AD 02/13/17 [History] Potassium Chloride [K-Tab ER] 20 meq PO BID 02/13/17 [History] Sennosides/Docusate Sodium [Senna-S Tablet] 1 each PO DAILY PRN 02/13/17 [ History] Sertraline [Zoloft] 50 mg PO DAILY 02/13/17 [History] Atorvastatin [Lipitor] 40 mg PO HS #30 tablet 02/18/17 [Rx] Diltiazem CD (24hr) [Cardizem CD] 240 mg PO DAILY cap.er.24h 02/18/17 [Rx] Furosemide [Lasix] 60 mg PO BID #60 tablet 02/18/17 [Rx] Gabapentin [Neurontin] 400 mg PO BID capsule 02/18/17 [Rx] LORazepam [Ativan] 0.5 mg PO BID PRN #14 tablet 02/18/17 [Rx] Labetalol [Trandate] 100 mg PO BID tablet 02/18/17 [Rx] Magnesium Oxide [Mag-Ox] 400 mg PO DAILY tablet 02/18/17 [Rx] GuaiFENesin ER [Mucinex] 600 mg PO BID 03/20/17 [History] Ipratropium/Albuterol Neb [Duoneb] 3 ml IH QID 03/20/17 [History] Warfarin [Coumadin] 2 mg PO DAILY 03/20/17 [History] Meropenem [Merrem] 1,000 mg IVPB Q12HR #15 vial 03/22/17 [Rx] OxyCODONE/APAP 5/325 [Percocet 5/325 MG] 1 each PO Q12H PRN #20 tablet 03/22/17 [Rx] Allergies/Adverse Reactions: Allergies meperidine [From Demerol] Allergy (Verified 02/13/17 11:01) Anaphylaxis Tetracycline Allergy (Verified 02/13/17 11:01) Anaphylaxis Procedures/tests Complete & Pending: Procedures Performed prior 72 hours Category Date Time Status ECG 12 lead ECG [ECG] Routine Y 03/20/17 00:12 Completed EKG [ECG 12 lead ECG] [ECG] AM 0600 Y 03/20/17 06:00 Completed Date of admission: 03/20/17 03:01 Primary care physician: PCP NO Consults: 03/20/17 03:12 Consult to Cardiology [CONS] Routine Comment: Consulting Provider: [facility] [place] Reason for Consult: CHF, Atrial fibrillation Call Completed: No 03/20/17 03:49 Consult to Nurse Navigator [CONS] Routine Comment: 03/22/17 12:31 Consult to Invasive Line Access Team [CONS] Routine Reason for Consult: [facility] Line Type: EPIV Discharging clinician: Ruby Bowen Anticipated date of discharge: 03/22/17 - Patient Status Disposition: Transfer LTC Condition: Good Functional capacity at discharge: uses cane/walker Overall status at discharge: patient is back to baseline - Ambulatory Orders Ambulatory Orders: Basic Metabolic Panel [CHEM] Time Frame: 2 Weeks, Facility: [facility], Location: Lab - Discharge Instructions Follow Up With: NO,PCP [Primary Care Provider] - Additional Instructions: Please follow up with your primary care physician within one week after your discharge from the hospital. Please continue IV antibiotics as prescribed. Meropenem 1gm IV every 12 hours x 10 days total (last day of therapy: 03/29/17) REsume all your other home medications as prescribed by your primary care physician. Please check your INR as per your outpatient schedule and obtain lab work provided while on antibiotic therapy to monitor kidney function - Diet and Activity Activity: as per physical therapy, wear oxygen at all times Diet: diabetic diet, low salt diet Hospital course: Ms. Renee is a 81 year old female with PMH of atrial fibrillation on anticoagulation, CHF, DM, HTN, HLD, COPD on LTOT, GERD, morbid obesity who was admitted for generalized weakness, shortness of breath secondary to CHF decompensation and UTI. Patient has history of ESBL UTI due to which she was started on empiric IV abx therapy. She was placed on IV diuretics which relieved her respiratory distress. Her urine cultures are consistent with ESBL E.coli. She is currently back to baseline respiratory status, hemodynamically stable. She is from a alf facility and will be discharged back to the facility with IV abx. She will follow up with PcP after discharge. Patient demonstrates understanding of her diagnosis and agrees with the discharge care and plan. - Time Spent with Patient Total time spent providing and/or coordinating discharge services: Greater than 30 minutes - Constitutional Vitals: Temp Pulse Resp BP Pulse Ox 97.7 F 103 16 144/86 97 03/22/17 11:27 03/22/17 11:27 03/22/17 11:27 03/22/17 11:27 03/22/17 11:27 General appearance: Present: A&O X 3, morbidly obese, pleasant, no acute distress, answers questions appropriately - Head Head exam: Present: atraumatic, normocephalic - Eye Eye exam: Present: normal appearance, conjuntiva pink, sclera anicteric - Respiratory Respiratory exam: Absent: respiratory distress, wheezes - Cardiovascular Cardiovascular exam: Present: RRR, +S1, +S2. Absent: diastolic murmur, gallop, rubs, systolic murmur - GI/Abdominal GI/Abdominal exam: Present: normal bowel sounds, soft, no peritoneal signs. Absent: distended, tenderness - Extremities Exam Extremities exam: Present: pedal edema, warm, radial pulses palpable and symetrical. Absent: calf tenderness - Neurological Exam Neurological exam: Present: alert, oriented X3 - Psychiatric Psychiatric exam: Present: normal affect, normal mood
--- NOTE | 2017-03-22 12:55 | Physician Discharge Referral ---
ExtendedCare Referral Info Transfer To: ECF Provider in Charge after Transfer: PCP - Diagnosis (1) UTI (urinary tract infection) Priority: Primary Status: Acute (2) Acute on chronic congestive heart failure Priority: Primary Status: Resolved (3) COPD (chronic obstructive pulmonary disease) Priority: Secondary Status: Chronic (4) Atrial fibrillation with RVR Priority: Secondary Status: Chronic (5) DVT prophylaxis Priority: Secondary Status: Acute (6) RODOLFO (acute kidney injury) Priority: Secondary Status: Resolved - Transfer Medications Prescriptions: Meropenem [Merrem] 1,000 mg IVPB Q12HR #15 vial OxyCODONE/APAP 5/325 [Percocet 5/325 MG] 1 each PO Q12H PRN #20 tablet PRN Reason: Pain Home Medications: Acetaminophen [Tylenol Arthritis] 650 mg PO Q6H PRN 02/13/17 [History] Alendronate Sodium [Fosamax] 70 mg PO TH 02/13/17 [History] Allopurinol [Zyloprim 100 MG] 100 mg PO DAILY 02/13/17 [History] Budesonide/Formoterol 160/4.5 [Symbicort 160/4.5] 2 puff IH BID 02/13/17 [ History] Calcium Carbonate/Vitamin D3 [Calcium 600 + Vit D Tablet] 1 each PO BID [History] Hydrocortisone Acetate [Anusol-Hc] 25 mg RC BID PRN 02/13/17 [History] Levothyroxine Sodium 200 mcg PO DAILY 02/13/17 [History] Multivitamin [One Daily Essential] 1 tab PO DAILY 02/13/17 [History] Omeprazole [PriLOSEC] 40 mg PO DAILY 02/13/17 [History] Ondansetron HCl [Zofran] 4 mg PO Q6H PRN 02/13/17 [History] Oxygen 4 l NS AD 02/13/17 [History] Potassium Chloride [K-Tab ER] 20 meq PO BID 02/13/17 [History] Sennosides/Docusate Sodium [Senna-S Tablet] 1 each PO DAILY PRN 02/13/17 [ History] Sertraline [Zoloft] 50 mg PO DAILY 02/13/17 [History] Atorvastatin [Lipitor] 40 mg PO HS #30 tablet 02/18/17 [Rx] Diltiazem CD (24hr) [Cardizem CD] 240 mg PO DAILY cap.er.24h 02/18/17 [Rx] Furosemide [Lasix] 60 mg PO BID #60 tablet 02/18/17 [Rx] Gabapentin [Neurontin] 400 mg PO BID capsule 02/18/17 [Rx] LORazepam [Ativan] 0.5 mg PO BID PRN #14 tablet 02/18/17 [Rx] Labetalol [Trandate] 100 mg PO BID tablet 02/18/17 [Rx] Magnesium Oxide [Mag-Ox] 400 mg PO DAILY tablet 02/18/17 [Rx] GuaiFENesin ER [Mucinex] 600 mg PO BID 03/20/17 [History] Ipratropium/Albuterol Neb [Duoneb] 3 ml IH QID 03/20/17 [History] Warfarin [Coumadin] 2 mg PO DAILY 03/20/17 [History] Meropenem [Merrem] 1,000 mg IVPB Q12HR #15 vial 03/22/17 [Rx] OxyCODONE/APAP 5/325 [Percocet 5/325 MG] 1 each PO Q12H PRN #20 tablet 03/22/17 [Rx] Allergies/Adverse Reactions: Allergies meperidine [From Demerol] Allergy (Verified 02/13/17 11:01) Anaphylaxis Tetracycline Allergy (Verified 02/13/17 11:01) Anaphylaxis - Respiratory Orders Smoking Cessation: Smoking cessation has been advised. For more information, call the [place] Tobacco Quit Line at 4-207-REIL-NOW. - Lab Orders Lab Orders: Other (include drug levels w/frequency) (BMP q weekly to monitor renal function INR q weekly to monior INR (goal INR: 2-3), on coumadin for afib) - Rehabiliation Orders Other: Please follow up with your primary care physician within one week after your discharge from the hospital. Please continue IV antibiotics as prescribed. Meropenem 1gm IV every 12 hours x 10 days total (last day of therapy: 03/29/17) REsume all your other home medications as prescribed by your primary care physician. Please check your INR as per your outpatient schedule and obtain lab work provided while on antibiotic therapy to monitor kidney function CERTIFICATION: I certify that the transfer of the above named patient to an Extended Care Facility is necessary for the continuing treatment of the diagnosis listed. The above information is true and accurate reflection of patient's current condition. Confidential - Redisclosure prohibited without a patient's written consent.
[2017-03-22] MEDS: *HR* Warfarin 2 MG TABLET PO SCH (17:19)
[2017-03-22] MEDS ORDERED: Meropenem 1,000 MG in 0.9 % Sodium Chloride Mini Bag 100 ML IVPB SCH (18:00)
[2017-03-22] MEDS ORDERED: Aminoglycoside Consult 1 EACH MC ONE (18:53)
== END 2017-03-22 18:54 | DRG 871 ==
LOC: 3BNU → EMEROO → SUATTDRO 03:01 → 3BNU 03:16
PROVIDERS: ADMIT Family Medicine; ATTEND Internal Medicine

== ENCOUNTER 2017-08-07 15:09 | Inpatient (IN) ==
[2017-08-07] MEDS ORDERED: Vancomycin 1,500 MG in D5% in Water 250 ML IVPB SCH ×2 (20:00→22:00)
[2017-08-07] MEDS ORDERED: Ondansetron 4 MG/2 ML VIAL IVP PRN (20:00)
[2017-08-07] MEDS ORDERED: *HR* Morphine 2 MG/ML SYRINGE IVP PRN (20:00)
[2017-08-07] MEDS ORDERED: Naloxone 0.4 MG/ML INJ IVP PRN (20:00)
[2017-08-07] MEDS ORDERED: Acetaminophen 325 MG TABLET PO PRN (20:00)
[2017-08-07] MEDS ORDERED: *HR* LORazepam 2 MG/ML VIAL IVP PRN (20:06)
--- NOTE | 2017-08-07 20:11 | Internal Med History&Physical ---
Date of Encounter: 08/07/17 Time of Encounter: 20:07 Assessment and Plan (1) Acute and chronic respiratory failure Current visit: Yes Status: Acute - Likely secondary to CHF exacerbation with less likely COPD or PNA - HPI demonstrates orthopnea, edema. - ABG in [place] shows hypercapnic hypoxic respiratory acidosis - CXR, labs pending at this time. - Tolerating BiPAP well, sats in mid-high 90s. - Further plan as below. Qualifiers: Respiratory failure complication: hypoxia and hypercapnia Qualified Code(s) : J96.21 - Acute and chronic respiratory failure with hypoxia; J96.22 - Acute and chronic respiratory failure with hypercapnia (2) Acute on chronic congestive heart failure Current visit: Yes Status: Acute - Echo in january of 2017 shows likely combined dysfunction. No exact EF given due to poor visualization - HPI most likely indicating exacerbation. - BNP, labs pending. ABG improving from [place]. - CXR pending. - Given lasix 40 IV BID, fluid restrict 1.5L, Strict I/Os. BiPAP, kahn. - Continue to monitor Qualifiers: Congestive heart failure type: combined Qualified Code(s): I50.43 - Acute on chronic combined systolic (congestive) and diastolic (congestive) heart failure (3) MRSA (methicillin resistant staph aureus) culture positive Current visit: Yes Status: Acute - Per sign out, hx of MRSA positive sputum culture. - Less likely PNA given HPI, however productive cough present. - Will continue vanc and zosyn for time being. - CXR and labs pending. - Unsure of last known positive culture. (4) COPD (chronic obstructive pulmonary disease) Current visit: Yes Status: Chronic - Less likely exacerbation of SOB. - Will monitor on BiPAP. - Continue home breathing treatments PRN Qualifiers: COPD type: unspecified COPD Qualified Code(s): J44.9 - Chronic obstructive pulmonary disease, unspecified (5) Type 2 diabetes mellitus Current visit: Yes Status: Chronic - A1c in February of 5.7%, will repeat with AM labs - SSI Qualifiers: Diabetes mellitus complication status: with unspecified complications Diabetes mellitus director long term care insulin use: unspecified shelter insulin use status Qualified Code(s): E11.8 - Type 2 diabetes mellitus with unspecified complications (6) CAD (coronary artery disease) Current visit: No Status: Chronic - Stable. No complaints of chest pain. - COntinue home meds. Qualifiers: Coronary Disease-Associated Artery/Lesion type: [place] artery [place] vs. transplanted heart: [place] heart Associated angina: without angina Qualified Code(s): I25.10 - Atherosclerotic heart disease of [place] coronary artery without angina pectoris (7) A-fib Current visit: Yes Status: Chronic - Rate controlled at time. - Continue home cardizem - Pharmacy to dose coumadin. - INR pending. Qualifiers: Atrial fibrillation type: chronic Qualified Code(s): I48.2 - Chronic atrial fibrillation (8) DVT prophylaxis Current visit: Yes Status: Acute Anticoagulated on coumadin for AFib Internal Medicine - H&P: HPI Chief complaint: SOB Admitted From: Hospital to Hospital Transfer Plans for Post Hospital Care: Home History of present illness: Ms. Renee is a 81 year old female with past medical history of COPD and congestive heart failure presents from [facility] with a chief complaint of shortness of breath of sudden onset since early this morning. She states that the shortness of breath occurred suddenly and she presented to [facility] where she was placed on BiPAP. She does wear 4 L of oxygen at home, however she states that she is supposed to wear BiPAP at night but she does not like it. She does admit to a productive cough with thick yellow sputum, however denies fevers, chills, nausea, vomiting, pain, dysuria, change in bowel habits. She does state her shortness of breath is worse when lying flat and she has noticed increased swelling in her lower extremities. Per chart review from their records, patient was initially in respiratory acidosis with hypoxia and hypercapnia on arterial blood gas. She was placed on BiPAP, as well as was given 40 of Lasix, and started on vancomycin and Zosyn. She reportedly has a history of MRSA positive sputum culture. Chest x-ray done [place] showed increased bilateral opacities most consistent with congestive heart failure exacerbation with small pleural effusion. She was transferred to [place] at the request of patient and family. She is full code. Past Med Surg Social Fam HX - Past Medical History Medical history: atrial fibrillation, CHF, COPD, coronary artery disease, diabetes, GERD, glaucoma, hyperlipidemia, hypertension, renal disease, thyroid disease Psychiatric history: anxiety, depression - Past Surgical History Surgical History: angioplasty/stent, appendectomy, cholecystectomy - Social History Smoking Status: Never smoker Smokeless Tobacco Status: No Alcohol use: none Drug use: none - Family History Father Hx Family Cancer: Yes (Cancer) Hx Family Neurologic Disorders: Yes (CVA) Internal Medicine - H&P: Meds Allopurinol [Zyloprim 100 MG] 100 mg PO DAILY 02/13/17 [History] Oxygen 4 l NS AD 02/13/17 [History] Sertraline [Zoloft] 50 mg PO DAILY 02/13/17 [History] Atorvastatin [Lipitor] 40 mg PO HS #30 tablet 02/18/17 [Rx] Gabapentin [Neurontin] 400 mg PO BID capsule 02/18/17 [Rx] Ipratropium/Albuterol Neb [Duoneb] 3 ml IH QID 03/20/17 [History] 0.9 % Sodium Chloride 500 ml IV DAILY 08/07/17 [History] 0.9 % Sodium Chloride [Sodium Chloride] 50 ml IV Q6H 08/07/17 [History] Albuterol Neb [Proventil Neb] 2.5 mg IH Q2H PRN 08/07/17 [History] Dextrose 50 % in Water (Syg) [Dextrose 50% (Syg)] 50 ml IV ONCE PRN 08/07/17 [ History] Diltiazem CD (24hr) [Cardizem CD] 240 mg PO DAILY 08/07/17 [History] Fluticasone/Salmeterol [Advair Hfa 115-21 Mcg Inhaler] 2 puff IH Q12H 08/07/17 [ History] Furosemide [Lasix] 40 mg IV DAILY 08/07/17 [History] Insulin LISPRO [HumaLOG] 1 units SQ QID PRN 08/07/17 [History] Labetalol [Trandate] 100 mg PO BID 08/07/17 [History] Levothyroxine Sodium [Synthroid] 200 mcg PO DAILY 08/07/17 [History] Qwaddkjoyuqt-Cnse-Iaglakcm,Iso [Zosyn 3.375 gm/50 ml Galaxy] 3.375 gm IV Q6H 05/16 [History] Potassium Chloride [K-Tab ER] 20 meq PO BID 08/07/17 [History] Vancomycin HCl 1,500 ml IV DAILY 08/07/17 [History] Warfarin [Coumadin] 2 mg PO DAILY 08/07/17 [History] methylPREDNISolone [Solu-MEDROL] 80 mg IV Q8HR 08/07/17 [History] 3 Allergy/AdvReac Type Severity Reaction Status Date / Time meperidine [From Demerol] Allergy Anaphylaxis Verified 02/13/17 11:01 Tetracycline Allergy Anaphylaxis Verified 02/13/17 11:01 All Systems PM: A 10-system review of systems was performed and is negative for pertinent findings except as documented above in the HPI. - Constitutional Constitutional: fatigue, no chills, no fever(s), no lethargy - Cardiovascular Cardiovascular ROS IM: dyspnea, dyspnea on exertion, edema, orthopnea, no chest pain, no diaphoresis, no lightheadedness - Respiratory Respiratory: cough, dyspnea, dyspnea on exertion, excessive phlegm production, change in phlegm color, no hemoptysis, no pain with cough - Gastrointestinal Gastrointestinal: no abdominal pain, no constipation, no diarrhea, no loose stools, no melena, no nausea, no vomiting - Genitourinary Genitourinary: no dysuria - Neurological Neurological ROS: weakness, no numbness, no tingling - Constitutional Vitals: Temp Pulse Resp BP Pulse Ox 98.6 F 93 19 139/89 95 08/07/17 18:53 08/07/17 18:53 08/07/17 20:03 08/07/17 18:53 08/07/17 20:03 Exam: Gen.: Vitals noted. No acute distress. AAOx3. Breathing comfortably on BiPAP. HEENT: Normocephalic, atraumatic, MMM Cardiac: Irregularly irregular rhythm, no murmur, +S1/S2 Pulmonary:Bilateral rales with mild wheezes overlying. equal chest expansion Abdomen: soft, nontender, BS noted, no guarding MSK: ROM intact, no joint swelling noted Extremities: 2+ pitting edema bilateral LE, nontender calf, no cyanosis or clubbing Neuro: A&Ox3, moves all extremities, no focal deficits Psych: Appropriate mood and behavior
[2017-08-07] MEDS ORDERED: Albuterol 2.5 MG/3 ML NEBULIZER IH PRN (20:26)
[2017-08-07 20:31] LABS: ABG Base Excess 7 mEq/L (-2 to 3); ABG HCO3 33 mEq/L (21-27); ABG Oxygen Saturation 94 % (95-98); ABG PCO2 50 mmHg (35-45); ABG PH 7.43 pH Units (7.32-7.45); ABG PO2 71 mmHg (85-104); ABG TCO2 34 mEq/L (20-26)
--- NOTE | 2017-08-07 20:31 | Event Note ---
Date of Encounter: 08/07/17 Time of Encounter: 20:28 Patient seen and examined with medical insurance claims specialist. Hypercapnic Respiratory failure, multifactorial due to CHF, COPD exacerbation. She has history of prior MRSA pneumonia and mentioned that she is having some thick yellow sputum. We will cover empirically with antibiotics. get sputum cultures. Repeat ABG, Continue Bipap. IV lasix, steroids, duoneb..She is full code
[2017-08-07 20:44] LABS: Basophils % 0.1 %; Hematocrit 30.9 % (35.3-44.9); Hemoglobin 9.5 g/dL (11.5-15.4); Immature Granulocytes % 0.5 % (0-4); Lymphocytes # 0.7 K/mcL (0.6-4.6); Lymphocytes % 4.5 %; Mean Corpuscular HGB Conc 30.7 g/dL (31.6-35.5); Mean Corpuscular Hemoglobin 25.7 pg (28.0-33.3); Mean Corpuscular Volume 83.5 fL (83.0-100.0); Mean Platelet Volume 8.9 fL (9.4-12.4); Monocytes # 0.2 K/mcL (0.0-1.3); Monocytes % 1.2 %; Neutrophils # 13.7 K/mcL (1.6-8.9); Platelet Count 215 K/mcL (140-400); Red Cell Distribution Width 16.7 % (11.5-14.5); Segmented Neutrophils % 93.7 %
[2017-08-07] MEDS ORDERED: Dextrose Gel 15 GM PO PRN ×2 (20:44)
[2017-08-07] MEDS ORDERED: D5% in Water 1,000 ML IVC PRN (20:44)
[2017-08-07] MEDS ORDERED: *HR* Dextrose 50 % in Water (Syg) 50 ML SYRINGE IVP PRN (20:44)
[2017-08-07 20:56] LABS: Calcium 9.1 mg/dL (8.6-10.8); Magnesium 1.9 mg/dL (1.6-2.6); Potassium 4.2 mEq/L (3.5-4.5)
[2017-08-07 20:59] LABS: INR 2.1; Prothrombin Time 23.2 Seconds (9.4-12.1)
[2017-08-07] MEDS: Furosemide 40 MG/4 ML VIAL IVP SCH (21:25)
[2017-08-07] MEDS: Gabapentin 400 MG CAPSULE PO SCH (21:26)
[2017-08-07] MEDS: *HR* HYDROcodone/Acet 5/325 mg TABLET PO PRN (21:29)
[2017-08-07] MEDS: Piperacillin/Tazobactam 3.375 GM in D5% in Water 50 ML IVPB SCH (23:24)
[2017-08-07] MEDS: MethylPREDNISolone 40 MG/ML VIAL IVP SCH (23:24)
[2017-08-07] MEDS: Ipratropium/Albuterol Neb 3 ML IH SCH (23:56)
[2017-08-08] MEDS: Ipratropium/Albuterol Neb 3 ML IH SCH ×6 (04:02→23:07)
[2017-08-08 04:27] LABS: Hemoglobin A1C 5.8 %
[2017-08-08] MEDS ORDERED: *HR* Heparin 5,000 UNIT/ML VIAL SQ SCH (06:00)
[2017-08-08] MEDS: Diltiazem CD (24hr) 240 MG CAPSULE PO SCH (08:42)
[2017-08-08] MEDS: Furosemide 40 MG/4 ML VIAL IVP SCH ×2 (08:43→20:04)
[2017-08-08] MEDS: MethylPREDNISolone 40 MG/ML VIAL IVP SCH ×3 (08:43→23:56)
[2017-08-08] MEDS: Piperacillin/Tazobactam 3.375 GM in D5% in Water 50 ML IVPB SCH ×4 (08:43→23:56)
[2017-08-08] MEDS: Gabapentin 400 MG CAPSULE PO SCH ×2 (08:43→20:05)
[2017-08-08] MEDS: Insulin LISPRO 300 UNITS/3 ML VIAL SQ SCH ×3 (08:44→16:56)
--- NOTE | 2017-08-08 11:22 | Internal Med Progress Note ---
Date of Encounter: 08/08/17 Time of Encounter: 08:40 - Assessment and plan (1) Acute on chronic congestive heart failure Current Visit: No Status: Acute Assessment and plan: Acute exacerbation of CHF, probable bind systolic and diastolic dysfunction, unknown LVEF Continue IV Lasix, O2 via NC, Labetalol Patient is off the BiPAP at this time and is sitting up comfortably Chest x-ray - mild pulmonary edema EKG - pending BNP - 1793 Echocardiogram (01/2017) - family function difficult to estimate, mildly reduced , elderly dilatation, mild RV dilation, moderate pulmonary hypertension Magnesium - 1.9 Cardiac telemetry, Fluid restriction, strict I's and O's, labs in a.m., daily weight Qualifiers: Congestive heart failure type: combined Qualified Code(s): I50.43 - Acute on chronic combined systolic (congestive) and diastolic (congestive) heart failure (2) COPD (chronic obstructive pulmonary disease) Current Visit: Yes Status: Chronic Assessment and plan: Acute exacerbation of COPD - symptoms now improving Continue DuoNeb breathing treatment, Symbicort, O2 via NC, IV Solu-Medrol Sputum culture - pending Qualifiers: COPD type: unspecified COPD Qualified Code(s): J44.9 - Chronic obstructive pulmonary disease, unspecified (3) Acute and chronic respiratory failure Current Visit: Yes Status: Acute Assessment and plan: Acute on chronic hypoxic respiratory failure - secondary to acute CHF exacerbation and acute COPD exacerbation Plan as above Qualifiers: Respiratory failure complication: hypoxia and hypercapnia Qualified Code(s) : J96.21 - Acute and chronic respiratory failure with hypoxia; J96.22 - Acute and chronic respiratory failure with hypercapnia (4) Type 2 diabetes mellitus Current Visit: Yes Status: Chronic Assessment and plan: Type 2 diabetes mellitus, insulin-dependent, hyperglycemia Continue insulin sliding scale, glucose checks Qualifiers: Diabetes mellitus complication status: with unspecified complications Diabetes mellitus manager long term care insulin use: with manager long term care use Qualified Code(s) : E11.8 - Type 2 diabetes mellitus with unspecified complications; Z79.4 - intermediate (current) use of insulin; Z79.4 - exterminator (current) use of insulin; Z79.4 - intermediate (current) use of insulin; Z79.4 - exterminator (current) use of insulin (5) CAD (coronary artery disease) Current Visit: No Status: Chronic Assessment and plan: Coronary artery disease status post stents - stable Continue home dose of Lipitor, Coumadin Patient is not on Aspirin at home Qualifiers: Coronary Disease-Associated Artery/Lesion type: [place] artery [place] vs. transplanted heart: [place] heart Associated angina: without angina Qualified Code(s): I25.10 - Atherosclerotic heart disease of [place] coronary artery without angina pectoris (6) A-fib Current Visit: Yes Status: Chronic Assessment and plan: Chronic atrial fibrillation, rate controlled Continue home dose of Cardizem, Labetalol Continue Coumadin for anticoagulation, INR is therapeutic Qualifiers: Atrial fibrillation type: chronic Qualified Code(s): I48.2 - Chronic atrial fibrillation (7) DVT prophylaxis Current Visit: Yes Status: Acute Assessment and plan: Continue Coumadin for anticoagulation, INR is therapeutic - Time Spent With Patient 25 - 35 minutes - Subjective Interval history: Examined this morning. Patient is awake and alert. Not in any distress. Sitting up comfortably. Tolerating oral diet well. Denies chest pain. States her shortness of breath has improved. Complains of mild cough. States she feels better. No fever. Hemodynamically stable. No other acute events or complaints. Transfer to med/surg floor today. - Constitutional Vitals: Temp Pulse Resp BP Pulse Ox 98.2 F 115 16 153/91 97 08/08/17 08:00 08/08/17 08:00 08/08/17 08:13 08/08/17 08:00 08/08/17 08:13 General appearance: Present: cooperative, A&O X 3, pleasant, no acute distress, obese, answers questions appropriately - Head Head exam: Present: atraumatic - Eye Eye exam: Present: EOMI - ENT ENT exam: Present: mucous membranes moist - Respiratory Respiratory exam: Present: rales (Mild scattered), wheezes (Mild bibasilar). Absent: accessory muscle use, chest wall tenderness, rhonchi, tachypnea - Cardiovascular Cardiovascular exam: Present: RRR, +S1, +S2 - GI/Abdominal GI/Abdominal exam: Present: soft. Absent: distended, firm, guarding, tenderness - Extremities Exam Extremities exam: Present: pedal edema (Bilateral lower leg 2+ pitting edema), radial pulses palpable and symmetrical. Absent: calf tenderness, cyanotic - Neurological Exam Neurological exam: Present: alert, oriented X3, no focal deficits. Absent: facial droop, speech deficit Internal Medicine: Result - Labs CBC & Chem 7: 08/07/17 20:36 08/07/17 20:36 Labs: Short CBC 08/07/17 Range/Units 20:36 WBC 14.6 H (4.3-11.1) K/mcL Hgb 9.5 L (11.5-15.4) g/dL Hct 30.9 L (35.3-44.9) % Plt Count 215 (140-400) K/mcL Neutrophils # 13.7 H (1.6-8.9) K/mcL BMP 08/07/17 20:36 Sodium 139 Potassium 4.2 Chloride 101 Carbon Dioxide 30 H BUN 17 Creatinine 1.08 Glucose 182 H Calcium 9.1 - ABG Interpretation ABG results: ABG ABG pH 7.43 pH Units (7.32-7.45) 08/07/17 20:29 ABG pCO2 50 mmHg (35-45) H 08/07/17 20:29 ABG pO2 71 mmHg (85-104) L 08/07/17 20:29 ABG O2 Saturation 94 % (95-98) L 08/07/17 20:29 PT/INR, D-dimer PT 23.2 Seconds (9.4-12.1) H 08/07/17 20:36 - Impressions Impressions Chest X-Ray 08/07/17 20:26 IMPRESSION: Mild pulmonary edema with probable small bilateral pleural effusions. There is more focal consolidation in the left lung base, atelectasis versus pneumonia. D/ / Bonnie Blackburn MD / Bonnie Blackburn MD Interpreting Provider: Bonnie Blackburn MD Consult Discharge Plan - Plan Referrals: NONE,PCP [Primary Care Provider] -
[2017-08-08] MEDS: *HR* Warfarin 2 MG TABLET PO SCH (16:56)
[2017-08-08] MEDS ORDERED: Vancomycin 1,500 MG in D5% in Water 250 ML IVPB SCH (17:00)
[2017-08-08] MEDS ORDERED: Warfarin perPT PO PRN (18:00)
--- NOTE | 2017-08-08 18:16 | Electrocardiograph Report ---
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
[2017-08-08] MEDS: Budesonide/Formoterol 80/4.5 MDI IH SCH ×2 (19:16→22:17)
[2017-08-08] MEDS: *HR* HYDROcodone/Acet 5/325 mg TABLET PO PRN (20:04)
[2017-08-09] MEDS: *HR* LORazepam 0.5 MG TABLET PO PRN (00:43)
[2017-08-09] MEDS: Ipratropium/Albuterol Neb 3 ML IH SCH ×6 (04:23→23:36)
[2017-08-09 04:32] LABS: Basophils % 0.1 %; Hematocrit 31.8 % (35.3-44.9); Hemoglobin 9.5 g/dL (11.5-15.4); Immature Granulocytes % 0.6 % (0-4); Lymphocytes # 0.6 K/mcL (0.6-4.6); Lymphocytes % 3.1 %; Mean Corpuscular HGB Conc 29.9 g/dL (31.6-35.5); Mean Corpuscular Volume 83.7 fL (83.0-100.0); Mean Platelet Volume 9.1 fL (9.4-12.4); Monocytes # 0.3 K/mcL (0.0-1.3); Monocytes % 1.6 %; Neutrophils # 17.9 K/mcL (1.6-8.9); Platelet Count 238 K/mcL (140-400); Red Cell Distribution Width 16.9 % (11.5-14.5); Segmented Neutrophils % 94.6 %
[2017-08-09 04:43] LABS: Potassium 3.2 mEq/L (3.5-4.5)
[2017-08-09 04:52] LABS: INR 2.5; Prothrombin Time 27.2 Seconds (9.4-12.1)
[2017-08-09] MEDS: Budesonide/Formoterol 80/4.5 MDI IH SCH ×3 (06:55→20:45)
[2017-08-09] MEDS: MethylPREDNISolone 40 MG/ML VIAL IVP SCH ×2 (07:04→18:06)
[2017-08-09] MEDS: Piperacillin/Tazobactam 3.375 GM in D5% in Water 50 ML IVPB SCH ×2 (07:04→18:07)
[2017-08-09] MEDS: Insulin LISPRO 300 UNITS/3 ML VIAL SQ SCH ×3 (07:16→17:07)
[2017-08-09] MEDS: Furosemide 40 MG/4 ML VIAL IVP SCH ×2 (07:29→22:01)
[2017-08-09] MEDS: Diltiazem CD (24hr) 240 MG CAPSULE PO SCH (08:02)
[2017-08-09] MEDS: Gabapentin 400 MG CAPSULE PO SCH ×2 (08:03→22:01)
[2017-08-09] MEDS: Potassium Chloride Elixir 20 MEQ/15 ML UDC PO SCH ×2 (09:00→22:01)
--- NOTE | 2017-08-09 11:25 | Internal Med Progress Note ---
Date of Encounter: 08/09/17 Time of Encounter: 09:10 - Assessment and plan (1) Acute on chronic congestive heart failure Current Visit: No Status: Acute Assessment and plan: Acute exacerbation of CHF, probable combined systolic and diastolic dysfunction , unknown LVEF - symptoms improving Continue IV Lasix, O2 via NC, Labetalol Patient is off the BiPAP at this time and is sitting up comfortably Leukocytosis likely due to steroid use Chest x-ray - mild pulmonary edema EKG - atrial fibrillation with no acute ST-T changes BNP - 1793 Echocardiogram (01/2017) - LV function difficult to estimate, mildly reduced, elderly dilatation, mild RV dilation, moderate pulmonary hypertension Magnesium - 1.9 Cardiac telemetry, Fluid restriction, strict I's and O's, labs in a.m., daily weight 08/09 - sitting up comfortably, doing well on O2 via nasal cannula. Tolerating oral diet. States she feels better. We will try to ambulate today. Anticipate discharge to [facility] tomorrow Qualifiers: Congestive heart failure type: combined Qualified Code(s): I50.43 - Acute on chronic combined systolic (congestive) and diastolic (congestive) heart failure (2) COPD (chronic obstructive pulmonary disease) Current Visit: Yes Status: Chronic Assessment and plan: Acute exacerbation of COPD - symptoms now improved Continue DuoNeb breathing treatment, Symbicort, O2 via NC, IV Solu-Medrol Sputum culture - pending Qualifiers: COPD type: unspecified COPD Qualified Code(s): J44.9 - Chronic obstructive pulmonary disease, unspecified (3) Acute and chronic respiratory failure Current Visit: Yes Status: Acute Assessment and plan: Acute on chronic hypoxic respiratory failure - secondary to acute CHF exacerbation and acute COPD exacerbation Plan as above Qualifiers: Respiratory failure complication: hypoxia and hypercapnia Qualified Code(s) : J96.21 - Acute and chronic respiratory failure with hypoxia; J96.22 - Acute and chronic respiratory failure with hypercapnia (4) Type 2 diabetes mellitus Current Visit: Yes Status: Chronic Assessment and plan: Type 2 diabetes mellitus, insulin-dependent, hyperglycemia Continue insulin sliding scale, glucose checks Qualifiers: Diabetes mellitus complication status: with unspecified complications Diabetes mellitus buttermaker insulin use: with buttermaker use Qualified Code(s) : E11.8 - Type 2 diabetes mellitus with unspecified complications; Z79.4 - assistant terminal manager (current) use of insulin; Z79.4 - [facility] (current) use of insulin; Z79.4 - [facility] (current) use of insulin; Z79.4 - assistant terminal manager (current) use of insulin (5) CAD (coronary artery disease) Current Visit: No Status: Chronic Assessment and plan: Coronary artery disease status post stents - stable Continue home dose of Lipitor, Coumadin Patient is not on Aspirin at home Qualifiers: Coronary Disease-Associated Artery/Lesion type: [place] artery [place] vs. transplanted heart: [place] heart Associated angina: without angina Qualified Code(s): I25.10 - Atherosclerotic heart disease of [place] coronary artery without angina pectoris (6) A-fib Current Visit: Yes Status: Chronic Assessment and plan: Chronic atrial fibrillation, rate controlled Continue home dose of Cardizem, Labetalol Continue Coumadin for anticoagulation - pharmacy to dose INR is therapeutic Qualifiers: Atrial fibrillation type: chronic Qualified Code(s): I48.2 - Chronic atrial fibrillation (7) DVT prophylaxis Current Visit: Yes Status: Acute Assessment and plan: Continue Coumadin for anticoagulation INR is therapeutic - Time Spent With Patient 25 - 35 minutes - Subjective Interval history: Examined this morning. Patient is awake and alert. Not in any distress. Sitting up comfortably. Tolerating oral diet well. Denies chest pain. States her shortness of breath has improved significantly. States she feels better. No fever. Hemodynamically stable. No other acute events or complaints. Transfer to med/surg floor today. Anticipate discharge tomorrow. - Constitutional Vitals: Temp Pulse Resp BP Pulse Ox 97.7 F 110 18 137/75 95 08/09/17 07:27 08/09/17 07:15 08/09/17 04:24 08/09/17 04:00 08/09/17 04:24 General appearance: Present: cooperative, A&O X 3, pleasant, no acute distress, obese, answers questions appropriately - Head Head exam: Present: atraumatic - Eye Eye exam: Present: EOMI - ENT ENT exam: Present: mucous membranes moist - Respiratory Respiratory exam: Present: CTAB. Absent: chest wall tenderness, rales, rhonchi , wheezes, tachypnea - Cardiovascular Cardiovascular exam: Present: RRR, +S1, +S2 - GI/Abdominal GI/Abdominal exam: Present: soft. Absent: distended, firm, guarding, tenderness - Extremities Exam Extremities exam: Present: pedal edema (Bilateral lower leg 2+ pitting edema), radial pulses palpable and symmetrical. Absent: calf tenderness, cyanotic - Neurological Exam Neurological exam: Present: alert, oriented X3, no focal deficits. Absent: facial droop, speech deficit Internal Medicine: Result - Labs CBC & Chem 7: 08/09/17 04:21 08/09/17 04:21 Labs: Short CBC 08/09/17 Range/Units 04:21 WBC 18.9 H (4.3-11.1) K/mcL Hgb 9.5 L (11.5-15.4) g/dL Hct 31.8 L (35.3-44.9) % Plt Count 238 (140-400) K/mcL Neutrophils # 17.9 H (1.6-8.9) K/mcL BMP 08/09/17 04:21 Sodium 140 Potassium 3.2 L D Chloride 97 L Carbon Dioxide 33 H BUN 24 H Creatinine 1.15 H Glucose 200 H Calcium 9.0 - ABG Interpretation ABG results: ABG ABG pH 7.43 pH Units (7.32-7.45) 08/07/17 20:29 ABG pCO2 50 mmHg (35-45) H 08/07/17 20:29 ABG pO2 71 mmHg (85-104) L 08/07/17 20:29 ABG O2 Saturation 94 % (95-98) L 08/07/17 20:29 PT/INR, D-dimer PT 27.2 Seconds (9.4-12.1) H 08/09/17 04:21 Consult Discharge Plan - Plan Referrals: NONE,PCP [Primary Care Provider] -
[2017-08-09] MEDS: *HR* Warfarin 2 MG TABLET PO SCH (18:06)
[2017-08-10] MEDS: MethylPREDNISolone 40 MG/ML VIAL IVP SCH (00:16)
[2017-08-10] MEDS: Piperacillin/Tazobactam 3.375 GM in D5% in Water 50 ML IVPB SCH ×3 (00:18→18:24)
[2017-08-10] MEDS: *HR* HYDROcodone/Acet 5/325 mg TABLET PO PRN ×3 (02:54→20:29)
[2017-08-10] MEDS: Ipratropium/Albuterol Neb 3 ML IH SCH ×6 (03:20→23:59)
[2017-08-10 04:43] LABS: INR 2.9; Prothrombin Time 32.2 Seconds (9.4-12.1)
[2017-08-10 04:45] LABS: Basophils % 0.1 %; Hematocrit 33.4 % (35.3-44.9); Hemoglobin 10.1 g/dL (11.5-15.4); Lymphocytes # 0.5 K/mcL (0.6-4.6); Lymphocytes % 2.7 %; Mean Corpuscular HGB Conc 30.2 g/dL (31.6-35.5); Mean Corpuscular Hemoglobin 25.1 pg (28.0-33.3); Mean Corpuscular Volume 82.9 fL (83.0-100.0); Mean Platelet Volume 9.4 fL (9.4-12.4); Monocytes # 0.5 K/mcL (0.0-1.3); Monocytes % 2.5 %; Neutrophils # 18.5 K/mcL (1.6-8.9); Platelet Count 258 K/mcL (140-400); Red Blood Count 4.03 M/mcL (3.82-4.97); Red Cell Distribution Width 16.5 % (11.5-14.5); Segmented Neutrophils % 93.7 %
[2017-08-10 04:52] LABS: Potassium 3.2 mEq/L (3.5-4.5)
[2017-08-10] MEDS: Vancomycin 1,250 MG in D5% in Water 250 ML IVPB SCH (07:44)
[2017-08-10] MEDS: Budesonide/Formoterol 80/4.5 MDI IH SCH ×2 (08:11→20:42)
[2017-08-10] MEDS: Diltiazem CD (24hr) 240 MG CAPSULE PO SCH (09:48)
[2017-08-10] MEDS: Insulin LISPRO 300 UNITS/3 ML VIAL SQ SCH ×3 (09:48→17:34)
[2017-08-10] MEDS: Gabapentin 400 MG CAPSULE PO SCH ×2 (09:48→20:25)
[2017-08-10] MEDS: Furosemide 40 MG/4 ML VIAL IVP SCH (09:48)
[2017-08-10] MEDS: Potassium Chloride Elixir 20 MEQ/15 ML UDC PO SCH ×2 (09:48→20:25)
[2017-08-10] MEDS: predniSONE 20 MG TABLET PO SCH (09:49)
--- NOTE | 2017-08-10 14:32 | Internal Med Progress Note ---
Date of Encounter: 08/10/17 Time of Encounter: 09:50 - Assessment and plan (1) Acute on chronic congestive heart failure Current Visit: No Status: Acute Assessment and plan: Acute exacerbation of CHF, probable combined systolic and diastolic dysfunction , unknown LVEF - symptoms now improved Switch to PO Lasix, O2 via NC, Labetalol Patient is off the BiPAP at this time and is sitting up comfortably Leukocytosis likely due to steroid use, stop IV Solu-Medrol, replace potassium PO Chest x-ray - mild pulmonary edema EKG - atrial fibrillation with no acute ST-T changes BNP - 1793 Echocardiogram (01/2017) - LV function difficult to estimate, mildly reduced, elderly dilatation, mild RV dilation, moderate pulmonary hypertension Magnesium - 1.9 Cardiac telemetry, Fluid restriction, strict I's and O's, labs in a.m., daily weight 08/09 - sitting up comfortably, doing well on O2 via nasal cannula. Tolerating oral diet. States she feels better. We will try to ambulate today. Anticipate discharge to [facility] tomorrow 08/10 - denies chest pain or shortness of breath. Doing well on O2 via NC. Ambulating well and tolerating oral diet well. White count was elevated likely due to steroids. Anticipate discharge to ECF in a.m. if white count is trending down. Qualifiers: Congestive heart failure type: combined Qualified Code(s): I50.43 - Acute on chronic combined systolic (congestive) and diastolic (congestive) heart failure (2) COPD (chronic obstructive pulmonary disease) Current Visit: Yes Status: Chronic Assessment and plan: Acute exacerbation of COPD - symptoms now improved Continue DuoNeb breathing treatment, Symbicort, O2 via NC, taper steroids Sputum culture - pending Qualifiers: COPD type: unspecified COPD Qualified Code(s): J44.9 - Chronic obstructive pulmonary disease, unspecified (3) Acute and chronic respiratory failure Current Visit: Yes Status: Acute Assessment and plan: Acute on chronic hypoxic respiratory failure - secondary to acute CHF exacerbation and acute COPD exacerbation - now improved Plan as above Qualifiers: Respiratory failure complication: hypoxia and hypercapnia Qualified Code(s) : J96.21 - Acute and chronic respiratory failure with hypoxia; J96.22 - Acute and chronic respiratory failure with hypercapnia (4) Type 2 diabetes mellitus Current Visit: Yes Status: Chronic Assessment and plan: Type 2 diabetes mellitus, insulin-dependent, hyperglycemia Continue insulin sliding scale, glucose checks Qualifiers: Diabetes mellitus complication status: with unspecified complications Diabetes mellitus [facility] insulin use: with [place] terminal supervisor use Qualified Code(s) : E11.8 - Type 2 diabetes mellitus with unspecified complications; Z79.4 - senior living (current) use of insulin; Z79.4 - terminal carman (current) use of insulin; Z79.4 - senior living (current) use of insulin; Z79.4 - terminal carman (current) use of insulin (5) CAD (coronary artery disease) Current Visit: No Status: Chronic Assessment and plan: Coronary artery disease status post stents - stable Continue home dose of Lipitor, Coumadin Patient is not on Aspirin at home Qualifiers: Coronary Disease-Associated Artery/Lesion type: [place] artery [place] vs. transplanted heart: [place] heart Associated angina: without angina Qualified Code(s): I25.10 - Atherosclerotic heart disease of [place] coronary artery without angina pectoris (6) A-fib Current Visit: Yes Status: Chronic Assessment and plan: Chronic atrial fibrillation, rate controlled Continue home dose of Cardizem, Labetalol Continue Coumadin for anticoagulation - pharmacy to dose INR is therapeutic Qualifiers: Atrial fibrillation type: chronic Qualified Code(s): I48.2 - Chronic atrial fibrillation (7) DVT prophylaxis Current Visit: Yes Status: Acute Assessment and plan: Continue Coumadin for anticoagulation INR is therapeutic - Time Spent With Patient 25 - 35 minutes - Subjective Interval history: Examined this morning. Patient is awake and alert. Not in any distress. Sitting up comfortably. Tolerating oral diet well. Denies chest pain. States her shortness of breath has improved significantly. States she feels better. No other acute events or complaints. Patient's white count is elevated, likely due to steroid use. INR is therapeutic. No fever. Hemodynamically stable. Stop the IV steroids. Anticipate discharge to [facility] tomorrow. - Constitutional Vitals: Temp Pulse Resp BP Pulse Ox 98.1 F 99 16 158/87 98 08/10/17 07:12 08/10/17 07:12 08/10/17 11:55 08/10/17 08:10 08/10/17 11:55 General appearance: Present: cooperative, A&O X 3, pleasant, no acute distress, obese, answers questions appropriately - Head Head exam: Present: atraumatic - Eye Eye exam: Present: EOMI - ENT ENT exam: Present: mucous membranes moist - Respiratory Respiratory exam: Present: CTAB. Absent: accessory muscle use, chest wall tenderness, rhonchi, wheezes, tachypnea - Cardiovascular Cardiovascular exam: Present: RRR, +S1, +S2 - GI/Abdominal GI/Abdominal exam: Present: soft. Absent: distended, firm, guarding, tenderness - Extremities Exam Extremities exam: Present: pedal edema (Bilateral 2+ pitting edema), radial pulses palpable and symmetrical. Absent: calf tenderness, cyanotic - Neurological Exam Neurological exam: Present: alert, oriented X3, no focal deficits. Absent: facial droop, speech deficit Internal Medicine: Result - Labs CBC & Chem 7: 08/10/17 04:27 08/10/17 04:27 Labs: Short CBC 08/10/17 Range/Units 04:27 WBC 19.8 H (4.3-11.1) K/mcL Hgb 10.1 L (11.5-15.4) g/dL Hct 33.4 L (35.3-44.9) % Plt Count 258 (140-400) K/mcL Neutrophils # 18.5 H (1.6-8.9) K/mcL BMP 08/10/17 04:27 Sodium 139 Potassium 3.2 L Chloride 93 L Carbon Dioxide 33 H BUN 28 H Creatinine 1.27 H Glucose 207 H Calcium 9.0 - ABG Interpretation ABG results: ABG ABG pH 7.43 pH Units (7.32-7.45) 08/07/17 20:29 ABG pCO2 50 mmHg (35-45) H 08/07/17 20:29 ABG pO2 71 mmHg (85-104) L 08/07/17 20:29 ABG O2 Saturation 94 % (95-98) L 08/07/17 20:29 PT/INR, D-dimer PT 32.2 Seconds (9.4-12.1) H 08/10/17 04:27 Consult Discharge Plan - Plan Referrals: NONE,PCP [Primary Care Provider] -
[2017-08-10] MEDS: Furosemide 40 MG TABLET PO SCH (17:32)
[2017-08-10] MEDS ORDERED: *HR* Warfarin 1 MG TABLET PO SCH (18:00)
[2017-08-10] MEDS ORDERED: 0.9 % Sodium Chloride 500 ML ONE (18:12)
[2017-08-11] MEDS: Piperacillin/Tazobactam 3.375 GM in D5% in Water 50 ML IVPB SCH ×3 (01:17→17:22)
[2017-08-11] MEDS: *HR* HYDROcodone/Acet 5/325 mg TABLET PO PRN ×3 (01:24→22:31)
[2017-08-11] MEDS: Ipratropium/Albuterol Neb 3 ML IH SCH ×5 (03:40→20:40)
[2017-08-11 04:42] LABS: Basophils % 0.1 %; Hematocrit 34.6 % (35.3-44.9); Hemoglobin 10.4 g/dL (11.5-15.4); Immature Granulocytes % 1.1 % (0-4); Lymphocytes # 0.9 K/mcL (0.6-4.6); Lymphocytes % 3.9 %; Mean Corpuscular HGB Conc 30.1 g/dL (31.6-35.5); Mean Corpuscular Hemoglobin 24.9 pg (28.0-33.3); Monocytes # 1.2 K/mcL (0.0-1.3); Monocytes % 5.3 %; Neutrophils # 20.1 K/mcL (1.6-8.9); Platelet Count 282 K/mcL (140-400); Red Blood Count 4.17 M/mcL (3.82-4.97); Red Cell Distribution Width 16.1 % (11.5-14.5); Segmented Neutrophils % 89.6 %
[2017-08-11 04:49] LABS: INR 3.5; Prothrombin Time 38.4 Seconds (9.4-12.1)
[2017-08-11 04:56] LABS: Calcium 8.9 mg/dL (8.6-10.8); Potassium 3.3 mEq/L (3.5-4.5)
[2017-08-11] MEDS: Vancomycin 1,250 MG in D5% in Water 250 ML IVPB SCH (06:48)
[2017-08-11] MEDS ORDERED: Aminoglycoside Consult 1 EACH MC ONE (07:47)
[2017-08-11] MEDS: Budesonide/Formoterol 80/4.5 MDI IH SCH ×2 (07:56→20:40)
[2017-08-11] MEDS: Gabapentin 400 MG CAPSULE PO SCH ×2 (08:26→22:20)
[2017-08-11] MEDS: Diltiazem CD (24hr) 240 MG CAPSULE PO SCH (08:26)
[2017-08-11] MEDS: Potassium Chloride Elixir 20 MEQ/15 ML UDC PO SCH ×2 (08:26→22:20)
[2017-08-11] MEDS: predniSONE 20 MG TABLET PO SCH (08:26)
[2017-08-11] MEDS: Insulin LISPRO 300 UNITS/3 ML VIAL SQ SCH ×3 (08:27→17:22)
[2017-08-11] MEDS: *HR* LORazepam 0.5 MG TABLET PO PRN (08:27)
[2017-08-11] MEDS: Furosemide 40 MG TABLET PO SCH ×2 (08:27→17:23)
[2017-08-11] MEDS ORDERED: cefTRIAXone 1,000 MG in Water for inj. (sterile) 10 ML IVP SCH (09:00)
--- NOTE | 2017-08-11 15:33 | Discharge Summary ---
Date of Encounter: 08/11/17 Time of Encounter: 11:10 - Discharge Diagnosis (1) Acute on chronic congestive heart failure Priority: Primary Status: Acute Comments: Acute exacerbation of CHF, probable combined systolic and diastolic dysfunction , unknown LVEF - symptoms now improved No fever, hemodynamically stable, no tachycardia Switch to PO Lasix, O2 via NC, Labetalol Patient is off the BiPAP at this time and is sitting up comfortably Leukocytosis likely due to steroid use, stop IV Solu-Medrol, replace potassium PO Chest x-ray - mild pulmonary edema EKG - atrial fibrillation with no acute ST-T changes BNP - 1793 Echocardiogram (01/2017) - LV function difficult to estimate, mildly reduced, elderly dilatation, mild RV dilation, moderate pulmonary hypertension Magnesium - 1.9 Fluid restriction, strict I's and O's, labs in a.m., daily weight 08/10 - denies chest pain or shortness of breath. Doing well on O2 via NC. Ambulating well and tolerating oral diet well. White count was elevated likely due to steroids. Anticipate discharge to ECF in a.m. if white count is trending down. 08/11 - no new complaints. Leukocytosis persistent. Repeat labs in a.m. Anticipate discharge to ECF tomorrow. Qualifiers: Congestive heart failure type: combined Qualified Code(s): I50.43 - Acute on chronic combined systolic (congestive) and diastolic (congestive) heart failure (2) COPD (chronic obstructive pulmonary disease) Priority: Primary Status: Chronic Comments: Acute exacerbation of COPD - symptoms now improved Continue DuoNeb breathing treatment, Symbicort, O2 via NC, taper steroids Sputum culture - pending Qualifiers: COPD type: unspecified COPD Qualified Code(s): J44.9 - Chronic obstructive pulmonary disease, unspecified (3) Acute and chronic respiratory failure Priority: Primary Status: Acute Comments: Acute on chronic hypoxic respiratory failure - secondary to acute CHF exacerbation and acute COPD exacerbation - now improved Plan as above Qualifiers: Respiratory failure complication: hypoxia and hypercapnia Qualified Code(s) : J96.21 - Acute and chronic respiratory failure with hypoxia; J96.22 - Acute and chronic respiratory failure with hypercapnia (4) Type 2 diabetes mellitus Priority: Primary Status: Chronic Comments: Type 2 diabetes mellitus, insulin-dependent, hyperglycemia Continue insulin sliding scale, glucose checks Qualifiers: Diabetes mellitus complication status: with unspecified complications Diabetes mellitus snf insulin use: with intermediate card tender use Qualified Code(s) : E11.8 - Type 2 diabetes mellitus with unspecified complications; Z79.4 - nursing home (current) use of insulin; Z79.4 - nursing home (current) use of insulin; Z79.4 - nursing home (current) use of insulin; Z79.4 - intermission coordinator (current) use of insulin (5) CAD (coronary artery disease) Priority: Primary Status: Chronic Comments: Coronary artery disease status post stents - stable Continue home dose of Lipitor, Coumadin Patient is not on Aspirin at home Qualifiers: Coronary Disease-Associated Artery/Lesion type: [place] artery [place] vs. transplanted heart: [place] heart Associated angina: without angina Qualified Code(s): I25.10 - Atherosclerotic heart disease of [place] coronary artery without angina pectoris (6) A-fib Priority: Primary Status: Chronic Comments: Chronic atrial fibrillation, rate controlled Continue home dose of Cardizem, Labetalol Continue Coumadin for anticoagulation - pharmacy to dose INR is therapeutic Qualifiers: Atrial fibrillation type: chronic Qualified Code(s): I48.2 - Chronic atrial fibrillation (7) DVT prophylaxis Priority: Primary Status: Acute Comments: Continue Coumadin for anticoagulation INR is therapeutic - Discharge Medications Prescriptions: Albuterol Neb [Proventil Neb] 2.5 mg IH Q4HR #30 inhsol Amoxicillin/Clavulanate [Augmentin] 875 mg PO BIDWM 7 Days #14 tablet Gabapentin [Neurontin] 400 mg PO BID #14 capsule Sertraline [Zoloft] 50 mg PO DAILY #30 tablet Home Medications: Allopurinol [Zyloprim 100 MG] 100 mg PO DAILY 02/13/17 [History] Oxygen 4 l NS AD 02/13/17 [History] Atorvastatin [Lipitor] 40 mg PO HS #30 tablet 02/18/17 [Rx] Diltiazem CD (24hr) [Cardizem CD] 240 mg PO DAILY 08/07/17 [History] Fluticasone/Salmeterol [Advair Hfa 115-21 Mcg Inhaler] 2 puff IH Q12H 08/07/17 [ History] Labetalol [Trandate] 100 mg PO BID 08/07/17 [History] Levothyroxine Sodium [Synthroid] 200 mcg PO DAILY 08/07/17 [History] Warfarin [Coumadin] 2 mg PO DAILY 08/07/17 [History] Albuterol Neb [Proventil Neb] 2.5 mg IH Q4HR #30 inhsol 08/11/17 [Rx] Amoxicillin/Clavulanate [Augmentin] 875 mg PO BIDWM 7 Days #14 tablet 08/11/17 [ Rx] Gabapentin [Neurontin] 400 mg PO BID #14 capsule 08/11/17 [Rx] Insulin LISPRO [HumaLOG] 0 units SQ QID PRN #0 08/11/17 [Rx] Sertraline [Zoloft] 50 mg PO DAILY #30 tablet 08/11/17 [Rx] Allergies/Adverse Reactions: 3 Allergy/AdvReac Type Severity Reaction Status Date / Time meperidine [From Demerol] Allergy Anaphylaxis Verified 02/13/17 11:01 Tetracycline Allergy Anaphylaxis Verified 02/13/17 11:01 Date of admission: 08/07/17 18:28 Primary care physician: PCP NONE Consults: 08/08/17 07:49 Consult for Pharmacy Education [CONS] Routine Reason for Consult: pharmacy to dose warfarin Call Completed: No 08/09/17 10:05 Consult to Deputy Administrator [CONS] Routine Reason for SW Consult: Discharge planning Anticipated date of discharge: 08/12/17 - Patient Status Disposition: Transfer SNF Condition: Good Functional capacity at discharge: uses cane/walker Overall status at discharge: patient is back to baseline - Discharge Instructions Follow Up With: NONE,PCP [Primary Care Provider] - - Diet and Activity Activity: as per physical therapy, increase activity as tolerated, resume usual activities as tolerated, wear oxygen at all times Diet: low fat, low cholesterol, low salt diet Hospital course: Ms. Renee is a 81 year old female with past medical history of A. fib, CHF, COPD , coronary artery disease, diabetes, GERD, hyperlipidemia, hypertension, chronic kidney disease, thyroid disease, anxiety and depression. She presented to ED with complaints of shortness of breath. Patient presented as a transfer from another hospital. Admitted for acute exacerbation of CHF. Patient has probable combined systolic and diastolic dysfunction with unknown LVEF. She was started on IV Lasix and O2 via nasal cannula. She was continued on labetalol. Patient was initially on BiPAP. She was then weaned off BiPAP and is currently on O2 via nasal cannula 2 L/m. Patient does use oxygen at nursing facility. BNP was elevated. Patient also had acute exacerbation of COPD. She was started on DuoNeb breathing treatment and IV Solu-Medrol. She was continued on Symbicort. Patient was on insulin sliding scale for diabetes. She was continued on Coumadin for A. fib and also on Lipitor. Patient was initially in ICU and then transferred to regular floor. Patient is now back to baseline. No other acute events or constipation during her stay. Tolerating oral diet well and ambulating with assistance. She is doing well on 2 L via nasal cannula. Patient did have leukocytosis which was persistent, likely due to steroid use. Patient is also on empiric IV antibiotics. She is being discharged with Augmentin. At this time she does not require any further steroids. She has been advised to continue DuoNeb breathing treatment on discharge. Patient has been explained about her condition and plan of care in detail. She understood and agreed. No answer questions. No family members at the time of discharge. Patient is being discharged in stable condition. - Time Spent with Patient Total time spent providing and/or coordinating discharge services: Greater than 30 minutes - Constitutional Vitals: Temp Pulse Resp BP Pulse Ox 98.2 F 92 16 166/72 93 08/11/17 11:25 08/11/17 11:25 08/11/17 11:26 08/11/17 11:26 08/11/17 11:26 General appearance: Present: cooperative, A&O X 3, pleasant, no acute distress, obese, answers questions appropriately - Head Head exam: Present: atraumatic - Eye Eye exam: Present: EOMI - ENT ENT exam: Present: mucous membranes moist - Respiratory Respiratory exam: Present: CTAB. Absent: accessory muscle use, chest wall tenderness, rales, rhonchi, wheezes, tachypnea - Cardiovascular Cardiovascular exam: Present: RRR, +S1, +S2 - GI/Abdominal GI/Abdominal exam: Present: soft. Absent: distended, firm, guarding, tenderness - Extremities Exam Extremities exam: Present: pedal edema (Bilateral 1+ pitting edema), radial pulses palpable and symmetrical. Absent: calf tenderness, cyanotic - Neurological Exam Neurological exam: Present: alert, oriented X3, no focal deficits. Absent: facial droop, speech deficit
--- NOTE | 2017-08-11 15:52 | Physician Discharge Referral ---
ExtendedCare Referral Info Provider in Charge after Transfer: PCP Institutional Level of Care: Skilled - Diagnosis (1) Acute on chronic congestive heart failure Priority: Primary Status: Acute (2) COPD (chronic obstructive pulmonary disease) Priority: Primary Status: Chronic (3) Acute and chronic respiratory failure Priority: Primary Status: Acute (4) Type 2 diabetes mellitus Priority: Primary Status: Chronic (5) CAD (coronary artery disease) Priority: Primary Status: Chronic (6) A-fib Priority: Primary Status: Chronic (7) DVT prophylaxis Priority: Primary Status: Acute - Transfer Medications Prescriptions: Albuterol Neb [Proventil Neb] 2.5 mg IH Q4HR #30 inhsol Amoxicillin/Clavulanate [Augmentin] 875 mg PO BIDWM 7 Days #14 tablet Gabapentin [Neurontin] 400 mg PO BID #14 capsule Sertraline [Zoloft] 50 mg PO DAILY #30 tablet Home Medications: Allopurinol [Zyloprim 100 MG] 100 mg PO DAILY 02/13/17 [History] Oxygen 4 l NS AD 02/13/17 [History] Atorvastatin [Lipitor] 40 mg PO HS #30 tablet 02/18/17 [Rx] Diltiazem CD (24hr) [Cardizem CD] 240 mg PO DAILY 08/07/17 [History] Fluticasone/Salmeterol [Advair Hfa 115-21 Mcg Inhaler] 2 puff IH Q12H 08/07/17 [ History] Labetalol [Trandate] 100 mg PO BID 08/07/17 [History] Levothyroxine Sodium [Synthroid] 200 mcg PO DAILY 08/07/17 [History] Warfarin [Coumadin] 2 mg PO DAILY 08/07/17 [History] Albuterol Neb [Proventil Neb] 2.5 mg IH Q4HR #30 inhsol 08/11/17 [Rx] Amoxicillin/Clavulanate [Augmentin] 875 mg PO BIDWM 7 Days #14 tablet 08/11/17 [ Rx] Gabapentin [Neurontin] 400 mg PO BID #14 capsule 08/11/17 [Rx] Insulin LISPRO [HumaLOG] 0 units SQ QID PRN #0 08/11/17 [Rx] Sertraline [Zoloft] 50 mg PO DAILY #30 tablet 08/11/17 [Rx] Allergies/Adverse Reactions: 3 Allergy/AdvReac Type Severity Reaction Status Date / Time meperidine [From Demerol] Allergy Anaphylaxis Verified 02/13/17 11:01 Tetracycline Allergy Anaphylaxis Verified 02/13/17 11:01 - Respiratory Orders Oxygen / L per min (2 L/m) Smoking Cessation: Smoking cessation has been advised. For more information, call the [employer] [facility] Quit Line at [phone]-NOW. - Lab Orders Lab Orders: CBC (Repeat CBC in 3 days, monitor PT/INR weekly) - Ancillary Orders May use pressure relief devices daily prn - Advance Directives Code Status: Full Code - Mobility Orders Ambulate - Rehabiliation Orders Rehab Potential: Good Rehab Orders: Evaluation for Physical Therapy, Evaluation for Occupational Therapy - Treatments Skin tear care topically daily PRN per policy - Diet Orders Cardiac (Low-salt diet, fluid restriction 1.5 L per day) CERTIFICATION: I certify that the transfer of the above named patient to an Extended Care Facility is necessary for the continuing treatment of the diagnosis listed. The above information is true and accurate reflection of patient's current condition. Confidential - Redisclosure prohibited without a patient's written consent.
[2017-08-12] MEDS: Piperacillin/Tazobactam 3.375 GM in D5% in Water 50 ML IVPB SCH ×2 (00:26→10:41)
[2017-08-12] MEDS: Ipratropium/Albuterol Neb 3 ML IH SCH ×6 (00:56→20:33)
[2017-08-12 06:01] LABS: Basophils % 0.1 %; Eosinophils % 0.1 %; Hematocrit 36.3 % (35.3-44.9); Hemoglobin 11.1 g/dL (11.5-15.4); Lymphocytes # 1.4 K/mcL (0.6-4.6); Lymphocytes % 6.2 %; Mean Corpuscular HGB Conc 30.6 g/dL (31.6-35.5); Mean Corpuscular Hemoglobin 25.2 pg (28.0-33.3); Mean Corpuscular Volume 82.3 fL (83.0-100.0); Mean Platelet Volume 8.9 fL (9.4-12.4); Monocytes # 1.4 K/mcL (0.0-1.3); Monocytes % 6.2 %; Platelet Count 266 K/mcL (140-400); Red Blood Count 4.41 M/mcL (3.82-4.97); Segmented Neutrophils % 86.4 %
[2017-08-12 06:07] LABS: INR 3.1; Prothrombin Time 34.6 Seconds (9.4-12.1)
[2017-08-12 06:16] LABS: Calcium 8.9 mg/dL (8.6-10.8); Magnesium 1.9 mg/dL (1.6-2.6); Potassium 3.6 mEq/L (3.5-4.5)
[2017-08-12] MEDS: Vancomycin 1,250 MG in D5% in Water 250 ML IVPB SCH (07:27)
[2017-08-12] MEDS: Potassium Chloride Elixir 20 MEQ/15 ML UDC PO SCH ×2 (07:38→20:51)
[2017-08-12] MEDS: *HR* HYDROcodone/Acet 5/325 mg TABLET PO PRN ×4 (07:39→20:51)
[2017-08-12] MEDS: Diltiazem CD (24hr) 240 MG CAPSULE PO SCH (07:39)
[2017-08-12] MEDS: Gabapentin 400 MG CAPSULE PO SCH ×2 (07:39→20:51)
[2017-08-12] MEDS: Furosemide 40 MG TABLET PO SCH ×2 (07:39→16:45)
[2017-08-12] MEDS: Insulin LISPRO 300 UNITS/3 ML VIAL SQ SCH ×3 (07:45→16:44)
[2017-08-12] MEDS: predniSONE 20 MG TABLET PO SCH (10:41)
[2017-08-12] MEDS: Budesonide/Formoterol 80/4.5 MDI IH SCH ×2 (11:18→20:33)
[2017-08-12] MEDS ORDERED: cefTRIAXone 1,000 MG in Water for inj. (sterile) 10 ML IVP SCH (13:00)
--- NOTE | 2017-08-12 17:01 | Internal Med Progress Note ---
Date of Encounter: 08/12/17 Time of Encounter: 08:30 - Assessment and plan (1) Acute on chronic congestive heart failure Current Visit: No Status: Acute Assessment and plan: Acute exacerbation of CHF, probable combined systolic and diastolic dysfunction , unknown LVEF - symptoms now improved No fever, hemodynamically stable, no tachycardia Switch to PO Lasix, doing well on O2 via NC, continue Labetalol Leukocytosis likely due to steroid use, stop IV Solu-Medrol, replace potassium PO Chest x-ray - mild pulmonary edema EKG - atrial fibrillation with no acute ST-T changes BNP - 1793 Echocardiogram (01/2017) - LV function difficult to estimate, mildly reduced, elderly dilatation, mild RV dilation, moderate pulmonary hypertension Magnesium - 1.9 Fluid restriction, strict I's and O's, labs in a.m., daily weight 08/12 - no new complaints. Anticipate discharge to ECF tomorrow if WBC is trending down. No fever. Hemodynamically stable. Qualifiers: Congestive heart failure type: combined Qualified Code(s): I50.43 - Acute on chronic combined systolic (congestive) and diastolic (congestive) heart failure (2) COPD (chronic obstructive pulmonary disease) Current Visit: Yes Status: Chronic Assessment and plan: Acute exacerbation of COPD - symptoms now improved Continue DuoNeb breathing treatment, Symbicort, O2 via NC, taper steroids Qualifiers: COPD type: unspecified COPD Qualified Code(s): J44.9 - Chronic obstructive pulmonary disease, unspecified (3) Acute and chronic respiratory failure Current Visit: Yes Status: Acute Assessment and plan: Acute on chronic hypoxic respiratory failure - secondary to acute CHF exacerbation and acute COPD exacerbation - now improved Plan as above Qualifiers: Respiratory failure complication: hypoxia and hypercapnia Qualified Code(s) : J96.21 - Acute and chronic respiratory failure with hypoxia; J96.22 - Acute and chronic respiratory failure with hypercapnia (4) Type 2 diabetes mellitus Current Visit: Yes Status: Chronic Assessment and plan: Type 2 diabetes mellitus, insulin-dependent, hyperglycemia Continue insulin sliding scale, glucose checks Continue regular home dose of insulin on discharge Qualifiers: Diabetes mellitus complication status: with unspecified complications Diabetes mellitus alf insulin use: with local 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 Qualified Code(s) : E11.8 - Type 2 diabetes mellitus with unspecified complications; Z79.4 - longterm (current) use of insulin; Z79.4 - buttermaker continuous churn (current) use of insulin; Z79.4 - longterm (current) use of insulin; Z79.4 - butterm[employer] continuous churn (current) use of insulin (5) CAD (coronary artery disease) Current Visit: No Status: Chronic Assessment and plan: Coronary artery disease status post stents - stable Continue home dose of Lipitor, Coumadin - INR is therapeutic Patient is not on Aspirin at home Qualifiers: Coronary Disease-Associated Artery/Lesion type: [place] artery [place] vs. transplanted heart: [place] heart Associated angina: without angina Qualified Code(s): I25.10 - Atherosclerotic heart disease of [place] coronary artery without angina pectoris (6) A-fib Current Visit: Yes Status: Chronic Assessment and plan: Chronic atrial fibrillation, rate controlled Continue home dose of Cardizem, Labetalol Continue Coumadin for anticoagulation INR is therapeutic Qualifiers: Atrial fibrillation type: chronic Qualified Code(s): I48.2 - Chronic atrial fibrillation (7) DVT prophylaxis Current Visit: Yes Status: Acute Assessment and plan: Continue Coumadin for anticoagulation INR is therapeutic - Time Spent With Patient 25 - 35 minutes - Subjective Interval history: Examined this morning. Patient is awake and alert. Not in any distress. Sitting up comfortably. Tolerating oral diet well. Denies chest pain. States her shortness of breath has improved significantly. States she feels better. No other acute events or complaints. Ambulating with assistance. Patient's white count is elevated, likely due to steroid use. INR is therapeutic. No fever. Hemodynamically stable. IV steroids stopped. Anticipate discharge to ECF tomorrow if WBC is trending down. - Constitutional Vitals: Temp Pulse Resp BP Pulse Ox 98 F 91 16 164/71 99 08/12/17 07:31 08/12/17 15:00 08/12/17 16:01 08/12/17 15:00 08/12/17 16:01 General appearance: Present: cooperative, A&O X 3, pleasant, no acute distress, obese, answers questions appropriately - Head Head exam: Present: atraumatic - Eye Eye exam: Present: EOMI - ENT ENT exam: Present: mucous membranes moist - Respiratory Respiratory exam: Present: CTAB. Absent: accessory muscle use, chest wall tenderness, rales, respiratory distress, rhonchi, wheezes, tachypnea - Cardiovascular Cardiovascular exam: Present: RRR, +S1, +S2 - GI/Abdominal GI/Abdominal exam: Present: soft. Absent: distended, firm, guarding, tenderness - Extremities Exam Extremities exam: Present: pedal edema (Bilateral 1+ pitting edema), radial pulses palpable and symmetrical. Absent: calf tenderness, cyanotic - Neurological Exam Neurological exam: Present: alert, oriented X3, no focal deficits. Absent: facial droop, speech deficit Internal Medicine: Result - Labs CBC & Chem 7: 08/12/17 05:52 08/12/17 05:52 Labs: Short CBC 08/12/17 Range/Units 05:52 WBC 22.0 H (4.3-11.1) K/mcL Hgb 11.1 L (11.5-15.4) g/dL Hct 36.3 (35.3-44.9) % Plt Count 266 (140-400) K/mcL Neutrophils # 19.0 H (1.6-8.9) K/mcL BMP 08/12/17 05:52 Sodium 140 Potassium 3.6 Chloride 93 L Carbon Dioxide 37 H BUN 33 H Creatinine 1.27 H Glucose 135 H Calcium 8.9 - ABG Interpretation ABG results: ABG ABG pH 7.43 pH Units (7.32-7.45) 08/07/17 20:29 ABG pCO2 50 mmHg (35-45) H 08/07/17 20:29 ABG pO2 71 mmHg (85-104) L 08/07/17 20:29 ABG O2 Saturation 94 % (95-98) L 08/07/17 20:29 PT/INR, D-dimer PT 34.6 Seconds (9.4-12.1) H 08/12/17 05:52 Consult Discharge Plan - Plan Referrals: NONE,PCP [Primary Care Provider] - Prescriptions: Albuterol Neb [Proventil Neb] 2.5 mg IH Q4HR #30 inhsol Amoxicillin/Clavulanate [Augmentin] 875 mg PO BIDWM 7 Days #14 tablet Gabapentin [Neurontin] 400 mg PO BID #14 capsule Sertraline [Zoloft] 50 mg PO DAILY #30 tablet
[2017-08-12] MEDS ORDERED: *HR* Warfarin 1 MG TABLET PO ONE (18:00)
[2017-08-13] MEDS: Ipratropium/Albuterol Neb 3 ML IH SCH ×7 (00:06→23:19)
[2017-08-13 05:59] LABS: Basophils % 0.1 %; Eosinophils # 0.2 K/mcL (0.0-0.6); Eosinophils % 0.8 %; Hemoglobin 10.8 g/dL (11.5-15.4); Immature Granulocytes % 1.3 % (0-4); Lymphocytes # 2.1 K/mcL (0.6-4.6); Lymphocytes % 9.9 %; Mean Corpuscular Hemoglobin 24.8 pg (28.0-33.3); Mean Corpuscular Volume 82.8 fL (83.0-100.0); Mean Platelet Volume 9.6 fL (9.4-12.4); Monocytes # 1.3 K/mcL (0.0-1.3); Monocytes % 6.2 %; Neutrophils # 17.6 K/mcL (1.6-8.9); Platelet Count 307 K/mcL (140-400); Red Blood Count 4.35 M/mcL (3.82-4.97); Red Cell Distribution Width 16.1 % (11.5-14.5); Segmented Neutrophils % 81.7 %
[2017-08-13 06:04] LABS: INR 2.3; Prothrombin Time 24.9 Seconds (9.4-12.1)
[2017-08-13] MEDS: Budesonide/Formoterol 80/4.5 MDI IH SCH ×2 (07:49→20:16)
--- NOTE | 2017-08-13 09:12 | Internal Med Progress Note ---
<Sadiq Cavazos - Last Filed: 08/13/17 10:51> Date of Encounter: 08/13/17 Time of Encounter: 09:12 - Assessment and plan (1) UTI due to extended-spectrum beta lactamase (ESBL) producing Escherichia coli Current Visit: Yes Status: Acute Assessment and plan: Additional records received from recent hospitalization reveals ESBL UTI and 1 of 2 blood cultures growing gram negative anaerobic rods. Patient completed 6 days of Zosyn, 5 days of Vancomycin, 2 days of Rocephin, and was switched to Invanz today for ESBL UTI. Repeat UA pending Repeat blood cultures pending (2) Acute on chronic congestive heart failure Current Visit: No Status: Acute Assessment and plan: Acute exacerbation of CHF, probable combined systolic and diastolic dysfunction , unknown LVEF - symptoms now improved No fever, hemodynamically stable, no tachycardia Switched to PO Lasix, doing well on O2 via NC, continue Labetalol Leukocytosis likely due to steroid use vs ESBL, stop IV Solu-Medrol, replace potassium PO Chest x-ray - mild pulmonary edema EKG - atrial fibrillation with no acute ST-T changes BNP - 1793 Echocardiogram (01/2017) - LV function difficult to estimate, mildly reduced, elderly dilatation, mild RV dilation, moderate pulmonary hypertension Magnesium - 1.9 Fluid restriction, strict I's and O's, labs in a.m., daily weight Hemodynamically stable. Qualifiers: Congestive heart failure type: combined Qualified Code(s): I50.43 - Acute on chronic combined systolic (congestive) and diastolic (congestive) heart failure (3) Acute and chronic respiratory failure Current Visit: Yes Status: Acute Assessment and plan: Acute on chronic hypoxic respiratory failure - secondary to acute CHF exacerbation and acute COPD exacerbation - now improved Patient wears 4L via NC at baseline. Continue to monitor Qualifiers: Respiratory failure complication: hypoxia and hypercapnia Qualified Code(s) : J96.21 - Acute and chronic respiratory failure with hypoxia; J96.22 - Acute and chronic respiratory failure with hypercapnia (4) Acute exacerbation of chronic obstructive pulmonary disease (COPD) Current Visit: Yes Status: Acute Assessment and plan: Acute exacerbation of COPD - symptoms now improved Patient completed 6 days of Zosyn, 5 days of Vancomycin, 2 days of Rocephin, and was switched to Invanz Continue DuoNeb breathing treatment, Symbicort, O2 via NC, taper steroids (5) Type 2 diabetes mellitus Current Visit: Yes Status: Chronic Assessment and plan: HGB a1c 5.8 Type 2 diabetes mellitus, insulin-dependent, hyperglycemia Continue insulin sliding scale, glucose checks Continue regular home dose of insulin on discharge Qualifiers: Diabetes mellitus complication status: with unspecified complications Diabetes mellitus intermediate manager insulin use: with long-term use Qualified Code(s) : E11.8 - Type 2 diabetes mellitus with unspecified complications; 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 transplanted heart: [place] heart Associated angina: without angina Qualified Code(s): I25.10 - Atherosclerotic heart disease of [place] coronary artery without angina pectoris (7) A-fib Current Visit: Yes Status: Chronic Assessment and plan: Chronic atrial fibrillation, rate controlled Continue home dose of Cardizem, Labetalol Continue Coumadin for anticoagulation INR is therapeutic Qualifiers: Atrial fibrillation type: chronic Qualified Code(s): I48.2 - Chronic atrial fibrillation (8) RODOLFO (acute kidney injury) Current Visit: Yes Status: Acute Assessment and plan: Slowly improving. Continue to monitor (9) Morbid obesity with BMI of 40.0-44.9, adult Current Visit: Yes Status: Acute Assessment and plan: BMI 44.1 Recommend diet modification and exercise (10) Diarrhea Current Visit: Yes Status: Acute Assessment and plan: GI panel pending Contact precautions Patient completed 6 days of Zosyn, 5 days of Vancomycin, 2 days of Rocephin, and was switched to Invanz Qualifiers: Diarrhea type: unspecified type Qualified Code(s): R19.7 - Diarrhea, unspecified (11) DVT prophylaxis Current Visit: Yes Status: Acute Assessment and plan: Continue Coumadin for anticoagulation INR is therapeutic - Subjective Interval history: Patient seen and examined sitting in chair at bedside. Patient reports loose stool and SOB when getting out of bed to chair. Additional records received from recent hospitalization reveals ESBL UTI and 1 of 2 blood cultures growing gram negative anaerobic rods. Patient completed 6 days of Zosyn, 5 days of Vancomycin, 2 days of Rocephin, and was switched to Invanz today for ESBL UTI. - Constitutional Vitals: Temp Pulse Resp BP Pulse Ox 97.9 F 88 14 130/79 95 08/13/17 07:12 08/13/17 07:12 08/13/17 07:53 08/13/17 07:12 08/13/17 07:53 General appearance: Present: cooperative, A&O X 3, morbidly obese, pleasant, no acute distress, answers questions appropriately - Head Head exam: Present: atraumatic, normal inspection, normocephalic - Eye Eye exam: Present: EOMI, conjuntiva pink, sclera anicteric - ENT ENT exam: Present: mucous membranes moist, normal oropharynx - Neck Neck exam general surgery: Present: normal inspection, supple - Respiratory Respiratory exam: Present: CTAB. Absent: rhonchi, tachypnea - Cardiovascular Cardiovascular exam: Present: irregular rhythm, +S1, +S2 - GI/Abdominal GI/Abdominal exam: Present: distended (obese), normal bowel sounds, soft. Absent: tenderness - Additional comments: no kahn - Extremities Exam Extremities exam: Present: warm. Absent: pedal edema Additional comments: chronic venous stasis changes bilateral lower extremities, no edema - Back Exam Back exam: Present: normal inspection. Absent: paraspinal tenderness, tenderness - Neurological Exam Neurological exam: Present: alert, oriented X3, no focal deficits. Absent: speech deficit - Psychiatric Psychiatric exam: Present: normal affect, normal mood - Skin Skin exam: Present: dry, warm Additional comments: chronic venous stasis changes bilateral lower extremities Internal Medicine: Result - Labs CBC & Chem 7: 08/13/17 05:28 08/12/17 05:52 Labs: Short CBC 08/13/17 Range/Units 05:28 WBC 21.5 H (4.3-11.1) K/mcL Hgb 10.8 L (11.5-15.4) g/dL Hct 36.0 (35.3-44.9) % Plt Count 307 (140-400) K/mcL Neutrophils # 17.6 H (1.6-8.9) K/mcL - ABG Interpretation ABG results: ABG ABG pH 7.43 pH Units (7.32-7.45) 08/07/17 20:29 ABG pCO2 50 mmHg (35-45) H 08/07/17 20:29 ABG pO2 71 mmHg (85-104) L 08/07/17 20:29 ABG O2 Saturation 94 % (95-98) L 08/07/17 20:29 PT/INR, D-dimer PT 24.9 Seconds (9.4-12.1) H 08/13/17 05:28 - Pulse Oximetry Interpretation Digit-Finger Pulse Oximetry Readin (On 3.5 L O2 via NC) Actions taken: none Consult Discharge Plan - Plan Referrals: NONE,PCP [Primary Care Provider] - Prescriptions: Albuterol Neb [Proventil Neb] 2.5 mg IH Q4HR #30 inhsol Amoxicillin/Clavulanate [Augmentin] 875 mg PO BIDWM 7 Days #14 tablet Gabapentin [Neurontin] 400 mg PO BID #14 capsule Sertraline [Zoloft] 50 mg PO DAILY #30 tablet <Oracio Jaffe H - Last Filed: 08/13/17 17:41> Date of Encounter: 08/13/17 - Constitutional Vitals: Temp Pulse Resp BP Pulse Ox 98.2 F 82 14 115/62 99 08/13/17 15:49 08/13/17 15:49 08/13/17 16:10 08/13/17 15:49 08/13/17 16:10 Internal Medicine: Result - Labs CBC & Chem 7: 08/13/17 05:28 08/12/17 05:52 Labs: Short CBC 08/13/17 Range/Units 05:28 WBC 21.5 H (4.3-11.1) K/mcL Hgb 10.8 L (11.5-15.4) g/dL Hct 36.0 (35.3-44.9) % Plt Count 307 (140-400) K/mcL Neutrophils # 17.6 H (1.6-8.9) K/mcL Urine 08/13/17 Range/Units 13:58 Urine Color Yellow (Yellow) Urine Clarity Clear (Clear) Urine pH 6.0 (5.0-8.0) pH Units Ur Specific [place] 1.024 (1.010-1.025) Urine Protein Negative (Neg-Trace) mg/dL Urine Glucose (UA) Normal (Normal) mg/dL - ABG Interpretation ABG results: ABG ABG pH 7.43 pH Units (7.32-7.45) 08/07/17 20:29 ABG pCO2 50 mmHg (35-45) H 08/07/17 20:29 ABG pO2 71 mmHg (85-104) L 08/07/17 20:29 ABG O2 Saturation 94 % (95-98) L 08/07/17 20:29 PT/INR, D-dimer PT 24.9 Seconds (9.4-12.1) H 08/13/17 05:28 - Attending Attestation Sepsis secondary to UTI with ESBL Escherichia coli Start ertapenem I examined this patient and my medical decision-making was reviewed with the Resident Physician. I agree with the documented findings, disposition and treatment plan as described except to the extent set forth below.
[2017-08-13] MEDS: Gabapentin 400 MG CAPSULE PO SCH ×2 (09:28→23:07)
[2017-08-13] MEDS: Diltiazem CD (24hr) 240 MG CAPSULE PO SCH (09:28)
[2017-08-13] MEDS: Potassium Chloride Elixir 20 MEQ/15 ML UDC PO SCH ×2 (09:29→23:07)
[2017-08-13] MEDS: predniSONE 20 MG TABLET PO SCH (09:29)
[2017-08-13] MEDS: Furosemide 40 MG TABLET PO SCH ×2 (09:29→17:33)
[2017-08-13] MEDS: Insulin LISPRO 300 UNITS/3 ML VIAL SQ SCH ×3 (09:30→17:34)
[2017-08-13] MEDS ORDERED: Vancomycin 1,750 MG in D5% in Water 250 ML IVPB SCH (10:00)
[2017-08-13] MEDS: Ertapenem 1,000 MG in Water for inj. (sterile) 10 ML IVP SCH (13:11)
[2017-08-13] MEDS: *HR* HYDROcodone/Acet 5/325 mg TABLET PO PRN (13:16)
[2017-08-13 14:17] LABS: Bilirubin,Urine Negative (Negative); Blood,Urine Negative (Negative); Clarity,Urine Clear (Clear); Color,Urine Yellow (Yellow); Glucose,Urine (UA) Normal (Normal); Ketones,Urine Trace mg/dL (Negative); Leukocyte Esterase,Urine Negative (Negative); Nitrite,Urine Negative (Negative); Protein,Urine Negative (Neg-Trace); Specific Gravity,Urine 1.024 (1.010-1.025); Urobilinogen,Urine Normal (Normal)
[2017-08-13] MEDS ORDERED: *HR* Warfarin 2 MG TABLET PO ONE (18:00)
[2017-08-14] MEDS: *HR* HYDROcodone/Acet 5/325 mg TABLET PO PRN ×2 (03:01→23:07)
[2017-08-14] MEDS: Ipratropium/Albuterol Neb 3 ML IH SCH ×6 (04:46→23:43)
[2017-08-14 05:55] LABS: Basophils % 0.2 %; Lymphocytes % 9.3 %; Mean Platelet Volume 9.5 fL (9.4-12.4); Red Cell Distribution Width 16.1 % (11.5-14.5)
[2017-08-14 05:57] LABS: Basophils # 0.1 K/mcL (0.0-0.2); Eosinophils # 0.3 K/mcL (0.0-0.6); Hematocrit 35.8 % (35.3-44.9); Hemoglobin 10.9 g/dL (11.5-15.4); Immature Granulocytes % 1.7 % (0-4); Immature Platelets 2.6 % (1.1-6.1); Lymphocytes # 2.5 K/mcL (0.6-4.6); Mean Corpuscular HGB Conc 30.4 g/dL (31.6-35.5); Mean Corpuscular Hemoglobin 25.1 pg (28.0-33.3); Mean Corpuscular Volume 82.3 fL (83.0-100.0); Monocytes # 1.6 K/mcL (0.0-1.3); Monocytes % 6.1 %; Neutrophils # 21.8 K/mcL (1.6-8.9); Platelet Count 309 K/mcL (140-400); Red Blood Count 4.35 M/mcL (3.82-4.97); Segmented Neutrophils % 81.7 %
[2017-08-14 06:01] LABS: INR 1.8; Prothrombin Time 19.2 Seconds (9.4-12.1)
[2017-08-14 06:12] LABS: Alanine Aminotransferase 46 Units/L (0-55); Albumin 2.8 g/dL (3.5-5.0); Albumin/Globulin Ratio 0.9 (1.1-2.2); Alkaline Phosphatase 84 Units/L (38-126); Aspartate Amino Transferase 35 Units/L (5-34); BUN/Creatinine Ratio 28 (6-26); Bilirubin,Total 0.5 mg/dL (0.2-1.2); Blood Urea Nitrogen 30 mg/dL (7-20); Calcium 8.9 mg/dL (8.6-10.8); Carbon Dioxide 35 mEq/L (19-29); Chloride 94 mEq/L (98-109); Glucose 116 mg/dL (70-99); Osmolality,Calculated 295 (280-300); Sodium 139 mEq/L (136-145); Total Protein 5.8 g/dL (6.0-8.3); eGFR For African Americans > 60 (> 60); eGFR For Non-African Americans 50 (> 60)
[2017-08-14 06:32] LABS: Platelet Estimate Normal (Normal)
[2017-08-14] MEDS: Budesonide/Formoterol 80/4.5 MDI IH SCH ×2 (07:54→19:54)
[2017-08-14] MEDS: Insulin LISPRO 300 UNITS/3 ML VIAL SQ SCH ×3 (08:49→17:39)
[2017-08-14] MEDS: Diltiazem CD (24hr) 240 MG CAPSULE PO SCH (08:54)
[2017-08-14] MEDS: Furosemide 40 MG TABLET PO SCH ×2 (08:54→17:38)
[2017-08-14] MEDS: Gabapentin 400 MG CAPSULE PO SCH ×2 (08:54→22:41)
[2017-08-14] MEDS: Potassium Chloride Elixir 20 MEQ/15 ML UDC PO SCH ×2 (08:54→22:41)
[2017-08-14] MEDS: predniSONE 20 MG TABLET PO SCH (08:54)
[2017-08-14] MEDS: Ertapenem 1,000 MG in Water for inj. (sterile) 10 ML IVP SCH (08:55)
--- NOTE | 2017-08-14 09:15 | Internal Med Progress Note ---
<Sadqi Cavazos - Last Filed: 08/14/17 09:13> Date of Encounter: 08/14/17 Time of Encounter: 09:20 - Assessment and plan (1) UTI due to extended-spectrum beta lactamase (ESBL) producing Escherichia coli Current Visit: Yes Status: Acute Assessment and plan: Additional records received from recent hospitalization reveals ESBL UTI and 1 of 2 blood cultures growing gram negative anaerobic rods. Patient completed 6 days of Zosyn, 5 days of Vancomycin, 2 days of Rocephin, and was switched to Invanz (Day 2) for ESBL UTI. Persistent leukocytosis with left shift Will need PICC line/ Powerglide access placement prior to discharge for IV antibiotics Repeat UA negative Repeat blood cultures pending (2) Acute on chronic congestive heart failure Current Visit: No Status: Acute Assessment and plan: Acute exacerbation of CHF, probable combined systolic and diastolic dysfunction , unknown LVEF - symptoms now improved No fever, hemodynamically stable, no tachycardia Switched to PO Lasix, doing well on O2 via NC, continue Labetalol Leukocytosis likely due to steroid use vs ESBL, stop IV Solu-Medrol, replace potassium PO Chest x-ray - mild pulmonary edema EKG - atrial fibrillation with no acute ST-T changes BNP - 1793 Echocardiogram (01/2017) - LV function difficult to estimate, mildly reduced, elderly dilatation, mild RV dilation, moderate pulmonary hypertension Magnesium - 1.9 Fluid restriction, strict I's and O's, labs in a.m., daily weight Hemodynamically stable. Qualifiers: Congestive heart failure type: combined Qualified Code(s): I50.43 - Acute on chronic combined systolic (congestive) and diastolic (congestive) heart failure (3) Acute and chronic respiratory failure Current Visit: Yes Status: Acute Assessment and plan: Acute on chronic hypoxic respiratory failure - secondary to acute CHF exacerbation and acute COPD exacerbation - now improved Patient wears 4L via NC at baseline. Continue to monitor Qualifiers: Respiratory failure complication: hypoxia and hypercapnia Qualified Code(s) : J96.21 - Acute and chronic respiratory failure with hypoxia; J96.22 - Acute and chronic respiratory failure with hypercapnia (4) Acute exacerbation of chronic obstructive pulmonary disease (COPD) Current Visit: Yes Status: Acute Assessment and plan: Acute exacerbation of COPD - symptoms now improved Patient completed 6 days of Zosyn, 5 days of Vancomycin, 2 days of Rocephin, and was switched to Invanz Continue DuoNeb breathing treatment, Symbicort, O2 via NC, continue tapering steroids (5) Type 2 diabetes mellitus Current Visit: Yes Status: Chronic Assessment and plan: HGB a1c 5.8 Type 2 diabetes mellitus, insulin-dependent, hyperglycemia Continue insulin sliding scale, glucose checks Continue regular home dose of insulin on discharge Qualifiers: Diabetes mellitus complication status: with unspecified complications Diabetes mellitus terminal computer operator insulin use: with longterm use Qualified Code(s) : E11.8 - Type 2 diabetes mellitus with unspecified complications; 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 transplanted heart: [place] heart Associated angina: without angina Qualified Code(s): I25.10 - Atherosclerotic heart disease of [place] coronary artery without angina pectoris (7) A-fib Current Visit: Yes Status: Chronic Assessment and plan: Chronic atrial fibrillation, rate controlled Continue home dose of Cardizem, Labetalol Continue Coumadin for anticoagulation INR is subtherapeutic Qualifiers: Atrial fibrillation type: chronic Qualified Code(s): I48.2 - Chronic atrial fibrillation (8) RODOLFO (acute kidney injury) Current Visit: Yes Status: Acute Assessment and plan: Slowly improving. Continue to monitor (9) CKD (chronic kidney disease) stage 3, GFR 30-59 ml/min Current Visit: Yes Status: Acute Assessment and plan: Continue to monitor and avoid nephrotoxins (10) Morbid obesity with BMI of 40.0-44.9, adult Current Visit: Yes Status: Acute Assessment and plan: BMI 44.1 Recommend diet modification and exercise (11) Diarrhea Current Visit: Yes Status: Resolved Assessment and plan: GI panel pending Contact precautions Patient completed 6 days of Zosyn, 5 days of Vancomycin, 2 days of Rocephin, and was switched to Invanz Qualifiers: Diarrhea type: unspecified type Qualified Code(s): R19.7 - Diarrhea, unspecified (12) DVT prophylaxis Current Visit: Yes Status: Acute Assessment and plan: Continue Coumadin for anticoagulation INR is subtherapeutic - Subjective Interval history: Patient seen and examined sitting in bed. Patient reports no BM since yesterday. She had persistent leukocytosus today with left shft despite starting Invanz. Continue to monitor and encourage ambulation - Constitutional Vitals: Temp Pulse Resp BP Pulse Ox 98.3 F 93 16 151/57 99 08/14/17 07:00 08/14/17 07:00 08/14/17 07:58 08/14/17 07:00 08/14/17 07:58 General appearance: Present: cooperative, A&O X 3, morbidly obese, pleasant, no acute distress, answers questions appropriately Exam: - Head Head exam: Present: atraumatic, normal inspection, normocephalic - Eye Eye exam: Present: EOMI, conjuntiva pink, sclera anicteric - ENT ENT exam: Present: mucous membranes moist, normal oropharynx - Neck Neck exam general surgery: Present: normal inspection, supple - Respiratory Respiratory exam: Present: CTAB. Absent: rhonchi, tachypnea - Cardiovascular Cardiovascular exam: Present: irregular rhythm, +S1, +S2 - GI/Abdominal GI/Abdominal exam: Present: distended (obese), normal bowel sounds, soft. Absent: tenderness - Additional comments: no kahn - Extremities Exam Extremities exam: Present: warm. Absent: pedal edema Additional comments: chronic venous stasis changes bilateral lower extremities, no edema - Back Exam Back exam: Present: normal inspection. Absent: paraspinal tenderness, tenderness - Neurological Exam Neurological exam: Present: alert, oriented X3, no focal deficits. Absent: speech deficit - Psychiatric Psychiatric exam: Present: normal affect, normal mood - Skin Skin exam: Present: dry, warm Additional comments: chronic venous stasis changes bilateral lower extremities Internal Medicine: Result - Labs CBC & Chem 7: 08/14/17 05:32 08/14/17 05:32 Labs: Short CBC 08/14/17 Range/Units 05:32 WBC 26.7 H (4.3-11.1) K/mcL Hgb 10.9 L (11.5-15.4) g/dL Hct 35.8 (35.3-44.9) % Plt Count 309 (140-400) K/mcL Neutrophils # 21.8 H (1.6-8.9) K/mcL BMP 08/14/17 05:32 Sodium 139 Potassium 4.0 Chloride 94 L Carbon Dioxide 35 H BUN 30 H Creatinine 1.06 Glucose 116 H Calcium 8.9 Liver Function 08/14/17 Range/Units 05:32 Total Bilirubin 0.5 (0.2-1.2) mg/dL AST 35 H (5-34) Units/L ALT 46 (0-55) Units/L Alkaline Phosphatase 84 (38-126) Units/L Albumin 2.8 L (3.5-5.0) g/dL Urine 08/13/17 Range/Units 13:58 Urine Color Yellow (Yellow) Urine Clarity Clear (Clear) Urine pH 6.0 (5.0-8.0) pH Units Ur Specific [place] 1.024 (1.010-1.025) Urine Protein Negative (Neg-Trace) mg/dL Urine Glucose (UA) Normal (Normal) mg/dL - ABG Interpretation ABG results: ABG ABG pH 7.43 pH Units (7.32-7.45) 08/07/17 20:29 ABG pCO2 50 mmHg (35-45) H 08/07/17 20:29 ABG pO2 71 mmHg (85-104) L 08/07/17 20:29 ABG O2 Saturation 94 % (95-98) L 08/07/17 20:29 PT/INR, D-dimer PT 19.2 Seconds (9.4-12.1) H 08/14/17 05:32 - Pulse Oximetry Interpretation Digit-Finger Pulse Oximetry Readin (on 2.5L O2 via NC) Consult Discharge Plan - Plan Referrals: NONE,PCP [Primary Care Provider] - Prescriptions: Albuterol Neb [Proventil Neb] 2.5 mg IH Q4HR #30 inhsol Amoxicillin/Clavulanate [Augmentin] 875 mg PO BIDWM 7 Days #14 tablet Gabapentin [Neurontin] 400 mg PO BID #14 capsule Sertraline [Zoloft] 50 mg PO DAILY #30 tablet <Oracio Jaffe H - Last Filed: 08/14/17 09:44> Date of Encounter: 08/14/17 - Constitutional Vitals: Temp Pulse Resp BP Pulse Ox 98.3 F 93 16 151/57 99 08/14/17 07:00 08/14/17 07:00 08/14/17 07:58 08/14/17 07:00 08/14/17 07:58 Internal Medicine: Result - Labs CBC & Chem 7: 08/14/17 05:32 08/14/17 05:32 Labs: Short CBC 08/14/17 Range/Units 05:32 WBC 26.7 H (4.3-11.1) K/mcL Hgb 10.9 L (11.5-15.4) g/dL Hct 35.8 (35.3-44.9) % Plt Count 309 (140-400) K/mcL Neutrophils # 21.8 H (1.6-8.9) K/mcL BMP 08/14/17 05:32 Sodium 139 Potassium 4.0 Chloride 94 L Carbon Dioxide 35 H BUN 30 H Creatinine 1.06 Glucose 116 H Calcium 8.9 Liver Function 08/14/17 Range/Units 05:32 Total Bilirubin 0.5 (0.2-1.2) mg/dL AST 35 H (5-34) Units/L ALT 46 (0-55) Units/L Alkaline Phosphatase 84 (38-126) Units/L Albumin 2.8 L (3.5-5.0) g/dL Urine 08/13/17 Range/Units 13:58 Urine Color Yellow (Yellow) Urine Clarity Clear (Clear) Urine pH 6.0 (5.0-8.0) pH Units Ur Specific [place] 1.024 (1.010-1.025) Urine Protein Negative (Neg-Trace) mg/dL Urine Glucose (UA) Normal (Normal) mg/dL - ABG Interpretation ABG results: ABG ABG pH 7.43 pH Units (7.32-7.45) 08/07/17 20:29 ABG pCO2 50 mmHg (35-45) H 08/07/17 20:29 ABG pO2 71 mmHg (85-104) L 08/07/17 20:29 ABG O2 Saturation 94 % (95-98) L 08/07/17 20:29 PT/INR, D-dimer PT 19.2 Seconds (9.4-12.1) H 08/14/17 05:32 - Attending Attestation Sepsis secondary to UTI with ESBL Escherichia coli White Blood cell count not improving, continue ertapenem day #2 I examined this patient and my medical decision-making was reviewed with the Resident Physician. I agree with the documented findings, disposition and treatment plan as described except to the extent set forth below.
[2017-08-14] MEDS ORDERED: *HR* Warfarin 2 MG TABLET PO ONE (18:00)
[2017-08-15] MEDS: Ipratropium/Albuterol Neb 3 ML IH SCH ×6 (04:40→23:37)
[2017-08-15 07:06] LABS: Red Blood Count 4.34 M/mcL (3.82-4.97)
[2017-08-15 07:07] LABS: Hematocrit 36.1 % (35.3-44.9); Hemoglobin 10.9 g/dL (11.5-15.4); Mean Corpuscular HGB Conc 30.2 g/dL (31.6-35.5); Mean Corpuscular Hemoglobin 25.1 pg (28.0-33.3); Mean Corpuscular Volume 83.2 fL (83.0-100.0); Mean Platelet Volume 9.6 fL (9.4-12.4); Platelet Count 296 K/mcL (140-400); Red Cell Distribution Width 16.4 % (11.5-14.5)
[2017-08-15 07:10] LABS: INR 1.7
[2017-08-15 07:17] LABS: BUN/Creatinine Ratio 34 (6-26); Blood Urea Nitrogen 33 mg/dL (7-20); Carbon Dioxide 34 mEq/L (19-29); Chloride 96 mEq/L (98-109); Glucose 143 mg/dL (70-99); Osmolality,Calculated 298 (280-300); Potassium 3.9 mEq/L (3.5-4.5); Sodium 139 mEq/L (136-145); eGFR For African Americans > 60 (> 60); eGFR For Non-African Americans 55 (> 60)
[2017-08-15] MEDS: Budesonide/Formoterol 80/4.5 MDI IH SCH ×2 (07:49→19:50)
[2017-08-15 07:57] LABS: Eosinophils # 0.6 K/mcL (0.0-0.6); Lymphocytes # 2.8 K/mcL (0.6-4.6); Monocytes # 1.7 K/mcL (0.0-1.3); Neutrophils # 22.9 K/mcL (1.6-8.9)
--- NOTE | 2017-08-15 08:48 | Internal Med Progress Note ---
<Sadiq Cavazos - Last Filed: 08/15/17 09:33> Date of Encounter: 08/15/17 Time of Encounter: 08:46 - Assessment and plan (1) UTI due to extended-spectrum beta lactamase (ESBL) producing Escherichia coli Current Visit: Yes Status: Acute Assessment and plan: Additional records received from recent hospitalization reveals ESBL UTI and 1 of 2 blood cultures growing gram negative anaerobic rods. Patient completed 6 days of Zosyn, 5 days of Vancomycin, 2 days of Rocephin, and currently on Day 3 of Invanz for ESBL UTI. Febrile overnight, persistent leukocytosis with left shift Powerglide access placed for IV antibiotics Repeat UA negative Repeat blood cultures pending (2) Cellulitis of left groin Current Visit: Yes Status: Acute Assessment and plan: Warm, moist intertriginous regions beneath panus and in groin with surrounding erythema Patient completed 6 days of Zosyn, 5 days of Vancomycin, 2 days of Rocephin, and currently on Day 3 of Invanz Culture pending CT abd/plv pending to r/o abscess Started Nystatin powder to groin (3) Acute on chronic congestive heart failure Current Visit: No Status: Acute Assessment and plan: Acute exacerbation of CHF, probable combined systolic and diastolic dysfunction , unknown LVEF - symptoms now improved No fever, hemodynamically stable, no tachycardia Switched to PO Lasix, doing well on O2 via NC, continue Labetalol Leukocytosis likely due to steroid use vs ESBL, stop IV Solu-Medrol, replace potassium PO Chest x-ray - mild pulmonary edema EKG - atrial fibrillation with no acute ST-T changes BNP - 1793 Echocardiogram (01/2017) - LV function difficult to estimate, mildly reduced, elderly dilatation, mild RV dilation, moderate pulmonary hypertension Magnesium - 1.9 Fluid restriction, strict I's and O's, labs in a.m., daily weight Hemodynamically stable. Febrile over night, CXR pending Qualifiers: Congestive heart failure type: combined Qualified Code(s): I50.43 - Acute on chronic combined systolic (congestive) and diastolic (congestive) heart failure (4) Acute and chronic respiratory failure Current Visit: Yes Status: Acute Assessment and plan: Acute on chronic hypoxic respiratory failure - secondary to acute CHF exacerbation and acute COPD exacerbation - now improved Patient wears 4L via NC at baseline. Continue to monitor Qualifiers: Respiratory failure complication: hypoxia and hypercapnia Qualified Code(s) : J96.21 - Acute and chronic respiratory failure with hypoxia; J96.22 - Acute and chronic respiratory failure with hypercapnia; J96.22 - Acute and chronic respiratory failure with hypercapnia; J96.22 - Acute and chronic respiratory failure with hypercapnia (5) Acute exacerbation of chronic obstructive pulmonary disease (COPD) Current Visit: Yes Status: Acute Assessment and plan: Acute exacerbation of COPD - symptoms now improved Patient completed 6 days of Zosyn, 5 days of Vancomycin, 2 days of Rocephin, and currently on Day 3 of Invanz Continue DuoNeb breathing treatment, Symbicort, O2 via NC, continue tapering steroids (6) Type 2 diabetes mellitus Current Visit: Yes Status: Chronic Assessment and plan: HGB a1c 5.8 Type 2 diabetes mellitus, insulin-dependent, hyperglycemia Continue insulin sliding scale, glucose checks Continue regular home dose of insulin on discharge Qualifiers: Diabetes mellitus complication status: with unspecified complications Diabetes mellitus correction insulin use: with correction use Qualified Code(s) : E11.8 - Type 2 diabetes mellitus with unspecified complications; 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 transplanted heart: [place] heart Associated angina: without angina Qualified Code(s): I25.10 - Atherosclerotic heart disease of [place] coronary artery without angina pectoris (8) A-fib Current Visit: Yes Status: Chronic Assessment and plan: Chronic atrial fibrillation, rate controlled Continue home dose of Cardizem, Labetalol Continue Coumadin for anticoagulation INR is subtherapeutic, start Lovenox Qualifiers: Atrial fibrillation type: chronic Qualified Code(s): I48.2 - Chronic atrial fibrillation (9) RODOLFO (acute kidney injury) Current Visit: Yes Status: Acute Assessment and plan: Slowly improving. Continue to monitor (10) CKD (chronic kidney disease) stage 3, GFR 30-59 ml/min Current Visit: Yes Status: Acute Assessment and plan: Continue to monitor and avoid nephrotoxins (11) Morbid obesity with BMI of 40.0-44.9, adult Current Visit: Yes Status: Acute Assessment and plan: BMI 44.1 Recommend diet modification and exercise (12) Diarrhea Current Visit: Yes Status: Resolved Assessment and plan: GI panel pending CT abd/plv pending Contact precautions Patient completed 6 days of Zosyn, 5 days of Vancomycin, 2 days of Rocephin, and currently on Day 3 of Invanz Qualifiers: Diarrhea type: unspecified type Qualified Code(s): R19.7 - Diarrhea, unspecified (13) DVT prophylaxis Current Visit: Yes Status: Acute Assessment and plan: Continue Coumadin for anticoagulation INR is subtherapeutic, start Lovenox Patient reports calf tenderness today, DVT study pending - Subjective Interval history: Patient seen and examined sitting in bed after eating breakfast. She had fever 100.2F last PM and reports redness and irritation in groin. She also reports almost slipping yesterday while walking. Patient reports no BM for 2 days. She had persistent leukocytosus today with left shift despite Invanz. Continue to monitor and encourage ambulation with assistance - Constitutional Vitals: Temp Pulse Resp BP Pulse Ox 97.7 F 89 18 134/71 97 08/15/17 07:10 08/15/17 07:10 08/15/17 07:10 08/15/17 07:10 08/15/17 07:10 General appearance: Present: cooperative, A&O X 3, morbidly obese, pleasant, no acute distress, answers questions appropriately Exam: - Head Head exam: Present: atraumatic, normal inspection, normocephalic - Eye Eye exam: Present: EOMI, conjuntiva pink, sclera anicteric - ENT ENT exam: Present: mucous membranes moist, normal oropharynx - Neck Neck exam general surgery: Present: normal inspection, supple - Respiratory Respiratory exam: Present: CTAB. Absent: rhonchi, tachypnea - Cardiovascular Cardiovascular exam: Present: irregular rhythm, +S1, +S2 - GI/Abdominal GI/Abdominal exam: Present: distended (obese), normal bowel sounds, soft. Absent: tenderness - Additional comments: no kahn, moist intertriginous regions beneath panus and in groin with surrounding erythema, no sacral ulcers - Extremities Exam Extremities exam: Present: warm. Absent: pedal edema Additional comments: chronic venous stasis changes bilateral lower extremities, no edema - Back Exam Back exam: Present: normal inspection. Absent: paraspinal tenderness, tenderness - Neurological Exam Neurological exam: Present: alert, oriented X3, no focal deficits. Absent: speech deficit - Psychiatric Psychiatric exam: Present: normal affect, normal mood - Skin Skin exam: Present: warm, moist intertriginous regions beneath panus and in groin with surrounding erythema, no sacral ulcers Additional comments: chronic venous stasis changes bilateral lower extremities Internal Medicine: Result - Labs CBC & Chem 7: 08/15/17 06:54 08/15/17 06:54 Labs: Short CBC 08/15/17 Range/Units 06:54 WBC 27.9 H (4.3-11.1) K/mcL Hgb 10.9 L (11.5-15.4) g/dL Hct 36.1 (35.3-44.9) % Plt Count 296 (140-400) K/mcL Neutrophils # 22.9 H (1.6-8.9) K/mcL BMP 08/15/17 06:54 Sodium 139 Potassium 3.9 Chloride 96 L Carbon Dioxide 34 H BUN 33 H Creatinine 0.98 Glucose 143 H Calcium 9.0 - ABG Interpretation ABG results: ABG ABG pH 7.43 pH Units (7.32-7.45) 08/07/17 20:29 ABG pCO2 50 mmHg (35-45) H 08/07/17 20:29 ABG pO2 71 mmHg (85-104) L 08/07/17 20:29 ABG O2 Saturation 94 % (95-98) L 08/07/17 20:29 PT/INR, D-dimer PT 18.0 Seconds (9.4-12.1) H 08/15/17 06:54 - Pulse Oximetry Interpretation Digit-Finger Pulse Oximetry Readin (on 2L via NC) Consult Discharge Plan - Plan Referrals: NONE,PCP [Primary Care Provider] - Prescriptions: Albuterol Neb [Proventil Neb] 2.5 mg IH Q4HR #30 inhsol Amoxicillin/Clavulanate [Augmentin] 875 mg PO BIDWM 7 Days #14 tablet Gabapentin [Neurontin] 400 mg PO BID #14 capsule Sertraline [Zoloft] 50 mg PO DAILY #30 tablet <Oracio Jaffe H - Last Filed: 08/15/17 10:47> Date of Encounter: 08/15/17 - Constitutional Vitals: Temp Pulse Resp BP Pulse Ox 97.7 F 89 18 134/71 97 08/15/17 07:10 08/15/17 07:10 08/15/17 07:49 08/15/17 07:10 08/15/17 07:49 Internal Medicine: Result - Labs CBC & Chem 7: 08/15/17 06:54 08/15/17 06:54 Labs: Short CBC 08/15/17 Range/Units 06:54 WBC 27.9 H (4.3-11.1) K/mcL Hgb 10.9 L (11.5-15.4) g/dL Hct 36.1 (35.3-44.9) % Plt Count 296 (140-400) K/mcL Neutrophils # 22.9 H (1.6-8.9) K/mcL BMP 08/15/17 06:54 Sodium 139 Potassium 3.9 Chloride 96 L Carbon Dioxide 34 H BUN 33 H Creatinine 0.98 Glucose 143 H Calcium 9.0 - ABG Interpretation ABG results: ABG ABG pH 7.43 pH Units (7.32-7.45) 08/07/17 20:29 ABG pCO2 50 mmHg (35-45) H 08/07/17 20:29 ABG pO2 71 mmHg (85-104) L 08/07/17 20:29 ABG O2 Saturation 94 % (95-98) L 08/07/17 20:29 PT/INR, D-dimer PT 18.0 Seconds (9.4-12.1) H 08/15/17 06:54 - Impressions Impressions Chest X-Ray 08/15/17 08:45 IMPRESSION: Interval resolution of mild CHF pattern. Borderline cardiac size. No acute infiltrate. D/ / Sadiq Mukherjee MD / Sadiq Mukherjee MD Interpreting Provider: Sadiq Mukherjee MD - Attending Attestation Sepsis secondary to UTI with ESBL Escherichia coli White Blood cell count not improving, continue ertapenem day #[address] abdomen and pelvis I examined this patient and my medical decision-making was reviewed with the Resident Physician. I agree with the documented findings, disposition and treatment plan as described except to the extent set forth below.
[2017-08-15] MEDS: Insulin LISPRO 300 UNITS/3 ML VIAL SQ SCH ×3 (09:48→16:08)
[2017-08-15] MEDS: predniSONE 20 MG TABLET PO SCH (09:51)
[2017-08-15] MEDS: Furosemide 40 MG TABLET PO SCH ×2 (09:51→16:07)
[2017-08-15] MEDS: Potassium Chloride Elixir 20 MEQ/15 ML UDC PO SCH ×2 (09:52→21:30)
[2017-08-15] MEDS: Ertapenem 1,000 MG in Water for inj. (sterile) 10 ML IVP SCH (09:53)
[2017-08-15] MEDS: Gabapentin 400 MG CAPSULE PO SCH ×2 (09:54→21:30)
[2017-08-15] MEDS: Diltiazem CD (24hr) 240 MG CAPSULE PO SCH (09:54)
[2017-08-15] MEDS: *HR* Enoxaparin 120 MG/0.8 ML SYRINGE SQ SCH ×2 (09:59→21:30)
[2017-08-15] MEDS: Nystatin POWDER 30 GM BOTTLE TP SCH ×3 (10:20→21:31)
[2017-08-15] MEDS ORDERED: Acetaminophen 325 MG TABLET PO PRN (11:32)
[2017-08-15] MEDS ORDERED: metroNIDAZOLE 500 MG TABLET PO SCH (15:00)
[2017-08-15] MEDS ORDERED: MetroNIDAZOLE 500 MG/100 ML 500 MG/100 ML BAG IVPB SCH (16:00)
[2017-08-15] MEDS: MetroNIDAZOLE 500 MG/100 ML 500 MG/100 ML BAG IVPB SCH (16:07)
[2017-08-15] MEDS: *HR* LORazepam 0.5 MG TABLET PO PRN ×2 (17:40→21:30)
[2017-08-15] MEDS ORDERED: *HR* Warfarin 2 MG TABLET PO ONE (18:00)
[2017-08-16] MEDS: MetroNIDAZOLE 500 MG/100 ML 500 MG/100 ML BAG IVPB SCH ×4 (01:14→23:58)
[2017-08-16] MEDS: Ipratropium/Albuterol Neb 3 ML IH SCH ×6 (03:59→23:24)
[2017-08-16 05:40] LABS: Basophils # 0.1 K/mcL (0.0-0.2); Basophils % 0.3 %; Eosinophils # 0.5 K/mcL (0.0-0.6); Hematocrit 34.6 % (35.3-44.9); Hemoglobin 10.4 g/dL (11.5-15.4); Immature Granulocytes % 3.4 % (0-4); Immature Platelets 2.4 % (1.1-6.1); Lymphocytes # 3.1 K/mcL (0.6-4.6); Lymphocytes % 12.8 %; Mean Corpuscular HGB Conc 30.1 g/dL (31.6-35.5); Mean Corpuscular Hemoglobin 25.1 pg (28.0-33.3); Mean Corpuscular Volume 83.4 fL (83.0-100.0); Mean Platelet Volume 9.8 fL (9.4-12.4); Monocytes # 1.6 K/mcL (0.0-1.3); Monocytes % 6.7 %; Neutrophils # 18.3 K/mcL (1.6-8.9); Platelet Count 305 K/mcL (140-400); Red Blood Count 4.15 M/mcL (3.82-4.97); Red Cell Distribution Width 16.6 % (11.5-14.5); Segmented Neutrophils % 74.8 %
[2017-08-16 05:45] LABS: INR 1.7; Prothrombin Time 18.7 Seconds (9.4-12.1)
[2017-08-16 05:57] LABS: Potassium 3.9 mEq/L (3.5-4.5)
[2017-08-16 06:19] LABS: Thyroid Stimulating Hormone 0.256 mcIU/mL (0.350-4.840)
--- NOTE | 2017-08-16 08:10 | Internal Med Progress Note ---
<Sadiq Cavazos - Last Filed: 08/16/17 09:06> Date of Encounter: 08/16/17 Time of Encounter: 08:06 - Assessment and plan (1) Colitis Current Visit: Yes Status: Acute Assessment and plan: CT abd/plv reveals focal stranding associated with the colon near the hepatic flexure, potentially colitis of indeterminate etiology. Patient completed 6 days of Zosyn, 5 days of Vancomycin, 2 days of Rocephin, and currently on Day 4 of Invanz and Day 2 of Flagyl Patient BM x 2 yesterday but unable to collect specimen due to urine contamination. Kahn ordered. She has decreased leukocytosis today since adding Flagyl for colitis. GI panel pending Contact precaution (2) Spinal stenosis Current Visit: Yes Status: Chronic Assessment and plan: Patient reports difficulty with ambulation for the past year and low back pain. Occassional bowel or bladder incontinence. No saddle anesthesia CT abdomen reveals Age-indeterminate but likely acute to subacute fractures involving the L3, L4, and L5 superior endplates and L3 inferior endplate. These could represent insufficiency fractures in the setting of osteoporosis, but they could also be related to Schmorl's nodes given adjacent degenerative changes. 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 Vertebral body fractures are chronic. Ortho spine consulted Qualifiers: Spinal region: lumbar Neurogenic claudication status: without neurogenic claudication Qualified Code(s): M48.061 - Spinal stenosis, lumbar region without neurogenic claudication (3) Cellulitis of left groin Current Visit: Yes Status: Acute Assessment and plan: Warm, moist intertriginous regions beneath panus and in groin with surrounding erythema Patient completed 6 days of Zosyn, 5 days of Vancomycin, 2 days of Rocephin, and currently on Day 4 of Invanz and Day 2 of Flagyl Culture pending CT abd/plv reveals foci of gas within the subcutaneous tissues of the left lower quadrant anterior abdominal wall likely related to medicinal injection. Continue Nystatin powder to groin Kahn ordered due to occasional urinary incontinence and groin irritation (4) Renal cell carcinoma of right kidney Current Visit: Yes Status: Suspected Assessment and plan: Suspected CT abdomen reveals 2.3 cm x 1.9 cm complex appearing cystic lesion arising in the lower pole of the right kidney, potentially complicated cyst or cystic neoplasm. MRI abdomen reveals complex inferior pole 1.9 x 1.7 cm right renal cortical lesion with enhancing nodularity in thick septations worrisome for cystic renal cell carcinoma. Urology consulted for possible renal cell carcinoma (5) UTI due to extended-spectrum beta lactamase (ESBL) producing Escherichia coli Current Visit: Yes Status: Chronic Assessment and plan: Additional records received from recent hospitalization reveals ESBL UTI and 1 of 2 blood cultures growing gram negative anaerobic rods. Patient completed 6 days of Zosyn, 5 days of Vancomycin, 2 days of Rocephin, and currently on Day 4 of Invanz for ESBL UTI. Afebrile, decreased leukocytosis Powerglide access placed for IV antibiotics Repeat UA negative Repeat blood cultures show no growth to date Kahn ordered due to occasional urinary incontinence and groin irritation (6) Splenic infarct Current Visit: Yes Status: Acute Assessment and plan: Asymptomatic CT abdomen reveals Suspected infarction in the central spleen. While evaluation of the splenic vessels is partially limited, they appear patent. MRI abdomen reveals evidence of splenic infarct, acute to subacute, associated with a tiny amount of perisplenic fluid. Echo pending to r/o thrombus/ embolic phenomenon (7) Acute on chronic congestive heart failure Current Visit: No Status: Acute Assessment and plan: Acute exacerbation of CHF, probable combined systolic and diastolic dysfunction , unknown LVEF - symptoms now improved No fever, hemodynamically stable, no tachycardia Switched to PO Lasix, doing well on O2 via NC, continue Labetalol Leukocytosis likely due to steroid use vs ESBL, stop IV Solu-Medrol, replace potassium PO Chest x-ray - mild pulmonary edema EKG - atrial fibrillation with no acute ST-T changes BNP - 1793 Echocardiogram (01/2017) - LV function difficult to estimate, mildly reduced, elderly dilatation, mild RV dilation, moderate pulmonary hypertension Magnesium - 1.9 Fluid restriction, strict I's and O's, labs in a.m., daily weight Hemodynamically stable. CXR reveals interval resolution of mild CHF pattern. Borderline cardiac size. No acute infiltrate. Qualifiers: Congestive heart failure type: combined Qualified Code(s): I50.43 - Acute on chronic combined systolic (congestive) and diastolic (congestive) heart failure (8) Acute and chronic respiratory failure Current Visit: Yes Status: Acute Assessment and plan: Acute on chronic hypoxic respiratory failure - secondary to acute CHF exacerbation and acute COPD exacerbation - now improved Patient wears 4L via NC at baseline. Continue to monitor Qualifiers: Respiratory failure complication: hypoxia and hypercapnia Qualified Code(s) : J96.21 - Acute and chronic respiratory failure with hypoxia; J96.22 - Acute and chronic respiratory failure with hypercapnia; J96.22 - Acute and chronic respiratory failure with hypercapnia; J96.22 - Acute and chronic respiratory failure with hypercapnia (9) Acute exacerbation of chronic obstructive pulmonary disease (COPD) Current Visit: Yes Status: Acute Assessment and plan: Acute exacerbation of COPD - symptoms now improved Patient completed 6 days of Zosyn, 5 days of Vancomycin, 2 days of Rocephin, and currently on Day 4 of Invanz and Day 2 of Flagyl Continue DuoNeb breathing treatment, Symbicort, O2 via NC, continue tapering steroids (10) Type 2 diabetes mellitus Current Visit: Yes Status: Chronic Assessment and plan: HGB a1c 5.8 Type 2 diabetes mellitus, insulin-dependent, hyperglycemia Continue insulin sliding scale, glucose checks Continue regular home dose of insulin on discharge Qualifiers: Diabetes mellitus complication status: with unspecified complications 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 use: with middle or intermediate school principal use Qualified Code(s) : E11.8 - Type 2 diabetes mellitus with unspecified complications; Z79.4 - shelter (current) use of insulin; Z79.4 - intermediate frame tender (current) use of insulin; Z79.4 - intermediate frame tender (current) use of insulin; Z79.4 - intermediate frame tender (current) use of insulin (11) CAD (coronary artery disease) Current Visit: No Status: Chronic Assessment and plan: Coronary artery disease status post stents - stable Continue home dose of Lipitor, Coumadin - INR is subtherapeutic Patient is not on Aspirin at home Qualifiers: Coronary Disease-Associated Artery/Lesion type: [place] artery [place] vs. transplanted heart: [place] heart Associated angina: without angina Qualified Code(s): I25.10 - Atherosclerotic heart disease of [place] coronary artery without angina pectoris (12) A-fib Current Visit: Yes Status: Chronic Assessment and plan: Chronic atrial fibrillation, rate controlled Continue home dose of Cardizem, Labetalol Continue Coumadin for anticoagulation INR is subtherapeutic, started Lovenox Qualifiers: Atrial fibrillation type: chronic Qualified Code(s): I48.2 - Chronic atrial fibrillation (13) RODOLFO (acute kidney injury) Current Visit: Yes Status: Acute Assessment and plan: Stable Continue to monitor (14) CKD (chronic kidney disease) stage 3, GFR 30-59 ml/min Current Visit: Yes Status: Acute Assessment and plan: Continue to monitor and avoid nephrotoxins (15) Morbid obesity with BMI of 40.0-44.9, adult Current Visit: Yes Status: Acute Assessment and plan: BMI 44.1 Recommend diet modification and exercise (16) DVT prophylaxis Current Visit: Yes Status: Acute Assessment and plan: Continue Coumadin for anticoagulation INR is subtherapeutic, started Lovenox Patient reported calf tenderness, DVT study negative - Subjective Interval history: Patient seen and examined sitting in bed. She was afebrile last PM and reports decreased irritation in groin. Patient BM x 2 yesterday but unable to collect specimen due to urine contamination. Patient reports difficulty with ambulation for the past year and low back pain. She has decreased leukocytosis today since adding Flagyl for colitis. Urology consulted for possible renal cell carcinoma - Constitutional Vitals: Temp Pulse Resp BP Pulse Ox 97.7 F 88 18 125/72 98 08/16/17 07:28 08/16/17 07:28 08/16/17 07:28 08/16/17 07:28 08/16/17 07:28 General appearance: Present: cooperative, A&O X 3, morbidly obese, pleasant, no acute distress, answers questions appropriately Exam: - Head Head exam: Present: atraumatic, normal inspection, normocephalic - Eye Eye exam: Present: EOMI, conjuntiva pink, sclera anicteric - ENT ENT exam: Present: mucous membranes moist, normal oropharynx - Neck Neck exam general surgery: Present: normal inspection, supple - Respiratory Respiratory exam: Present: CTAB. Absent: rhonchi, tachypnea - Cardiovascular Cardiovascular exam: Present: irregular rhythm, +S1, +S2 - GI/Abdominal GI/Abdominal exam: Present: distended (obese), normal bowel sounds, soft. Absent: tenderness - Additional comments: no kahn, moist intertriginous regions beneath panus and in groin with surrounding erythema, no sacral ulcers, no saddle anesthesia - Extremities Exam Extremities exam: Present: warm. Absent: pedal edema Additional comments: chronic venous stasis changes bilateral lower extremities, no edema - Back Exam Back exam: Present: normal inspection. Absent: paraspinal tenderness, tenderness - Neurological Exam Neurological exam: Present: alert, oriented X3, no focal deficits. Absent: speech deficit - Psychiatric Psychiatric exam: Present: normal affect, normal mood - Skin Skin exam: Present: warm, moist intertriginous regions beneath panus and in groin with surrounding erythema, no sacral ulcers Additional comments: chronic venous stasis changes bilateral lower extremities Internal Medicine: Result - Labs CBC & Chem 7: 08/16/17 05:13 08/16/17 05:13 Labs: Short CBC 08/16/17 Range/Units 05:13 WBC 24.5 H (4.3-11.1) K/mcL Hgb 10.4 L (11.5-15.4) g/dL Hct 34.6 L (35.3-44.9) % Plt Count 305 (140-400) K/mcL Neutrophils # 18.3 H (1.6-8.9) K/mcL BMP 08/16/17 05:13 Sodium 141 Potassium 3.9 Chloride 97 L Carbon Dioxide 32 H BUN 32 H Creatinine 1.11 Glucose 116 H Calcium 9.0 - ABG Interpretation ABG results: ABG ABG pH 7.43 pH Units (7.32-7.45) 08/07/17 20:29 ABG pCO2 50 mmHg (35-45) H 08/07/17 20:29 ABG pO2 71 mmHg (85-104) L 08/07/17 20:29 ABG O2 Saturation 94 % (95-98) L 08/07/17 20:29 PT/INR, D-dimer PT 18.7 Seconds (9.4-12.1) H 08/16/17 05:13 - Pulse Oximetry Interpretation Digit-Finger Pulse Oximetry Readin (on 2L O2 via NC) - Impressions Impressions Chest X-Ray 08/15/17 08:45 IMPRESSION: Interval resolution of mild CHF pattern. Borderline cardiac size. No acute infiltrate. D/ / Sadiq Mukherjee MD / Sadiq Mukherjee MD Interpreting Provider: Sadiq Mukherjee MD Abdomen/Pelvis CT 08/15/17 12:10 IMPRESSION: 1. Focal stranding associated with the colon near the hepatic flexure, potentially colitis of indeterminate etiology. 2. Age-indeterminate but likely acute to subacute fractures involving the L3, L4, and L5 superior endplates and L3 inferior endplate. These could represent insufficiency fractures in the setting of osteoporosis, but they could also be related to Schmorl's nodes given adjacent degenerative changes. Consider further evaluation with MRI. 3. Suspected infarction in the central spleen. While evaluation of the splenic vessels is partially limited, they appear patent. 4. 2.3 cm x 1.9 cm complex appearing cystic lesion arising in the lower pole of the right kidney, potentially complicated cyst or cystic neoplasm. Recommend further evaluation with renal protocol MRI or CT on a nonemergent basis. 5. Additional incidental findings as above for which no follow-up is recommended. D/ / Stuart Man MD / Stuart Man MD Interpreting Provider: Stuart Man MD Abdomen MRI 08/15/17 14:59 IMPRESSION: Complex inferior pole 1.9 x 1.7 cm right renal cortical lesion with enhancing nodularity in thick septations worrisome for cystic renal cell carcinoma. Evidence of splenic infarct, acute to subacute, associated with a tiny amount of perisplenic fluid. D/ / Joann Kasper Cha, MD / Joann Kasper Cha, MD Interpreting Provider: Joann Kasper Cha, MD Lumbar Spine MRI 08/15/17 14:59 IMPRESSION: Vertebral body fractures are chronic. Acquired on congenital spinal canal stenosis with severe narrowing of the canal at L2-3, L3-4, and L4-5 resulting in multifocal impingement of the cauda equina. D/ / Shiv Altamirano MD / Shiv Altamirano MD Interpreting Provider: Shiv Altamirano MD Consult Discharge Plan - Plan Referrals: NONE,PCP [Primary Care Provider] - Prescriptions: Albuterol Neb [Proventil Neb] 2.5 mg IH Q4HR #30 inhsol Amoxicillin/Clavulanate [Augmentin] 875 mg PO BIDWM 7 Days #14 tablet Gabapentin [Neurontin] 400 mg PO BID #14 capsule Sertraline [Zoloft] 50 mg PO DAILY #30 tablet <VeroniquetimoteoOracio herbert H - Last Filed: 08/16/17 13:31> Date of Encounter: 08/16/17 - Constitutional Vitals: Temp Pulse Resp BP Pulse Ox 97.7 F 88 18 125/72 98 08/16/17 07:28 08/16/17 07:28 08/16/17 07:28 08/16/17 07:28 08/16/17 07:28 Internal Medicine: Result - Labs CBC & Chem 7: 08/16/17 05:13 08/16/17 05:13 Labs: Short CBC 08/16/17 Range/Units 05:13 WBC 24.5 H (4.3-11.1) K/mcL Hgb 10.4 L (11.5-15.4) g/dL Hct 34.6 L (35.3-44.9) % Plt Count 305 (140-400) K/mcL Neutrophils # 18.3 H (1.6-8.9) K/mcL BMP 08/16/17 05:13 Sodium 141 Potassium 3.9 Chloride 97 L Carbon Dioxide 32 H BUN 32 H Creatinine 1.11 Glucose 116 H Calcium 9.0 - ABG Interpretation ABG results: ABG ABG pH 7.43 pH Units (7.32-7.45) 08/07/17 20:29 ABG pCO2 50 mmHg (35-45) H 08/07/17 20:29 ABG pO2 71 mmHg (85-104) L 08/07/17 20:29 ABG O2 Saturation 94 % (95-98) L 08/07/17 20:29 PT/INR, D-dimer PT 18.7 Seconds (9.4-12.1) H 08/16/17 05:13 - Impressions Impressions Abdomen/Pelvis CT 08/15/17 12:10 IMPRESSION: 1. Focal stranding associated with the colon near the hepatic flexure, potentially colitis of indeterminate etiology. 2. Age-indeterminate but likely acute to subacute fractures involving the L3, L4, and L5 superior endplates and L3 inferior endplate. These could represent insufficiency fractures in the setting of osteoporosis, but they could also be related to Schmorl's nodes given adjacent degenerative changes. Consider further evaluation with MRI. 3. Suspected infarction in the central spleen. While evaluation of the splenic vessels is partially limited, they appear patent. 4. 2.3 cm x 1.9 cm complex appearing cystic lesion arising in the lower pole of the right kidney, potentially complicated cyst or cystic neoplasm. Recommend further evaluation with renal protocol MRI or CT on a nonemergent basis. 5. Additional incidental findings as above for which no follow-up is recommended. D/ / Stuart Man MD / Stuart Man MD Interpreting Provider: Stuart Man MD Abdomen MRI 08/15/17 14:59 IMPRESSION: Complex inferior pole 1.9 x 1.7 cm right renal cortical lesion with enhancing nodularity in thick septations worrisome for cystic renal cell carcinoma. Evidence of splenic infarct, acute to subacute, associated with a tiny amount of perisplenic fluid. D/ / Joann Kasper Cha, MD / Joann Kasper Cha, MD Interpreting Provider: Joann Kasper Cha, MD Lumbar Spine MRI 08/15/17 14:59 IMPRESSION: Vertebral body fractures are chronic. Acquired on congenital spinal canal stenosis with severe narrowing of the canal at L2-3, L3-4, and L4-5 resulting in multifocal impingement of the cauda equina. D/ / Shiv Altamirano MD / Shiv Altamirano MD Interpreting Provider: Shiv Altamirano MD Echocardiogram 08/15/17 15:06 Impressions: Technically sub-optimal due to poor echocardiographic windows. LVEF 45-50%. Many LV segments not well visualized, but overall function appears low normal to mildly reduced. Mildly dilated left ventricle. Indeterminate diastolic function. Normal right ventricular structure and function. Moderately dilated left atrium. No evidence of pulmonary hypertension. No significant valvular dysfunction. No obvious thrombus visualized, but image quality suboptimal. Consider KAMI if clinically indicated. Findings: Study Quality * Technically sub-optimal due to poor echocardiographic windows. ECG Findings * Atrial fibrillation. Left Ventricle * LVEF 45-50%. Many LV segments not well visualized, but overall function appears low normal to mildly reduced. * Mildly dilated left ventricle. * Indeterminate diastolic function. Right Ventricle * Normal right ventricular structure and function. Left Atrium * Moderately dilated left atrium. Right Atrium * Mildly dilated right atrium. Interatrial Septum * Interatrial septum not well evaluated. Aortic Valve * Aortic valve not well visualized. * No aortic regurgitation. * No aortic stenosis. Mitral Valve * Mildly thickened mitral valve leaflets and subvalvular apparatus. * Moderate to severe mitral annular calcification. * No mitral regurgitation. * No mitral stenosis. Tricuspid Valve * Normal tricuspid valve structure and function. * Trace tricuspid regurgitation. * No evidence of pulmonary hypertension. Pulmonic Valve * Pulmonic valve not well visualized. * No pulmonic regurgitation. Aorta * Normally sized aortic root. Pericardium * The pericardium appears normal. IVC * Normal IVC dimensions and inspiratory collapse. Pulmonary Artery * Pulmonary artery not well visualized. - Attending Attestation Sepsis secondary to UTI with ESBL Escherichia coli/ focal hepatic colonic flexure colitis continue ertapenem and flagyl May need oncology consult after urology evaluation for possible right renal cell carcinoma awaiting Dr Youssef's evaluation due to severe spinal stenosis/ compression fractures/ spinal cord compression I examined this patient and my medical decision-making was reviewed with the Resident Physician. I agree with the documented findings, disposition and treatment plan as described except to the extent set forth below.
[2017-08-16] MEDS: Insulin LISPRO 300 UNITS/3 ML VIAL SQ SCH ×3 (10:01→17:23)
[2017-08-16] MEDS: Ertapenem 1,000 MG in Water for inj. (sterile) 10 ML IVP SCH (10:19)
[2017-08-16] MEDS: Potassium Chloride Elixir 20 MEQ/15 ML UDC PO SCH ×2 (10:21→20:42)
[2017-08-16] MEDS: Gabapentin 400 MG CAPSULE PO SCH ×2 (10:21→20:41)
[2017-08-16] MEDS: Furosemide 40 MG TABLET PO SCH ×2 (10:21→17:22)
[2017-08-16] MEDS: predniSONE 20 MG TABLET PO SCH (10:21)
[2017-08-16] MEDS: Nystatin POWDER 30 GM BOTTLE TP SCH ×3 (10:21→20:43)
[2017-08-16] MEDS: Diltiazem CD (24hr) 240 MG CAPSULE PO SCH (10:21)
[2017-08-16] MEDS: *HR* Enoxaparin 120 MG/0.8 ML SYRINGE SQ SCH ×2 (10:21→20:41)
[2017-08-16] MEDS: Budesonide/Formoterol 80/4.5 MDI IH SCH ×2 (11:52→20:23)
[2017-08-16 12:31] LABS: Adenovirus F 40/41 PCR Not detected (Not detect); Astrovirus PCR Not detected (Not detect); C.difficile Toxin A/B by PCR Not detected (Not detect); Campylobacter by PCR Not detected (Not detect); Cryptosporidium by PCR Not detected (Not detect); Cyclospora cayetanensis PCR Not detected (Not detect); E. coli O157 by PCR Not detected (Not detect); Entamoeba histolytica PCR Not detected (Not detect); Enteroaggregative E.coli(EAEC) Not detected (Not detect); Enteropathogenic E.coli(EPEC) Not detected (Not detect); Enterotoxigenic E.coli (ETEC) Not detected (Not detect); Giardia lamblia PCR Not detected (Not detect); Norovirus GI/GII PCR Not detected (Not detect); Plesiomonas shigelloides PCR Not detected (Not detect); Rotavirus A PCR Not detected (Not detect); Salmonella PCR Not detected (Not detect); Sapovirus PCR Not detected (Not detect); Shig/EnteroinvasiveE coli EIEC Not detected (Not detect); Shigalike tox-prod E coli STEC Not detected (Not detect); Vibrio PCR Not detected (Not detect); Vibrio cholerae PCR Not detected (Not detect); Yersinia enterocolitica PCR Not detected (Not detect)
[2017-08-16] MEDS: *HR* HYDROcodone/Acet 5/325 mg TABLET PO PRN ×2 (13:09→17:22)
[2017-08-16] MEDS: *HR* Warfarin 2 MG TABLET PO SCH (17:22)
--- NOTE | 2017-08-16 17:45 | Urology - Consult Note ---
Date of Encounter: 08/16/17 Time of Encounter: 17:43 - Assessment and Plan (1) Renal cell carcinoma of right kidney Current Visit: Yes Status: Suspected Assessment and plan: CT and an MRI demonstrated a 2 cm enhancing cystic renal mass consistent with renal cell carcinoma. Patient had no known knowledge of the lesion. I discussed with the patient the findings of the MRI. We discussed that the lesion has a 90 % chance of being renal cell carcinoma. At the same time, renal cell carcinoma tends to progress very slowly and may never become clinically significant especially with her comorbidities. I do not recommend aggressive management at this time. I feel that follow-up in 6 months with repeat imaging is appropriate. If any progression, could consider percutaneous cryotherapy. I do not feel she is a candidate for partial nephrectomy. Patient is comfortable observing and does not wish to pursue any intervention at this time. Urology CN:HPI Consult date: 08/16/17 History of present illness: new pt to urology service. no known knowledge of renal mass. CT then MRI discovered Complex inferior pole 1.9 x 1.7 cm right renal cortical lesion with enhancing nodularity in thick septations worrisome for cystic renal cell carcinoma. Past Med Surg Social Fam HX - Past Medical History Medical history: atrial fibrillation, CHF, COPD, coronary artery disease, diabetes, GERD, glaucoma, hyperlipidemia, hypertension, renal disease, thyroid disease Psychiatric history: anxiety, depression - Past Surgical History Surgical History: angioplasty/stent, appendectomy, cholecystectomy - Social History Smoking Status: Never smoker Smokeless Tobacco Status: No Alcohol use: none Drug use: none - Family History Father Hx Family Cancer: Yes (Cancer) Hx Family Neurologic Disorders: Yes (CVA) Medications and Allergies Allopurinol [Zyloprim 100 MG] 100 mg PO DAILY 02/13/17 [History] Oxygen 4 l NS AD 02/13/17 [History] Atorvastatin [Lipitor] 40 mg PO HS #30 tablet 02/18/17 [Rx] Diltiazem CD (24hr) [Cardizem CD] 240 mg PO DAILY 08/07/17 [History] Fluticasone/Salmeterol [Advair Hfa 115-21 Mcg Inhaler] 2 puff IH Q12H 08/07/17 [ History] Labetalol [Trandate] 100 mg PO BID 08/07/17 [History] Levothyroxine Sodium [Synthroid] 200 mcg PO 0630 08/07/17 [History] Warfarin [Coumadin] 2 mg PO DAILY 08/07/17 [History] Albuterol Neb [Proventil Neb] 2.5 mg IH Q4HR #30 inhsol 08/11/17 [Rx] Amoxicillin/Clavulanate [Augmentin] 875 mg PO BIDWM 7 Days #14 tablet 08/11/17 [ Rx] Gabapentin [Neurontin] 400 mg PO BID #14 capsule 08/11/17 [Rx] Insulin LISPRO [HumaLOG] 0 units SQ QID PRN #0 08/11/17 [Rx] Sertraline [Zoloft] 50 mg PO DAILY #30 tablet 08/11/17 [Rx] 3 Allergy/AdvReac Type Severity Reaction Status Date / Time meperidine [From Demerol] Allergy Anaphylaxis Verified 02/13/17 11:01 Tetracycline Allergy Anaphylaxis Verified 02/13/17 11:01 Review of Systems - Constitutional fever(s), no chills - EENT Nose, mouth and throat: no dizziness - Cardiovascular dyspnea - Gastrointestinal nausea, no abdominal pain - Genitourinary Genitourinary: no flank pain, no hematuria - Musculoskeletal back pain - Integumentary erythema - Neurological no confusion - Psychiatric anxiety - Hematologic/Lymphatic no easy bleeding - Allergic/Immunologic no throat swelling Exam Initial Vital Signs Resp BP Pulse Ox 31 139/89 96 08/07/17 18:35 08/07/17 18:35 08/07/17 18:35 - General physical appearance Present: no distress, chronically ill - Eyes Present: PERRL - ENT Present: normal nares - Neck Present: no masses - Respiratory Present: normal respiratory effort - Cardiovascular Cardiovascular exam IM: RRR - Abdomen Abdomen: Present: soft (obese) - Neurologic Present: normal coordination. Absent: disoriented, confused - Additional Findings kahn with clear urine. Urology Results - Labs 08/16/17 05:13 08/16/17 05:13 Abnormal lab results WBC 24.5 K/mcL (4.3-11.1) H 08/16/17 05:13 Hgb 10.4 g/dL (11.5-15.4) L 08/16/17 05:13 Hct 34.6 % (35.3-44.9) L 08/16/17 05:13 MCH 25.1 pg (28.0-33.3) L 08/16/17 05:13 MCHC 30.1 g/dL (31.6-35.5) L 08/16/17 05:13 RDW 16.6 % (11.5-14.5) H 08/16/17 05:13 Neutrophils # 18.3 K/mcL (1.6-8.9) H 08/16/17 05:13 Monocytes # 1.6 K/mcL (0.0-1.3) H 08/16/17 05:13 PT 18.7 Seconds (9.4-12.1) H 08/16/17 05:13 ABG pCO2 50 mmHg (35-45) H 08/07/17 20:29 ABG pO2 71 mmHg (85-104) L 08/07/17 20:29 ABG HCO3 33 mEq/L (21-27) H 08/07/17 20:29 ABG Total CO2 34 mEq/L (20-26) H 08/07/17 20:29 ABG O2 Saturation 94 % (95-98) L 08/07/17 20:29 ABG Base Excess 7 mEq/L (-2 to 3) H 08/07/17 20:29 Chloride 97 mEq/L (98-109) L 08/16/17 05:13 Carbon Dioxide 32 mEq/L (19-29) H 08/16/17 05:13 BUN 32 mg/dL (7-20) H 08/16/17 05:13 Est GFR ( Amer) 57 (> 60) L 08/16/17 05:13 Est GFR (Non-Af Amer) 47 (> 60) L 08/16/17 05:13 BUN/Creatinine Ratio 29 (6-26) H 08/16/17 05:13 Glucose 116 mg/dL (70-99) H 08/16/17 05:13 POC Glucose 230 (58-89) H 08/15/17 16:07 Hemoglobin A1c 5.8 % (-5.6) H 08/07/17 20:36 AST 35 Units/L (5-34) H 08/14/17 05:32 B-Natriuretic Peptide 1793 pg/mL (0-100) H 08/07/17 20:36 Serum Total Protein 5.8 g/dL (6.0-8.3) L 08/14/17 05:32 Albumin 2.8 g/dL (3.5-5.0) L 08/14/17 05:32 Albumin/Globulin Ratio 0.9 (1.1-2.2) L 08/14/17 05:32 TSH 0.256 mcIU/mL (0.350-4.840) L 08/16/17 05:13 Free T3 1.62 pg/mL (1.71-3.71) L 08/16/17 08:31 Urine Ketones Trace mg/dL (Negative) H 08/13/17 13:58 Diabetes panel 08/16/17 Range/Units 05:13 Sodium 141 (136-145) mEq/L Potassium 3.9 (3.5-4.5) mEq/L Chloride 97 L (98-109) mEq/L Carbon Dioxide 32 H (19-29) mEq/L BUN 32 H (7-20) mg/dL Creatinine 1.11 (0.57-1.11) mg/dL Glucose 116 H (70-99) mg/dL Calcium 9.0 (8.6-10.8) mg/dL Thyroid panel 08/16/17 Range/Units 05:13 TSH 0.256 L (0.350-4.840) mcIU/mL Calcium panel 08/16/17 Range/Units 05:13 Calcium 9.0 (8.6-10.8) mg/dL Pituitary panel 08/16/17 Range/Units 05:13 Sodium 141 (136-145) mEq/L Potassium 3.9 (3.5-4.5) mEq/L Chloride 97 L (98-109) mEq/L Carbon Dioxide 32 H (19-29) mEq/L BUN 32 H (7-20) mg/dL Creatinine 1.11 (0.57-1.11) mg/dL Glucose 116 H (70-99) mg/dL Calcium 9.0 (8.6-10.8) mg/dL TSH 0.256 L (0.350-4.840) mcIU/mL Adrenal panel 08/16/17 Range/Units 05:13 Sodium 141 (136-145) mEq/L Potassium 3.9 (3.5-4.5) mEq/L Chloride 97 L (98-109) mEq/L Carbon Dioxide 32 H (19-29) mEq/L BUN 32 H (7-20) mg/dL Creatinine 1.11 (0.57-1.11) mg/dL Glucose 116 H (70-99) mg/dL Calcium 9.0 (8.6-10.8) mg/dL All other labs normal. Consult Discharge Plan - Plan Referrals: NONE,PCP [Primary Care Provider] - Prescriptions: Albuterol Neb [Proventil Neb] 2.5 mg IH Q4HR #30 inhsol Amoxicillin/Clavulanate [Augmentin] 875 mg PO BIDWM 7 Days #14 tablet Gabapentin [Neurontin] 400 mg PO BID #14 capsule Sertraline [Zoloft] 50 mg PO DAILY #30 tablet
[2017-08-16] MEDS: *HR* LORazepam 0.5 MG TABLET PO PRN (23:59)
[2017-08-17] MEDS: Ipratropium/Albuterol Neb 3 ML IH SCH ×6 (05:09→23:10)
--- NOTE | 2017-08-17 07:21 | Internal Med Progress Note ---
<Sadiq Cavazos - Last Filed: 08/17/17 10:46> Date of Encounter: 08/17/17 Time of Encounter: 07:19 - Assessment and plan (1) Sepsis Current Visit: No Status: Acute Assessment and plan: Sepsis secondary to UTI with ESBL Escherichia coli/ focal hepatic colonic flexure colitis Continue ertapenem and flagyl Qualifiers: Sepsis type: sepsis due to unspecified organism Qualified Code(s): A41.9 - Sepsis, unspecified organism (2) Colitis Current Visit: Yes Status: Acute Assessment and plan: CT abd/plv reveals focal stranding associated with the colon near the hepatic flexure, potentially colitis of indeterminate etiology. Patient completed 6 days of Zosyn, 5 days of Vancomycin, 2 days of Rocephin, and currently on Day 5 of Invanz and Day 3 of Flagyl She has decreased leukocytosis today since adding Flagyl for colitis. GI panel negative (3) Spinal stenosis Current Visit: Yes Status: Chronic Assessment and plan: Patient reports difficulty with ambulation for the past year and low back pain. Occassional bowel or bladder incontinence. No saddle anesthesia CT abdomen reveals Age-indeterminate but likely acute to subacute fractures involving the L3, L4, and L5 superior endplates and L3 inferior endplate. These could represent insufficiency fractures in the setting of osteoporosis, but they could also be related to Schmorl's nodes given adjacent degenerative changes. 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 Vertebral body fractures are chronic. Ortho spine consulted, awaiting Dr Youssef's evaluation due to severe spinal stenosis/ compression fractures/ spinal cord compression Qualifiers: Spinal region: lumbar Neurogenic claudication status: without neurogenic claudication Qualified Code(s): M48.061 - Spinal stenosis, lumbar region without neurogenic claudication (4) Cellulitis of left groin Current Visit: Yes Status: Acute Assessment and plan: Warm, moist intertriginous regions beneath panus and in groin with surrounding erythema Patient completed 6 days of Zosyn, 5 days of Vancomycin, 2 days of Rocephin, and currently on Day 5 of Invanz and Day 3 of Flagyl Culture pending CT abd/plv reveals foci of gas within the subcutaneous tissues of the left lower quadrant anterior abdominal wall likely related to medicinal injection. Continue Nystatin powder to groin Kahn ordered due to occasional urinary incontinence and groin irritation. Okay to remove kahn now that condition has improved. (5) Renal cell carcinoma of right kidney Current Visit: Yes Status: Suspected Assessment and plan: Suspected CT abdomen reveals 2.3 cm x 1.9 cm complex appearing cystic lesion arising in the lower pole of the right kidney, potentially complicated cyst or cystic neoplasm. MRI abdomen reveals complex inferior pole 1.9 x 1.7 cm right renal cortical lesion with enhancing nodularity in thick septations worrisome for cystic renal cell carcinoma. Urology consulted, does not recommend aggressive management at this time and as patient is not a candidate for partial nephrectomy due to her clinically significant comorbidities. Follow-up in 6 months with repeat imaging is appropriate. If any progression, could consider percutaneous cryotherapy. Patient is comfortable observing and does not wish to pursue any intervention at this time. (6) UTI due to extended-spectrum beta lactamase (ESBL) producing Escherichia coli Current Visit: Yes Status: Chronic Assessment and plan: Additional records received from recent hospitalization reveals ESBL UTI and 1 of 2 blood cultures growing gram negative anaerobic rods. Patient completed 6 days of Zosyn, 5 days of Vancomycin, 2 days of Rocephin, and currently on Day 5 of Invanz for ESBL UTI. Afebrile, decreased leukocytosis Powerglide access placed for IV antibiotics Repeat UA negative Repeat blood cultures show no growth to date Contact precaution (7) Splenic infarct Current Visit: Yes Status: Acute Assessment and plan: Asymptomatic CT abdomen reveals Suspected infarction in the central spleen. While evaluation of the splenic vessels is partially limited, they appear patent. MRI abdomen reveals evidence of splenic infarct, acute to subacute, associated with a tiny amount of perisplenic fluid. Echo negative for thrombus/ embolic phenomenon (8) Acute on chronic congestive heart failure Current Visit: No Status: Acute Assessment and plan: Acute exacerbation of CHF, probable combined systolic and diastolic dysfunction , unknown LVEF - symptoms now improved No fever, hemodynamically stable, no tachycardia Switched to PO Lasix, doing well on O2 via NC, continue Labetalol Leukocytosis likely due to steroid use vs ESBL, stopped IV Solu-Medrol, replace potassium PO Chest x-ray - mild pulmonary edema Repeat CXR reveals Interval resolution of mild CHF pattern. Borderline cardiac size. No acute infiltrate. EKG - atrial fibrillation with no acute ST-T changes BNP - 1793 Echocardiogram reveals EF 40-45%, mild LV dilation, moderate LA dilation Magnesium - 1.9 Fluid restriction, strict I's and O's, labs in a.m., daily weight Hemodynamically stable. CXR reveals interval resolution of mild CHF pattern. Borderline cardiac size. No acute infiltrate. Qualifiers: Congestive heart failure type: combined Qualified Code(s): I50.43 - Acute on chronic combined systolic (congestive) and diastolic (congestive) heart failure (9) Acute and chronic respiratory failure Current Visit: Yes Status: Acute Assessment and plan: Acute on chronic hypoxic respiratory failure - secondary to acute CHF exacerbation and acute COPD exacerbation - now improved Patient wears 4L via NC at baseline. Continue to monitor Qualifiers: Respiratory failure complication: hypoxia and hypercapnia Qualified Code(s) : J96.21 - Acute and chronic respiratory failure with hypoxia; J96.22 - Acute and chronic respiratory failure with hypercapnia; J96.22 - Acute and chronic respiratory failure with hypercapnia; J96.22 - Acute and chronic respiratory failure with hypercapnia (10) Acute exacerbation of chronic obstructive pulmonary disease (COPD) Current Visit: Yes Status: Acute Assessment and plan: Acute exacerbation of COPD - symptoms now improved Patient completed 6 days of Zosyn, 5 days of Vancomycin, 2 days of Rocephin, and currently on Day 5 of Invanz and Day 3 of Flagyl Continue DuoNeb breathing treatment, Symbicort, O2 via NC, continue tapering steroids (11) Type 2 diabetes mellitus Current Visit: Yes Status: Chronic Assessment and plan: HGB a1c 5.8 Type 2 diabetes mellitus, insulin-dependent, hyperglycemia Continue insulin sliding scale, glucose checks Continue regular home dose of insulin on discharge Qualifiers: Diabetes mellitus complication status: with unspecified complications Diabetes mellitus usp insulin use: with usp use Qualified Code(s) : E11.8 - Type 2 diabetes mellitus with unspecified complications; Z79.4 - alf (current) use of insulin; Z79.4 - joint terminal attack controller (current) use of insulin; Z79.4 - alf (current) use of insulin; Z79.4 - joint terminal attack controller (current) use of insulin (12) CAD (coronary artery disease) Current Visit: No Status: Chronic Assessment and plan: Coronary artery disease status post stents - stable Continue home dose of Lipitor, Coumadin - INR is subtherapeutic Patient is not on Aspirin at home Qualifiers: Coronary Disease-Associated Artery/Lesion type: [place] artery [place] vs. transplanted heart: [place] heart Associated angina: without angina Qualified Code(s): I25.10 - Atherosclerotic heart disease of [place] coronary artery without angina pectoris (13) A-fib Current Visit: Yes Status: Chronic Assessment and plan: Chronic atrial fibrillation, rate controlled Continue home dose of Cardizem, Labetalol Continue Coumadin for anticoagulation INR is subtherapeutic, started Lovenox Qualifiers: Atrial fibrillation type: chronic Qualified Code(s): I48.2 - Chronic atrial fibrillation (14) RODOLFO (acute kidney injury) Current Visit: Yes Status: Acute Assessment and plan: Stable Continue to monitor (15) CKD (chronic kidney disease) stage 3, GFR 30-59 ml/min Current Visit: Yes Status: Acute Assessment and plan: Continue to monitor and avoid nephrotoxins (16) Morbid obesity with BMI of 40.0-44.9, adult Current Visit: Yes Status: Acute Assessment and plan: BMI 44.1 Recommend diet modification and exercise (17) Hypothyroidism Current Visit: Yes Status: Acute Assessment and plan: TSH 0.256, Free T3 1.62 Continue Synthroid Continue outpatient monitoring Qualifiers: Hypothyroidism type: unspecified Qualified Code(s): E03.9 - Hypothyroidism , unspecified (18) DVT prophylaxis Current Visit: Yes Status: Acute Assessment and plan: Continue Coumadin for anticoagulation INR is subtherapeutic, started Lovenox Patient reported calf tenderness, DVT study negative - Subjective Interval history: Patient seen and examined sitting in bed. She remains afebrile and denies any new c/o at this time. Awaiting Dr. Youssef's evaluation due to severe spinal stenosis/ compression fractures/ spinal cord compression - Constitutional Vitals: Temp Pulse Resp BP Pulse Ox 98.5 F 81 18 131/61 98 08/17/17 04:00 08/17/17 04:00 08/17/17 04:00 08/17/17 04:00 08/17/17 04:00 General appearance: Present: cooperative, A&O X 3, morbidly obese, pleasant, no acute distress, answers questions appropriately Exam: - Head Head exam: Present: atraumatic, normal inspection, normocephalic - Eye Eye exam: Present: EOMI, conjuntiva pink, sclera anicteric - ENT ENT exam: Present: mucous membranes moist, normal oropharynx - Neck Neck exam general surgery: Present: normal inspection, supple - Respiratory Respiratory exam: Present: CTAB. Absent: rhonchi, tachypnea - Cardiovascular Cardiovascular exam: Present: irregular rhythm, +S1, +S2 - GI/Abdominal GI/Abdominal exam: Present: distended (obese), normal bowel sounds, soft. Absent: tenderness - Additional comments: kahn, moist intertriginous regions beneath panus and in groin with surrounding erythema, no sacral ulcers, no saddle anesthesia - Extremities Exam Extremities exam: Present: warm. Absent: pedal edema Additional comments: chronic venous stasis changes bilateral lower extremities, no edema - Back Exam Back exam: Present: normal inspection. Absent: paraspinal tenderness, tenderness - Neurological Exam Neurological exam: Present: alert, oriented X3, no focal deficits. Absent: speech deficit - Psychiatric Psychiatric exam: Present: normal affect, normal mood - Skin Skin exam: Present: warm, moist intertriginous regions beneath panus and in groin with surrounding erythema, no sacral ulcers Additional comments: chronic venous stasis changes bilateral lower extremities Internal Medicine: Result - Labs CBC & Chem 7: 08/17/17 08:28 08/17/17 08:28 - ABG Interpretation ABG results: ABG ABG pH 7.43 pH Units (7.32-7.45) 08/07/17 20:29 ABG pCO2 50 mmHg (35-45) H 08/07/17 20:29 ABG pO2 71 mmHg (85-104) L 08/07/17 20:29 ABG O2 Saturation 94 % (95-98) L 08/07/17 20:29 PT/INR, D-dimer PT 18.7 Seconds (9.4-12.1) H 08/16/17 05:13 - Pulse Oximetry Interpretation Digit-Finger Pulse Oximetry Readin (on 2L O2 via NC) - Impressions Impressions Echocardiogram 08/15/17 15:06 Impressions: Technically sub-optimal due to poor echocardiographic windows. LVEF 45-50%. Many LV segments not well visualized, but overall function appears low normal to mildly reduced. Mildly dilated left ventricle. Indeterminate diastolic function. Normal right ventricular structure and function. Moderately dilated left atrium. No evidence of pulmonary hypertension. No significant valvular dysfunction. No obvious thrombus visualized, but image quality suboptimal. Consider KAMI if clinically indicated. Findings: Study Quality * Technically sub-optimal due to poor echocardiographic windows. ECG Findings * Atrial fibrillation. Left Ventricle * LVEF 45-50%. Many LV segments not well visualized, but overall function appears low normal to mildly reduced. * Mildly dilated left ventricle. * Indeterminate diastolic function. Right Ventricle * Normal right ventricular structure and function. Left Atrium * Moderately dilated left atrium. Right Atrium * Mildly dilated right atrium. Interatrial Septum * Interatrial septum not well evaluated. Aortic Valve * Aortic valve not well visualized. * No aortic regurgitation. * No aortic stenosis. Mitral Valve * Mildly thickened mitral valve leaflets and subvalvular apparatus. * Moderate to severe mitral annular calcification. * No mitral regurgitation. * No mitral stenosis. Tricuspid Valve * Normal tricuspid valve structure and function. * Trace tricuspid regurgitation. * No evidence of pulmonary hypertension. Pulmonic Valve * Pulmonic valve not well visualized. * No pulmonic regurgitation. Aorta * Normally sized aortic root. Pericardium * The pericardium appears normal. IVC * Normal IVC dimensions and inspiratory collapse. Pulmonary Artery * Pulmonary artery not well visualized. Consult Discharge Plan - Plan Referrals: NONE,PCP [Primary Care Provider] - Prescriptions: Albuterol Neb [Proventil Neb] 2.5 mg IH Q4HR #30 inhsol Amoxicillin/Clavulanate [Augmentin] 875 mg PO BIDWM 7 Days #14 tablet Gabapentin [Neurontin] 400 mg PO BID #14 capsule Sertraline [Zoloft] 50 mg PO DAILY #30 tablet <Oracio Jaffe H - Last Filed: 08/17/17 10:58> Date of Encounter: 08/17/17 - Constitutional Vitals: Temp Pulse Resp BP Pulse Ox 97.9 F 78 18 138/66 98 08/17/17 07:23 08/17/17 07:23 08/17/17 07:45 08/17/17 07:23 08/17/17 07:45 Internal Medicine: Result - Labs CBC & Chem 7: 08/17/17 08:28 08/17/17 08:28 Labs: Short CBC 08/17/17 Range/Units 08:28 WBC 22.7 H (4.3-11.1) K/mcL Hgb 10.2 L (11.5-15.4) g/dL Hct 34.3 L (35.3-44.9) % Plt Count 255 (140-400) K/mcL Neutrophils # 17.1 H (1.6-8.9) K/mcL BMP 08/17/17 08:28 Sodium 139 Potassium 3.8 Chloride 99 Carbon Dioxide 29 BUN 27 H Creatinine 1.02 Glucose 122 H Calcium 8.7 - ABG Interpretation ABG results: ABG ABG pH 7.43 pH Units (7.32-7.45) 08/07/17 20:29 ABG pCO2 50 mmHg (35-45) H 08/07/17 20:29 ABG pO2 71 mmHg (85-104) L 08/07/17 20:29 ABG O2 Saturation 94 % (95-98) L 08/07/17 20:29 PT/INR, D-dimer PT 21.9 Seconds (9.4-12.1) H 08/17/17 08:28 - Attending Attestation Sepsis secondary to UTI with ESBL Escherichia coli/ focal hepatic colonic flexure colitis continue ertapenem and flagyl urology follow-up as outpatient for possible right renal cell carcinoma awaiting Dr Youssef's evaluation due to severe spinal stenosis/ compression fractures/ spinal cord compression , although the patient mentions that she would not want to have any surgical procedure that she is 81 years old. I examined this patient and my medical decision-making was reviewed with the Resident Physician. I agree with the documented findings, disposition and treatment plan as described except to the extent set forth below.
[2017-08-17] MEDS: Budesonide/Formoterol 80/4.5 MDI IH SCH ×2 (07:43→19:59)
[2017-08-17 08:55] LABS: Basophils # 0.1 K/mcL (0.0-0.2); Basophils % 0.3 %; Eosinophils # 0.4 K/mcL (0.0-0.6); Eosinophils % 1.7 %; Hematocrit 34.3 % (35.3-44.9); Hemoglobin 10.2 g/dL (11.5-15.4); Lymphocytes # 2.9 K/mcL (0.6-4.6); Lymphocytes % 12.7 %; Mean Corpuscular HGB Conc 29.7 g/dL (31.6-35.5); Mean Corpuscular Hemoglobin 24.9 pg (28.0-33.3); Mean Corpuscular Volume 83.9 fL (83.0-100.0); Mean Platelet Volume 9.7 fL (9.4-12.4); Monocytes # 1.6 K/mcL (0.0-1.3); Neutrophils # 17.1 K/mcL (1.6-8.9); Platelet Count 255 K/mcL (140-400); Red Blood Count 4.09 M/mcL (3.82-4.97); Red Cell Distribution Width 16.5 % (11.5-14.5); Segmented Neutrophils % 75.3 %
[2017-08-17 09:02] LABS: Prothrombin Time 21.9 Seconds (9.4-12.1)
[2017-08-17 09:06] LABS: BUN/Creatinine Ratio 26 (6-26); Blood Urea Nitrogen 27 mg/dL (7-20); Calcium 8.7 mg/dL (8.6-10.8); Carbon Dioxide 29 mEq/L (19-29); Chloride 99 mEq/L (98-109); Glucose 122 mg/dL (70-99); Osmolality,Calculated 294 (280-300); Potassium 3.8 mEq/L (3.5-4.5); Sodium 139 mEq/L (136-145); eGFR For African Americans > 60 (> 60); eGFR For Non-African Americans 52 (> 60)
[2017-08-17] MEDS: Insulin LISPRO 300 UNITS/3 ML VIAL SQ SCH ×3 (10:01→17:09)
[2017-08-17] MEDS: Gabapentin 400 MG CAPSULE PO SCH ×2 (10:21→21:33)
[2017-08-17] MEDS: Diltiazem CD (24hr) 240 MG CAPSULE PO SCH (10:21)
[2017-08-17] MEDS: predniSONE 20 MG TABLET PO SCH (10:21)
[2017-08-17] MEDS: Furosemide 40 MG TABLET PO SCH ×2 (10:22→17:08)
[2017-08-17] MEDS: Potassium Chloride Elixir 20 MEQ/15 ML UDC PO SCH ×2 (10:22→21:33)
[2017-08-17] MEDS: *HR* HYDROcodone/Acet 5/325 mg TABLET PO PRN ×2 (10:22→17:08)
[2017-08-17] MEDS: *HR* Enoxaparin 120 MG/0.8 ML SYRINGE SQ SCH ×2 (10:22→21:34)
[2017-08-17] MEDS: Ertapenem 1,000 MG in Water for inj. (sterile) 10 ML IVP SCH (10:22)
[2017-08-17] MEDS: Nystatin POWDER 30 GM BOTTLE TP SCH ×3 (10:23→21:45)
[2017-08-17] MEDS: MetroNIDAZOLE 500 MG/100 ML 500 MG/100 ML BAG IVPB SCH ×3 (10:23→23:25)
[2017-08-17] MEDS: *HR* Warfarin 2 MG TABLET PO SCH (17:08)
[2017-08-17] MEDS ORDERED: GuaiFENesin Liq 200 MG/10 ML UDC PO PRN (22:20)
[2017-08-18] MEDS: *HR* HYDROcodone/Acet 5/325 mg TABLET PO PRN (00:40)
[2017-08-18] MEDS: Ipratropium/Albuterol Neb 3 ML IH SCH ×4 (04:30→16:08)
[2017-08-18 05:28] LABS: INR 2.1; Prothrombin Time 23.5 Seconds (9.4-12.1)
[2017-08-18 06:01] LABS: Calcium 8.7 mg/dL (8.6-10.8); Potassium 3.9 mEq/L (3.5-4.5)
[2017-08-18 07:51] LABS: Hematocrit 31.7 % (35.3-44.9); Hemoglobin 9.5 g/dL (11.5-15.4); Immature Platelets 2.6 % (1.1-6.1); Mean Corpuscular Hemoglobin 25.3 pg (28.0-33.3); Mean Corpuscular Volume 84.3 fL (83.0-100.0); Mean Platelet Volume 9.8 fL (9.4-12.4); Platelet Count 159 K/mcL (140-400); Red Blood Count 3.76 M/mcL (3.82-4.97); Red Cell Distribution Width 16.7 % (11.5-14.5)
[2017-08-18] MEDS: Budesonide/Formoterol 80/4.5 MDI IH SCH (07:55)
--- NOTE | 2017-08-18 08:01 | Internal Med Progress Note ---
<Sadiq Cavazos - Last Filed: 08/18/17 14:20> Date of Encounter: 08/18/17 Time of Encounter: 08:00 - Assessment and plan (1) Sepsis Current Visit: No Status: Acute Assessment and plan: Sepsis secondary to UTI with ESBL Escherichia coli/ focal hepatic colonic flexure colitis Continue ertapenem and flagyl Qualifiers: Sepsis type: sepsis due to unspecified organism Qualified Code(s): A41.9 - Sepsis, unspecified organism (2) Colitis Current Visit: Yes Status: Acute Assessment and plan: CT abd/plv reveals focal stranding associated with the colon near the hepatic flexure, potentially colitis of indeterminate etiology. Patient completed 6 days of Zosyn, 5 days of Vancomycin, 2 days of Rocephin, and currently on Day 6 of Invanz and Day 4 of Flagyl She has decreased leukocytosis today GI panel negative (3) Melena Current Visit: Yes Status: Acute Assessment and plan: Nursing reports dark blood in stool yesterday and today. Patient reports h/o colon polyps in the past HGB stable INR is now therapeutic, stopped Lovenox, and Coumadin was held. GI was consulted Patient was started on clear liquid diet per GI recommendation (4) Spinal stenosis Current Visit: Yes Status: Chronic Assessment and plan: Patient reports difficulty with ambulation for the past year and low back pain. Occassional bowel or bladder incontinence. No saddle anesthesia CT abdomen reveals Age-indeterminate but likely acute to subacute fractures involving the L3, L4, and L5 superior endplates and L3 inferior endplate. These could represent insufficiency fractures in the setting of osteoporosis, but they could also be related to Schmorl's nodes given adjacent degenerative changes. 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 Vertebral body fractures are chronic. Ortho spine consulted, awaiting Dr Youssef's evaluation due to severe spinal stenosis/ compression fractures/ spinal cord compression Qualifiers: Spinal region: lumbar Neurogenic claudication status: without neurogenic claudication Qualified Code(s): M48.061 - Spinal stenosis, lumbar region without neurogenic claudication (5) Cellulitis of left groin Current Visit: Yes Status: Acute Assessment and plan: Warm, moist intertriginous regions beneath panus and in groin with surrounding erythema Patient completed 6 days of Zosyn, 5 days of Vancomycin, 2 days of Rocephin, and currently on Day 6 of Invanz and Day 4 of Flagyl Culture reveals Acinetobacter MDRO, staph aureus, and yeast species CT abd/plv reveals foci of gas within the subcutaneous tissues of the left lower quadrant anterior abdominal wall likely related to medicinal injection. Continue Nystatin powder to groin Kahn ordered due to occasional urinary incontinence and groin irritation. Okay to remove kahn now that condition has improved. (6) Renal cell carcinoma of right kidney Current Visit: Yes Status: Suspected Assessment and plan: Suspected CT abdomen reveals 2.3 cm x 1.9 cm complex appearing cystic lesion arising in the lower pole of the right kidney, potentially complicated cyst or cystic neoplasm. MRI abdomen reveals complex inferior pole 1.9 x 1.7 cm right renal cortical lesion with enhancing nodularity in thick septations worrisome for cystic renal cell carcinoma. Urology consulted, does not recommend aggressive management at this time and as patient is not a candidate for partial nephrectomy due to her clinically significant comorbidities. Follow-up in 6 months with repeat imaging is appropriate. If any progression, could consider percutaneous cryotherapy. Patient is comfortable observing and does not wish to pursue any intervention at this time. (7) UTI due to extended-spectrum beta lactamase (ESBL) producing Escherichia coli Current Visit: Yes Status: Chronic Assessment and plan: Additional records received from recent hospitalization reveals ESBL UTI and 1 of 2 blood cultures growing gram negative anaerobic rods. Patient completed 6 days of Zosyn, 5 days of Vancomycin, 2 days of Rocephin, and currently on Day 6 of Invanz for ESBL UTI. Afebrile, decreased leukocytosis Powerglide access placed for IV antibiotics Repeat UA negative Repeat blood cultures show no growth to date Contact precaution (8) Splenic infarct Current Visit: Yes Status: Acute Assessment and plan: Asymptomatic CT abdomen reveals Suspected infarction in the central spleen. While evaluation of the splenic vessels is partially limited, they appear patent. MRI abdomen reveals evidence of splenic infarct, acute to subacute, associated with a tiny amount of perisplenic fluid. Echo negative for thrombus/ embolic phenomenon (9) Acute on chronic congestive heart failure Current Visit: No Status: Acute Assessment and plan: Acute exacerbation of CHF, probable combined systolic and diastolic dysfunction , unknown LVEF - symptoms now improved No fever, hemodynamically stable, no tachycardia Switched to PO Lasix, doing well on O2 via NC, continue Labetalol Leukocytosis likely due to steroid use vs ESBL, stopped IV Solu-Medrol, replace potassium PO Chest x-ray - mild pulmonary edema Repeat CXR reveals Interval resolution of mild CHF pattern. Borderline cardiac size. No acute infiltrate. EKG - atrial fibrillation with no acute ST-T changes BNP - 1793 Echocardiogram reveals EF 40-45%, mild LV dilation, moderate LA dilation Magnesium - 1.9 Fluid restriction, strict I's and O's, labs in a.m., daily weight Hemodynamically stable. CXR reveals interval resolution of mild CHF pattern. Borderline cardiac size. No acute infiltrate. Qualifiers: Congestive heart failure type: combined Qualified Code(s): I50.43 - Acute on chronic combined systolic (congestive) and diastolic (congestive) heart failure (10) Acute and chronic respiratory failure Current Visit: Yes Status: Acute Assessment and plan: Acute on chronic hypoxic respiratory failure - secondary to acute CHF exacerbation and acute COPD exacerbation - now improved Patient wears 4L via NC at baseline. Continue to monitor Qualifiers: Respiratory failure complication: hypoxia and hypercapnia Qualified Code(s) : J96.21 - Acute and chronic respiratory failure with hypoxia; J96.22 - Acute and chronic respiratory failure with hypercapnia; J96.22 - Acute and chronic respiratory failure with hypercapnia; J96.22 - Acute and chronic respiratory failure with hypercapnia (11) Acute exacerbation of chronic obstructive pulmonary disease (COPD) Current Visit: Yes Status: Acute Assessment and plan: Acute exacerbation of COPD - symptoms now improved Patient completed 6 days of Zosyn, 5 days of Vancomycin, 2 days of Rocephin, and currently on Day 6 of Invanz and Day 4 of Flagyl Continue DuoNeb breathing treatment, Symbicort, Mucinex, O2 via NC, continue tapering steroids (12) Type 2 diabetes mellitus Current Visit: Yes Status: Chronic Assessment and plan: HGB a1c 5.8 Type 2 diabetes mellitus, insulin-dependent, hyperglycemia Continue insulin sliding scale, glucose checks Continue regular home dose of insulin on discharge Qualifiers: Diabetes mellitus complication status: with unspecified complications Diabetes mellitus mcfp insulin use: with mcfp use Qualified Code(s) : E11.8 - Type 2 diabetes mellitus with unspecified complications; Z79.4 - longterm (current) use of insulin; Z79.4 - longterm (current) use of insulin; Z79.4 - longterm (current) use of insulin; Z79.4 - longterm (current) use of insulin (13) CAD (coronary artery disease) Current Visit: No Status: Chronic Assessment and plan: Coronary artery disease status post stents - stable Continue home dose of Lipitor Hold Coumadin due to melena- INR is therapeutic Patient is not on Aspirin at home Qualifiers: Coronary Disease-Associated Artery/Lesion type: false pass artery [place] vs. transplanted heart: false pass heart Associated angina: without angina Qualified Code(s): I25.10 - Atherosclerotic heart disease of false pass coronary artery without angina pectoris (14) A-fib Current Visit: Yes Status: Chronic Assessment and plan: Chronic atrial fibrillation, rate controlled Continue home dose of Cardizem, Labetalol INR is now therapeutic, stopped Lovenox, and Coumadin was held. Qualifiers: Atrial fibrillation type: chronic Qualified Code(s): I48.2 - Chronic atrial fibrillation (15) RODOLFO (acute kidney injury) Current Visit: Yes Status: Acute Assessment and plan: Stable Continue to monitor (16) CKD (chronic kidney disease) stage 3, GFR 30-59 ml/min Current Visit: Yes Status: Acute Assessment and plan: Continue to monitor and avoid nephrotoxins (17) Morbid obesity with BMI of 40.0-44.9, adult Current Visit: Yes Status: Acute Assessment and plan: BMI 44.1 Recommend diet modification and exercise (18) Hypothyroidism Current Visit: Yes Status: Acute Assessment and plan: TSH 0.256, Free T3 1.62 Continue Synthroid Continue outpatient monitoring Qualifiers: Hypothyroidism type: unspecified Qualified Code(s): E03.9 - Hypothyroidism , unspecified (19) DVT prophylaxis Current Visit: Yes Status: Acute Assessment and plan: Patient reported calf tenderness, DVT study negative INR is now therapeutic, stopped Lovenox, and Coumadin was held. - Subjective Interval history: Patient seen and examined sitting in bed. She remains afebrile and reports dark blood in stool x3 yesterday. GI was consulted abd patient was started on clear liquid diet. INR is now therapeutic, stopped Lovenox, and Coumadin was held. Awaiting Dr. Youssef's evaluation due to severe spinal stenosis/ compression fractures/ spinal cord compression - Constitutional Vitals: Temp Pulse Resp BP Pulse Ox 98.1 F 69 15 135/97 69 11/19/17 05:00 08/18/17 05:00 08/18/17 05:00 08/18/17 05:00 08/18/17 05:00 General appearance: Present: cooperative, A&O X 3, morbidly obese, pleasant, no acute distress, answers questions appropriately Exam: - Head Head exam: Present: atraumatic, normal inspection, normocephalic - Eye Eye exam: Present: EOMI, conjuntiva pink, sclera anicteric - ENT ENT exam: Present: mucous membranes moist, normal oropharynx - Neck Neck exam general surgery: Present: normal inspection, supple - Respiratory Respiratory exam: Present: CTAB. Absent: rhonchi, tachypnea - Cardiovascular Cardiovascular exam: Present: irregular rhythm, +S1, +S2 - GI/Abdominal GI/Abdominal exam: Present: tenderness (diffuse), distended (obese), normal bowel sounds, soft. Absent: guarding - Additional comments: no kahn, moist intertriginous regions beneath panus and in groin with surrounding erythema, no sacral ulcers, no saddle anesthesia - Extremities Exam Extremities exam: Present: warm. Absent: pedal edema Additional comments: chronic venous stasis changes bilateral lower extremities, no edema - Back Exam Back exam: Present: normal inspection. Absent: paraspinal tenderness, tenderness - Neurological Exam Neurological exam: Present: alert, oriented X3, no focal deficits. Absent: speech deficit - Psychiatric Psychiatric exam: Present: normal affect, normal mood - Skin Skin exam: Present: warm, moist intertriginous regions beneath panus and in groin with surrounding erythema, no sacral ulcers Additional comments: chronic venous stasis changes bilateral lower extremities Internal Medicine: Result - Labs CBC & Chem 7: 08/18/17 07:39 08/18/17 04:50 Labs: Short CBC 08/17/17 Range/Units 08:28 WBC 22.7 H (4.3-11.1) K/mcL Hgb 10.2 L (11.5-15.4) g/dL Hct 34.3 L (35.3-44.9) % Plt Count 255 (140-400) K/mcL Neutrophils # 17.1 H (1.6-8.9) K/mcL BMP 08/17/17 08/18/17 08:28 04:50 Sodium 139 140 Potassium 3.8 3.9 Chloride 99 100 Carbon Dioxide 29 30 H BUN 27 H 23 H Creatinine 1.02 1.16 H Glucose 122 H 107 H Calcium 8.7 8.7 - ABG Interpretation ABG results: ABG ABG pH 7.43 pH Units (7.32-7.45) 08/07/17 20:29 ABG pCO2 50 mmHg (35-45) H 08/07/17 20:29 ABG pO2 71 mmHg (85-104) L 08/07/17 20:29 ABG O2 Saturation 94 % (95-98) L 08/07/17 20:29 PT/INR, D-dimer PT 23.5 Seconds (9.4-12.1) H 08/18/17 04:50 - Pulse Oximetry Interpretation Digit-Finger Pulse Oximetry Readin (on 2L via NC) Consult Discharge Plan - Plan Referrals: NONE,PCP [Primary Care Provider] - Prescriptions: Albuterol Neb [Proventil Neb] 2.5 mg IH Q4HR #30 inhsol Amoxicillin/Clavulanate [Augmentin] 875 mg PO BIDWM 7 Days #14 tablet Gabapentin [Neurontin] 400 mg PO BID #14 capsule Sertraline [Zoloft] 50 mg PO DAILY #30 tablet <Oracio Jaffe H - Last Filed: 08/18/17 14:48> Date of Encounter: 08/18/17 - Constitutional Vitals: Temp Pulse Resp BP Pulse Ox 97.8 F 76 16 131/53 99 08/18/17 08:34 08/18/17 08:34 08/18/17 10:50 08/18/17 08:34 08/18/17 10:50 Internal Medicine: Result - Labs CBC & Chem 7: 08/18/17 07:39 08/18/17 04:50 Labs: Short CBC 08/18/17 Range/Units 07:39 WBC 21.2 H (4.3-11.1) K/mcL Hgb 9.5 L (11.5-15.4) g/dL Hct 31.7 L (35.3-44.9) % Plt Count 159 (140-400) K/mcL Neutrophils # 16.1 H (1.6-8.9) K/mcL BMP 08/18/17 04:50 Sodium 140 Potassium 3.9 Chloride 100 Carbon Dioxide 30 H BUN 23 H Creatinine 1.16 H Glucose 107 H Calcium 8.7 - ABG Interpretation ABG results: ABG ABG pH 7.43 pH Units (7.32-7.45) 08/07/17 20:29 ABG pCO2 50 mmHg (35-45) H 08/07/17 20:29 ABG pO2 71 mmHg (85-104) L 08/07/17 20:29 ABG O2 Saturation 94 % (95-98) L 08/07/17 20:29 PT/INR, D-dimer PT 23.5 Seconds (9.4-12.1) H 08/18/17 04:50 - Attending Attestation Abdominal wound growing: Acinetobacter MDRO, staph aureus, and yeast species ( start Fluconazole) Stop Invanz ( treated for 6 days for ESBL UTI) Start [place] for (Acinetobacter) continue flagyl IV for focal hepatic flexure colitis Acute blood loss anemia due to possible rectal bleed ( colitis vs possible diverticular bleed) exacerbated by coagulopathy stop coumadin and lovenox ( Hx of A fib) consider FFP and vit K GI consult, NPO, IVF Splenic infarct High risk of complications I examined this patient and my medical decision-making was reviewed with the Resident Physician. I agree with the documented findings, disposition and treatment plan as described except to the extent set forth below.
[2017-08-18 08:27] LABS: Eosinophils # 0.9 K/mcL (0.0-0.6); Monocytes # 1.3 K/mcL (0.0-1.3); Neutrophils # 16.1 K/mcL (1.6-8.9)
[2017-08-18] MEDS ORDERED: GuaiFENesin/Dextromethorphan TABLET PO SCH (10:00)
[2017-08-18] MEDS: Insulin LISPRO 300 UNITS/3 ML VIAL SQ SCH ×3 (10:26→15:27)
[2017-08-18] MEDS: MetroNIDAZOLE 500 MG/100 ML 500 MG/100 ML BAG IVPB SCH ×2 (10:32→15:26)
[2017-08-18] MEDS: Ertapenem 1,000 MG in Water for inj. (sterile) 10 ML IVP SCH (10:32)
[2017-08-18] MEDS: Furosemide 40 MG TABLET PO SCH ×2 (10:34→15:27)
[2017-08-18] MEDS: Diltiazem CD (24hr) 240 MG CAPSULE PO SCH (10:34)
[2017-08-18] MEDS: Potassium Chloride Elixir 20 MEQ/15 ML UDC PO SCH (10:34)
[2017-08-18] MEDS: Gabapentin 400 MG CAPSULE PO SCH (10:34)
[2017-08-18] MEDS: predniSONE 20 MG TABLET PO SCH (10:34)
[2017-08-18] MEDS: Nystatin POWDER 30 GM BOTTLE TP SCH ×2 (10:35→15:38)
[2017-08-18] MEDS ORDERED: Fluconazole 100 MG/50 ML 100 MG/50 ML BAG IVPB SCH (14:45)
[2017-08-18] MEDS ORDERED: 0.9 % Sodium Chloride 1,000 ML IVC SCH (14:45)
[2017-08-18] MEDS ORDERED: *HR* Phytonadione 5 MG TABLET PO ONE (14:58)
[2017-08-18] MEDS ORDERED: SODIUM CHLORIDE 0.9% IVPB SCH (15:00)
[2017-08-18] MEDS ORDERED: AMPICILLIN IVPB SCH (15:00)
[2017-08-18] MEDS ORDERED: SULBACTAM IVPB SCH (15:00)
--- NOTE | 2017-08-18 16:18 | Discharge Summary ---
<Sadiq Cavazos - Last Filed: 08/18/17 16:15> Date of Encounter: 08/18/17 Time of Encounter: 16:15 - Discharge Diagnosis (1) Acute blood loss anemia Priority: Primary Status: Acute Comments: Acute blood loss anemia due to rectal bleed ( colitis vs possible diverticular bleed) exacerbated by coagulopathy Vitamin K given. Ordered 1 unit PRBC and FFP Splenic infarct High risk of complications, anticipate transfer to [facility] for higher level of care (2) Melena Priority: Primary Status: Acute Comments: Nursing reports dark blood in stool yesterday and today. Filled bed oneill full of dark red blood this afternoon. Patient reports h/o colon polyps in the past HGB stable INR is now therapeutic, stopped Lovenox, and Coumadin was held. GI was consulted Patient was made NPO diet (3) Colitis Priority: Primary Status: Acute Comments: CT abd/plv reveals focal stranding associated with the colon near the hepatic flexure, potentially colitis of indeterminate etiology. Patient completed 6 days of Zosyn, 5 days of Vancomycin, 2 days of Rocephin, 6 Days of Invanz, and now on Day 4 of Flagyl and Day 1 of Unasyn She has decreased leukocytosis today GI panel negative (4) Spinal stenosis Priority: Primary Status: Chronic Comments: Patient reports difficulty with ambulation for the past year and low back pain. Occassional bowel or bladder incontinence. No saddle anesthesia CT abdomen reveals Age-indeterminate but likely acute to subacute fractures involving the L3, L4, and L5 superior endplates and L3 inferior endplate. These could represent insufficiency fractures in the setting of osteoporosis, but they could also be related to Schmorl's nodes given adjacent degenerative changes. 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 Vertebral body fractures are chronic. Ortho spine consulted, awaiting Dr Youssef's evaluation due to severe spinal stenosis/ compression fractures/ spinal cord compression Qualifiers: Spinal region: lumbar Neurogenic claudication status: without neurogenic claudication Qualified Code(s): M48.061 - Spinal stenosis, lumbar region without neurogenic claudication (5) Sepsis Priority: Primary Status: Acute Comments: Sepsis secondary to cellulitis/ UTI with ESBL Escherichia coli/ focal hepatic colonic flexure colitis Patient completed 6 days of Zosyn, 5 days of Vancomycin, 2 days of Rocephin, 6 Days of Invanz, and now on Day 4 of Flagyl and Day 1 of Unasyn Qualifiers: Sepsis type: sepsis due to unspecified organism Qualified Code(s): A41.9 - Sepsis, unspecified organism (6) Cellulitis of left groin Priority: Primary Status: Acute Comments: CT abd/plv reveals foci of gas within the subcutaneous tissues of the left lower quadrant anterior abdominal wall likely related to medicinal injection. Warm, moist intertriginous regions beneath panus and in groin with surrounding erythema Culture reveals Acinetobacter MDRO, staph aureus, and yeast species Patient completed 6 days of Zosyn, 5 days of Vancomycin, 2 days of Rocephin, 6 Days of Invanz, and now on Day 4 of Flagyl and Day 1 of Unasyn Continue Nystatin powder to groin (7) Renal cell carcinoma of right kidney Priority: Primary Status: Suspected Comments: Suspected CT abdomen reveals 2.3 cm x 1.9 cm complex appearing cystic lesion arising in the lower pole of the right kidney, potentially complicated cyst or cystic neoplasm. MRI abdomen reveals complex inferior pole 1.9 x 1.7 cm right renal cortical lesion with enhancing nodularity in thick septations worrisome for cystic renal cell carcinoma. Urology consulted, does not recommend aggressive management at this time and as patient is not a candidate for partial nephrectomy due to her clinically significant comorbidities. Follow-up in 6 months with repeat imaging is appropriate. If any progression, could consider percutaneous cryotherapy. Patient is comfortable observing and does not wish to pursue any intervention at this time. (8) UTI due to extended-spectrum beta lactamase (ESBL) producing Escherichia coli Priority: Primary Status: Chronic Comments: Additional records received from recent hospitalization reveals ESBL UTI and 1 of 2 blood cultures growing gram negative anaerobic rods. Patient completed 6 days of Invanz for ESBL UTI. Afebrile, decreased leukocytosis Powerglide access placed for IV antibiotics Repeat UA negative Repeat blood cultures show no growth to date Contact precaution (9) Splenic infarct Priority: Primary Status: Acute Comments: Asymptomatic CT abdomen reveals Suspected infarction in the central spleen. While evaluation of the splenic vessels is partially limited, they appear patent. MRI abdomen reveals evidence of splenic infarct, acute to subacute, associated with a tiny amount of perisplenic fluid. Echo negative for thrombus/ embolic phenomenon (10) Acute on chronic congestive heart failure Priority: Primary Status: Acute Comments: Acute exacerbation of CHF, probable combined systolic and diastolic dysfunction , unknown LVEF - symptoms now improved No fever, hemodynamically stable, no tachycardia Switched to PO Lasix, doing well on O2 via NC, continue Labetalol Leukocytosis likely due to steroid use vs ESBL, stopped IV Solu-Medrol, replace potassium PO Chest x-ray - mild pulmonary edema Repeat CXR reveals Interval resolution of mild CHF pattern. Borderline cardiac size. No acute infiltrate. EKG - atrial fibrillation with no acute ST-T changes BNP - 1793 Echocardiogram reveals EF 40-45%, mild LV dilation, moderate LA dilation Magnesium - 1.9 Fluid restriction, strict I's and O's, labs in a.m., daily weight Hemodynamically stable. CXR reveals interval resolution of mild CHF pattern. Borderline cardiac size. No acute infiltrate. Qualifiers: Congestive heart failure type: combined Qualified Code(s): I50.43 - Acute on chronic combined systolic (congestive) and diastolic (congestive) heart failure (11) Acute and chronic respiratory failure Priority: Primary Status: Acute Comments: Acute on chronic hypoxic respiratory failure - secondary to acute CHF exacerbation and acute COPD exacerbation - now improved Patient wears 4L via NC at baseline. Continue to monitor Qualifiers: Respiratory failure complication: hypoxia and hypercapnia Qualified Code(s) : J96.21 - Acute and chronic respiratory failure with hypoxia; J96.22 - Acute and chronic respiratory failure with hypercapnia; J96.22 - Acute and chronic respiratory failure with hypercapnia; J96.22 - Acute and chronic respiratory failure with hypercapnia (12) Acute exacerbation of chronic obstructive pulmonary disease (COPD) Priority: Primary Status: Acute Comments: Acute exacerbation of COPD - symptoms now improved Patient completed 6 days of Zosyn, 5 days of Vancomycin, 2 days of Rocephin, 6 Days of Invanz, and now on Day 4 of Flagyl and Day 1 of Unasyn Continue DuoNeb breathing treatment, Symbicort, Mucinex, O2 via NC, continue tapering steroids (13) Type 2 diabetes mellitus Priority: Secondary Status: Chronic Comments: HGB a1c 5.8 Type 2 diabetes mellitus, insulin-dependent, hyperglycemia Continue insulin sliding scale, glucose checks Continue regular home dose of insulin on discharge Qualifiers: Diabetes mellitus complication status: with unspecified complications Diabetes mellitus nursing home insulin use: with safety analyst use Qualified Code(s) : E11.8 - Type 2 diabetes mellitus with unspecified complications; Z79.4 - enamel finisher (current) use of insulin; Z79.4 - residential (current) use of insulin; Z79.4 - residential (current) use of insulin; Z79.4 - enamel finisher (current) use of insulin (14) CAD (coronary artery disease) Priority: Secondary Status: Chronic Comments: Coronary artery disease status post stents - stable Continue home dose of Lipitor Hold Coumadin due to melena- INR is therapeutic Patient is not on Aspirin at home Qualifiers: Coronary Disease-Associated Artery/Lesion type: [place] artery [place] vs. transplanted heart: [place] heart Associated angina: without angina Qualified Code(s): I25.10 - Atherosclerotic heart disease of [place] coronary artery without angina pectoris (15) A-fib Priority: Secondary Status: Chronic Comments: Chronic atrial fibrillation, rate controlled Continue home dose of Cardizem, Labetalol INR is now therapeutic, stopped Lovenox, and Coumadin was held. Qualifiers: Atrial fibrillation type: chronic Qualified Code(s): I48.2 - Chronic atrial fibrillation (16) RODOLFO (acute kidney injury) Priority: Secondary Status: Acute Comments: Stable Continue to monitor (17) CKD (chronic kidney disease) stage 3, GFR 30-59 ml/min Priority: Secondary Status: Chronic Comments: Continue to monitor and avoid nephrotoxins (18) Morbid obesity with BMI of 40.0-44.9, adult Priority: Secondary Status: Chronic Comments: BMI 44.1 Recommend diet modification (19) Hypothyroidism Priority: Secondary Status: Chronic Comments: TSH 0.256, Free T3 1.62 Continue Synthroid Continue outpatient monitoring Qualifiers: Hypothyroidism type: unspecified Qualified Code(s): E03.9 - Hypothyroidism , unspecified (20) DVT prophylaxis Priority: Primary Status: Acute Comments: Patient reported calf tenderness, DVT study negative INR is now therapeutic, stopped Lovenox, and Coumadin was held. - Discharge Medications Home Medications: Allopurinol [Zyloprim 100 MG] 100 mg PO DAILY 02/13/17 [History] Oxygen 4 l NS AD 02/13/17 [History] Atorvastatin [Lipitor] 40 mg PO HS #30 tablet 02/18/17 [Rx] Diltiazem CD (24hr) [Cardizem CD] 240 mg PO DAILY 08/07/17 [History] Fluticasone/Salmeterol [Advair Hfa 115-21 Mcg Inhaler] 2 puff IH Q12H 08/07/17 [ History] Labetalol [Trandate] 100 mg PO BID 08/07/17 [History] Levothyroxine Sodium [Synthroid] 200 mcg PO 0630 08/07/17 [History] Insulin LISPRO [HumaLOG] 0 units SQ QID PRN #0 08/11/17 [Rx] Acetaminophen [Tylenol] 650 mg PO Q6HR PRN tablet 08/18/17 [Rx] Albuterol Neb [Proventil Neb] 2.5 mg IH Q2H PRN inhsol 08/18/17 [Rx] Dextrose 50 % in Water (Syg) [Dextrose 50% (Syg)] 25 ml IVP AD PRN syringe [Rx] Dextrose Gel [Gluctose] 15 gm PO ONCE PRN gel..gram. 08/18/17 [Rx] Dextrose Gel [Gluctose] 30 gm PO ONCE PRN gel..gram. 08/18/17 [Rx] Furosemide [Lasix] 40 mg PO BIDDIURETIC tablet 08/18/17 [Rx] Gabapentin [Neurontin] 400 mg PO BID capsule 08/18/17 [Rx] Glucagon, Human Recombinant [Glucagen] 1 mg IM ONCE PRN vial 08/18/17 [Rx] GuaiFENesin Liq [Robitussin Liq] 200 mg PO Q6HR PRN udc 08/18/17 [Rx] GuaiFENesin/Dextromethorphan [Mucinex Dm] 1 each PO BID tab.er.12h 08/18/17 [Rx ] HYDROcodone/Acet 5/325 mg [Nolan 5-325 mg] 1 tab PO Q4HR PRN tablet 08/18/17 [ Rx] Ipratropium/Albuterol Neb [Duoneb] 3 ml IH Q1HAKWT inhsol 08/18/17 [Rx] LORazepam [Ativan] 0.5 mg PO TID PRN tablet 08/18/17 [Rx] Naloxone [Narcan] 0.4 mg IVP Q2MIN PRN inj 08/18/17 [Rx] Nystatin POWDER [Nystop] 1 appl TP TID bottle 08/18/17 [Rx] Ondansetron [Zofran] 4 mg IVP Q8HR PRN vial 08/18/17 [Rx] predniSONE [PredniSONE] 10 mg PO DAILY tablet 08/18/17 [Rx] Allergies/Adverse Reactions: 3 Allergy/AdvReac Type Severity Reaction Status Date / Time meperidine [From Demerol] Allergy Anaphylaxis Verified 02/13/17 11:01 Tetracycline Allergy Anaphylaxis Verified 02/13/17 11:01 Date of admission: 08/07/17 18:28 Primary care physician: PCP NONE Consults: 08/08/17 07:49 Consult for Pharmacy Education [CONS] Routine Reason for Consult: pharmacy to dose warfarin Call Completed: No 08/09/17 10:05 Consult to Perioperative Tech [CONS] Routine Reason for SW Consult: Discharge planning 08/14/17 09:24 PICC LINE [Consult to Invasive Line Access Team] [CONS] Routine Reason for Consult: Powerglide insertion Line Type: EPIV PICC line indications: residential Med/Antibiotic 08/16/17 08:05 Consult to Urology [CONS] Routine Consulting Provider: Urology Jessie Reason for Consult: Possible renal cell carcinoma, h/o ESBL UTI Time Notified: 08:05 Call Completed: Yes 08/16/17 08:58 Consult to Physician [CONS] Routine Consulting Provider: Olvin Oliveira Jr Reason for Consult: Severe spinal canal stenosis, back pain Time Notified: 09:05 Call Completed: Yes 08/17/17 10:56 Consult to Physical Therapy [CONS] Routine Comment: Evaluate, develop and implement POC Reason for Consult: weakness OT [Consult to Occupational Therapy] [CONS] Routine Comment: Evaluate, develop and implement POC Reason for Consult: weakness 08/18/17 09:53 Consult to Gastroenterology [CONS] Routine Consulting Provider: Gastroenterology [facility] Reason for Consult: melena, colitis Time Notified: 09:58 Call Completed: Yes Discharging clinician: Sadiq Cavazos Anticipated date of discharge: 08/18/17 - Patient Status Disposition: Transfer Critical Access Hosp Condition: Critical Functional capacity at discharge: bed bound Overall status at discharge: patient is not back to baseline - Discharge Instructions Follow Up With: NONE,PCP [Primary Care Provider] - Additional Instructions: Transfer to [facility] - Diet and Activity Activity: wear oxygen at all times Diet: diabetic diet Hospital course: Ms. Renee is a 81 year old female with a PMH of oxygen dependent COPD, BiPAP non -compliance, congestive heart failure, DM, and A-fib on Coumadin who presented from [facility] with a chief complaint of shortness of breath worse when lying flat and she noticed increased swelling in her lower extremities. Per chart review from their records, patient was initially in respiratory acidosis with hypoxia and hypercapnia on arterial blood gas. She was placed on BiPAP, as well as was given 40 of Lasix, and started on vancomycin and Zosyn. She reportedly has a history of MRSA positive sputum culture. Chest x-ray done [place] showed increased bilateral opacities most consistent with congestive heart failure exacerbation with small pleural effusion. She was transferred to [facility] at the request of patient and family. Patient has peesistent leukocytosis despite medical therapy and further work up revealed secondary to cellulitis in intertriginous regions beneath panus and in groin, UTI with ESBL Escherichia coli, and focal hepatic colonic flexure colitis. Culture reveals Acinetobacter MDRO, staph aureus, and yeast species. Patient completed 6 days of Zosyn, 5 days of Vancomycin, 2 days of Rocephin, 6 Days of Invanz, and now on Day 4 of Flagyl and Day [address] & MRI abdomen revealed complex inferior pole 1.9 x 1.7 cm right renal cortical lesion with enhancing nodularity in thick septations worrisome for cystic renal cell carcinoma. Urology was consulted and did not recommend aggressive management at this time and as patient is not a candidate for partial nephrectomy due to her clinically significant comorbidities. Abdomen CT & MRI revealed infarction in the central spleen and Echo was negative for thrombus or embolic phenomenon. 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 Ortho spine was consulted to evaluate for severe spinal stenosis, compression fractures, and spinal cord compression. Patient had subtherapeutic INR and was started on Lovenox for secondary CVA prevention. On hospital day 10 , patient developed acute blood loss anemia due to rectal bleed (colitis vs possible diverticular bleed) exacerbated by coagulopathy. Vitamin K was given and 1 unit PRBC and FFP was ordered. Given high risk of complications and significant co-morbidities, patient and family requested transfer to [facility] for higher level of care. She is full code. - Time Spent with Patient Total time spent providing and/or coordinating discharge services: - Constitutional Vitals: Temp Pulse Resp BP Pulse Ox 97.8 F 76 16 131/53 99 08/18/17 08:34 08/18/17 08:34 08/18/17 10:50 08/18/17 08:34 08/18/17 10:50 General appearance: Present: cooperative, A&O X 3, morbidly obese, pleasant, no acute distress, answers questions appropriately Exam: - Head Head exam: Present: atraumatic, normal inspection, normocephalic - Eye Eye exam: Present: EOMI, conjuntiva pink, sclera anicteric - ENT ENT exam: Present: mucous membranes moist, normal oropharynx - Neck Neck exam general surgery: Present: normal inspection, supple - Respiratory Respiratory exam: Present: CTAB. Absent: rhonchi, tachypnea - Cardiovascular Cardiovascular exam: Present: irregular rhythm, +S1, +S2 - GI/Abdominal GI/Abdominal exam: Present: tenderness (diffuse), distended (obese), normal bowel sounds, soft. Absent: guarding - Additional comments: no kahn, moist intertriginous regions beneath panus and in groin with surrounding erythema, no sacral ulcers, no saddle anesthesia - Extremities Exam Extremities exam: Present: warm. Absent: pedal edema Additional comments: chronic venous stasis changes bilateral lower extremities, no edema - Back Exam Back exam: Present: normal inspection. Absent: paraspinal tenderness, tenderness - Neurological Exam Neurological exam: Present: alert, oriented X3, no focal deficits. Absent: speech deficit - Psychiatric Psychiatric exam: Present: normal affect, normal mood - Skin Skin exam: Present: warm, moist intertriginous regions beneath panus and in groin with surrounding erythema, no sacral ulcers Additional comments: chronic venous stasis changes bilateral lower extremities <Oracio Jaffe - Last Filed: 08/18/17 17:24> Date of Encounter: 08/18/17 Date of admission: 08/07/17 18:28 Primary care physician: PCP NONE Consults: 08/08/17 07:49 Consult for Pharmacy Education [CONS] Routine Reason for Consult: pharmacy to dose warfarin Call Completed: No 08/09/17 10:05 Consult to Perioperative Tech [CONS] Routine Reason for SW Consult: Discharge planning 08/14/17 09:24 PICC LINE [Consult to Invasive Line Access Team] [CONS] Routine Reason for Consult: Powerglide insertion Line Type: EPIV PICC line indications: residential Med/Antibiotic 08/16/17 08:05 Consult to Urology [CONS] Routine Consulting Provider: Urology Jessie Reason for Consult: Possible renal cell carcinoma, h/o ESBL UTI Time Notified: 08:05 Call Completed: Yes 08/16/17 08:58 Consult to Physician [CONS] Routine Consulting Provider: Olvin Oliveira Jr Reason for Consult: Severe spinal canal stenosis, back pain Time Notified: 09:05 Call Completed: Yes 08/17/17 10:56 Consult to Physical Therapy [CONS] Routine Comment: Evaluate, develop and implement POC Reason for Consult: weakness OT [Consult to Occupational Therapy] [CONS] Routine Comment: Evaluate, develop and implement POC Reason for Consult: weakness 08/18/17 09:53 Consult to Gastroenterology [CONS] Routine Consulting Provider: Gastroenterology Jessie Reason for Consult: melena, colitis Time Notified: 09:58 Call Completed: Yes Hospital course: Ms. Renee is a 81 year old female - Time Spent with Patient Total time spent providing and/or coordinating discharge services: - Constitutional Vitals: Temp Pulse Resp BP Pulse Ox 97.8 F 76 16 131/53 99 08/18/17 08:34 08/18/17 08:34 08/18/17 16:08 08/18/17 08:34 08/18/17 16:08 - Attending Attestation Abdominal wound growing: Acinetobacter MDRO, staph aureus, and yeast species ( start Fluconazole) Stopped Invanz ( treated for 6 days for ESBL UTI) Started Unasyn for (Acinetobacter) continue flagyl IV for focal hepatic flexure colitis Acute blood loss anemia due to possible rectal bleed ( colitis vs possible diverticular bleed) exacerbated by coagulopathy stop coumadin and lovenox ( Hx of A fib) consider FFP and vit K patient given the option to be transferred to [facility] Splenic infarct High risk of complications Time spent: 40 min I examined this patient and my medical decision-making was reviewed with the Resident Physician. I agree with the documented findings, disposition and treatment plan as described except to the extent set forth below.
[2017-08-18] MEDS ORDERED: Ampicillin/Sulbactam 1,500 MG in 0.9 % Sodium Chloride 150 ML IVPB SCH (17:30)
[2017-08-18] MEDS ORDERED: Ampicillin/Sulbactam 1,500 MG in 0.9 % Sodium Chloride Mini Bag 100 ML IVPB SCH (18:00)
[2017-08-18 18:03] VITALS: BP 136/73
--- NOTE | 2017-08-18 18:11 | Spinal Consult Note ---
Date of Encounter: 08/18/17 Time of Encounter: 18:08 Assessment and Plan (1) Lumbar stenosis without neurogenic claudication Current Visit: Yes Status: Chronic On exam she is lying comfortably in bed in no acute distress. Afebrile vital signs stable. She is able to fire all upper extremity and lower extremity motor groups. She does have some global weakness in the lower extremities which is 4 on a motor scale. She has no clonus. She has no tenderness to palpation in the lumbar spine. MRI examination of the lumbar spine reveals multilevel severe degenerative changes. There is severe stenosis at L2-3, L3-4, and L4-5 secondary to to a combination of congenital stenosis and short pedicles, ligamentum flavum hypertrophy, and broad-based disc bulges. Impression: 1) Severe lumbar stenosis Plan: Although she has quite significant findings on MRI examination she is rather asymptomatic with regards to a lack of back pain or bilateral lower extremity pain. The weakness and nonambulatory status is chronic. She is having significant medical comorbidities at this time including blood clots and GI bleed and melena. I do not think she requires any urgent surgical intervention such as lumbar decompression. I do not think that her GI difficulties including diarrhea secondary to neurogenic problems related to her stenosis. She is going to get her acute problems resolved at the [facility] and has been told to follow-up in my office in several weeks once her acute issues have resolved. History of Present Illness Chief complaint: Bowel symptomatology with loose stools HPI: Ms. Renee is a 81 year old female With multiple medical comorbidities including bloody stools, respiratory failure , renal carcinoma, chronic leg weakness with inability to ambulate. She was found on CT examination to have significant stenosis and we are asked to see regarding cauda equina syndrome as an etiology for her GI bleeds and diarrhea. I ordered an MRI examination of the lumbar spine will provide an opinion. She denies significant back pain, radicular symptoms in the lower extremities, numbness in the lower extremities, fevers or chills. She is essentially been nonambulatory for 6 months of the she can move her legs. Past Med Surg Social Fam HX - Past Medical History Medical history: atrial fibrillation, CHF, COPD, coronary artery disease, diabetes, GERD, glaucoma, hyperlipidemia, hypertension, renal disease, thyroid disease Psychiatric history: anxiety, depression - Past Surgical History Surgical History: angioplasty/stent, appendectomy, cholecystectomy - Social History Smoking Status: Never smoker Smokeless Tobacco Status: No Alcohol use: none Drug use: none - Family History Father Hx Family Cancer: Yes (Cancer) Hx Family Neurologic Disorders: Yes (CVA) Medications and Allergies Allopurinol [Zyloprim 100 MG] 100 mg PO DAILY 02/13/17 [History] Oxygen 4 l NS AD 02/13/17 [History] Atorvastatin [Lipitor] 40 mg PO HS #30 tablet 02/18/17 [Rx] Diltiazem CD (24hr) [Cardizem CD] 240 mg PO DAILY 08/07/17 [History] Fluticasone/Salmeterol [Advair Hfa 115-21 Mcg Inhaler] 2 puff IH Q12H 08/07/17 [ History] Labetalol [Trandate] 100 mg PO BID 08/07/17 [History] Levothyroxine Sodium [Synthroid] 200 mcg PO 0630 08/07/17 [History] Insulin LISPRO [HumaLOG] 0 units SQ QID PRN #0 08/11/17 [Rx] Acetaminophen [Tylenol] 650 mg PO Q6HR PRN tablet 08/18/17 [Rx] Albuterol Neb [Proventil Neb] 2.5 mg IH Q2H PRN inhsol 08/18/17 [Rx] Dextrose 50 % in Water (Syg) [Dextrose 50% (Syg)] 25 ml IVP AD PRN syringe [Rx] Dextrose Gel [Gluctose] 15 gm PO ONCE PRN gel..gram. 08/18/17 [Rx] Dextrose Gel [Gluctose] 30 gm PO ONCE PRN gel..gram. 08/18/17 [Rx] Furosemide [Lasix] 40 mg PO BIDDIURETIC tablet 08/18/17 [Rx] Gabapentin [Neurontin] 400 mg PO BID capsule 08/18/17 [Rx] Glucagon, Human Recombinant [Glucagen] 1 mg IM ONCE PRN vial 08/18/17 [Rx] GuaiFENesin Liq [Robitussin Liq] 200 mg PO Q6HR PRN udc 08/18/17 [Rx] GuaiFENesin/Dextromethorphan [Mucinex Dm] 1 each PO BID tab.er.12h 08/18/17 [Rx ] HYDROcodone/Acet 5/325 mg [[place] 5-325 mg] 1 tab PO Q4HR PRN tablet 08/18/17 [ Rx] Ipratropium/Albuterol Neb [Duoneb] 3 ml IH [id number] inhsol 08/18/17 [Rx] LORazepam [Ativan] 0.5 mg PO TID PRN tablet 08/18/17 [Rx] Naloxone [Narcan] 0.4 mg IVP Q2MIN PRN inj 08/18/17 [Rx] Nystatin POWDER [Nystop] 1 appl TP TID bottle 08/18/17 [Rx] Ondansetron [Zofran] 4 mg IVP Q8HR PRN vial 08/18/17 [Rx] predniSONE [PredniSONE] 10 mg PO DAILY tablet 08/18/17 [Rx] 3 Allergy/AdvReac Type Severity Reaction Status Date / Time meperidine [From Demerol] Allergy Anaphylaxis Verified 02/13/17 11:01 Tetracycline Allergy Anaphylaxis Verified 02/13/17 11:01 Results - Labs Result Diagrams: 08/18/17 07:39 08/18/17 04:50 Labs: Abnormal lab results WBC 21.2 K/mcL (4.3-11.1) H 08/18/17 07:39 RBC 3.76 M/mcL (3.82-4.97) L 08/18/17 07:39 Hgb 9.5 g/dL (11.5-15.4) L 08/18/17 07:39 Hct 31.7 % (35.3-44.9) L 08/18/17 07:39 MCH 25.3 pg (28.0-33.3) L 08/18/17 07:39 MCHC 30.0 g/dL (31.6-35.5) L 08/18/17 07:39 RDW 16.7 % (11.5-14.5) H 08/18/17 07:39 Neutrophils # 16.1 K/mcL (1.6-8.9) H 08/18/17 07:39 Eosinophils # 0.9 K/mcL (0.0-0.6) H 08/18/17 07:39 PT 23.5 Seconds (9.4-12.1) H 08/18/17 04:50 ABG pCO2 50 mmHg (35-45) H 08/07/17 20:29 ABG pO2 71 mmHg (85-104) L 08/07/17 20:29 ABG HCO3 33 mEq/L (21-27) H 08/07/17 20:29 ABG Total CO2 34 mEq/L (20-26) H 08/07/17 20:29 ABG O2 Saturation 94 % (95-98) L 08/07/17 20:29 ABG Base Excess 7 mEq/L (-2 to 3) H 08/07/17 20:29 Carbon Dioxide 30 mEq/L (19-29) H 08/18/17 04:50 BUN 23 mg/dL (7-20) H 08/18/17 04:50 Creatinine 1.16 mg/dL (0.57-1.11) H 08/18/17 04:50 Est GFR ( Amer) 54 (> 60) L 08/18/17 04:50 Est GFR (Non-Af Amer) 45 (> 60) L 08/18/17 04:50 Glucose 107 mg/dL (70-99) H 08/18/17 04:50 POC Glucose 123 (58-89) H 08/18/17 13:55 Hemoglobin A1c 5.8 % (-5.6) H 08/07/17 20:36 AST 35 Units/L (5-34) H 08/14/17 05:32 B-Natriuretic Peptide 1793 pg/mL (0-100) H 08/07/17 20:36 Serum Total Protein 5.8 g/dL (6.0-8.3) L 08/14/17 05:32 Albumin 2.8 g/dL (3.5-5.0) L 08/14/17 05:32 Albumin/Globulin Ratio 0.9 (1.1-2.2) L 08/14/17 05:32 TSH 0.256 mcIU/mL (0.350-4.840) L 08/16/17 05:13 Free T3 1.62 pg/mL (1.71-3.71) L 08/16/17 08:31 Urine Ketones Trace mg/dL (Negative) H 08/13/17 13:58 Stool Occult Blood Positive (Negative) A 08/17/17 18:15 H & H 11/19/17 Range/Units 07:39 Hgb 9.5 L (11.5-15.4) g/dL Hct 31.7 L (35.3-44.9) % All other labs normal. Consult Discharge Plan - Plan Additional Instructions: Transfer to [facility] Referrals: NONE,PCP [Primary Care Provider] -
== END 2017-08-18 18:36 | disposition critical access hospital (66) | DRG 291 ==
LOC: ICNU 18:28 → SUATTDRO 18:28 → 2ANU 08-09 19:20 → 2NENU 08-09 19:25
PROVIDERS: ADMIT Internal Medicine; ATTEND Internal Medicine

== ENCOUNTER 2018-01-18 00:15 | Inpatient (IN) ==
[2018-01-18] MEDS ORDERED: Lacri-Lube 3.5 GM TUBE BOTH EYES PRN (03:51)
[2018-01-18] MEDS ORDERED: D5% in Water 1,000 ML IVC PRN (03:53)
[2018-01-18] MEDS ORDERED: *HR* Dextrose 50 % in Water (Syg) 50 ML SYRINGE IVP PRN (03:53)
[2018-01-18] MEDS ORDERED: Dextrose Gel 15 GM/37.5 ML TUBE PO PRN ×2 (03:53)
[2018-01-18] MEDS ORDERED: Albuterol 2.5 MG/3 ML NEBULIZER IH PRN (03:57)
[2018-01-18] MEDS ORDERED: Vancomycin (wt based) 1,000 MG VIAL IVPB SCH ×2 (04:00→12:00)
--- NOTE | 2018-01-18 04:22 | Internal Med History&Physical ---
<Jarred Escamilla - Last Filed: 01/18/18 05:23> Date of Encounter: 01/18/18 Time of Encounter: 04:20 Assessment and Plan (1) Septic shock Current visit: Yes Status: Acute Presents 01/18/18 in septic shock with respiratory source suspected. Met 4 SIRS criteria at outside facility with leukocytosis, tachycardia, tachypnea and fever Recent influenza infection with new infiltrates on chest x-ray as well as left- sided pleural effusion. Given her recent illness concern for parapneumonic effusion versus empyema. Plan to obtain a noncontrast CT scan of the chest for further delineation of her effusion. Patient received vancomycin and Zosyn and Levaquin prior to transfer. Continue broad-spectrum antibiotic regimen. Blood cultures and urinalysis repeated. Lactic acid of 3 upon presentation, continued to trend. Patient currently requiring vasopressor support with hypotension refractory to IV fluid resuscitation. (2) Acute and chronic respiratory failure Current visit: No Status: Acute Presented in acute respiratory failure with hypoxia requiring BiPAP at outside facility. Intubated upon arrival for impending respiratory failure. Secondary to recent influenza infection with superimposed pneumonia. Chest x-ray with concern for parapneumonic effusion versus empyema. CT chest for further delineation. Continue mechanical ventilation at this time. Daily ABG. Qualifiers: Respiratory failure complication: hypoxia and hypercapnia Qualified Code(s) : J96.21 - Acute and chronic respiratory failure with hypoxia; J96.22 - Acute and chronic respiratory failure with hypercapnia; J96.22 - Acute and chronic respiratory failure with hypercapnia; J96.22 - Acute and chronic respiratory failure with hypercapnia (3) Lactic acidosis Current visit: Yes Status: Acute Initial lactate of 3 which is up trending to 4.7. Suspect type A lactic acidosis in the setting of septic shock. Received IV fluid resuscitation prior to arrival. Currently on vasopressor with goal map greater than 65. Continue to trend lactate every 6 hours. (4) HCAP (healthcare-associated pneumonia) Current visit: Yes Status: Acute Recent influenza infection with chest x-ray showing infiltrates and effusion. Respiratory failure necessitating intubation. Concern for staph pneumonia in the setting of influenza. CT chest ordered. Continue broad-spectrum antibiotics. (5) COPD (chronic obstructive pulmonary disease) Current visit: No Status: Chronic Continue albuterol treatments. Continue mechanical ventilation. Continuous pulse oximetry. Daily ABGs Qualifiers: COPD type: unspecified COPD Qualified Code(s): J44.9 - Chronic obstructive pulmonary disease, unspecified (6) Atrial fibrillation with RVR Current visit: No Status: Chronic Atrial fibrillation with rapid ventricular response up to 160s. Suspect multifactorial in the setting of sepsis and hypotension. Hold beta gi in setting of shock. Continue vasopressor support with anticipation of improved heart rate. Hold Coumadin given supratherapeutic INR. (7) Supratherapeutic INR Current visit: No Status: Acute INR 4.8. No obvious source of bleeding. Hold Coumadin. (8) Type 2 diabetes mellitus Current visit: No Status: Chronic Sliding-scale insulin coverage. 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 transplanted heart: [place] heart Associated angina: without angina Qualified Code(s): I25.10 - Atherosclerotic heart disease of [place] coronary artery without angina pectoris (10) Influenza Current visit: No Status: Acute Reported influenza B-positive on 01/13/18. (11) Morbid obesity with BMI of 40.0-44.9, adult Current visit: No Status: Chronic (12) DVT prophylaxis Current visit: No Status: Acute SCDs. Hold anticoagulation with supratherapeutic INR. (13) Full code status Current visit: No Status: Acute Internal Medicine - H&P: HPI Chief complaint: Sepsis, respiratory failure Admitted From: Emergency Dept Plans for Post Hospital Care: Transfer [facility] Facility History of present illness: Ms. Renee is a 82 year old female resident of a snf facility with a past medical history of atrial fibrillation on Coumadin, oxygen dependent COPD, diabetes, renal insufficiency, GERD, hypothyroidism, peripheral vascular disease who is admitted to the intensive care unit as a transfer from [facility]. History is obtained from documentation as well as the patient's son as she is unable to provide any history. Family reports that she has been sick earlier in the week and was diagnosed with influenza on Saturday. She was started on Tamiflu at that time. The patient's son reports she was feeling well this afternoon. He received a call around 9:30 PM on reporting that she was hypoxic there and she was going to be transferred to the local emergency department. Upon arrival there she was noted to be febrile up to 103.8, tachypneic, tachycardic and hypotensive. She was placed on BiPAP with an ABG showing pH 7.47, PCO2 40, PO2 64, bicarbonate 29. She had an elevated lactic acid of 3 there. Chest x-ray reported with a left effusion as well as bilateral infiltrates. She received a dose of vancomycin, Zosyn and Levaquin. Blood culture and urine cultures were obtained. Family requested transfer here for further evaluation. It appears that some undisclosed time the patient was started on peripheral pressors prior to arrival to the intensive care unit. Patient evaluated at time of arrival in the ICU. She is alert she follows basic commands. She is noted to be tachycardic and hypotensive. She is breathing in the 30s. At this time it was determined the patient warranted intubation for impending respiratory failure as well as central line placement. I had a discussion with the patient's son discussing her critical condition. I discussed the risks and benefits of intubation and central line placement and he was agreeable with both and provided verbal consent. He also requested the patient be a full code at this time. Past Med Surg Social Fam HX - Past Medical History Source: old records reviewed, obtained from family Medical history: atrial fibrillation, CHF, COPD, coronary artery disease, diabetes, GERD, glaucoma, hyperlipidemia, hypertension, renal disease, thyroid disease Psychiatric history: anxiety, depression - Past Surgical History Surgical History: angioplasty/stent, appendectomy, cholecystectomy - Social History Smoking Status: Never smoker Smokeless Tobacco Status: No Alcohol use: none Drug use: none - Family History Father Hx Family Cancer: Yes (Cancer) Hx Family Neurologic Disorders: Yes (CVA) Internal Medicine - H&P: Meds Allopurinol [Zyloprim 100 MG] 100 mg PO DAILY 02/13/17 [History] Oxygen 4 l NS AD 02/13/17 [History] Atorvastatin [Lipitor] 40 mg PO HS #30 tablet 02/18/17 [Rx] Diltiazem CD (24hr) [Cardizem CD] 240 mg PO DAILY 08/07/17 [History] Fluticasone/Salmeterol [Advair Hfa 115-21 Mcg Inhaler] 2 puff IH Q12H 08/07/17 [ History] Labetalol [Trandate] 100 mg PO BID 08/07/17 [History] Levothyroxine Sodium [Synthroid] 200 mcg PO 0630 08/07/17 [History] Insulin LISPRO [HumaLOG] 0 units SQ QID PRN #0 08/11/17 [Rx] Acetaminophen [Tylenol] 650 mg PO Q6HR PRN tablet 08/18/17 [Rx] Albuterol Neb [Proventil Neb] 2.5 mg IH Q2H PRN inhsol 08/18/17 [Rx] Dextrose 50 % in Water (Syg) [Dextrose 50% (Syg)] 25 ml IVP AD PRN syringe [Rx] Dextrose Gel [Gluctose] 15 gm PO ONCE PRN gel..gram. 08/18/17 [Rx] Dextrose Gel [Gluctose] 30 gm PO ONCE PRN gel..gram. 08/18/17 [Rx] Furosemide [Lasix] 40 mg PO BIDDIURETIC tablet 08/18/17 [Rx] Gabapentin [Neurontin] 400 mg PO BID capsule 08/18/17 [Rx] Glucagon, Human Recombinant [Glucagen] 1 mg IM ONCE PRN vial 08/18/17 [Rx] GuaiFENesin Liq [Robitussin Liq] 200 mg PO Q6HR PRN udc 08/18/17 [Rx] GuaiFENesin/Dextromethorphan [Mucinex Dm] 1 each PO BID tab.er.12h 08/18/17 [Rx ] HYDROcodone/Acet 5/325 mg [[place] 5-325 mg] 1 tab PO Q4HR PRN tablet 08/18/17 [ Rx] Ipratropium/Albuterol Neb [Duoneb] 3 ml IH [id number] inhsol 08/18/17 [Rx] LORazepam [Ativan] 0.5 mg PO TID PRN tablet 08/18/17 [Rx] Naloxone [Narcan] 0.4 mg IVP Q2MIN PRN inj 08/18/17 [Rx] Nystatin POWDER [Nystop] 1 appl TP TID bottle 08/18/17 [Rx] Ondansetron [Zofran] 4 mg IVP Q8HR PRN vial 08/18/17 [Rx] predniSONE [PredniSONE] 10 mg PO DAILY tablet 08/18/17 [Rx] 3 Allergy/AdvReac Type Severity Reaction Status Date / Time meperidine [From Demerol] Allergy Anaphylaxis Verified 02/13/17 11:01 Tetracycline Allergy Anaphylaxis Verified 02/13/17 11:01 ROS unobtainable: due to endotracheal tube All Systems PM: A 10-system review of systems was performed and is negative for pertinent findings except as documented above in the HPI. - Constitutional General appearance: Present: severe distress (Respiratory distress) - Head Head exam: Present: atraumatic, normal inspection - Eye Eye exam: Present: normal appearance - ENT ENT exam: Present: mucous membranes moist Additional comments: Edentulous - Neck Neck exam general surgery: Present: supple - Respiratory Additional comments: The patient has bilateral crackles. Tachypneic - Cardiovascular Cardiovascular exam: Present: irregular rhythm, +S1, +S2, tachycardia - GI/Abdominal GI/Abdominal exam: Present: soft. Absent: distended, guarding - Extremities Exam Additional comments: Appearance of venous stasis changes to the bilateral lower extremities. Cap refill at roughly 3 seconds. - Neurological Exam Neurological exam: Present: alert Additional comments: Follows basic commands. She wiggled her toes and give a thumbs up with her right hand.. - Skin Skin exam: Present: dry, warm Internal Med - H&P Results - Labs CBC & Chem 7: 01/18/18 03:46 01/18/18 03:46 Procedures: Internal Med - Central Line Placement Right IJ Consent Obtained: verbal consent (from the patient's son) Patient placed on monitor/pulse ox: Yes MD prep: mask, gown, gloves Central line prep: Chlorhexidine scrub Ultrasound used for placement: Yes Central line lumen inserted: triple Post Procedure: sutured in place, good blood return, all ports aspirated, flushed, capped, sterile dressing applied, dark venous blood, biodisk applied Post procedure x-ray: tip of catheter in good position, no pneumothorax seen Patient tolerated procedure: well Complications: none Additional comments: Attending Dr. Rene present throughout the procedure. - Intubation Sedative: Etomidate Amount Given: 20 Paralytic: Rocuronium Amount Given: 50 Laryngoscope: [place] ET tube size: 7.5 ET tube uncuffed: No Tube secured depth (cm): 22 Tube secured location: lips Tube placement confirmation: visualized tube passing through cords, equal breath sounds bilaterally, no breath sounds over epigastrium, confirmation by capnometry Patient tolerated procedure: well Intubation complications: none Additional comments: Attending Dr. Rene present throughout the procedure. <Marshall Rene T - Last Filed: 01/18/18 05:45> Date of Encounter: 01/18/18 Internal Medicine - H&P: HPI History of present illness: Ms. Renee is a 82 year old female All Systems PM: A 10-system review of systems was performed and is negative for pertinent findings except as documented above in the HPI. - Constitutional Vitals: Resp Pulse Ox 14 100 01/18/18 05:36 01/18/18 05:36 Internal Med - H&P Results - Labs CBC & Chem 7: 01/18/18 03:46 01/18/18 03:46 Labs: Short CBC 01/18/18 Range/Units 03:46 WBC 17.1 H D (4.3-11.1) K/mcL Hgb 10.0 L (11.5-15.4) g/dL Hct 34.0 L (35.3-44.9) % Plt Count 136 L (140-400) K/mcL Neutrophils # 14.6 H (1.6-8.9) K/mcL BMP 01/18/18 03:46 BUN 18 Creatinine 1.38 H - Impressions ITS Impressions Chest X-Ray 01/18/18 03:46 IMPRESSION: Appropriate endotracheal tube and right IJ central line positioning. No pneumothorax. Layering effusions with bilateral asymmetric airspace disease, the latter of which may reflect asymmetric pulmonary edema. Additional differential considerations would include ARDS and infection. D/ / Garrett Valdez / Garrett Valdez Interpreting Provider: Garrett Valdez X-Ray 01/18/18 03:46 IMPRESSION: Appropriate esophagogastric tube positioning. D/ / Garrett Valdez / Garrett Valdez Interpreting Provider: Garrett Valdez - Attending Attestation 82-year-old female transferred from outside hospital She has a past medical history of atrial fibrillation, combined CHF with ejection fraction unknown, COPD, coronary artery disease, diabetes, GERD, glaucoma, hyperlipidemia, hypertension, chronic kidney disease, thyroid disease. She was recently seen in our emergency room on 01/14/18 for concerns of cough in the setting of recent diagnosis of influenza. She was taking Tamiflu at the intermediate prior to presentation and had recently been treated for pneumonia. She was discharged home with supportive care. She re-presented to the outside facility with worsening cough, fever and chills and difficulty breathing. Work up showed hypoxia on her blood gas with PO2 of 64, lactic acidosis with lactate of 2.97, complete blood count was unremarkable with no leukocytosis, creatinine was 1.32, CRP was 4.75, troponin was negative, BNP was 693. Patient presented to that facility hypoxic ,tachycardic and febrile maximum temperature was 103.8, heart rate was 140 in atrial fibrillation with rapid ventricular response. Blood pressure was 93/71. Urine analysis showed positive leukocyte esterase and suspicion for urinary tract infection. Her chest x-ray shows a left-sided pleural effusion with possible pneumonia. She was treated with vancomycin, Zosyn and Levaquin and requested to be transferred to this facility. On arrival to the ICU, the patient was febrile, hypotensive with systolic blood pressure 60-74/43-50, already started on levophed by the EMS team via peripheral line 30 minutes prior to arrival, tachycardic with heart rate ranging from 120-133, patient is toxic looking, but alert and awake, chest examination revealed diffuse crackles anteriorly, patient was tachypneic respiratory rate 36-40, with abdominal breathing and use of accessory muscles. She has chronic venostasis changes on both lower extremities without pedal edema. Hassan catheter was draining clear urine. She will be admitted inpatient for management of acute on chronic hypoxic respiratory failure, septic shock with lactic acidosis, pneumonia with para- pneumonic pleural effusion (influenza pneumonia), urinary tract infection, A. fib with RVR, and supra-therapeutic INR. 70 minutes of critical care provided, patient was intubated emergently, right internal jugular central line was placed and patient was continued on Levophed with osteoporosis. Patient will be continued with vancomycin, Zosyn, Levaquin for hospital associated pneumonia. Blood cultures, repeat lactic acidosis, urinary cultures, CBC, type and screen, repeat INR ordered. Suspect ARDS, follow repeat CXR Patient is critically ill, prognosis is guarded Rest of details is as written in Dr. Escamilla's documentation
[2018-01-18 04:29] LABS: Basophils % 0.1 %; Immature Granulocytes % 1.1 % (0-4); Lymphocytes # 1.8 K/mcL (0.6-4.6); Lymphocytes % 10.7 %; Mean Corpuscular HGB Conc 29.4 g/dL (31.6-35.5); Mean Corpuscular Hemoglobin 24.4 pg (28.0-33.3); Mean Corpuscular Volume 83.1 fL (83.0-100.0); Monocytes # 0.5 K/mcL (0.0-1.3); Monocytes % 2.7 %; Neutrophils # 14.6 K/mcL (1.6-8.9); Nucleated Red Blood Cells 0.2 /100 WBC (0); Platelet Count 136 K/mcL (140-400); Red Blood Count 4.09 M/mcL (3.82-4.97); Red Cell Distribution Width 16.1 % (11.5-14.5); Segmented Neutrophils % 85.4 %
[2018-01-18 04:41] LABS: Magnesium 1.1 mg/dL (1.6-2.6); Phosphorous 2.4 mg/dL (2.7-4.5)
[2018-01-18 04:45] LABS: INR 4.8; Prothrombin Time 53.7 Seconds (9.4-12.1)
[2018-01-18] MEDS: Lacri-Lube 3.5 GM TUBE BOTH EYES SCH ×6 (04:47→23:54)
[2018-01-18] MEDS: Norepinephrine 4 MG in D5% in Water 250 ML IVC SCH (04:47)
[2018-01-18 04:52] LABS: Platelet Estimate Slight Decrease (Normal)
[2018-01-18] MEDS: Insulin LISPRO 300 UNITS/3 ML VIAL SQ SCH ×4 (05:58→23:53)
[2018-01-18 06:03] LABS: Potassium 3.3 mEq/L (3.5-5.1)
[2018-01-18 06:22] LABS: ABG Base Excess 0 mEq/L (-2 to 3); ABG HCO3 25 mEq/L (21-27); ABG Oxygen Saturation 100 % (95-98); ABG PCO2 43 mmHg (35-45); ABG PH 7.38 pH Units (7.32-7.45); ABG PO2 227 mmHg (85-104); ABG TCO2 27 mEq/L (20-26); Blood Gas Modality ASSIST CONTROL; Blood Gas PEEP 5 cm H2O; Blood Gas Respiration Rate 14; Blood Gas VT 500 cc
[2018-01-18] MEDS ORDERED: Phenylephrine 10 MG in D5% in Water 250 ML IVC SCH (07:00)
--- NOTE | 2018-01-18 07:13 | Pulmonology Consult Note ---
<Stuart Alcala - Last Filed: 01/18/18 10:37> Date of Encounter: 01/18/18 Time of Encounter: 08:45 Assessment and Plan (1) Septic shock Current Visit: Yes Status: Acute Septic shock secondary to multifocal pneumonia Sepsis criteria: Fever, tachycardia, tachypnea, WBC 17.1, Lactic Acid 3 -> 4.7 Suspected source: Pneumonia Patient received 2.5 L fluids Hypotensive on Levophed with marked tachycardia Broad-spectrum antibiotics were started Vancomycin Day 1 Zosyn Day 1 Levaquin Day 1 Apparent pulmonary, cardiac and renal organ dysfunction Blood cultures and sputum cultures are pending Plan -Continue antibiotics (Vancomycin, Levaquin, Zosyn), abx day 1 -Continue pressor support, however we will transition to phenylephrine in order to avoid worsened tachyarrhythmia -We will trend lactic acid and CBC to correlate with clinical status -The prognosis for this patient is guarded (2) Acute and chronic respiratory failure Current Visit: Yes Status: Acute Presented in acute respiratory failure with hypoxia requiring BiPAP at outside facility The patient required intubation and ventilatory support The patient does have recent influenza infection with superimposed pneumonia There is also a chronic history of COPD Chest x-ray showed significant infiltrates with concern for parapneumonic effusion versus empyema Chest CT demonstrates multifocal pneumonia without evidence of empyema Blood cultures and sputum cultures pending Plan -Continue mechanical ventilation at this time, titrate settings ABG -Continue antibiotic -Daily ABG, CBC Qualifiers: Respiratory failure complication: hypoxia and hypercapnia Qualified Code(s) : J96.21 - Acute and chronic respiratory failure with hypoxia; J96.22 - Acute and chronic respiratory failure with hypercapnia; J96.22 - Acute and chronic respiratory failure with hypercapnia; J96.22 - Acute and chronic respiratory failure with hypercapnia (3) HCAP (healthcare-associated pneumonia) Current Visit: Yes Status: Acute HCAP with recent influenza with CT evidence of multifocal pneumonia Respiratory failure necessitating intubation Given CT appearance, recent influenza infection and healthcare setting we have concern for staph aureus pneumonia We will continue broad-spectrum antibiotic, de-escalate pending culture (4) A-fib Current Visit: Yes Status: Chronic Atrial fibrillation with rapid ventricular response Heart rate has remained in the 150s Likely exacerbated by current acute illness We will continue to treat sepsis, avoid levofed if able Currently treated with Coumadin, INR supratherapeutic at 4.7 We will hold warfarin at this time Qualifiers: Atrial fibrillation type: chronic Qualified Code(s): I48.2 - Chronic atrial fibrillation (5) COPD (chronic obstructive pulmonary disease) Current Visit: No Status: Chronic COPD without an obvious exacerbation Wheezes do not appear present on exam We will continue to ventilate, support with duo nebs as needed Qualifiers: COPD type: unspecified COPD Qualified Code(s): J44.9 - Chronic obstructive pulmonary disease, unspecified (6) Type 2 diabetes mellitus Current Visit: No Status: Chronic Every 6 hours Accu-Cheks with sliding scale insulin Qualifiers: Diabetes mellitus mcc insulin use: with terminal press operator use Diabetes mellitus complication status: with unspecified complications Qualified Code(s) : E11.8 - Type 2 diabetes mellitus with unspecified complications; Z79.4 - intermediate (current) use of insulin; Z79.4 - laborer marine terminal (current) use of insulin; Z79.4 - intermediate (current) use of insulin; Z79.4 - laborer marine terminal (current) use of insulin (7) Influenza Current Visit: No Status: Acute Reportedly influenza B positive 01/13/18 (8) Morbid obesity with BMI of 40.0-44.9, adult Current Visit: No Status: Chronic (9) DVT prophylaxis Current Visit: No Status: Acute DVT prophylaxis is not currently indicated due to supratherapeutic INR 4.7 History of Present Illness Consult date: 01/18/18 Requesting physician: Jarred Escamilla Reason for consult: pneumonia, other (Septic Shock) Chief complaint: Acute respiratory failure History of present illness: Ms. Renee is an 82-year-old woman who is a resident of a nursing home facility with a past medical history of atrial fibrillation on Coumadin, oxygen dependent COPD, diabetes, renal insufficiency, GERD, hypothyroidism, peripheral vascular disease who was transferred to the ICU from [facility]. The patient is intubated at this time and sedated, so her history primarily comes from documents from previous providers. The patient has apparently been sick throughout this week and was diagnosed with influenza for which she received Tamiflu. She began to improve over this time, however yesterday at around 9 PM, she started to feel sick again. She apparently was hypoxic at that time and the nursing facility intended to transfer her to a local emergency department. When she arrived there she was found to be febrile, tachypnea, tachycardic and hypotensive and she was placed immediately on BiPAP. She was placed on BiPAP however ABG demonstrated that it was insufficient for her respiratory status. Additionally, the patient began to become more tachypnea and tach and did not seem to be improving on BiPAP alone. Chest x-ray at that time apparently demonstrated a left effusion as well as possible bilateral infiltrates so a CT was ordered which did read demonstrate significant pneumonia which is bilateral and multifocal. The patient received vancomycin, Zosyn and Levaquin following blood cultures and urine cultures. She was then transferred from the local emergency department to [facility] ICU, and on transport the patient required pressors and peripheral lines. Notably, the patient was found to have a lactic acid of 3, as well as a leukocytosis. Upon arrival to the [facility] ICU, it was found that the patient was in increasing respiratory distress and it was determined that intubation would be appropriate. The patient also received a central venous catheter, both of which occurred without complication. She was started on pressors at that time and she was sedated. Past Med Surg Social Fam HX - Past Medical History Medical history: atrial fibrillation, CHF, COPD, coronary artery disease, diabetes, GERD, glaucoma, hyperlipidemia, hypertension, renal disease, thyroid disease Psychiatric history: anxiety, depression - Past Surgical History Surgical History: angioplasty/stent, appendectomy, cholecystectomy - Social History Smoking Status: Never smoker Smokeless Tobacco Status: No Alcohol use: none Drug use: none - Family History Father Hx Family Cancer: Yes (Cancer) Hx Family Neurologic Disorders: Yes (CVA) Medications and Allergies Allopurinol [Zyloprim 100 MG] 100 mg PO DAILY 02/13/17 [History] Oxygen 4 l NS AD 02/13/17 [History] Atorvastatin [Lipitor] 40 mg PO HS #30 tablet 02/18/17 [Rx] Diltiazem CD (24hr) [Cardizem CD] 240 mg PO DAILY 08/07/17 [History] Fluticasone/Salmeterol [Advair Hfa 115-21 Mcg Inhaler] 2 puff IH Q12H 08/07/17 [ History] Labetalol [Trandate] 100 mg PO BID 08/07/17 [History] Levothyroxine Sodium [Synthroid] 200 mcg PO 0630 08/07/17 [History] Insulin LISPRO [HumaLOG] 0 units SQ QID PRN #0 08/11/17 [Rx] Acetaminophen [Tylenol] 650 mg PO Q6HR PRN tablet 08/18/17 [Rx] Albuterol Neb [Proventil Neb] 2.5 mg IH Q2H PRN inhsol 08/18/17 [Rx] Dextrose 50 % in Water (Syg) [Dextrose 50% (Syg)] 25 ml IVP AD PRN syringe [Rx] Dextrose Gel [Gluctose] 15 gm PO ONCE PRN gel..gram. 08/18/17 [Rx] Dextrose Gel [Gluctose] 30 gm PO ONCE PRN gel..gram. 08/18/17 [Rx] Furosemide [Lasix] 40 mg PO BIDDIURETIC tablet 08/18/17 [Rx] Gabapentin [Neurontin] 400 mg PO BID capsule 08/18/17 [Rx] Glucagon, Human Recombinant [Glucagen] 1 mg IM ONCE PRN vial 08/18/17 [Rx] GuaiFENesin Liq [Robitussin Liq] 200 mg PO Q6HR PRN udc 08/18/17 [Rx] GuaiFENesin/Dextromethorphan [Mucinex Dm] 1 each PO BID tab.er.12h 08/18/17 [Rx ] HYDROcodone/Acet 5/325 mg [Monument 5-325 mg] 1 tab PO Q4HR PRN tablet 08/18/17 [ Rx] Ipratropium/Albuterol Neb [Duoneb] 3 ml IH [id number] inhsol 08/18/17 [Rx] LORazepam [Ativan] 0.5 mg PO TID PRN tablet 08/18/17 [Rx] Naloxone [Narcan] 0.4 mg IVP Q2MIN PRN inj 08/18/17 [Rx] Nystatin POWDER [Nystop] 1 appl TP TID bottle 08/18/17 [Rx] Ondansetron [Zofran] 4 mg IVP Q8HR PRN vial 08/18/17 [Rx] predniSONE [PredniSONE] 10 mg PO DAILY tablet 08/18/17 [Rx] 3 Allergy/AdvReac Type Severity Reaction Status Date / Time meperidine [From Demerol] Allergy Anaphylaxis Verified 02/13/17 11:01 Tetracycline Allergy Anaphylaxis Verified 02/13/17 11:01 ROS unobtainable: due to endotracheal tube All Systems: The remainder of the systems were reviewed and are negative Physical Examination Vital Signs: Vital Signs, Last 4 Hours Resp Pulse Ox 01/18/18 05:36 14 100 01/18/18 03:15 21 94 Gen: Vitals noted. Sedated on ventilator with no apparent distress HEENT: PERRL, Normocephalic, atraumatic. ET/OG tubes present from mouth with no obvious local trauma or irritation Neck: Supple. No adenopathy. Cardiac: RRR, no murmur, +S1/S2 Pulmonary: Coarse lung sounds throughout Abdomen: soft, no guarding Extremities: no BLE edema, nontender calf, no cyanosis or clubbing Neuro: Difficult to assess given sedation Ventilator Settings Ventilator Settings: Ventilator Settings, Last 8 Hours Ventilator Mode A/C Ventilator Mode A/C Ventilator Tidal Volume 500 Setting Ventilator Tidal Volume 500 Setting Ventilator Respiratory Rate 14 Setting Ventilator Respiratory Rate 14 Setting Actual Respiratory Rate 14 Actual Respiratory Rate 14 Positive End Expiratory 5 Pressure Positive End Expiratory 5 Pressure Peak Inspiratory Airway 29 Pressure Peak Inspiratory Airway 29 Pressure Results - Laboratory Findings CBC and BMP: 01/18/18 03:46 01/18/18 03:46 ABG ABG pH 7.38 pH Units (7.32-7.45) 01/18/18 06:18 ABG pCO2 43 mmHg (35-45) 01/18/18 06:18 ABG pO2 227 mmHg (85-104) H 01/18/18 06:18 ABG O2 Saturation 100 % (95-98) H 01/18/18 06:18 PT/INR, D-dimer PT 53.7 Seconds (9.4-12.1) H* 01/18/18 03:46 Abnormal lab findings: Abnormal lab results WBC 17.1 K/mcL (4.3-11.1) H D 01/18/18 03:46 Hgb 10.0 g/dL (11.5-15.4) L 01/18/18 03:46 Hct 34.0 % (35.3-44.9) L 01/18/18 03:46 MCH 24.4 pg (28.0-33.3) L 01/18/18 03:46 MCHC 29.4 g/dL (31.6-35.5) L 01/18/18 03:46 RDW 16.1 % (11.5-14.5) H 01/18/18 03:46 Plt Count 136 K/mcL (140-400) L 01/18/18 03:46 Neutrophils # 14.6 K/mcL (1.6-8.9) H 01/18/18 03:46 Nucleated RBCs/100 WBC 0.2 /100 WBC (0) H 01/18/18 03:46 Platelet Estimate Slight Decrease (Normal) L 01/18/18 03:46 PT 53.7 Seconds (9.4-12.1) H* 01/18/18 03:46 INR 4.8 H* 01/18/18 03:46 ABG pO2 227 mmHg (85-104) H 01/18/18 06:18 ABG Total CO2 27 mEq/L (20-26) H 01/18/18 06:18 ABG O2 Saturation 100 % (95-98) H 01/18/18 06:18 Potassium 3.3 mEq/L (3.5-5.1) L 01/18/18 03:46 Creatinine 1.38 mg/dL (0.60-1.20) H 01/18/18 03:46 Est GFR ( Amer) 44 (> 60) L 01/18/18 03:46 Est GFR (Non-Af Amer) 37 (> 60) L 01/18/18 03:46 Glucose 121 mg/dL (70-105) H 01/18/18 03:46 POC Glucose 114 mg/dL (70-99) H 01/18/18 04:31 Lactic Acid 4.7 mmol/L (0.5-2.2) H* 01/18/18 04:01 Calcium 7.0 mg/dL (8.6-10.3) L 01/18/18 03:46 Phosphorus 2.4 mg/dL (2.7-4.5) L 01/18/18 03:46 Magnesium 1.1 mg/dL (1.6-2.6) L 01/18/18 03:46 - Clinical Findings Intake & Output: Intake & Output 01/17/18 01/17/18 01/18/18 15:59 23:59 07:59 Weight 113.1 kg Consult Discharge Plan - Plan Referrals: NONE,PCP [Primary Care Provider] - <Dillon Ramírez W - Last Filed: 01/18/18 11:21> Date of Encounter: 01/18/18 All Systems: The remainder of the systems were reviewed and are negative Physical Examination Vital Signs: Vital Signs, Last 4 Hours Temp Pulse Resp BP Pulse Ox 01/18/18 09:00 109 19 74/54 99 01/18/18 08:15 98.0 F 01/18/18 08:00 98.0 F 141 19 100/57 99 01/18/18 07:34 19 107/68 99 Ventilator Settings Ventilator Settings: Ventilator Settings, Last 8 Hours Ventilator Mode A/C Ventilator Mode A/C Ventilator Mode A/C Ventilator Mode A/C Ventilator Mode A/C Ventilator Mode A/C Ventilator Mode A/C Ventilator Mode A/C Ventilator Mode A/C Ventilator Tidal Volume 420 Setting Ventilator Tidal Volume 420 Setting Ventilator Tidal Volume 420 Setting Ventilator Tidal Volume 420 Setting Ventilator Tidal Volume 500 Setting Ventilator Tidal Volume 500 Setting Ventilator Tidal Volume 500 Setting Ventilator Tidal Volume 500 Setting Ventilator Tidal Volume 500 Setting Ventilator Respiratory Rate 16 Setting Ventilator Respiratory Rate 16 Setting Ventilator Respiratory Rate 14 Setting Ventilator Respiratory Rate 16 Setting Ventilator Respiratory Rate 14 Setting Ventilator Respiratory Rate 14 Setting Ventilator Respiratory Rate 14 Setting Ventilator Respiratory Rate 14 Setting Ventilator Respiratory Rate 14 Setting Actual Respiratory Rate 19 Actual Respiratory Rate 19 Actual Respiratory Rate 19 Actual Respiratory Rate 19 Actual Respiratory Rate 27 Actual Respiratory Rate 14 Actual Respiratory Rate 27 Actual Respiratory Rate 27 Actual Respiratory Rate 14 Positive End Expiratory 8 Pressure Positive End Expiratory 8 Pressure Positive End Expiratory 8 Pressure Positive End Expiratory 8 Pressure Positive End Expiratory 5 Pressure Positive End Expiratory 5 Pressure Positive End Expiratory 5 Pressure Positive End Expiratory 5 Pressure Positive End Expiratory 5 Pressure Peak Inspiratory Airway 29 Pressure Peak Inspiratory Airway 29 Pressure Peak Inspiratory Airway 29 Pressure Peak Inspiratory Airway 29 Pressure Peak Inspiratory Airway 32 Pressure Peak Inspiratory Airway 29 Pressure Peak Inspiratory Airway 32 Pressure Peak Inspiratory Airway 31 Pressure Peak Inspiratory Airway 29 Pressure Results - Laboratory Findings CBC and BMP: 01/18/18 03:46 01/18/18 03:46 ABG ABG pH 7.38 pH Units (7.32-7.45) 01/18/18 06:18 ABG pCO2 43 mmHg (35-45) 01/18/18 06:18 ABG pO2 227 mmHg (85-104) H 01/18/18 06:18 ABG O2 Saturation 100 % (95-98) H 01/18/18 06:18 PT/INR, D-dimer PT 53.7 Seconds (9.4-12.1) H* 01/18/18 03:46 Abnormal lab findings: Abnormal lab results WBC 17.1 K/mcL (4.3-11.1) H D 01/18/18 03:46 Hgb 10.0 g/dL (11.5-15.4) L 01/18/18 03:46 Hct 34.0 % (35.3-44.9) L 01/18/18 03:46 MCH 24.4 pg (28.0-33.3) L 01/18/18 03:46 MCHC 29.4 g/dL (31.6-35.5) L 01/18/18 03:46 RDW 16.1 % (11.5-14.5) H 01/18/18 03:46 Plt Count 136 K/mcL (140-400) L 01/18/18 03:46 Neutrophils # 14.6 K/mcL (1.6-8.9) H 01/18/18 03:46 Nucleated RBCs/100 WBC 0.2 /100 WBC (0) H 01/18/18 03:46 Platelet Estimate Slight Decrease (Normal) L 01/18/18 03:46 PT 53.7 Seconds (9.4-12.1) H* 01/18/18 03:46 INR 4.8 H* 01/18/18 03:46 ABG pO2 227 mmHg (85-104) H 01/18/18 06:18 ABG Total CO2 27 mEq/L (20-26) H 01/18/18 06:18 ABG O2 Saturation 100 % (95-98) H 01/18/18 06:18 Potassium 3.3 mEq/L (3.5-5.1) L 01/18/18 03:46 Creatinine 1.38 mg/dL (0.60-1.20) H 01/18/18 03:46 Est GFR ( Amer) 44 (> 60) L 01/18/18 03:46 Est GFR (Non-Af Amer) 37 (> 60) L 01/18/18 03:46 Glucose 121 mg/dL (70-105) H 01/18/18 03:46 POC Glucose 114 mg/dL (70-99) H 01/18/18 04:31 Lactic Acid 4.7 mmol/L (0.5-2.2) H* 01/18/18 04:01 Calcium 7.0 mg/dL (8.6-10.3) L 01/18/18 03:46 Phosphorus 2.4 mg/dL (2.7-4.5) L 01/18/18 03:46 Magnesium 1.1 mg/dL (1.6-2.6) L 01/18/18 03:46 - Clinical Findings Intake & Output: Intake & Output 01/17/18 01/18/18 01/18/18 23:59 07:59 15:59 Intake Total 500 / 500 Balance 500 / 500 Weight 113.1 kg - Attending Attestation I examined this patient and my medical decision-making was reviewed with the Resident Physician. I agree with the documented findings, disposition and treatment plan as described except to the extent set forth below. We independently had [id number] contact with the patient I spent 35min of Critical Care time with this patient. It involved decision making of high complexity to assess, manipulate, and support vital organ system failure and/or to prevent further life threatening deterioration of the patient' s condition. The time involved in the performance of separately reportable procedures was not counted toward critical care time. Patient seen and examined at bedside Labs, radiology, chart personally reviewed. Management was reviewed during multidisciplinary critical care rounds. RADIO STATION OPERATOR: The patient is sedated on the vent she does open her eyes to my voice command. Per report prior to initiation of sedation and intubation patient was able to follow commands but was mildly encephalopathic. She has spontaneous movement of all extremities. Continue sedation for goal [place] approximately 3. Pulm: Acute hypoxic respiratory failure requiring intubation disease secondary to multifocal pneumonia now with acceptable gas exchange on the vent I adjusted the patient to increase PEEP because of the severity of underlying pneumonia she has small bilateral effusions I do not feel that these are infected probably related to non-cardiogenic edema and are too small to aspirate at bedside. Cards: Septic shock requiring vasopressor support status post volume resuscitation lactate elevated trend lactate every 6 hours continue vasopressor to keep mean arterial pressure around 65. I performed bedside ultrasonography and evaluated the patient's IVC while intubated and there is no significant collapse therefore additional fluids were not administered as I feel that she is no longer volume responsive and will need continue vasopressor support. Additionally she has had atrial fibrillation with rapid ventricular response while on Levothroid we have switched phenylephrine with improvement in heart rate. FEN-GI: Nothing by mouth for now GI prophylaxis given Renal: Urine output monitored continue to trend serum creatinine and electrolytes ID: Multifocal pneumonia with exposure to hospital acquired organisms and patient has also had recent influenza which I suspect this represents bacterial coinfection. She is on broad-spectrum antimicrobials with planned to de- escalate based upon blood cultures and sputum cultures that have been obtained. Heme/Onc: She is anticoagulated with warfarin with supratherapeutic INR without evidence of hemorrhage no indication to reverse at this time we will hold further warfarin doses however continue to trend INR and daily Endo: Glucose Monitored Integ/MSK: Skin Care per routine ICU Nursing Protocol to prevent ulcers. Lines: All lines examined without evidence of infection : Dispo: Remain in ICU for critical illness CODE: Full; I updated her next of kin which is her son Justo De La Paz by telephone and updated him on mother's condition all questions answered
[2018-01-18] MEDS ORDERED: methylPREDNISolone 125 MG/2 ML VIAL IVP ONE (07:20)
[2018-01-18] MEDS: FentaNYL (PF) 1,000 MCG in 0.9 % Sodium Chloride 80 ML IVC SCH ×2 (07:48→22:10)
[2018-01-18] MEDS ORDERED: *HR* Rocuronium Bromide 50 MG/5 ML VIAL IVC ONE (07:59)
[2018-01-18] MEDS ORDERED: *HR* Etomidate 20 MG/10 ML AMPUL IVP ONE (07:59)
[2018-01-18] MEDS: Pantoprazole 40 MG VIAL IVP SCH (08:15)
[2018-01-18] MEDS: Piperacillin/Tazobactam 3.375 GM in 0.9 % Sodium Chloride Mini Bag 100 ML IVPB SCH ×3 (08:15→23:52)
[2018-01-18] MEDS: Chlorhexidine Rinse 15 ML MOUTHWASH MM SCH ×2 (08:15→19:53)
[2018-01-18] MEDS: Potassium Chloride 40 MEQ/200 ML BAG IVPB PRN ×2 (08:18→09:37)
[2018-01-18] MEDS ORDERED: Levofloxacin 750 MG/150 ML 750 MG/150 ML BAG IVPB SCH (09:00)
[2018-01-18] MEDS: Phenylephrine 20 MG in D5% in Water 500 ML IVC SCH ×2 (10:42→17:29)
--- NOTE | 2018-01-18 11:09 | Sepsis Event Note ---
<InocenciaStuart romeo - Last Filed: 01/18/18 11:10> Sepsis Reassessment Note - Evaluation Sepsis Screen: Sepsis Risk Current Stage of Sepsis: septic shock Possible Source of Sepsis: pulmonary - Focused Exam Date of Encounter: 01/18/18 Time of Encounter: 07:20 Vital Signs: Vital Signs Temp Pulse Resp BP Pulse Ox 01/18/18 09:00 109 19 74/54 99 01/18/18 08:15 98.0 F 01/18/18 08:00 98.0 F 141 19 100/57 99 01/18/18 07:34 19 107/68 99 01/18/18 07:00 135 19 86/51 99 01/18/18 06:00 151 13 106/59 100 01/18/18 05:36 14 100 01/18/18 05:00 135 14 91/70 100 01/18/18 04:00 123 13 70/56 100 01/18/18 03:15 21 94 01/18/18 03:00 137 27 103/58 92 Respiratory Exam: Present: rhonchi, crackles, decreased breath sounds, patient mechanically. Absent: accessory muscle use Cardiovascular Exam: Present: tachycardia (on levophed). Absent: JVD Capillary Refill: < 2 seconds Peripheral Pulse Strength: 2+ slightly diminished Peripheral Pulse Location: Radial Skin Exam: normal turgor - Reassessment Comments Comments: Repeat lactic acid pending <Dillon Ramírez - Last Filed: 01/18/18 11:22> Sepsis Reassessment Note - Focused Exam Vital Signs: Vital Signs Temp Pulse Resp BP Pulse Ox 01/18/18 09:00 109 19 74/54 99 01/18/18 08:15 98.0 F 01/18/18 08:00 98.0 F 141 19 100/57 99 01/18/18 07:34 19 107/68 99 01/18/18 07:00 135 19 86/51 99 01/18/18 06:00 151 13 106/59 100 01/18/18 05:36 14 100 01/18/18 05:00 135 14 91/70 100 01/18/18 04:00 123 13 70/56 100 01/18/18 03:15 21 94 01/18/18 03:00 137 27 103/58 92 - Reassessment Comments Comments: I examined this patient and my medical decision-making was reviewed with the Resident Physician. I agree with the documented findings, disposition and treatment plan as described except to the extent set forth below. We independently had [id number] contact with the patient I agree with the resident's assessment
[2018-01-18 14:34] LABS: VBG Ionized Calcium 0.98 mmol/L (1.15-1.35)
[2018-01-18 14:53] LABS: Magnesium 1.7 mg/dL (1.6-2.6)
[2018-01-18 21:10] LABS: VBG Ionized Calcium 1.02 mmol/L (1.15-1.35)
[2018-01-19] MEDS: Phenylephrine 20 MG in D5% in Water 500 ML IVC SCH ×2 (02:17→11:39)
[2018-01-19 04:16] LABS: VBG Ionized Calcium 1.05 mmol/L (1.15-1.35)
[2018-01-19] MEDS: Lacri-Lube 3.5 GM TUBE BOTH EYES SCH ×5 (04:19→21:54)
[2018-01-19 04:27] LABS: Lymphocytes % 3.2 %
[2018-01-19 04:32] LABS: Basophils # 0.2 K/mcL (0.0-0.2); Basophils % 0.3 %; Hematocrit 35.9 % (35.3-44.9); Hemoglobin 10.7 g/dL (11.5-15.4); Mean Corpuscular HGB Conc 29.8 g/dL (31.6-35.5); Mean Corpuscular Hemoglobin 24.4 pg (28.0-33.3); Mean Corpuscular Volume 81.8 fL (83.0-100.0); Mean Platelet Volume 9.9 fL (9.4-12.4); Monocytes % 1.9 %; Neutrophils # 48.3 K/mcL (1.6-8.9); Platelet Count 266 K/mcL (140-400); Red Blood Count 4.39 M/mcL (3.82-4.97); Red Cell Distribution Width 16.7 % (11.5-14.5); Segmented Neutrophils % 88.6 %
[2018-01-19 04:34] LABS: Albumin 2.4 g/dL (3.5-5.7); Albumin/Globulin Ratio 0.9 (1.1-2.2); Bilirubin,Total 0.8 mg/dL (0.3-1.0); Calcium 8.1 mg/dL (8.6-10.3); Globulin 2.7 g/dL (2.4-3.5); Total Protein 5.1 g/dL (6.4-8.9)
[2018-01-19] MEDS: Norepinephrine 4 MG in D5% in Water 250 ML IVC SCH (05:01)
[2018-01-19 05:06] LABS: Lymphocytes # 1.7 K/mcL (0.6-4.6)
[2018-01-19 05:14] LABS: INR 3.4; Prothrombin Time 37.5 Seconds (9.4-12.1)
[2018-01-19] MEDS: Insulin LISPRO 300 UNITS/3 ML VIAL SQ SCH ×3 (05:23→17:58)
[2018-01-19 06:17] LABS: ABG Base Excess 3 mEq/L (-2 to 3); ABG HCO3 27 mEq/L (21-27); ABG Oxygen Saturation 99 % (95-98); ABG PCO2 40 mmHg (35-45); ABG PH 7.44 pH Units (7.32-7.45); ABG PO2 127 mmHg (85-104); ABG TCO2 28 mEq/L (20-26); Blood Gas Modality ASSIST CONTROL; Blood Gas PEEP 8 cm H2O; Blood Gas Respiration Rate 16; Blood Gas VT 420 cc
[2018-01-19] MEDS: Pantoprazole 40 MG VIAL IVP SCH (08:04)
[2018-01-19] MEDS: Chlorhexidine Rinse 15 ML MOUTHWASH MM SCH ×2 (08:04→21:54)
[2018-01-19] MEDS: Piperacillin/Tazobactam 3.375 GM in 0.9 % Sodium Chloride Mini Bag 100 ML IVPB SCH ×2 (08:05→16:30)
[2018-01-19 08:16] LABS: Mean Corpuscular Hemoglobin 24.7 pg (28.0-33.3); Red Cell Distribution Width 16.6 % (11.5-14.5)
[2018-01-19 08:17] LABS: Hematocrit 34.7 % (35.3-44.9); Hemoglobin 10.5 g/dL (11.5-15.4); Mean Corpuscular HGB Conc 30.3 g/dL (31.6-35.5); Mean Corpuscular Volume 81.6 fL (83.0-100.0); Mean Platelet Volume 9.9 fL (9.4-12.4); Platelet Count 280 K/mcL (140-400); Red Blood Count 4.25 M/mcL (3.82-4.97)
--- NOTE | 2018-01-19 08:43 | Pulmonology Progress Note ---
<DarrellViris W - Last Filed: 01/19/18 09:25> Date of Encounter: 01/19/18 Objective PUL Vital signs: Last Vital Signs Temp 100 F H 01/19/18 08:00 Pulse 101 01/19/18 08:00 Resp 16 01/19/18 08:00 BP 100/79 01/19/18 08:00 Pulse Ox 96 01/19/18 08:00 Ventilator Settings Ventilator Settings: Ventilator Settings, Last 8 Hours Ventilator Mode A/C Ventilator Mode A/C Ventilator Mode A/C Ventilator Mode A/C Ventilator Mode A/C Ventilator Mode A/C Ventilator Mode A/C Ventilator Mode A/C Ventilator Mode A/C Ventilator Mode A/C Ventilator Mode A/C Ventilator Tidal Volume 420 Setting Ventilator Tidal Volume 420 Setting Ventilator Tidal Volume 420 Setting Ventilator Tidal Volume 420 Setting Ventilator Tidal Volume 420 Setting Ventilator Tidal Volume 420 Setting Ventilator Tidal Volume 420 Setting Ventilator Tidal Volume 420 Setting Ventilator Tidal Volume 420 Setting Ventilator Tidal Volume 420 Setting Ventilator Respiratory Rate 16 Setting Ventilator Respiratory Rate 16 Setting Ventilator Respiratory Rate 16 Setting Ventilator Respiratory Rate 16 Setting Ventilator Respiratory Rate 16 Setting Ventilator Respiratory Rate 16 Setting Ventilator Respiratory Rate 16 Setting Ventilator Respiratory Rate 16 Setting Ventilator Respiratory Rate 16 Setting Ventilator Respiratory Rate 16 Setting Actual Respiratory Rate 16 Actual Respiratory Rate 16 Actual Respiratory Rate 19 Actual Respiratory Rate 16 Actual Respiratory Rate 16 Actual Respiratory Rate 16 Actual Respiratory Rate 16 Actual Respiratory Rate 16 Actual Respiratory Rate 18 Actual Respiratory Rate 16 Positive End Expiratory 8 Pressure Positive End Expiratory 8 Pressure Positive End Expiratory 8 Pressure Positive End Expiratory 8 Pressure Positive End Expiratory 8 Pressure Positive End Expiratory 8 Pressure Positive End Expiratory 8 Pressure Positive End Expiratory 8 Pressure Positive End Expiratory 8 Pressure Positive End Expiratory 8 Pressure Positive End Expiratory 8 Pressure Peak Inspiratory Airway 30 Pressure Peak Inspiratory Airway 30 Pressure Peak Inspiratory Airway 30 Pressure Peak Inspiratory Airway 29 Pressure Peak Inspiratory Airway 29 Pressure Peak Inspiratory Airway 29 Pressure Peak Inspiratory Airway 30 Pressure Peak Inspiratory Airway 30 Pressure Peak Inspiratory Airway 32 Pressure Peak Inspiratory Airway 29 Pressure Results - Laboratory Findings CBC and BMP: 01/19/18 08:05 01/19/18 04:00 ABG ABG pH 7.44 pH Units (7.32-7.45) 01/19/18 06:14 ABG pCO2 40 mmHg (35-45) 01/19/18 06:14 ABG pO2 127 mmHg (85-104) H 01/19/18 06:14 ABG O2 Saturation 99 % (95-98) H 01/19/18 06:14 PT/INR, D-dimer PT 37.5 Seconds (9.4-12.1) H 01/19/18 04:00 Abnormal lab findings: Abnormal lab results WBC 56.0 K/mcL (4.3-11.1) H* 01/19/18 08:05 Hgb 10.5 g/dL (11.5-15.4) L 01/19/18 08:05 Hct 34.7 % (35.3-44.9) L 01/19/18 08:05 MCV 81.6 fL (83.0-100.0) L 01/19/18 08:05 MCH 24.7 pg (28.0-33.3) L 01/19/18 08:05 MCHC 30.3 g/dL (31.6-35.5) L 01/19/18 08:05 RDW 16.6 % (11.5-14.5) H 01/19/18 08:05 Immature Gran % 6.0 % (0-4) H 01/19/18 04:00 Neutrophils # 48.3 K/mcL (1.6-8.9) H 01/19/18 04:00 Nucleated RBCs/100 WBC 0.2 /100 WBC (0) H 01/18/18 03:46 Platelet Estimate Slight Decrease (Normal) L 01/18/18 03:46 PT 37.5 Seconds (9.4-12.1) H 01/19/18 04:00 ABG pO2 127 mmHg (85-104) H 01/19/18 06:14 ABG Total CO2 28 mEq/L (20-26) H 01/19/18 06:14 ABG O2 Saturation 99 % (95-98) H 01/19/18 06:14 Creatinine 1.25 mg/dL (0.60-1.20) H 01/19/18 04:00 Est GFR ( Amer) 50 (> 60) L 01/19/18 04:00 Est GFR (Non-Af Amer) 41 (> 60) L 01/19/18 04:00 Glucose 155 mg/dL (70-105) H 01/19/18 04:00 POC Glucose 142 mg/dL (70-99) H 01/18/18 23:20 Lactic Acid 3.1 mmol/L (0.5-2.2) H 01/19/18 05:45 Calcium 8.1 mg/dL (8.6-10.3) L 01/19/18 04:00 Venous Ioniz Calcium 1.05 mmol/L (1.15-1.35) L 01/19/18 04:11 Phosphorus 5.0 mg/dL (2.7-4.5) H 01/18/18 14:00 Serum Total Protein 5.1 g/dL (6.4-8.9) L 01/19/18 04:00 Albumin 2.4 g/dL (3.5-5.7) L 01/19/18 04:00 Albumin/Globulin Ratio 0.9 (1.1-2.2) L 01/19/18 04:00 - Microbiology Findings Microbiology Findings: Microbiology, Last 48 Hours 01/18/18 04:02 Blood Culture - Preliminary Peripheral Venipuncture No growth. 01/18/18 04:02 Blood Culture - Preliminary Peripheral Venipuncture No growth. 01/18/18 12:55 Legionella Antigen - Final Urine,Catheterized Streptococcus pneumoniae Antigen (M - Final - Clinical Findings Intake & Output: Intake & Output 01/18/18 01/19/18 01/19/18 23:59 07:59 15:59 Intake Total 640 / 640 1172 / 1172 100 / 100 Output Total 200 / 200 230 / 230 125 / 125 Balance 440 / 440 942 / 942 -25 / -25 Weight 120.2 kg Consult Discharge Plan - Plan Referrals: NONE,PCP [Primary Care Provider] - - Attending Attestation I examined this patient and my medical decision-making was reviewed with the Resident Physician. I agree with the documented findings, disposition and treatment plan as described except to the extent set forth below. We independently had [id number] contact with the patient Patient seen and examined at bedside Labs, radiology, chart personally reviewed. Management was reviewed during multidisciplinary critical care rounds. 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 Pulm: Remains on vent for severe PNA s/t likely Strep PNA. Stable gas exchange on minimal settings. not a candidate for SBT today because of cont critical illness. Cont Glucocorticoids for severe PNA Cards: Septic Shock on Phenylephrine (for Afib/RVR on levophed) rate controlled today weaning dose. Lactate trending down. FEN-GI: Start enteral nutrition per dietary recs Renal: UOP remains acceptable slight increase in sCr will cont to moniror and renal dose all meds. ID: Severe PNA likely strep PNA (antigen +) on antibiotics. stop levaquin although WBC count >50K clinically improving. Will CT abdomen today to r/o any intraabdominal source coinfection Heme/Onc: DVT prophylaxis with warfarin INR 3.4 today Endo: Glucose Monitored Integ/MSK: Skin Care per routine ICU Nursing Protocol to prevent ulcers. Lines: All lines examined without evidence of infection : Dispo: Remain in ICU today CODE: Full. <Solis Dejesus - Last Filed: 01/19/18 14:30> Date of Encounter: 01/19/18 Time of Encounter: 08:43 Assessment and Plan (1) Septic shock Current Visit: Yes Status: Acute Septic shock secondary to multifocal pneumonia - Patient had a massive increase in white count today; 17.1-56.0 - CT of abdomen to rule out intra-abdominal process - Blood culture was positive for Staphylococcus capitis Plan - Continue vancomycin and Zosyn; day 2 of antibiotics - Levaquin was discontinued today - CT abdomen - Continue to closely monitor patients vital signs (2) Acute and chronic respiratory failure Current Visit: Yes Status: Acute Presented in acute respiratory failure with hypoxia requiring BiPAP at outside facility - The patient required intubation and ventilatory support - The patient does have recent influenza infection with superimposed pneumonia - There is also a chronic history of COPD - Chest x-ray showed significant infiltrates with concern for parapneumonic effusion versus empyema - Chest CT demonstrates multifocal pneumonia without evidence of empyema -Currently sedated on precedex, fentanyl, propofol Plan - Continue mechanical ventilation at this time, titrate settings ABG - Continue antibiotic - Daily ABG, CBC Qualifiers: Respiratory failure complication: hypoxia and hypercapnia Qualified Code(s) : J96.21 - Acute and chronic respiratory failure with hypoxia; J96.22 - Acute and chronic respiratory failure with hypercapnia; J96.22 - Acute and chronic respiratory failure with hypercapnia; J96.22 - Acute and chronic respiratory failure with hypercapnia (3) HCAP (healthcare-associated pneumonia) Current Visit: Yes Status: Acute - HCAP with recent influenza with CT evidence of multifocal pneumonia - Respiratory failure necessitating intubation - Given CT appearance, recent influenza infection and healthcare setting we have concern for staph aureus pneumonia (4) A-fib Current Visit: Yes Status: Chronic - Atrial fibrillation with rapid ventricular response - Likely exacerbated by current acute illness Qualifiers: Atrial fibrillation type: chronic Qualified Code(s): I48.2 - Chronic atrial fibrillation (5) COPD (chronic obstructive pulmonary disease) Current Visit: No Status: Chronic - COPD without an obvious exacerbation - Wheezes do not appear present on exam - We will continue to ventilate, support with duo nebs as needed - Solu-Medrol 40 mg IV every 8 hours Qualifiers: COPD type: unspecified COPD Qualified Code(s): J44.9 - Chronic obstructive pulmonary disease, unspecified (6) Type 2 diabetes mellitus Current Visit: No Status: Chronic - Every 6 hours Accu-Cheks with sliding scale insulin Qualifiers: Diabetes mellitus replacer insulin use: with replacer use Diabetes mellitus complication status: with unspecified complications Qualified Code(s) : E11.8 - Type 2 diabetes mellitus with unspecified complications; Z79.4 - assisted (current) use of insulin; Z79.4 - assisted (current) use of insulin; 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 Currently intubated and sedated. Patient had a massive increase in white count today; white count increased from 17.1-56.0. We will rule out intra-abdominal infection with a CT scan of the abdomen. Lactate trending down. Closely monitor urine output. DVT prophylaxis can be started today; patient's INR has gone to 3.4. We will continue to monitor patient's clinical condition. Objective PUL Vital signs: Last Vital Signs Temp 100.0 F H 01/19/18 07:00 Pulse 95 01/19/18 08:00 Resp 19 01/19/18 08:00 BP 100/69 01/19/18 08:00 Pulse Ox 96 01/19/18 08:00 General appearance: no acute distress, asleep Neck: supple Effort: normal Auscultation: bilateral: diminished breath sounds Percussion: bilateral: not dull Tactile fremitus: bilateral: normal Cardiovascular: regular rate and rhythm Gastrointestinal: normoactive bowel sounds, non-distended Integumentary: normal Extremities: no cyanosis, no edema, no clubbing Musculoskeletal: no deformities, ROM normal Ventilator Settings Ventilator Settings: Ventilator Settings, Last 8 Hours Ventilator Mode A/C Ventilator Mode A/C Ventilator Mode A/C Ventilator Mode A/C Ventilator Mode A/C Ventilator Mode A/C Ventilator Mode A/C Ventilator Mode A/C Ventilator Mode A/C Ventilator Mode A/C Ventilator Mode A/C Ventilator Tidal Volume 420 Setting Ventilator Tidal Volume 420 Setting Ventilator Tidal Volume 420 Setting Ventilator Tidal Volume 420 Setting Ventilator Tidal Volume 420 Setting Ventilator Tidal Volume 420 Setting Ventilator Tidal Volume 420 Setting Ventilator Tidal Volume 420 Setting Ventilator Tidal Volume 420 Setting Ventilator Tidal Volume 420 Setting Ventilator Respiratory Rate 16 Setting Ventilator Respiratory Rate 16 Setting Ventilator Respiratory Rate 16 Setting Ventilator Respiratory Rate 16 Setting Ventilator Respiratory Rate 16 Setting Ventilator Respiratory Rate 16 Setting Ventilator Respiratory Rate 16 Setting Ventilator Respiratory Rate 16 Setting Ventilator Respiratory Rate 16 Setting Ventilator Respiratory Rate 16 Setting Actual Respiratory Rate 16 Actual Respiratory Rate 16 Actual Respiratory Rate 19 Actual Respiratory Rate 16 Actual Respiratory Rate 16 Actual Respiratory Rate 16 Actual Respiratory Rate 16 Actual Respiratory Rate 16 Actual Respiratory Rate 18 Actual Respiratory Rate 16 Positive End Expiratory 8 Pressure Positive End Expiratory 8 Pressure Positive End Expiratory 8 Pressure Positive End Expiratory 8 Pressure Positive End Expiratory 8 Pressure Positive End Expiratory 8 Pressure Positive End Expiratory 8 Pressure Positive End Expiratory 8 Pressure Positive End Expiratory 8 Pressure Positive End Expiratory 8 Pressure Positive End Expiratory 8 Pressure Peak Inspiratory Airway 30 Pressure Peak Inspiratory Airway 30 Pressure Peak Inspiratory Airway 30 Pressure Peak Inspiratory Airway 29 Pressure Peak Inspiratory Airway 29 Pressure Peak Inspiratory Airway 29 Pressure Peak Inspiratory Airway 30 Pressure Peak Inspiratory Airway 30 Pressure Peak Inspiratory Airway 32 Pressure Peak Inspiratory Airway 29 Pressure Results - Laboratory Findings CBC and BMP: 01/19/18 08:05 01/19/18 04:00 ABG ABG pH 7.44 pH Units (7.32-7.45) 01/19/18 06:14 ABG pCO2 40 mmHg (35-45) 01/19/18 06:14 ABG pO2 127 mmHg (85-104) H 01/19/18 06:14 ABG O2 Saturation 99 % (95-98) H 01/19/18 06:14 PT/INR, D-dimer PT 37.5 Seconds (9.4-12.1) H 01/19/18 04:00 Abnormal lab findings: Abnormal lab results WBC 56.0 K/mcL (4.3-11.1) H* 01/19/18 08:05 Hgb 10.5 g/dL (11.5-15.4) L 01/19/18 08:05 Hct 34.7 % (35.3-44.9) L 01/19/18 08:05 MCV 81.6 fL (83.0-100.0) L 01/19/18 08:05 MCH 24.7 pg (28.0-33.3) L 01/19/18 08:05 MCHC 30.3 g/dL (31.6-35.5) L 01/19/18 08:05 RDW 16.6 % (11.5-14.5) H 01/19/18 08:05 Immature Gran % 6.0 % (0-4) H 01/19/18 04:00 Neutrophils # 48.3 K/mcL (1.6-8.9) H 01/19/18 04:00 Nucleated RBCs/100 WBC 0.2 /100 WBC (0) H 01/18/18 03:46 Platelet Estimate Slight Decrease (Normal) L 01/18/18 03:46 PT 37.5 Seconds (9.4-12.1) H 01/19/18 04:00 ABG pO2 127 mmHg (85-104) H 01/19/18 06:14 ABG Total CO2 28 mEq/L (20-26) H 01/19/18 06:14 ABG O2 Saturation 99 % (95-98) H 01/19/18 06:14 Creatinine 1.25 mg/dL (0.60-1.20) H 01/19/18 04:00 Est GFR ( Amer) 50 (> 60) L 01/19/18 04:00 Est GFR (Non-Af Amer) 41 (> 60) L 01/19/18 04:00 Glucose 155 mg/dL (70-105) H 01/19/18 04:00 POC Glucose 142 mg/dL (70-99) H 01/18/18 23:20 Lactic Acid 3.1 mmol/L (0.5-2.2) H 01/19/18 05:45 Calcium 8.1 mg/dL (8.6-10.3) L 01/19/18 04:00 Venous Ioniz Calcium 1.05 mmol/L (1.15-1.35) L 01/19/18 04:11 Phosphorus 5.0 mg/dL (2.7-4.5) H 01/18/18 14:00 Serum Total Protein 5.1 g/dL (6.4-8.9) L 01/19/18 04:00 Albumin 2.4 g/dL (3.5-5.7) L 01/19/18 04:00 Albumin/Globulin Ratio 0.9 (1.1-2.2) L 01/19/18 04:00 - Microbiology Findings Microbiology Findings: Microbiology, Last 48 Hours 01/18/18 04:02 Blood Culture - Preliminary Peripheral Venipuncture No growth. 01/18/18 04:02 Blood Culture - Preliminary Peripheral Venipuncture No growth. 01/18/18 12:55 Legionella Antigen - Final Urine,Catheterized Streptococcus pneumoniae Antigen (M - Final - Clinical Findings Intake & Output: Intake & Output 01/18/18 01/19/18 01/19/18 23:59 07:59 15:59 Intake Total 640 / 640 1172 / 1172 100 / 100 Output Total 200 / 200 230 / 230 125 / 125 Balance 440 / 440 942 / 942 -25 / -25 Weight 120.2 kg
[2018-01-19] MEDS ORDERED: Levofloxacin 750 MG/150 ML 750 MG/150 ML BAG IVPB SCH (09:00)
[2018-01-19 09:19] LABS: Lymphocytes # 1.1 K/mcL (0.6-4.6); Monocytes # 1.1 K/mcL (0.0-1.3); Neutrophils # 50.4 K/mcL (1.6-8.9); Platelet Estimate Normal (Normal)
[2018-01-19 09:20] LABS: Toxic Granulation Present (Not Present)
[2018-01-19] MEDS: FentaNYL (PF) 1,000 MCG in 0.9 % Sodium Chloride 80 ML IVC SCH (11:00)
[2018-01-19 14:43] LABS: VBG Ionized Calcium 1.08 mmol/L (1.15-1.35)
[2018-01-19 14:52] LABS: Potassium 3.8 mEq/L (3.5-5.1)
[2018-01-19] MEDS: methylPREDNISolone 125 MG/2 ML VIAL IVP SCH (17:57)
[2018-01-20] MEDS: Piperacillin/Tazobactam 3.375 GM in 0.9 % Sodium Chloride Mini Bag 100 ML IVPB SCH ×3 (00:02→15:58)
[2018-01-20] MEDS: Lacri-Lube 3.5 GM TUBE BOTH EYES SCH ×7 (00:03→23:05)
[2018-01-20] MEDS: Insulin LISPRO 300 UNITS/3 ML VIAL SQ SCH ×3 (00:04→16:02)
[2018-01-20] MEDS: FentaNYL (PF) 1,000 MCG in 0.9 % Sodium Chloride 80 ML IVC SCH (00:26)
[2018-01-20] MEDS: Norepinephrine 4 MG in D5% in Water 250 ML IVC SCH (03:58)
[2018-01-20 05:43] LABS: ABG Base Excess 4 mEq/L (-2 to 3); ABG HCO3 28 mEq/L (21-27); ABG Oxygen Saturation 99 % (95-98); ABG PCO2 36 mmHg (35-45); ABG PH 7.49 pH Units (7.32-7.45); ABG PO2 113 mmHg (85-104); ABG TCO2 29 mEq/L (20-26); Blood Gas Modality ASSIST CONTROL; Blood Gas PEEP 8 cm H2O; Blood Gas Respiration Rate 16; Blood Gas VT 420 cc
[2018-01-20] MEDS: methylPREDNISolone 125 MG/2 ML VIAL IVP SCH ×2 (06:31→18:25)
[2018-01-20 06:56] LABS: Red Cell Distribution Width 16.7 % (11.5-14.5)
[2018-01-20 06:57] LABS: Hematocrit 33.8 % (35.3-44.9); Hemoglobin 10.1 g/dL (11.5-15.4); Mean Corpuscular HGB Conc 29.9 g/dL (31.6-35.5); Mean Corpuscular Hemoglobin 24.2 pg (28.0-33.3); Mean Corpuscular Volume 81.1 fL (83.0-100.0); Mean Platelet Volume 10.6 fL (9.4-12.4); Platelet Count 258 K/mcL (140-400); Red Blood Count 4.17 M/mcL (3.82-4.97)
--- NOTE | 2018-01-20 07:04 | Pulmonology Progress Note ---
<Yandy Plascencia M - Last Filed: 01/20/18 10:32> Date of Encounter: 01/20/18 Objective PUL Vital signs: Last Vital Signs Temp 98.3 F 01/20/18 00:27 Pulse 112 01/20/18 09:00 Resp 18 01/20/18 09:25 BP 155/108 01/20/18 09:00 Pulse Ox 96 01/20/18 09:25 Ventilator Settings Ventilator Settings: Ventilator Settings, Last 8 Hours Ventilator Mode CPAP Ventilator Mode A/C Ventilator Mode A/C Ventilator Mode A/C Ventilator Mode A/C Ventilator Mode A/C Ventilator Mode A/C Ventilator Mode A/C Ventilator Tidal Volume 420 Setting Ventilator Tidal Volume 420 Setting Ventilator Tidal Volume 420 Setting Ventilator Tidal Volume 420 Setting Ventilator Tidal Volume 420 Setting Ventilator Respiratory Rate 16 Setting Ventilator Respiratory Rate 16 Setting Ventilator Respiratory Rate 16 Setting Ventilator Respiratory Rate 16 Setting Ventilator Respiratory Rate 16 Setting Actual Respiratory Rate 20 Actual Respiratory Rate 13 Actual Respiratory Rate 20 Actual Respiratory Rate 24 Actual Respiratory Rate 16 Actual Respiratory Rate 16 Positive End Expiratory 5 Pressure Positive End Expiratory 5 Pressure Positive End Expiratory 8 Pressure Positive End Expiratory 8 Pressure Positive End Expiratory 8 Pressure Positive End Expiratory 8 Pressure Positive End Expiratory 8 Pressure Positive End Expiratory 8 Pressure Positive End Expiratory 8 Pressure Peak Inspiratory Airway 14 Pressure Peak Inspiratory Airway 13 Pressure Peak Inspiratory Airway 24 Pressure Peak Inspiratory Airway 30 Pressure Peak Inspiratory Airway 28 Pressure Results - Laboratory Findings CBC and BMP: 01/20/18 06:35 01/20/18 06:21 ABG ABG pH 7.49 pH Units (7.32-7.45) H 01/20/18 05:39 ABG pCO2 36 mmHg (35-45) 01/20/18 05:39 ABG pO2 113 mmHg (85-104) H 01/20/18 05:39 ABG O2 Saturation 99 % (95-98) H 01/20/18 05:39 PT/INR, D-dimer PT 37.5 Seconds (9.4-12.1) H 01/19/18 04:00 Abnormal lab findings: Abnormal lab results WBC 30.4 K/mcL (4.3-11.1) H* 01/20/18 06:35 Hgb 10.1 g/dL (11.5-15.4) L 01/20/18 06:35 Hct 33.8 % (35.3-44.9) L 01/20/18 06:35 MCV 81.1 fL (83.0-100.0) L 01/20/18 06:35 MCH 24.2 pg (28.0-33.3) L 01/20/18 06:35 MCHC 29.9 g/dL (31.6-35.5) L 01/20/18 06:35 RDW 16.7 % (11.5-14.5) H 01/20/18 06:35 Immature Gran % 6.0 % (0-4) H 01/19/18 04:00 Myelocytes % 6.0 % (0) H 01/19/18 08:05 Neutrophils # 28.6 K/mcL (1.6-8.9) H 01/20/18 06:35 Nucleated RBCs/100 WBC 0.2 /100 WBC (0) H 01/18/18 03:46 Toxic Granulation Present (Not Present) A 01/19/18 08:05 PT 37.5 Seconds (9.4-12.1) H 01/19/18 04:00 ABG pH 7.49 pH Units (7.32-7.45) H 01/20/18 05:39 ABG pO2 113 mmHg (85-104) H 01/20/18 05:39 ABG HCO3 28 mEq/L (21-27) H 01/20/18 05:39 ABG Total CO2 29 mEq/L (20-26) H 01/20/18 05:39 ABG O2 Saturation 99 % (95-98) H 01/20/18 05:39 ABG Base Excess 4 mEq/L (-2 to 3) H 01/20/18 05:39 BUN 25 mg/dL (8-23) H 01/20/18 06:21 Est GFR (Non-Af Amer) 51 (> 60) L 01/20/18 06:21 Glucose 155 mg/dL (70-105) H 01/20/18 06:21 POC Glucose 124 mg/dL (70-99) H 01/20/18 00:00 Lactic Acid 3.1 mmol/L (0.5-2.2) H 01/19/18 05:45 Calcium 8.4 mg/dL (8.6-10.3) L 01/20/18 06:21 Venous Ioniz Calcium 1.08 mmol/L (1.15-1.35) L 01/19/18 14:39 Phosphorus 5.0 mg/dL (2.7-4.5) H 01/18/18 14:00 Serum Total Protein 5.1 g/dL (6.4-8.9) L 01/19/18 04:00 Albumin 2.4 g/dL (3.5-5.7) L 01/19/18 04:00 Albumin/Globulin Ratio 0.9 (1.1-2.2) L 01/19/18 04:00 Vancomycin Trough 12 mcg/mL (5-10) H 01/20/18 04:12 - Microbiology Findings Microbiology Findings: Microbiology, Last 48 Hours 01/18/18 12:55 Urine Culture - Final Urine,[place] No significant growth. 01/18/18 04:02 Blood Culture - Preliminary Peripheral Venipuncture No growth. 01/18/18 04:02 Blood Culture - Preliminary Peripheral Venipuncture No growth. 01/18/18 12:55 Legionella Antigen - Final Urine,Catheterized Streptococcus pneumoniae Antigen (M - Final - Clinical Findings Intake & Output: Intake & Output 01/19/18 01/20/18 01/20/18 23:59 07:59 15:59 Intake Total 577 / 577 350 / 350 Output Total 1100 / 1100 225 / 225 Balance -523 / -523 125 / 125 Weight 119.9 kg Consult Discharge Plan - Plan Referrals: NONE,PCP [Primary Care Provider] - - Attending Attestation I examined this patient and my medical decision-making was reviewed with the Resident Physician. I agree with the documented findings, disposition and treatment plan as described except to the extent set forth below. Patient seen and examined. Labs, radiology, chart personally reviewed. Agree with resident's history and physical, assessment, plan with following comments: JIG FITTER: Patient follows commands, Pulmonary: Acceptable oxygenation and ventilation and she was successfully extubated today. If she remain stable she can be transferred to the floor. Cardiovascular: Resume her medication for HTN. GI: Nutrition per dietary and GI prophylaxis per routine Heme: DVT prophylaxis per routine ID: Continue antibiotics and plan to de-escalation Renal; urine out put and renal funtion reviewed Endorcine: blood glucose is monitored Lines: all lines checked and no evidence of infections Skin: skin care to prevent pressure ulcers per nursing routine care <Stuart Alcala - Last Filed: 01/20/18 11:43> Date of Encounter: 01/20/18 Time of Encounter: 09:15 Assessment and Plan (1) Acute and chronic respiratory failure Current Visit: Yes Status: Acute Presented in acute respiratory failure with hypoxia requiring BiPAP at outside facility, successfully extubated The patient required intubation and ventilatory support, has since been extubated The patient does have recent influenza infection with superimposed pneumonia There is also a chronic history of COPD Chest x-ray showed significant infiltrates with concern for parapneumonic effusion versus empyema Chest CT demonstrates multifocal pneumonia without evidence of empyema S. Pneumo urine antigen positive Plan -Continue patient on O2 via nasal cannula, titrate to SpO2 88-92% -Continue antibiotic -Daily CBC Patient can likely be transferred to the floor later this evening or tomorrow Qualifiers: Respiratory failure complication: hypoxia and hypercapnia Qualified Code(s) : J96.21 - Acute and chronic respiratory failure with hypoxia; J96.22 - Acute and chronic respiratory failure with hypercapnia; J96.22 - Acute and chronic respiratory failure with hypercapnia; J96.22 - Acute and chronic respiratory failure with hypercapnia (2) Septic shock Current Visit: Yes Status: Acute Septic shock secondary to multifocal pneumonia Sepsis criteria on admission: Fever, tachycardia, tachypnea, WBC 17.1, Lactic Acid 3 -> 4.7 Suspected source: Pneumonia Patient received 2.5 L fluids Off levophed without hypotension Broad-spectrum antibiotics were started Vancomycin Day 3 Zosyn Day 3 Apparent pulmonary, cardiac and renal organ dysfunction Blood cultures and sputum cultures are pending Plan -Stop Vancomycin, continue Zosyn Day 3 (3) HCAP (healthcare-associated pneumonia) Current Visit: Yes Status: Acute HCAP with recent influenza with CT evidence of multifocal pneumonia We will continue zosyn, monitor daily CBCs Plan as above (4) A-fib Current Visit: Yes Status: Chronic Atrial fibrillation with rapid ventricular response Heart rate has been normalized prior to extubation, but has gone back up. Likely exacerbated by current acute illness Coumadin is being held due to supratherapeutic INR I will restart the patient on home Coreg, PRN lopressor pushes Qualifiers: Atrial fibrillation type: chronic Qualified Code(s): I48.2 - Chronic atrial fibrillation (5) COPD (chronic obstructive pulmonary disease) Current Visit: No Status: Chronic COPD without an obvious exacerbation Wheezes do not appear present on exam We will continue to ventilate, support with duo nebs as needed Continue IV Solu-medrol Qualifiers: COPD type: unspecified COPD Qualified Code(s): J44.9 - Chronic obstructive pulmonary disease, unspecified (6) Type 2 diabetes mellitus Current Visit: No Status: Chronic Transition to ACHS insulin Qualifiers: Diabetes mellitus assisted insulin use: with intermodal dispatcher use Diabetes mellitus complication status: with unspecified complications Qualified Code(s) : E11.8 - Type 2 diabetes mellitus with unspecified complications; Z79.4 - alf (current) use of insulin; Z79.4 - intermodal dispatcher (current) use of insulin; Z79.4 - intermodal dispatcher (current) use of insulin; Z79.4 - intermodal dispatcher (current) use of insulin (7) Influenza Current Visit: No Status: Acute Continue droplet precautions (8) Morbid obesity with BMI of 40.0-44.9, adult Current Visit: No Status: Chronic (9) DVT prophylaxis Current Visit: No Status: Acute Supratherapeutic INR on Warfarin Subjective Principal diagnosis: Septic Shock Interval history: The patient continued to improve overnight and she was able to be successfully extubated this morning. She has no acute complaints this morning. Objective PUL Vital signs: Last Vital Signs Temp 98.3 F 01/20/18 00:27 Pulse 93 01/20/18 06:00 Resp 16 01/20/18 06:00 BP 125/92 01/20/18 06:00 Pulse Ox 97 01/20/18 06:00 Gen: Vitals noted. Resting in bed without acute distress HEENT: PERRL, Normocephalic, atraumatic. ET/OG tubes present from mouth with no obvious local trauma or irritation Neck: Supple. No adenopathy. Cardiac: RRR, no murmur, +S1/S2 Pulmonary: Coarse lung sounds throughout with significant inspiratory and expiratory wheezes L>R Abdomen: soft, no guarding Extremities: no BLE edema, nontender calf, no cyanosis or clubbing Neuro: A&Ox3, moves all extremities Ventilator Settings Ventilator Settings: Ventilator Settings, Last 8 Hours Ventilator Mode A/C Ventilator Mode A/C Ventilator Mode A/C Ventilator Mode A/C Ventilator Mode A/C Ventilator Mode A/C Ventilator Mode A/C Ventilator Tidal Volume 420 Setting Ventilator Tidal Volume 420 Setting Ventilator Tidal Volume 420 Setting Ventilator Tidal Volume 420 Setting Ventilator Tidal Volume 420 Setting Ventilator Tidal Volume 420 Setting Ventilator Tidal Volume 420 Setting Ventilator Respiratory Rate 16 Setting Ventilator Respiratory Rate 16 Setting Ventilator Respiratory Rate 16 Setting Ventilator Respiratory Rate 16 Setting Ventilator Respiratory Rate 16 Setting Ventilator Respiratory Rate 16 Setting Ventilator Respiratory Rate 16 Setting Actual Respiratory Rate 16 Actual Respiratory Rate 16 Actual Respiratory Rate 16 Actual Respiratory Rate 16 Positive End Expiratory 8 Pressure Positive End Expiratory 8 Pressure Positive End Expiratory 8 Pressure Positive End Expiratory 8 Pressure Positive End Expiratory 8 Pressure Positive End Expiratory 8 Pressure Positive End Expiratory 8 Pressure Peak Inspiratory Airway 30 Pressure Peak Inspiratory Airway 28 Pressure Peak Inspiratory Airway 28 Pressure Peak Inspiratory Airway 28 Pressure Results - Laboratory Findings CBC and BMP: 01/20/18 06:35 01/20/18 06:21 ABG ABG pH 7.49 pH Units (7.32-7.45) H 01/20/18 05:39 ABG pCO2 36 mmHg (35-45) 01/20/18 05:39 ABG pO2 113 mmHg (85-104) H 01/20/18 05:39 ABG O2 Saturation 99 % (95-98) H 01/20/18 05:39 PT/INR, D-dimer PT 37.5 Seconds (9.4-12.1) H 01/19/18 04:00 Abnormal lab findings: Abnormal lab results WBC 56.0 K/mcL (4.3-11.1) H* 01/19/18 08:05 Hgb 10.5 g/dL (11.5-15.4) L 01/19/18 08:05 Hct 34.7 % (35.3-44.9) L 01/19/18 08:05 MCV 81.6 fL (83.0-100.0) L 01/19/18 08:05 MCH 24.7 pg (28.0-33.3) L 01/19/18 08:05 MCHC 30.3 g/dL (31.6-35.5) L 01/19/18 08:05 RDW 16.6 % (11.5-14.5) H 01/19/18 08:05 Immature Gran % 6.0 % (0-4) H 01/19/18 04:00 Band Neutrophils % 24.0 % (0-4) H 01/19/18 08:05 Myelocytes % 6.0 % (0) H 01/19/18 08:05 Neutrophils # 50.4 K/mcL (1.6-8.9) H 01/19/18 08:05 Nucleated RBCs/100 WBC 0.2 /100 WBC (0) H 01/18/18 03:46 Toxic Granulation Present (Not Present) A 01/19/18 08:05 PT 37.5 Seconds (9.4-12.1) H 01/19/18 04:00 ABG pH 7.49 pH Units (7.32-7.45) H 01/20/18 05:39 ABG pO2 113 mmHg (85-104) H 01/20/18 05:39 ABG HCO3 28 mEq/L (21-27) H 01/20/18 05:39 ABG Total CO2 29 mEq/L (20-26) H 01/20/18 05:39 ABG O2 Saturation 99 % (95-98) H 01/20/18 05:39 ABG Base Excess 4 mEq/L (-2 to 3) H 01/20/18 05:39 Sodium 133 mEq/L (136-145) L 01/19/18 13:48 Creatinine 1.25 mg/dL (0.60-1.20) H 01/19/18 04:00 Est GFR ( Amer) 50 (> 60) L 01/19/18 04:00 Est GFR (Non-Af Amer) 41 (> 60) L 01/19/18 04:00 Glucose 155 mg/dL (70-105) H 01/19/18 04:00 POC Glucose 124 mg/dL (70-99) H 01/20/18 00:00 Lactic Acid 3.1 mmol/L (0.5-2.2) H 01/19/18 05:45 Calcium 8.1 mg/dL (8.6-10.3) L 01/19/18 04:00 Venous Ioniz Calcium 1.08 mmol/L (1.15-1.35) L 01/19/18 14:39 Phosphorus 5.0 mg/dL (2.7-4.5) H 01/18/18 14:00 Serum Total Protein 5.1 g/dL (6.4-8.9) L 01/19/18 04:00 Albumin 2.4 g/dL (3.5-5.7) L 01/19/18 04:00 Albumin/Globulin Ratio 0.9 (1.1-2.2) L 01/19/18 04:00 Vancomycin Trough 12 mcg/mL (5-10) H 01/20/18 04:12 - Microbiology Findings Microbiology Findings: Microbiology, Last 48 Hours 01/18/18 12:55 Urine Culture - Final Urine,[place]ass[facility] [place] No significant growth. 01/18/18 04:02 Blood Culture - Preliminary Peripheral Venipuncture No growth. 01/18/18 04:02 Blood Culture - Preliminary Peripheral Venipuncture No growth. 01/18/18 12:55 Legionella Antigen - Final Urine,Catheterized Streptococcus pneumoniae Antigen (M - Final - Clinical Findings Intake & Output: Intake & Output 01/19/18 01/19/18 01/20/18 15:59 23:59 07:59 Intake Total 1652 / 1652 577 / 577 250 / 250 Output Total 450 / 450 1100 / 1100 225 / 225 Balance 1202 / 1202 -523 / -523 Weight 119.9 kg
[2018-01-20 07:08] LABS: BUN/Creatinine Ratio 24 (6-26); Blood Urea Nitrogen 25 mg/dL (8-23); Calcium 8.4 mg/dL (8.6-10.3); Carbon Dioxide 28 mEq/L (23-29); Chloride 101 mEq/L (98-107); Glucose 155 mg/dL (70-105); Osmolality,Calculated 294 (280-300); Potassium 3.8 mEq/L (3.5-5.1); Sodium 138 mEq/L (136-145); eGFR For African Americans > 60 (> 60); eGFR For Non-African Americans 51 (> 60)
[2018-01-20 07:43] LABS: Lymphocytes # 1.8 K/mcL (0.6-4.6); Neutrophils # 28.6 K/mcL (1.6-8.9); Platelet Estimate Normal (Normal)
[2018-01-20] MEDS: Pantoprazole 40 MG VIAL IVP SCH (07:57)
[2018-01-20] MEDS: Chlorhexidine Rinse 15 ML MOUTHWASH MM SCH ×2 (07:57→20:33)
[2018-01-20] MEDS ORDERED: Aminoglycoside Consult 1 EACH MC ONE (08:52)
[2018-01-20] MEDS ORDERED: *HR* Metoprolol 5 MG/5 ML VIAL IVP PRN (10:58)
[2018-01-20] MEDS ORDERED: *HR* Metoprolol 5 MG/5 ML VIAL IVP ONE (10:59)
[2018-01-20] MEDS ORDERED: Dextrose Gel 15 GM/37.5 ML TUBE PO PRN ×2 (11:44)
[2018-01-20] MEDS ORDERED: D5% in Water 1,000 ML IVC PRN (11:44)
[2018-01-20] MEDS ORDERED: *HR* Dextrose 50 % in Water (Syg) 50 ML SYRINGE IVP PRN (11:44)
[2018-01-20] MEDS ORDERED: *HR* OxyCODONE/APAP 5/325 TABLET PO PRN (11:45)
[2018-01-20 12:35] LABS: INR 2.9; Prothrombin Time 32.3 Seconds (9.4-12.1)
[2018-01-20] MEDS ORDERED: Warfarin perPT PO PRN (18:00)
[2018-01-20] MEDS ORDERED: *HR* Warfarin 1 MG TABLET PO ONE (18:00)
[2018-01-20 18:08] LABS: ABG Base Excess 5 mEq/L (-2 to 3); ABG HCO3 29 mEq/L (21-27); ABG Oxygen Saturation 97 % (95-98); ABG PCO2 39 mmHg (35-45); ABG PH 7.47 pH Units (7.32-7.45); ABG PO2 88 mmHg (85-104); ABG TCO2 30 mEq/L (20-26)
[2018-01-20] MEDS ORDERED: Insulin LISPRO 300 UNITS/3 ML VIAL SQ SCH (21:00)
[2018-01-20] MEDS: Budesonide/Formoterol 160/4.5 MDI IH SCH (22:54)
[2018-01-21] MEDS: Piperacillin/Tazobactam 3.375 GM in 0.9 % Sodium Chloride Mini Bag 100 ML IVPB SCH ×2 (00:06→07:43)
[2018-01-21] MEDS: Norepinephrine 4 MG in D5% in Water 250 ML IVC SCH (03:24)
[2018-01-21] MEDS: Lacri-Lube 3.5 GM TUBE BOTH EYES SCH ×2 (03:24→07:43)
[2018-01-21 04:27] LABS: Basophils % 0.1 %; Hematocrit 33.1 % (35.3-44.9); Hemoglobin 10.2 g/dL (11.5-15.4); Immature Granulocytes % 1.1 % (0-4); Lymphocytes # 0.9 K/mcL (0.6-4.6); Lymphocytes % 3.8 %; Mean Corpuscular HGB Conc 30.8 g/dL (31.6-35.5); Mean Corpuscular Hemoglobin 25.2 pg (28.0-33.3); Mean Corpuscular Volume 81.9 fL (83.0-100.0); Mean Platelet Volume 10.2 fL (9.4-12.4); Monocytes # 0.2 K/mcL (0.0-1.3); Neutrophils # 21.7 K/mcL (1.6-8.9); Platelet Count 272 K/mcL (140-400); Red Blood Count 4.04 M/mcL (3.82-4.97); Red Cell Distribution Width 16.7 % (11.5-14.5)
[2018-01-21 04:38] LABS: INR 3.3; Prothrombin Time 36.1 Seconds (9.4-12.1)
[2018-01-21 04:48] LABS: BUN/Creatinine Ratio 29 (6-26); Blood Urea Nitrogen 28 mg/dL (8-23); Calcium 8.6 mg/dL (8.6-10.3); Carbon Dioxide 28 mEq/L (23-29); Chloride 106 mEq/L (98-107); Glucose 152 mg/dL (70-105); Osmolality,Calculated 298 (280-300); Potassium 3.4 mEq/L (3.5-5.1); Sodium 140 mEq/L (136-145); eGFR For African Americans > 60 (> 60); eGFR For Non-African Americans 55 (> 60)
[2018-01-21 05:20] LABS: Platelet Estimate Normal (Normal)
[2018-01-21] MEDS: methylPREDNISolone 125 MG/2 ML VIAL IVP SCH ×2 (05:29→17:02)
--- NOTE | 2018-01-21 05:46 | Pulmonology Progress Note ---
<Jarred Escamilla - Last Filed: 01/21/18 05:44> Date of Encounter: 01/21/18 Time of Encounter: 05:44 Assessment and Plan (1) Septic shock Current Visit: Yes Status: Resolved Presented 01/18/18 in septic shock with respiratory source suspected. Met 4 SIRS criteria at outside facility with leukocytosis, tachycardia, tachypnea and fever Secondary to multifocal pneumonia. Hypotension refractory to IV fluids requiring vasopressors which have been off since yesterday. Blood cultures negative to date. Legionella negative. Strep pneumo urine antigen positive. Lactic acidosis resolved. Continue Zosyn Day 4 (2) Acute and chronic respiratory failure Current Visit: Yes Status: Acute Presented in acute respiratory failure with hypoxia requiring BiPAP at outside facility. Intubated upon arrival for respiratory failure. Chest x-ray initially demonstrated bilateral infiltrates with concern for empyema versus parapneumonic effusion. CT with evidence of multifocal pneumonia. Extubated 01/20/18 to nasal cannula. On 5 L nasal cannula. Continue Zosyn for strep pneumo. Qualifiers: Respiratory failure complication: hypoxia and hypercapnia Qualified Code(s) : J96.21 - Acute and chronic respiratory failure with hypoxia; J96.22 - Acute and chronic respiratory failure with hypercapnia; J96.22 - Acute and chronic respiratory failure with hypercapnia; J96.22 - Acute and chronic respiratory failure with hypercapnia (3) HCAP (healthcare-associated pneumonia) Current Visit: Yes Status: Acute Recent influenza infection with chest x-ray showing infiltrates and effusion. CT scan with multifocal pneumonia. Continue Zosyn currently on day #4 Continue to follow blood cultures. Negative to date. (4) COPD (chronic obstructive pulmonary disease) Current Visit: No Status: Chronic Continue albuterol treatments. Nasal cannula oxygen supplementation currently on 5 L Continuous pulse oximetry. No wheezing on exam. Transition to oral steroids. Qualifiers: COPD type: unspecified COPD Qualified Code(s): J44.9 - Chronic obstructive pulmonary disease, unspecified (5) Atrial fibrillation with RVR Current Visit: No Status: Resolved Atrial fibrillation with rapid ventricular response up to 160s. Initially secondary to septic shock. Remains in A. fib, Coreg started yesterday. Coumadin resumed for anticoagulation. (6) Supratherapeutic INR Current Visit: No Status: Resolved Presenting INR of 4.8, resolved. Coumadin resumed. (7) Type 2 diabetes mellitus Current Visit: No Status: Chronic Sliding-scale insulin coverage. Qualifiers: Diabetes mellitus termite control representative insulin use: with termite control representative use Diabetes mellitus complication status: with unspecified complications Qualified Code(s) : E11.8 - Type 2 diabetes mellitus with unspecified complications; Z79.4 - penitentiary (current) use of insulin; Z79.4 - long term care administrator (current) use of insulin; Z79.4 - penitentiary (current) use of insulin; Z79.4 - long term care administrator (current) use of insulin (8) CAD (coronary artery disease) Current Visit: No Status: Chronic Qualifiers: Coronary Disease-Associated Artery/Lesion type: [place] artery [place] vs. transplanted heart: [place] heart Associated angina: without angina Qualified Code(s): I25.10 - Atherosclerotic heart disease of [place] coronary artery without angina pectoris (9) Influenza Current Visit: No Status: Acute Reported influenza B-positive on 01/13/18. Repeat respiratory panel ordered. (10) Morbid obesity with BMI of 40.0-44.9, adult Current Visit: No Status: Chronic (11) DVT prophylaxis Current Visit: No Status: Acute Therapeutic on Coumadin (12) Full code status Current Visit: No Status: Acute Subjective Principal diagnosis: Septic Shock Interval history: Patient seen and examined at bedside. Extubated yesterday to nasal cannula without issue. She is currently on 5 L nasal cannula. She voices no new concerns. Objective PUL Vital signs: Last Vital Signs Temp 98.7 F 01/21/18 00:00 Pulse 89 01/21/18 05:00 Resp 20 01/21/18 05:00 BP 147/88 01/21/18 05:00 Pulse Ox 95 01/21/18 05:00 General appearance: no acute distress Eyes: nonicteric ENT: oropharynx moist Neck: supple Effort: mildly labored Auscultation: bilateral: diminished breath sounds Cardiovascular: irregular rhythm Gastrointestinal: soft, non-distended Integumentary: normal Extremities: other (Venous stasis changes to the lower extremities) Musculoskeletal: no deformities normal mental status, non-focal exam mood appropriate Results - Laboratory Findings CBC and BMP: 01/21/18 04:15 01/21/18 04:15 ABG ABG pH 7.47 pH Units (7.32-7.45) H 01/20/18 18:03 ABG pCO2 39 mmHg (35-45) 01/20/18 18:03 ABG pO2 88 mmHg (85-104) 01/20/18 18:03 ABG O2 Saturation 97 % (95-98) 01/20/18 18:03 PT/INR, D-dimer PT 36.1 Seconds (9.4-12.1) H 01/21/18 04:15 Abnormal lab findings: Abnormal lab results WBC 23.1 K/mcL (4.3-11.1) H 01/21/18 04:15 Hgb 10.2 g/dL (11.5-15.4) L 01/21/18 04:15 Hct 33.1 % (35.3-44.9) L 01/21/18 04:15 MCV 81.9 fL (83.0-100.0) L 01/21/18 04:15 MCH 25.2 pg (28.0-33.3) L 01/21/18 04:15 MCHC 30.8 g/dL (31.6-35.5) L 01/21/18 04:15 RDW 16.7 % (11.5-14.5) H 01/21/18 04:15 Myelocytes % 6.0 % (0) H 01/19/18 08:05 Neutrophils # 21.7 K/mcL (1.6-8.9) H 01/21/18 04:15 Nucleated RBCs/100 WBC 0.2 /100 WBC (0) H 01/18/18 03:46 Toxic Granulation Present (Not Present) A 01/19/18 08:05 PT 36.1 Seconds (9.4-12.1) H 01/21/18 04:15 ABG pH 7.47 pH Units (7.32-7.45) H 01/20/18 18:03 ABG HCO3 29 mEq/L (21-27) H 01/20/18 18:03 ABG Total CO2 30 mEq/L (20-26) H 01/20/18 18:03 ABG Base Excess 5 mEq/L (-2 to 3) H 01/20/18 18:03 Potassium 3.4 mEq/L (3.5-5.1) L 01/21/18 04:15 BUN 28 mg/dL (8-23) H 01/21/18 04:15 Est GFR (Non-Af Amer) 55 (> 60) L 01/21/18 04:15 BUN/Creatinine Ratio 29 (6-26) H 01/21/18 04:15 Glucose 152 mg/dL (70-105) H 01/21/18 04:15 POC Glucose 130 mg/dL (70-99) H 01/20/18 20:46 Lactic Acid 3.1 mmol/L (0.5-2.2) H 01/19/18 05:45 Venous Ioniz Calcium 1.08 mmol/L (1.15-1.35) L 01/19/18 14:39 Phosphorus 5.0 mg/dL (2.7-4.5) H 01/18/18 14:00 Serum Total Protein 5.1 g/dL (6.4-8.9) L 01/19/18 04:00 Albumin 2.4 g/dL (3.5-5.7) L 01/19/18 04:00 Albumin/Globulin Ratio 0.9 (1.1-2.2) L 01/19/18 04:00 Vancomycin Trough 12 mcg/mL (5-10) H 01/20/18 04:12 - Microbiology Findings Microbiology Findings: Microbiology, Last 48 Hours 01/18/18 12:55 Urine Culture - Final Urine,[place]ass[place] No significant growth. 01/18/18 04:02 Blood Culture - Preliminary Peripheral Venipuncture No growth. 01/18/18 04:02 Blood Culture - Preliminary Peripheral Venipuncture No growth. - Clinical Findings Intake & Output: Intake & Output 01/20/18 01/20/18 01/21/18 15:59 23:59 07:59 Intake Total 100 / 100 100 / 100 100 / 100 Output Total 575 / 575 250 / 250 100 / 100 Balance -475 / -475 -150 / -150 0 / 0 Consult Discharge Plan - Plan Referrals: NONE,PCP [Primary Care Provider] - <Yandy Plascencia - Last Filed: 01/21/18 09:25> Date of Encounter: 01/21/18 Objective PUL Vital signs: Last Vital Signs Temp 97.7 F 01/21/18 08:00 Pulse 107 01/21/18 08:00 Resp 18 01/21/18 08:00 BP 153/85 01/21/18 08:00 Pulse Ox 97 01/21/18 08:00 Results - Laboratory Findings CBC and BMP: 01/21/18 04:15 01/21/18 04:15 ABG ABG pH 7.47 pH Units (7.32-7.45) H 01/20/18 18:03 ABG pCO2 39 mmHg (35-45) 01/20/18 18:03 ABG pO2 88 mmHg (85-104) 01/20/18 18:03 ABG O2 Saturation 97 % (95-98) 01/20/18 18:03 PT/INR, D-dimer PT 36.1 Seconds (9.4-12.1) H 01/21/18 04:15 Abnormal lab findings: Abnormal lab results WBC 23.1 K/mcL (4.3-11.1) H 01/21/18 04:15 Hgb 10.2 g/dL (11.5-15.4) L 01/21/18 04:15 Hct 33.1 % (35.3-44.9) L 01/21/18 04:15 MCV 81.9 fL (83.0-100.0) L 01/21/18 04:15 MCH 25.2 pg (28.0-33.3) L 01/21/18 04:15 MCHC 30.8 g/dL (31.6-35.5) L 01/21/18 04:15 RDW 16.7 % (11.5-14.5) H 01/21/18 04:15 Myelocytes % 6.0 % (0) H 01/19/18 08:05 Neutrophils # 21.7 K/mcL (1.6-8.9) H 01/21/18 04:15 Nucleated RBCs/100 WBC 0.2 /100 WBC (0) H 01/18/18 03:46 Toxic Granulation Present (Not Present) A 01/19/18 08:05 PT 36.1 Seconds (9.4-12.1) H 01/21/18 04:15 ABG pH 7.47 pH Units (7.32-7.45) H 01/20/18 18:03 ABG HCO3 29 mEq/L (21-27) H 01/20/18 18:03 ABG Total CO2 30 mEq/L (20-26) H 01/20/18 18:03 ABG Base Excess 5 mEq/L (-2 to 3) H 01/20/18 18:03 Potassium 3.4 mEq/L (3.5-5.1) L 01/21/18 04:15 BUN 28 mg/dL (8-23) H 01/21/18 04:15 Est GFR (Non-Af Amer) 55 (> 60) L 01/21/18 04:15 BUN/Creatinine Ratio 29 (6-26) H 01/21/18 04:15 Glucose 152 mg/dL (70-105) H 01/21/18 04:15 POC Glucose 148 mg/dL (70-99) H 01/21/18 07:40 Lactic Acid 3.1 mmol/L (0.5-2.2) H 01/19/18 05:45 Venous Ioniz Calcium 1.08 mmol/L (1.15-1.35) L 01/19/18 14:39 Phosphorus 5.0 mg/dL (2.7-4.5) H 01/18/18 14:00 Serum Total Protein 5.1 g/dL (6.4-8.9) L 01/19/18 04:00 Albumin 2.4 g/dL (3.5-5.7) L 01/19/18 04:00 Albumin/Globulin Ratio 0.9 (1.1-2.2) L 01/19/18 04:00 Vancomycin Trough 12 mcg/mL (5-10) H 01/20/18 04:12 - Microbiology Findings Microbiology Findings: Microbiology, Last 48 Hours 01/18/18 12:55 Urine Culture - Final Urine,[place] No significant growth. 01/18/18 04:02 Blood Culture - Preliminary Peripheral Venipuncture No growth. 01/18/18 04:02 Blood Culture - Preliminary Peripheral Venipuncture No growth. - Clinical Findings Intake & Output: Intake & Output 01/20/18 01/21/18 01/21/18 23:59 07:59 15:59 Intake Total 100 / 100 950 / 950 Output Total 250 / 250 225 / 225 50 / 50 Balance -150 / -150 725 / 725 -50 / -50 Weight 120 kg - Attending Attestation I examined this patient and my medical decision-making was reviewed with the Resident Physician. I agree with the documented findings, disposition and treatment plan as described except to the extent set forth below. Patient seen and examined. Labs, radiology, chart personally reviewed. Agree with resident's history and physical, assessment, plan with following comments: FIELD SUPPORT REP: Patient follows commands, Pulmonary: Acceptable oxygenation and ventilation and patient stable to be transferred to the floor. Cardiovascular: stable GI: Nutrition per dietary and GI prophylaxis per routine Heme: DVT prophylaxis per routine ID: Continue antibiotics and plan to de-escalation Renal; urine out put and renal funtion reviewed Endorcine: blood glucose is monitored Lines: all lines checked and no evidence of infections Skin: skin care to prevent pressure ulcers per nursing routine care
[2018-01-21] MEDS: Potassium Chloride 40 MEQ/200 ML BAG IVPB PRN ×2 (05:49→06:40)
[2018-01-21] MEDS: Insulin LISPRO 300 UNITS/3 ML VIAL SQ SCH ×4 (07:42→21:08)
[2018-01-21] MEDS: Pantoprazole 40 MG VIAL IVP SCH ×2 (07:44→09:57)
[2018-01-21] MEDS: Chlorhexidine Rinse 15 ML MOUTHWASH MM SCH ×3 (07:44→21:13)
[2018-01-21] MEDS: Budesonide/Formoterol 160/4.5 MDI IH SCH ×3 (07:49→20:09)
[2018-01-21] MEDS ORDERED: *HR* OxyCODONE/APAP 5/325 TABLET PO PRN (08:25)
[2018-01-21] MEDS ORDERED: Dextrose Gel 15 GM/37.5 ML TUBE PO PRN ×2 (08:25)
[2018-01-21] MEDS ORDERED: Albuterol 2.5 MG/3 ML NEBULIZER IH PRN (08:25)
[2018-01-21] MEDS ORDERED: GuaiFENesin Liq 200 MG/10 ML UDC PO PRN (08:25)
[2018-01-21] MEDS ORDERED: D5% in Water 1,000 ML IVC PRN (08:25)
[2018-01-21] MEDS ORDERED: *HR* Dextrose 50 % in Water (Syg) 50 ML SYRINGE IVP PRN (08:25)
[2018-01-21] MEDS ORDERED: Warfarin perPT PO PRN (08:25)
[2018-01-21] MEDS ORDERED: Potassium Chloride 40 MEQ/200 ML BAG IVPB PRN (08:25)
[2018-01-21] MEDS ORDERED: Furosemide 40 MG TABLET PO PRN (08:25)
[2018-01-21] MEDS: *HR* LORazepam 0.5 MG TABLET PO PRN ×2 (10:09→21:13)
[2018-01-21 14:56] LABS: ABG Base Excess 1 mEq/L (-2 to 3); ABG HCO3 27 mEq/L (21-27); ABG Oxygen Saturation 93 % (95-98); ABG PCO2 44 mmHg (35-45); ABG PH 7.39 pH Units (7.32-7.45); ABG PO2 68 mmHg (85-104); ABG TCO2 28 mEq/L (20-26)
--- NOTE | 2018-01-21 15:05 | Event Note ---
Date of Encounter: 01/21/18 Time of Encounter: 15:02 Called to see patient urgently by RN for concerns of respiratory distress. She was just moved out of ICU today. I ordered STAT ABG, CXR, EKG, aerosols, and BIPAP. On exam, patient is pursed lip breathing, abdominla breathing, and exhibiting some peripheral cyanosis. She is in severe distress. I asked ICU resident to come reassess patient as I have never seen her before. Per ICU resident, she is much worse now than this morning. I therefore contacted bed management and ICU charge nurse, requesting patient be transferred back to ICU. ICU team to resume care of patient.
[2018-01-21] MEDS ORDERED: Piperacillin/Tazobactam 3.375 GM in 0.9 % Sodium Chloride Mini Bag 100 ML IVPB SCH (16:00)
--- NOTE | 2018-01-21 16:41 | Event Note ---
<Solis Dejesus - Last Filed: 01/21/18 16:41> Date of Encounter: 01/21/18 Time of Encounter: 16:38 Patient had been transferred out of ICU to this morning to [facility]. Patient developed increasing respiratory distress after being moved out of the ICU. Was in severe distress. Patient's respiratory status improved after being placed on BiPAP. After returning to the ICU in bed 10, she was reassessed. Satting well on BiPAP at 97%. Plan is to place patient on high flow oxygen. Patient is in mild distress on reevaluation. <Yandy Plascencia - Last Filed: 01/21/18 18:21> Date of Encounter: 01/21/18 I examined this patient and my medical decision-making was reviewed with the Resident Physician. I agree with the documented findings, disposition and treatment plan as described except to the extent set forth below. Patient was transferred to ICU and tolerating noninvasive ventilation and we will transition her to high flow oxygen.
--- NOTE | 2018-01-22 03:49 | Pulmonology Progress Note ---
<Jarred Escamilla - Last Filed: 01/22/18 06:13> Date of Encounter: 01/22/18 Time of Encounter: 04:30 Assessment and Plan (1) Septic shock Current Visit: Yes Status: Resolved Presented 01/18/18 in septic shock with respiratory source suspected. Met 4 SIRS criteria at outside facility with leukocytosis, tachycardia, tachypnea and fever Secondary to multifocal pneumonia. Hypotension refractory to IV fluids requiring vasopressors which are no longer required. Blood cultures negative to date. Continue Zosyn Day 4 (2) Acute and chronic respiratory failure Current Visit: Yes Status: Acute Presented in acute respiratory failure with hypoxia requiring BiPAP at outside facility. Intubated upon arrival for respiratory failure. Chest x-ray initially demonstrated bilateral infiltrates with concern for empyema versus parapneumonic effusion. CT with evidence of multifocal pneumonia. Extubated 01/20/18 to nasal cannula. Brought back to intensive care unit on 01/21/18 due to respiratory failure. On BiPAP overnight. Nasal cannula during the day as needed. Lasix 40mg x1 today Continue Zosyn for pneumonia. Qualifiers: Respiratory failure complication: hypoxia and hypercapnia Qualified Code(s) : J96.21 - Acute and chronic respiratory failure with hypoxia; J96.22 - Acute and chronic respiratory failure with hypercapnia; J96.22 - Acute and chronic respiratory failure with hypercapnia; J96.22 - Acute and chronic respiratory failure with hypercapnia (3) HCAP (healthcare-associated pneumonia) Current Visit: Yes Status: Acute Recent influenza infection with chest x-ray showing infiltrates and effusion. CT scan with multifocal pneumonia. Continue Zosyn currently on day #5 Continue to follow blood cultures. Negative to date. (4) COPD (chronic obstructive pulmonary disease) Current Visit: No Status: Chronic Continue albuterol treatments. Nasal cannula oxygen supplementation Continuous pulse oximetry. No wheezing on exam. Solu-Medrol Qualifiers: COPD type: unspecified COPD Qualified Code(s): J44.9 - Chronic obstructive pulmonary disease, unspecified (5) Atrial fibrillation with RVR Current Visit: No Status: Resolved Atrial fibrillation with rapid ventricular response up to 160s. Initially secondary to septic shock. Remains in A. fib, Coreg started Coumadin resumed for anticoagulation. (6) Supratherapeutic INR Current Visit: No Status: Acute INR 4.7 Pharmacy to dose coumadin (7) Type 2 diabetes mellitus Current Visit: No Status: Chronic Sliding-scale insulin coverage. 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 transplanted heart: [place] heart Associated angina: without angina Qualified Code(s): I25.10 - Atherosclerotic heart disease of [place] coronary artery without angina pectoris (9) Influenza Current Visit: No Status: Resolved Reported influenza B-positive on 01/13/18. Repeat respiratory panel ordered. (10) Morbid obesity with BMI of 40.0-44.9, adult Current Visit: No Status: Chronic (11) DVT prophylaxis Current Visit: No Status: Acute Therapeutic on Coumadin (12) Full code status Current Visit: No Status: Acute Subjective Principal diagnosis: Septic Shock Interval history: Patient was transferred back to the intensive care unit yesterday afternoon for respiratory distress on the floor. She remained on BiPAP overnight without any issue. Currently off BiPAP this morning. INR 4.7. Vocalizes no complaints. Objective PUL Vital signs: Last Vital Signs Temp 96.4 F L 01/22/18 00:37 Pulse 111 01/22/18 02:00 Resp 14 01/22/18 02:00 BP 140/83 01/22/18 02:00 Pulse Ox 93 01/22/18 02:00 General appearance: no acute distress Eyes: nonicteric ENT: oropharynx dry Neck: supple Effort: mildly labored Auscultation: bilateral: diminished breath sounds Cardiovascular: irregular rhythm Gastrointestinal: soft, non-tender, non-distended Integumentary: other (Venous stasis changes to the lower extremities.) Extremities: no cyanosis, no edema, other (Venous stasis changes to the lower extremities.) Musculoskeletal: no deformities normal mental status Results - Laboratory Findings CBC and BMP: 01/22/18 04:14 01/22/18 04:14 ABG ABG pH 7.39 pH Units (7.32-7.45) 01/21/18 14:54 ABG pCO2 44 mmHg (35-45) 01/21/18 14:54 ABG pO2 68 mmHg (85-104) L 01/21/18 14:54 ABG O2 Saturation 93 % (95-98) L 01/21/18 14:54 PT/INR, D-dimer PT 36.1 Seconds (9.4-12.1) H 01/21/18 04:15 Abnormal lab findings: Abnormal lab results WBC 23.1 K/mcL (4.3-11.1) H 01/21/18 04:15 Hgb 10.2 g/dL (11.5-15.4) L 01/21/18 04:15 Hct 33.1 % (35.3-44.9) L 01/21/18 04:15 MCV 81.9 fL (83.0-100.0) L 01/21/18 04:15 MCH 25.2 pg (28.0-33.3) L 01/21/18 04:15 MCHC 30.8 g/dL (31.6-35.5) L 01/21/18 04:15 RDW 16.7 % (11.5-14.5) H 01/21/18 04:15 Myelocytes % 6.0 % (0) H 01/19/18 08:05 Neutrophils # 21.7 K/mcL (1.6-8.9) H 01/21/18 04:15 Nucleated RBCs/100 WBC 0.2 /100 WBC (0) H 01/18/18 03:46 Toxic Granulation Present (Not Present) A 01/19/18 08:05 PT 36.1 Seconds (9.4-12.1) H 01/21/18 04:15 ABG pO2 68 mmHg (85-104) L 01/21/18 14:54 ABG Total CO2 28 mEq/L (20-26) H 01/21/18 14:54 ABG O2 Saturation 93 % (95-98) L 01/21/18 14:54 Potassium 3.4 mEq/L (3.5-5.1) L 01/21/18 04:15 BUN 28 mg/dL (8-23) H 01/21/18 04:15 Est GFR (Non-Af Amer) 55 (> 60) L 01/21/18 04:15 BUN/Creatinine Ratio 29 (6-26) H 01/21/18 04:15 Glucose 152 mg/dL (70-105) H 01/21/18 04:15 POC Glucose 134 mg/dL (70-99) H 01/22/18 00:40 Lactic Acid 3.1 mmol/L (0.5-2.2) H 01/19/18 05:45 Venous Ioniz Calcium 1.08 mmol/L (1.15-1.35) L 01/19/18 14:39 Phosphorus 5.0 mg/dL (2.7-4.5) H 01/18/18 14:00 Serum Total Protein 5.1 g/dL (6.4-8.9) L 01/19/18 04:00 Albumin 2.4 g/dL (3.5-5.7) L 01/19/18 04:00 Albumin/Globulin Ratio 0.9 (1.1-2.2) L 01/19/18 04:00 Vancomycin Trough 12 mcg/mL (5-10) H 01/20/18 04:12 - Clinical Findings Intake & Output: Intake & Output 01/21/18 01/21/18 01/22/18 15:59 23:59 07:59 Output Total 50 / 50 260 / 260 150 / 150 Balance -50 / -50 -260 / -260 -150 / -150 Weight 117.3 kg Consult Discharge Plan - Plan Referrals: NONE,PCP [Primary Care Provider] - <Yandy Plascencia - Last Filed: 01/22/18 08:10> Date of Encounter: 01/22/18 Objective PUL Vital signs: Last Vital Signs Temp 97.1 F L 01/22/18 07:37 Pulse 98 01/22/18 06:00 Resp 22 01/22/18 07:52 BP 157/98 01/22/18 06:00 Pulse Ox 94 01/22/18 07:52 Results - Laboratory Findings CBC and BMP: 01/22/18 04:14 01/22/18 04:14 ABG ABG pH 7.39 pH Units (7.32-7.45) 01/21/18 14:54 ABG pCO2 44 mmHg (35-45) 01/21/18 14:54 ABG pO2 68 mmHg (85-104) L 01/21/18 14:54 ABG O2 Saturation 93 % (95-98) L 01/21/18 14:54 PT/INR, D-dimer PT 52.7 Seconds (9.4-12.1) H* 01/22/18 04:14 Abnormal lab findings: Abnormal lab results WBC 27.5 K/mcL (4.3-11.1) H 01/22/18 04:14 Hgb 11.3 g/dL (11.5-15.4) L 01/22/18 04:14 MCV 80.6 fL (83.0-100.0) L 01/22/18 04:14 MCH 24.1 pg (28.0-33.3) L 01/22/18 04:14 MCHC 30.0 g/dL (31.6-35.5) L 01/22/18 04:14 RDW 17.1 % (11.5-14.5) H 01/22/18 04:14 Myelocytes % 6.0 % (0) H 01/19/18 08:05 Neutrophils # 25.1 K/mcL (1.6-8.9) H 01/22/18 04:14 Nucleated RBCs/100 WBC 0.2 /100 WBC (0) H 01/18/18 03:46 Toxic Granulation Present (Not Present) A 01/19/18 08:05 Hypochromasia Present (Not Present) A 01/22/18 04:14 PT 52.7 Seconds (9.4-12.1) H* 01/22/18 04:14 INR 4.7 H* 01/22/18 04:14 ABG pO2 68 mmHg (85-104) L 01/21/18 14:54 ABG Total CO2 28 mEq/L (20-26) H 01/21/18 14:54 ABG O2 Saturation 93 % (95-98) L 01/21/18 14:54 Chloride 109 mEq/L (98-107) H 01/22/18 04:14 BUN 38 mg/dL (8-23) H 01/22/18 04:14 Est GFR (Non-Af Amer) 50 (> 60) L 01/22/18 04:14 BUN/Creatinine Ratio 36 (6-26) H 01/22/18 04:14 Glucose 164 mg/dL (70-105) H 01/22/18 04:14 POC Glucose 168 mg/dL (70-99) H 01/22/18 07:08 Calculated Osmolality 307 (280-300) H 01/22/18 04:14 Lactic Acid 3.1 mmol/L (0.5-2.2) H 01/19/18 05:45 Venous Ioniz Calcium 1.08 mmol/L (1.15-1.35) L 01/19/18 14:39 Phosphorus 5.0 mg/dL (2.7-4.5) H 01/18/18 14:00 Serum Total Protein 5.1 g/dL (6.4-8.9) L 01/19/18 04:00 Albumin 2.4 g/dL (3.5-5.7) L 01/19/18 04:00 Albumin/Globulin Ratio 0.9 (1.1-2.2) L 01/19/18 04:00 Vancomycin Trough 12 mcg/mL (5-10) H 01/20/18 04:12 - Clinical Findings Intake & Output: Intake & Output 01/21/18 01/22/18 01/22/18 23:59 07:59 15:59 Output Total 260 / 260 260 / 260 Balance -260 / -260 -260 / -260 Weight 117.3 kg - Attending Attestation I examined this patient and my medical decision-making was reviewed with the Resident Physician. I agree with the documented findings, disposition and treatment plan as described except to the extent set forth below. Patient seen and examined. Labs, radiology, chart personally reviewed. 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 Encourage incentive spirometry and diuresis as tolerated Cardiovascular: stable GI: Nutrition per dietary and GI prophylaxis per routine Heme: DVT prophylaxis per routine. Coagulopathy and pharmacy to dose warfarin ID: Continue antibiotics and plan to de-escalation Renal; urine out put and renal funtion reviewed Endorcine: blood glucose is monitored Lines: all lines checked and no evidence of infections Skin: skin care to prevent pressure ulcers per nursing routine care
[2018-01-22 04:35] LABS: Monocytes % 2.1 %
[2018-01-22 04:36] LABS: Basophils # 0.1 K/mcL (0.0-0.2); Basophils % 0.2 %; Hematocrit 37.7 % (35.3-44.9); Hemoglobin 11.3 g/dL (11.5-15.4); Immature Granulocytes % 1.2 % (0-4); Lymphocytes # 1.5 K/mcL (0.6-4.6); Lymphocytes % 5.4 %; Mean Corpuscular Hemoglobin 24.1 pg (28.0-33.3); Mean Corpuscular Volume 80.6 fL (83.0-100.0); Mean Platelet Volume 10.8 fL (9.4-12.4); Monocytes # 0.6 K/mcL (0.0-1.3); Neutrophils # 25.1 K/mcL (1.6-8.9); Platelet Count 393 K/mcL (140-400); Red Blood Count 4.68 M/mcL (3.82-4.97); Red Cell Distribution Width 17.1 % (11.5-14.5); Segmented Neutrophils % 91.1 %
[2018-01-22] MEDS ORDERED: *HR* LORazepam 2 MG/ML VIAL IVP ONE (04:39)
[2018-01-22 04:46] LABS: INR 4.7; Prothrombin Time 52.7 Seconds (9.4-12.1)
[2018-01-22 04:51] LABS: BUN/Creatinine Ratio 36 (6-26); Blood Urea Nitrogen 38 mg/dL (8-23); Calcium 9.1 mg/dL (8.6-10.3); Carbon Dioxide 25 mEq/L (23-29); Chloride 109 mEq/L (98-107); Glucose 164 mg/dL (70-105); Osmolality,Calculated 307 (280-300); Potassium 4.1 mEq/L (3.5-5.1); Sodium 142 mEq/L (136-145); eGFR For African Americans > 60 (> 60); eGFR For Non-African Americans 50 (> 60)
[2018-01-22 05:09] LABS: Hypochromasia Present (Not Present); Platelet Estimate Normal (Normal)
[2018-01-22] MEDS: methylPREDNISolone 125 MG/2 ML VIAL IVP SCH ×2 (05:10→18:18)
[2018-01-22] MEDS: *HR* Metoprolol 5 MG/5 ML VIAL IVP PRN ×2 (05:19→20:59)
[2018-01-22] MEDS ORDERED: Furosemide 40 MG/4 ML VIAL IVP ONE (06:13)
[2018-01-22] MEDS: Budesonide/Formoterol 160/4.5 MDI IH SCH ×2 (07:51→20:10)
[2018-01-22] MEDS: Insulin LISPRO 300 UNITS/3 ML VIAL SQ SCH ×4 (08:17→20:47)
[2018-01-22] MEDS: Chlorhexidine Rinse 15 ML MOUTHWASH MM SCH ×2 (08:34→20:55)
[2018-01-22] MEDS: Pantoprazole 40 MG VIAL IVP SCH (08:34)
[2018-01-22] MEDS: cefTRIAXone 1,000 MG in Water for inj. (sterile) 20 ML 10 ML IVP SCH (08:35)
[2018-01-22] MEDS: Ipratropium/Albuterol Neb 3 ML IH SCH ×3 (11:50→20:10)
[2018-01-22] MEDS: *HR* LORazepam 0.5 MG TABLET PO PRN (20:53)
[2018-01-23] MEDS: Ipratropium/Albuterol Neb 3 ML IH SCH ×7 (00:02→23:38)
--- NOTE | 2018-01-23 02:59 | Pulmonology Progress Note ---
<Jarred Escamilla - Last Filed: 01/23/18 07:26> Date of Encounter: 01/23/18 Time of Encounter: 02:57 Assessment and Plan (1) Acute and chronic respiratory failure Current Visit: Yes Status: Acute Presented in acute respiratory failure with hypoxia requiring BiPAP at outside facility. Intubated upon arrival for respiratory failure. Chest x-ray initially demonstrated bilateral infiltrates with concern for empyema versus parapneumonic effusion. CT with evidence of multifocal pneumonia. Extubated 01/20/18 to nasal cannula. Brought back to intensive care unit on 01/21/18 due to respiratory failure. Add precedex for anxiety with Bipap Lasix 40 mg today Scheduled beta agonist. Continue Rocephin for strep pneumo pneumonia. Qualifiers: Respiratory failure complication: hypoxia and hypercapnia Qualified Code(s) : J96.21 - Acute and chronic respiratory failure with hypoxia; J96.22 - Acute and chronic respiratory failure with hypercapnia; J96.22 - Acute and chronic respiratory failure with hypercapnia; J96.22 - Acute and chronic respiratory failure with hypercapnia (2) HCAP (healthcare-associated pneumonia) Current Visit: Yes Status: Acute Recent influenza infection with chest x-ray showing infiltrates and effusion. CT scan with multifocal pneumonia. Strep pneumo positive. Transitioned from Zosyn to ceftriaxone. Blood culture no growth. (3) COPD (chronic obstructive pulmonary disease) Current Visit: No Status: Chronic Continue albuterol treatments. Nasal cannula oxygen supplementation Continuous pulse oximetry. Bronchodilators Bipap PRN Solu-Medrol Qualifiers: COPD type: unspecified COPD Qualified Code(s): J44.9 - Chronic obstructive pulmonary disease, unspecified (4) Atrial fibrillation with RVR Current Visit: No Status: Resolved Atrial fibrillation with rapid ventricular response up to 160s. Initially secondary to septic shock. Remains in A. fib, on Coreg. Anticoagulated with coumadin (5) Septic shock Current Visit: Yes Status: Resolved Resolved. Presented 01/18/18 in septic shock with respiratory source suspected. Met 4 SIRS criteria at outside facility with leukocytosis, tachycardia, tachypnea and fever Secondary to multifocal pneumonia. Hypotension refractory to IV fluids requiring vasopressors which are no longer required. Blood cultures negative to date. Continued on Zosyn. (6) Supratherapeutic INR Current Visit: No Status: Acute INR 6.7 (4.7) Hold Coumadin (7) Type 2 diabetes mellitus Current Visit: No Status: Chronic Sliding-scale insulin coverage. 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 transplanted heart: [place] heart Associated angina: without angina Qualified Code(s): I25.10 - Atherosclerotic heart disease of [place] coronary artery without angina pectoris (9) Influenza Current Visit: No Status: Resolved Reported influenza B-positive on 01/13/18. Repeat respiratory panel ordered. (10) Morbid obesity with BMI of 40.0-44.9, adult Current Visit: No Status: Chronic (11) DVT prophylaxis Current Visit: No Status: Acute Therapeutic on Coumadin (12) Full code status Current Visit: No Status: Acute Subjective Principal diagnosis: Septic Shock Interval history: No acute events overnight. She was intermittently agitated and was refusing BiPAP. Remains stable throughout the night. Objective PUL Vital signs: Last Vital Signs Temp 96.2 F L 01/23/18 00:31 Pulse 120 01/22/18 23:00 Resp 22 01/23/18 00:04 BP 145/92 01/22/18 23:00 Pulse Ox 93 01/23/18 00:04 General appearance: other (Mildly labored breathing.) Eyes: nonicteric ENT: oropharynx dry Effort: mildly labored Auscultation: bilateral: diminished breath sounds, rhonchi Cardiovascular: irregular rhythm Gastrointestinal: soft, non-tender, non-distended Integumentary: normal Extremities: no cyanosis, other (Bilateral lower extremity venous stasis changes ) Musculoskeletal: no deformities other (Answers questions appropriately. Moves all extremities equally. Alert.) Results - Laboratory Findings CBC and BMP: 01/23/18 04:00 01/23/18 04:00 ABG ABG pH 7.39 pH Units (7.32-7.45) 04/24/18 14:54 ABG pCO2 44 mmHg (35-45) 01/21/18 14:54 ABG pO2 68 mmHg (85-104) L 01/21/18 14:54 ABG O2 Saturation 93 % (95-98) L 01/21/18 14:54 PT/INR, D-dimer PT 52.7 Seconds (9.4-12.1) H* 01/22/18 04:14 Abnormal lab findings: Abnormal lab results WBC 27.5 K/mcL (4.3-11.1) H 01/22/18 04:14 Hgb 11.3 g/dL (11.5-15.4) L 01/22/18 04:14 MCV 80.6 fL (83.0-100.0) L 01/22/18 04:14 MCH 24.1 pg (28.0-33.3) L 01/22/18 04:14 MCHC 30.0 g/dL (31.6-35.5) L 01/22/18 04:14 RDW 17.1 % (11.5-14.5) H 01/22/18 04:14 Myelocytes % 6.0 % (0) H 01/19/18 08:05 Neutrophils # 25.1 K/mcL (1.6-8.9) H 01/22/18 04:14 Nucleated RBCs/100 WBC 0.2 /100 WBC (0) H 01/18/18 03:46 Toxic Granulation Present (Not Present) A 01/19/18 08:05 Hypochromasia Present (Not Present) A 01/22/18 04:14 PT 52.7 Seconds (9.4-12.1) H* 01/22/18 04:14 INR 4.7 H* 01/22/18 04:14 ABG pO2 68 mmHg (85-104) L 01/21/18 14:54 ABG Total CO2 28 mEq/L (20-26) H 01/21/18 14:54 ABG O2 Saturation 93 % (95-98) L 01/21/18 14:54 Chloride 109 mEq/L (98-107) H 01/22/18 04:14 BUN 38 mg/dL (8-23) H 01/22/18 04:14 Est GFR (Non-Af Amer) 50 (> 60) L 01/22/18 04:14 BUN/Creatinine Ratio 36 (6-26) H 01/22/18 04:14 Glucose 164 mg/dL (70-105) H 01/22/18 04:14 POC Glucose 181 mg/dL (70-99) H 01/22/18 19:14 Calculated Osmolality 307 (280-300) H 01/22/18 04:14 Lactic Acid 3.1 mmol/L (0.5-2.2) H 01/19/18 05:45 Venous Ioniz Calcium 1.08 mmol/L (1.15-1.35) L 01/19/18 14:39 Phosphorus 5.0 mg/dL (2.7-4.5) H 01/18/18 14:00 Serum Total Protein 5.1 g/dL (6.4-8.9) L 01/19/18 04:00 Albumin 2.4 g/dL (3.5-5.7) L 01/19/18 04:00 Albumin/Globulin Ratio 0.9 (1.1-2.2) L 01/19/18 04:00 Vancomycin Trough 12 mcg/mL (5-10) H 01/20/18 04:12 - Clinical Findings Intake & Output: Intake & Output 01/22/18 01/22/18 01/23/18 15:59 23:59 07:59 Intake Total 10 / 10 240 / 240 Output Total 450 / 450 160 / 160 70 / 70 Balance -440 / -440 80 / 80 -70 / -70 Weight 115.1 kg Consult Discharge Plan - Plan Referrals: NONE,PCP [Primary Care Provider] - <Yandy Plascencia - Last Filed: 01/23/18 08:04> Date of Encounter: 01/23/18 Objective PUL Vital signs: Last Vital Signs Temp 96.8 F L 01/23/18 03:42 Pulse 116 01/23/18 06:00 Resp 25 01/23/18 06:00 BP 125/90 01/23/18 06:00 Pulse Ox 93 01/23/18 06:00 Results - Laboratory Findings CBC and BMP: 01/23/18 04:00 01/23/18 04:00 ABG ABG pH 7.39 pH Units (7.32-7.45) 01/21/18 14:54 ABG pCO2 44 mmHg (35-45) 01/21/18 14:54 ABG pO2 68 mmHg (85-104) L 01/21/18 14:54 ABG O2 Saturation 93 % (95-98) L 01/21/18 14:54 PT/INR, D-dimer PT 75.0 Seconds (9.4-12.1) H* 01/23/18 04:00 Abnormal lab findings: Abnormal lab results WBC 22.1 K/mcL (4.3-11.1) H 01/23/18 04:00 Hgb 11.2 g/dL (11.5-15.4) L 01/23/18 04:00 MCV 82.1 fL (83.0-100.0) L 01/23/18 04:00 MCH 24.7 pg (28.0-33.3) L 01/23/18 04:00 MCHC 30.1 g/dL (31.6-35.5) L 01/23/18 04:00 RDW 17.3 % (11.5-14.5) H 01/23/18 04:00 Plt Count 409 K/mcL (140-400) H 01/23/18 04:00 Myelocytes % 6.0 % (0) H 01/19/18 08:05 Neutrophils # 19.3 K/mcL (1.6-8.9) H 01/23/18 04:00 Nucleated RBCs/100 WBC 0.2 /100 WBC (0) H 01/18/18 03:46 Toxic Granulation Present (Not Present) A 01/19/18 08:05 Hypochromasia Present (Not Present) A 01/22/18 04:14 PT 75.0 Seconds (9.4-12.1) H* 01/23/18 04:00 INR 6.7 H* 01/23/18 04:00 ABG pO2 68 mmHg (85-104) L 01/21/18 14:54 ABG Total CO2 28 mEq/L (20-26) H 01/21/18 14:54 ABG O2 Saturation 93 % (95-98) L 01/21/18 14:54 Chloride 108 mEq/L (98-107) H 01/23/18 04:00 BUN 50 mg/dL (8-23) H 01/23/18 04:00 Est GFR ( Amer) 52 (> 60) L 01/23/18 04:00 Est GFR (Non-Af Amer) 43 (> 60) L 01/23/18 04:00 BUN/Creatinine Ratio 42 (6-26) H 01/23/18 04:00 Glucose 195 mg/dL (70-105) H 01/23/18 04:00 POC Glucose 181 mg/dL (70-99) H 01/22/18 19:14 Calculated Osmolality 317 (280-300) H 01/23/18 04:00 Lactic Acid 3.1 mmol/L (0.5-2.2) H 01/19/18 05:45 Venous Ioniz Calcium 1.08 mmol/L (1.15-1.35) L 01/19/18 14:39 Phosphorus 5.0 mg/dL (2.7-4.5) H 01/18/18 14:00 Serum Total Protein 5.1 g/dL (6.4-8.9) L 01/19/18 04:00 Albumin 2.4 g/dL (3.5-5.7) L 01/19/18 04:00 Albumin/Globulin Ratio 0.9 (1.1-2.2) L 01/19/18 04:00 Vancomycin Trough 12 mcg/mL (5-10) H 01/20/18 04:12 - Clinical Findings Intake & Output: Intake & Output 01/22/18 01/23/18 01/23/18 23:59 07:59 15:59 Intake Total 240 / 240 60 / 60 Output Total 160 / 160 130 / 130 Balance 80 / 80 -70 / -70 Weight 115.1 kg - Attending Attestation I examined this patient and my medical decision-making was reviewed with the Resident Physician. I agree with the documented findings, disposition and treatment plan as described except to the extent set forth below. Patient seen and examined. Labs, radiology, chart personally reviewed. 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 Pulmonary: Reviewed chest x-ray and I am concerned about her respiratory status with her comorbidities and also morbid obesity. She is at risk for invasive mechanical intubation. We will wait for the family to discuss plan of care Cardiovascular: stable GI: Nutrition per dietary and GI prophylaxis per routine Heme: DVT prophylaxis per routine area to coagulopathy and pharmacy following up regarding her Coumadin dose. ID: Continue antibiotics and plan to de-escalation Renal; urine out put and renal funtion reviewed. Attempted diuresis. Endorcine: blood glucose is monitored Lines: all lines checked and no evidence of infections Skin: skin care to prevent pressure ulcers per nursing routine care
[2018-01-23] MEDS: *HR* Metoprolol 5 MG/5 ML VIAL IVP PRN (03:46)
[2018-01-23 04:30] LABS: Basophils # 0.1 K/mcL (0.0-0.2); Basophils % 0.3 %; Hematocrit 37.2 % (35.3-44.9); Hemoglobin 11.2 g/dL (11.5-15.4); Immature Granulocytes % 2.2 % (0-4); Lymphocytes # 1.5 K/mcL (0.6-4.6); Lymphocytes % 6.7 %; Mean Corpuscular HGB Conc 30.1 g/dL (31.6-35.5); Mean Corpuscular Hemoglobin 24.7 pg (28.0-33.3); Mean Corpuscular Volume 82.1 fL (83.0-100.0); Mean Platelet Volume 10.4 fL (9.4-12.4); Monocytes # 0.8 K/mcL (0.0-1.3); Monocytes % 3.4 %; Neutrophils # 19.3 K/mcL (1.6-8.9); Platelet Count 409 K/mcL (140-400); Red Blood Count 4.53 M/mcL (3.82-4.97); Red Cell Distribution Width 17.3 % (11.5-14.5); Segmented Neutrophils % 87.4 %
[2018-01-23 04:41] LABS: INR 6.7
[2018-01-23 04:48] LABS: Calcium 9.2 mg/dL (8.6-10.3); Potassium 3.9 mEq/L (3.5-5.1)
[2018-01-23] MEDS ORDERED: Furosemide 40 MG/4 ML VIAL IVP ONE (06:05)
[2018-01-23] MEDS: methylPREDNISolone 125 MG/2 ML VIAL IVP SCH (06:16)
[2018-01-23] MEDS: Budesonide/Formoterol 160/4.5 MDI IH SCH ×2 (07:51→19:53)
[2018-01-23] MEDS ORDERED: Dexmedetomidine HCl 400 MCG/100 ML MLS IVC ONE (08:34)
[2018-01-23] MEDS: Insulin LISPRO 300 UNITS/3 ML VIAL SQ SCH ×4 (08:36→20:44)
[2018-01-23] MEDS: Chlorhexidine Rinse 15 ML MOUTHWASH MM SCH ×2 (08:37→20:46)
[2018-01-23] MEDS: cefTRIAXone 1,000 MG in Water for inj. (sterile) 20 ML 10 ML IVP SCH (08:37)
[2018-01-23] MEDS: Dexmedetomidine HCl 400 MCG/100 ML MLS IVC SCH ×2 (08:39→13:00)
[2018-01-23 09:43] LABS: Magnesium 2.4 mg/dL (1.6-2.6)
[2018-01-23] MEDS ORDERED: *HR* LORazepam 2 MG/ML VIAL IVP PRN (10:38)
[2018-01-23 10:49] LABS: Albumin/Globulin Ratio 0.9 (1.1-2.2); Bilirubin,Direct 0.4 mg/dL (0.0-0.2); Bilirubin,Indirect 0.4 mg/dL (0.0-1.2); Bilirubin,Total 0.8 mg/dL (0.3-1.0); Globulin 3.2 g/dL (2.4-3.5); Total Protein 6.2 g/dL (6.4-8.9)
[2018-01-23] MEDS ORDERED: *HR* Phytonadione 10 MG/ML AMPUL SQ ONE (11:05)
[2018-01-23] MEDS ORDERED: Furosemide 20 MG/2 ML VIAL IVP ONE (16:13)
[2018-01-23] MEDS: Mirtazapine 15 MG TABLET PO SCH (20:46)
[2018-01-24] MEDS: Ipratropium/Albuterol Neb 3 ML IH SCH ×6 (03:41→23:18)
[2018-01-24 05:13] LABS: Basophils % 0.2 %; Hematocrit 37.9 % (35.3-44.9); Hemoglobin 11.5 g/dL (11.5-15.4); Immature Granulocytes % 5.2 % (0-4); Lymphocytes # 1.3 K/mcL (0.6-4.6); Lymphocytes % 7.1 %; Mean Corpuscular HGB Conc 30.3 g/dL (31.6-35.5); Mean Corpuscular Hemoglobin 24.5 pg (28.0-33.3); Mean Corpuscular Volume 80.6 fL (83.0-100.0); Mean Platelet Volume 10.4 fL (9.4-12.4); Monocytes # 1.1 K/mcL (0.0-1.3); Monocytes % 6.4 %; Neutrophils # 14.4 K/mcL (1.6-8.9); Nucleated Red Blood Cells 0.2 /100 WBC (0); Platelet Count 371 K/mcL (140-400); Red Cell Distribution Width 17.4 % (11.5-14.5); Segmented Neutrophils % 81.1 %
[2018-01-24 05:34] LABS: Potassium 3.2 mEq/L (3.5-5.1)
[2018-01-24 06:06] LABS: Anisocytosis 1+ (Not Present); Hypochromasia Present (Not Present); Microcytosis Present (Not Present); Platelet Estimate Normal (Normal); Poikilocytosis 1+ (Not Present); Spherocytes 1+ (Not Present)
[2018-01-24] MEDS: Budesonide/Formoterol 160/4.5 MDI IH SCH ×2 (08:10→20:04)
--- NOTE | 2018-01-24 08:23 | Pulmonology Progress Note ---
Date of Encounter: 01/24/18 Time of Encounter: 07:20 Assessment and Plan (1) Acute and chronic respiratory failure Current Visit: Yes Status: Acute Patient is tolerating noninvasive ventilation better and we will attempt diuresis as much as possible. Wean off FiO2 as well and encourage incentive spirometry. We will continue monitoring can ICU due to patient's pulmonary status. Replace electrolytes. Continue current antibiotics for now. If possible physical therapy. Overall prognosis is poor Qualifiers: Respiratory failure complication: hypoxia and hypercapnia Qualified Code(s) : J96.21 - Acute and chronic respiratory failure with hypoxia; J96.22 - Acute and chronic respiratory failure with hypercapnia; J96.22 - Acute and chronic respiratory failure with hypercapnia; J96.22 - Acute and chronic respiratory failure with hypercapnia Subjective Principal diagnosis: Septic Shock Interval history: Patient is tolerating noninvasive ventilation better denies any complain. Objective PUL Vital signs: Last Vital Signs Temp 98.0 F 01/24/18 07:42 Pulse 105 01/24/18 07:00 Resp 20 01/24/18 07:00 BP 127/75 01/24/18 07:00 Pulse Ox 97 01/24/18 07:00 General appearance: no acute distress Eyes: nonicteric ENT: oropharynx dry Mallampati (class): 3 Neck: no lymphadenopathy Effort: mildly labored Auscultation: bilateral: diminished breath sounds Percussion: bilateral: dull Cardiovascular: regular rate and rhythm Gastrointestinal: normoactive bowel sounds, soft Extremities: no cyanosis, edema non-focal exam mood appropriate Results - Laboratory Findings CBC and BMP: 01/24/18 04:00 01/24/18 13:30 ABG ABG pH 7.39 pH Units (7.32-7.45) 01/21/18 14:54 ABG pCO2 44 mmHg (35-45) 01/21/18 14:54 ABG pO2 68 mmHg (85-104) L 01/21/18 14:54 ABG O2 Saturation 93 % (95-98) L 01/21/18 14:54 PT/INR, D-dimer PT 75.0 Seconds (9.4-12.1) H* 01/23/18 04:00 Abnormal lab findings: Abnormal lab results WBC 17.7 K/mcL (4.3-11.1) H 01/24/18 04:00 MCV 80.6 fL (83.0-100.0) L 01/24/18 04:00 MCH 24.5 pg (28.0-33.3) L 01/24/18 04:00 MCHC 30.3 g/dL (31.6-35.5) L 01/24/18 04:00 RDW 17.4 % (11.5-14.5) H 01/24/18 04:00 Immature Gran % 5.2 % (0-4) H 01/24/18 04:00 Myelocytes % 6.0 % (0) H 01/19/18 08:05 Neutrophils # 14.4 K/mcL (1.6-8.9) H 01/24/18 04:00 Nucleated RBCs/100 WBC 0.2 /100 WBC (0) H 01/24/18 04:00 Toxic Granulation Present (Not Present) A 01/19/18 08:05 Hypochromasia Present (Not Present) A 01/24/18 04:00 Poikilocytosis 1+ (Not Present) A 01/24/18 04:00 Anisocytosis 1+ (Not Present) A 01/24/18 04:00 Microcytosis Present (Not Present) A 01/24/18 04:00 Spherocytes 1+ (Not Present) A 01/24/18 04:00 PT 75.0 Seconds (9.4-12.1) H* 01/23/18 04:00 INR 6.7 H* 01/23/18 04:00 ABG pO2 68 mmHg (85-104) L 01/21/18 14:54 ABG Total CO2 28 mEq/L (20-26) H 01/21/18 14:54 ABG O2 Saturation 93 % (95-98) L 01/21/18 14:54 Sodium 147 mEq/L (136-145) H 01/24/18 04:00 Potassium 3.2 mEq/L (3.5-5.1) L 01/24/18 04:00 Carbon Dioxide 30 mEq/L (23-29) H 01/24/18 04:00 BUN 52 mg/dL (8-23) H 01/24/18 04:00 Est GFR ( Amer) 57 (> 60) L 01/24/18 04:00 Est GFR (Non-Af Amer) 47 (> 60) L 01/24/18 04:00 BUN/Creatinine Ratio 46 (6-26) H 01/24/18 04:00 Glucose 112 mg/dL (70-105) H 01/24/18 04:00 Calculated Osmolality 319 (280-300) H 01/24/18 04:00 Lactic Acid 3.1 mmol/L (0.5-2.2) H 01/19/18 05:45 Venous Ioniz Calcium 1.08 mmol/L (1.15-1.35) L 01/19/18 14:39 Phosphorus 5.0 mg/dL (2.7-4.5) H 01/18/18 14:00 Direct Bilirubin 0.4 mg/dL (0.0-0.2) H 01/23/18 04:00 Serum Total Protein 6.2 g/dL (6.4-8.9) L 01/23/18 04:00 Albumin 3.0 g/dL (3.5-5.7) L 01/23/18 04:00 Albumin/Globulin Ratio 0.9 (1.1-2.2) L 01/23/18 04:00 Vancomycin Trough 12 mcg/mL (5-10) H 01/20/18 04:12 - Microbiology Findings Microbiology Findings: Microbiology, Last 48 Hours 01/18/18 04:02 Blood Culture - Final Peripheral Venipuncture No growth. 01/18/18 04:02 Blood Culture - Final Peripheral Venipuncture No growth. - Clinical Findings Intake & Output: Intake & Output 01/23/18 01/24/18 01/24/18 23:59 07:59 15:59 Intake Total 70 / 70 Output Total 750 / 750 1150 / 1150 Balance -680 / -680 -1150 / -1150 Consult Discharge Plan - Plan Referrals: NONE,PCP [Primary Care Provider] -
[2018-01-24] MEDS: Chlorhexidine Rinse 15 ML MOUTHWASH MM SCH ×2 (09:13→21:08)
[2018-01-24] MEDS: Insulin LISPRO 300 UNITS/3 ML VIAL SQ SCH ×4 (09:13→21:08)
[2018-01-24] MEDS: cefTRIAXone 1,000 MG in Water for inj. (sterile) 20 ML 10 ML IVP SCH (09:17)
[2018-01-24 14:39] LABS: INR 1.6; Prothrombin Time 17.5 Seconds (9.4-12.1)
[2018-01-24] MEDS: Dexmedetomidine HCl 400 MCG/100 ML MLS IVC SCH (17:38)
--- NOTE | 2018-01-24 18:22 | Electrocardiograph Report ---
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
--- NOTE | 2018-01-24 18:22 | Electrocardiograph Report ---
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
[2018-01-24] MEDS: Mirtazapine 15 MG TABLET PO SCH (21:08)
[2018-01-25] MEDS: Ipratropium/Albuterol Neb 3 ML IH SCH ×6 (03:22→23:44)
[2018-01-25 06:28] LABS: INR 1.5
[2018-01-25] MEDS: Budesonide/Formoterol 160/4.5 MDI IH SCH ×2 (07:50→19:56)
--- NOTE | 2018-01-25 07:51 | Pulmonology Progress Note ---
<Yandy Plascencia M - Last Filed: 01/25/18 08:50> Date of Encounter: 01/25/18 Assessment and Plan (1) Acute and chronic respiratory failure Current Visit: Yes Status: Acute Qualifiers: Respiratory failure complication: hypoxia and hypercapnia Qualified Code(s) : J96.21 - Acute and chronic respiratory failure with hypoxia; J96.22 - Acute and chronic respiratory failure with hypercapnia; J96.22 - Acute and chronic respiratory failure with hypercapnia; J96.22 - Acute and chronic respiratory failure with hypercapnia Objective PUL Vital signs: Last Vital Signs Temp 98.2 F 01/25/18 07:45 Pulse 112 01/25/18 08:00 Resp 34 01/25/18 08:00 BP 136/94 01/25/18 08:00 Pulse Ox 92 01/25/18 08:00 Results - Laboratory Findings CBC and BMP: 01/24/18 04:00 01/24/18 13:30 ABG ABG pH 7.39 pH Units (7.32-7.45) 01/21/18 14:54 ABG pCO2 44 mmHg (35-45) 01/21/18 14:54 ABG pO2 68 mmHg (85-104) L 01/21/18 14:54 ABG O2 Saturation 93 % (95-98) L 01/21/18 14:54 PT/INR, D-dimer PT 16.0 Seconds (9.4-12.1) H 01/25/18 05:30 Abnormal lab findings: Abnormal lab results WBC 17.7 K/mcL (4.3-11.1) H 01/24/18 04:00 MCV 80.6 fL (83.0-100.0) L 01/24/18 04:00 MCH 24.5 pg (28.0-33.3) L 01/24/18 04:00 MCHC 30.3 g/dL (31.6-35.5) L 01/24/18 04:00 RDW 17.4 % (11.5-14.5) H 01/24/18 04:00 Immature Gran % 5.2 % (0-4) H 01/24/18 04:00 Myelocytes % 6.0 % (0) H 01/19/18 08:05 Neutrophils # 14.4 K/mcL (1.6-8.9) H 01/24/18 04:00 Nucleated RBCs/100 WBC 0.2 /100 WBC (0) H 01/24/18 04:00 Toxic Granulation Present (Not Present) A 01/19/18 08:05 Hypochromasia Present (Not Present) A 01/24/18 04:00 Poikilocytosis 1+ (Not Present) A 01/24/18 04:00 Anisocytosis 1+ (Not Present) A 01/24/18 04:00 Microcytosis Present (Not Present) A 01/24/18 04:00 Spherocytes 1+ (Not Present) A 01/24/18 04:00 PT 16.0 Seconds (9.4-12.1) H 01/25/18 05:30 ABG pO2 68 mmHg (85-104) L 01/21/18 14:54 ABG Total CO2 28 mEq/L (20-26) H 01/21/18 14:54 ABG O2 Saturation 93 % (95-98) L 01/21/18 14:54 Sodium 147 mEq/L (136-145) H 01/24/18 04:00 Carbon Dioxide 30 mEq/L (23-29) H 01/24/18 04:00 BUN 52 mg/dL (8-23) H 01/24/18 04:00 Est GFR ( Amer) 57 (> 60) L 01/24/18 04:00 Est GFR (Non-Af Amer) 47 (> 60) L 01/24/18 04:00 BUN/Creatinine Ratio 46 (6-26) H 01/24/18 04:00 Glucose 112 mg/dL (70-105) H 01/24/18 04:00 POC Glucose 125 mg/dL (70-99) H 01/25/18 07:25 Calculated Osmolality 319 (280-300) H 01/24/18 04:00 Lactic Acid 3.1 mmol/L (0.5-2.2) H 01/19/18 05:45 Venous Ioniz Calcium 1.08 mmol/L (1.15-1.35) L 01/19/18 14:39 Phosphorus 5.0 mg/dL (2.7-4.5) H 01/18/18 14:00 Direct Bilirubin 0.4 mg/dL (0.0-0.2) H 01/23/18 04:00 Serum Total Protein 6.2 g/dL (6.4-8.9) L 01/23/18 04:00 Albumin 3.0 g/dL (3.5-5.7) L 01/23/18 04:00 Albumin/Globulin Ratio 0.9 (1.1-2.2) L 01/23/18 04:00 Vancomycin Trough 12 mcg/mL (5-10) H 01/20/18 04:12 - Microbiology Findings Microbiology Findings: Microbiology, Last 48 Hours 01/18/18 04:02 Blood Culture - Final Peripheral Venipuncture No growth. 01/18/18 04:02 Blood Culture - Final Peripheral Venipuncture No growth. - Clinical Findings Intake & Output: Intake & Output 01/24/18 01/25/18 01/25/18 23:59 07:59 15:59 Intake Total 700 / 700 450 / 450 Output Total 325 / 325 600 / 600 Balance 375 / 375 -150 / -150 Weight 113.5 kg Consult Discharge Plan - Plan Referrals: NONE,PCP [Primary Care Provider] - - Attending Attestation I examined this patient and my medical decision-making was reviewed with the Resident Physician. I agree with the documented findings, disposition and treatment plan as described except to the extent set forth below. Patient seen and examined. Labs, radiology, chart personally reviewed. 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 Suspect obesity hypoventilation syndrome and noninvasive ventilation as indicated. Patient responded to diuresis and encourage incentive spirometry. Continue monitoring in ICU for next 24 hours and if improved further then can be transferred to the floor. Physical therapy is important for this patient. Cardiovascular: stable GI: Nutrition per dietary and GI prophylaxis per routine Heme: DVT prophylaxis per routine ID: Continue antibiotics and plan to de-escalation Renal; urine out put and renal funtion reviewed Endorcine: blood glucose is monitored Lines: all lines checked and no evidence of infections Skin: skin care to prevent pressure ulcers per nursing routine care <Jarred Escamilla - Last Filed: 01/25/18 09:02> Date of Encounter: 01/25/18 Time of Encounter: 08:59 Assessment and Plan (1) Acute and chronic respiratory failure Current Visit: Yes Status: Acute Presented in acute respiratory failure with hypoxia requiring BiPAP at outside facility. Intubated upon arrival for respiratory failure. Chest x-ray initially demonstrated bilateral infiltrates with concern for empyema versus parapneumonic effusion. CT with evidence of multifocal pneumonia. Extubated 01/20/18 to nasal cannula. Brought back to intensive care unit on 01/21/18 due to respiratory failure. Scheduled beta agonist. Continue Rocephin for strep pneumo pneumonia. BiPAP as tolerated at night. Qualifiers: Respiratory failure complication: hypoxia and hypercapnia Qualified Code(s) : J96.21 - Acute and chronic respiratory failure with hypoxia; J96.22 - Acute and chronic respiratory failure with hypercapnia; J96.22 - Acute and chronic respiratory failure with hypercapnia; J96.22 - Acute and chronic respiratory failure with hypercapnia (2) HCAP (healthcare-associated pneumonia) Current Visit: Yes Status: Acute Recent influenza infection with chest x-ray showing infiltrates and effusion. CT scan with multifocal pneumonia. Strep pneumo positive. Transitioned from Zosyn to ceftriaxone. Blood culture no growth. (3) COPD (chronic obstructive pulmonary disease) Current Visit: No Status: Chronic Continue albuterol treatments. Nasal cannula oxygen supplementation Continuous pulse oximetry. Bronchodilators Bipap at night Solu-Medrol Qualifiers: COPD type: unspecified COPD Qualified Code(s): J44.9 - Chronic obstructive pulmonary disease, unspecified (4) Atrial fibrillation with RVR Current Visit: No Status: Resolved Atrial fibrillation with rapid ventricular response up to 160s. Initially secondary to septic shock. Remains in A. fib, on Coreg. Anticoagulated with coumadin (5) Septic shock Current Visit: Yes Status: Resolved Resolved. Presented 01/18/18 in septic shock with respiratory source suspected. Met 4 SIRS criteria at outside facility with leukocytosis, tachycardia, tachypnea and fever Secondary to multifocal pneumonia. Hypotension refractory to IV fluids requiring vasopressors which are no longer required. Blood cultures negative to date. Continued on Rocephin. (6) Supratherapeutic INR Current Visit: No Status: Acute Resolved (7) Type 2 diabetes mellitus Current Visit: No Status: Chronic Sliding-scale insulin coverage. 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 transplanted heart: iroquois heart Associated angina: without angina Qualified Code(s): I25.10 - Atherosclerotic heart disease of [place]roqu[place] coronary artery without angina pectoris (9) Influenza Current Visit: No Status: Resolved Reported influenza B-positive on 01/13/18. Repeat respiratory panel ordered. (10) Morbid obesity with BMI of 40.0-44.9, adult Current Visit: No Status: Chronic (11) DVT prophylaxis Current Visit: No Status: Acute On coumadin (12) Full code status Current Visit: No Status: Acute Subjective Principal diagnosis: Septic Shock Interval history: No acute events overnight. Patient was on BiPAP overnight. She appears improved this morning. No complaints. Objective PUL Vital signs: Last Vital Signs Temp 97.6 F 01/25/18 04:44 Pulse 113 01/25/18 07:27 Resp 32 01/25/18 07:00 BP 154/89 01/25/18 07:00 Pulse Ox 94 01/25/18 07:00 General appearance: no acute distress Eyes: nonicteric ENT: oropharynx moist Effort: mildly labored Auscultation: bilateral: diminished breath sounds Cardiovascular: irregular rhythm Gastrointestinal: soft, non-tender, non-distended Integumentary: normal Extremities: no cyanosis Musculoskeletal: no deformities normal mental status mood appropriate Results - Laboratory Findings CBC and BMP: 01/24/18 04:00 01/24/18 13:30 ABG ABG pH 7.39 pH Units (7.32-7.45) 01/21/18 14:54 ABG pCO2 44 mmHg (35-45) 01/21/18 14:54 ABG pO2 68 mmHg (85-104) L 01/21/18 14:54 ABG O2 Saturation 93 % (95-98) L 01/21/18 14:54 PT/INR, D-dimer PT 16.0 Seconds (9.4-12.1) H 01/25/18 05:30 Abnormal lab findings: Abnormal lab results WBC 17.7 K/mcL (4.3-11.1) H 01/24/18 04:00 MCV 80.6 fL (83.0-100.0) L 01/24/18 04:00 MCH 24.5 pg (28.0-33.3) L 01/24/18 04:00 MCHC 30.3 g/dL (31.6-35.5) L 01/24/18 04:00 RDW 17.4 % (11.5-14.5) H 01/24/18 04:00 Immature Gran % 5.2 % (0-4) H 01/24/18 04:00 Myelocytes % 6.0 % (0) H 01/19/18 08:05 Neutrophils # 14.4 K/mcL (1.6-8.9) H 01/24/18 04:00 Nucleated RBCs/100 WBC 0.2 /100 WBC (0) H 01/24/18 04:00 Toxic Granulation Present (Not Present) A 01/19/18 08:05 Hypochromasia Present (Not Present) A 01/24/18 04:00 Poikilocytosis 1+ (Not Present) A 01/24/18 04:00 Anisocytosis 1+ (Not Present) A 01/24/18 04:00 Microcytosis Present (Not Present) A 01/24/18 04:00 Spherocytes 1+ (Not Present) A 01/24/18 04:00 PT 16.0 Seconds (9.4-12.1) H 01/25/18 05:30 ABG pO2 68 mmHg (85-104) L 01/21/18 14:54 ABG Total CO2 28 mEq/L (20-26) H 01/21/18 14:54 ABG O2 Saturation 93 % (95-98) L 01/21/18 14:54 Sodium 147 mEq/L (136-145) H 01/24/18 04:00 Carbon Dioxide 30 mEq/L (23-29) H 01/24/18 04:00 BUN 52 mg/dL (8-23) H 01/24/18 04:00 Est GFR ( Amer) 57 (> 60) L 01/24/18 04:00 Est GFR (Non-Af Amer) 47 (> 60) L 01/24/18 04:00 BUN/Creatinine Ratio 46 (6-26) H 01/24/18 04:00 Glucose 112 mg/dL (70-105) H 01/24/18 04:00 POC Glucose 125 mg/dL (70-99) H 01/25/18 07:25 Calculated Osmolality 319 (280-300) H 01/24/18 04:00 Lactic Acid 3.1 mmol/L (0.5-2.2) H 01/19/18 05:45 Venous Ioniz Calcium 1.08 mmol/L (1.15-1.35) L 01/19/18 14:39 Phosphorus 5.0 mg/dL (2.7-4.5) H 01/18/18 14:00 Direct Bilirubin 0.4 mg/dL (0.0-0.2) H 01/23/18 04:00 Serum Total Protein 6.2 g/dL (6.4-8.9) L 01/23/18 04:00 Albumin 3.0 g/dL (3.5-5.7) L 01/23/18 04:00 Albumin/Globulin Ratio 0.9 (1.1-2.2) L 01/23/18 04:00 Vancomycin Trough 12 mcg/mL (5-10) H 01/20/18 04:12 - Microbiology Findings Microbiology Findings: Microbiology, Last 48 Hours 01/18/18 04:02 Blood Culture - Final Peripheral Venipuncture No growth. 01/18/18 04:02 Blood Culture - Final Peripheral Venipuncture No growth. - Clinical Findings Intake & Output: Intake & Output 01/24/18 01/24/18 01/25/18 15:59 23:59 07:59 Intake Total 670 / 670 700 / 700 250 / 250 Output Total 150 / 150 325 / 325 400 / 400 Balance 520 / 520 375 / 375 -150 / -150 Weight 113.5 kg
[2018-01-25] MEDS: Chlorhexidine Rinse 15 ML MOUTHWASH MM SCH ×2 (08:34→19:58)
[2018-01-25] MEDS: cefTRIAXone 1,000 MG in Water for inj. (sterile) 20 ML 10 ML IVP SCH (08:34)
[2018-01-25] MEDS: Insulin LISPRO 300 UNITS/3 ML VIAL SQ SCH ×4 (08:35→19:59)
[2018-01-25] MEDS: Dexmedetomidine HCl 400 MCG/100 ML MLS IVC SCH ×3 (13:31→22:32)
[2018-01-25] MEDS: Mirtazapine 15 MG TABLET PO SCH (19:58)
[2018-01-26] MEDS: Ipratropium/Albuterol Neb 3 ML IH SCH ×8 (03:41→19:50)
[2018-01-26 04:06] LABS: Basophils % 0.1 %; Eosinophils # 0.3 K/mcL (0.0-0.6); Eosinophils % 1.7 %; Hemoglobin 10.7 g/dL (11.5-15.4); Immature Granulocytes % 2.2 % (0-4); Lymphocytes # 1.2 K/mcL (0.6-4.6); Lymphocytes % 8.3 %; Mean Corpuscular HGB Conc 29.7 g/dL (31.6-35.5); Mean Corpuscular Hemoglobin 24.7 pg (28.0-33.3); Mean Corpuscular Volume 83.1 fL (83.0-100.0); Mean Platelet Volume 9.4 fL (9.4-12.4); Monocytes # 0.4 K/mcL (0.0-1.3); Monocytes % 2.8 %; Neutrophils # 12.6 K/mcL (1.6-8.9); Platelet Count 264 K/mcL (140-400); Red Blood Count 4.33 M/mcL (3.82-4.97); Red Cell Distribution Width 17.9 % (11.5-14.5); Segmented Neutrophils % 84.9 %
[2018-01-26 04:12] LABS: INR 1.5; Prothrombin Time 16.3 Seconds (9.4-12.1)
[2018-01-26 04:28] LABS: BUN/Creatinine Ratio 40 (6-26); Blood Urea Nitrogen 29 mg/dL (8-23); Calcium 8.4 mg/dL (8.6-10.3); Carbon Dioxide 31 mEq/L (23-29); Chloride 108 mEq/L (98-107); Glucose 117 mg/dL (70-105); Osmolality,Calculated 303 (280-300); Potassium 3.1 mEq/L (3.5-5.1); Sodium 143 mEq/L (136-145); eGFR For African Americans > 60 (> 60); eGFR For Non-African Americans > 60 (> 60)
[2018-01-26] MEDS ORDERED: Potassium Chloride 40 MEQ/200 ML BAG IVPB ONE (05:57)
[2018-01-26] MEDS: Magic Mouthwash 10 ML UD Cup PO SCH ×3 (06:20→18:11)
[2018-01-26 06:46] LABS: Magnesium 2.1 mg/dL (1.6-2.6)
[2018-01-26] MEDS: Budesonide/Formoterol 160/4.5 MDI IH SCH ×2 (07:46→19:50)
--- NOTE | 2018-01-26 07:59 | Pulmonology Progress Note ---
Date of Encounter: 01/26/18 Time of Encounter: 07:55 Assessment and Plan (1) Acute and chronic respiratory failure Current Visit: Yes Status: Acute This is secondary to acute pneumonia complicated by underlying obesity hypoventilation syndrome and COPD. Also component of hydrostatic pulmonary edema from heart failure. Currently stable oxygenation on nasal cannula FiO2 administration. Recommend continuation of noninvasive ventilation at night for now. Wean FiO2 to keep saturation greater than 88% Continue bronchodilators for COPD Gentle diuresis Qualifiers: Respiratory failure complication: hypoxia and hypercapnia Qualified Code(s) : J96.21 - Acute and chronic respiratory failure with hypoxia; J96.22 - Acute and chronic respiratory failure with hypercapnia; J96.22 - Acute and chronic respiratory failure with hypercapnia; J96.22 - Acute and chronic respiratory failure with hypercapnia (2) Acute on chronic congestive heart failure Current Visit: No Status: Acute Mildly volume overloaded we will continue gentle diuresis Qualifiers: Qualified Code(s): I50.43 - Acute on chronic combined systolic (congestive) and diastolic (congestive) heart failure (3) A-fib Current Visit: Yes Status: Chronic Currently rate controlled continue alex blocking agents in the form of Coreg okay to restart home anticoagulation which is warfarin pharmacy to dose Qualifiers: Atrial fibrillation type: chronic Qualified Code(s): I48.2 - Chronic atrial fibrillation (4) Morbid obesity with BMI of 40.0-44.9, adult Current Visit: No Status: Chronic The patient is morbidly obese and I feel like this is factoring into the underlying chronic respiratory failure. We will continue to use noninvasive ventilation as needed and focus on decreasing VQ mismatching throughout atelectasis by getting her out of bed into the chair incentive spirometry and ambulation Stable for transfer to medical telemetry for ongoing care Subjective Principal diagnosis: Septic Shock Interval history: Patient has done well overnight. Remains hemodynamically stable. She denies any complaints this morning. She is anxious to go home. Objective PUL Vital signs: Last Vital Signs Temp 97.6 F 01/26/18 04:00 Pulse 73 01/26/18 06:00 Resp 21 01/26/18 07:46 BP 128/66 01/26/18 06:00 Pulse Ox 97 01/26/18 07:46 General appearance: no acute distress Eyes: nonicteric ENT: oropharynx moist Neck: supple Auscultation: bilateral: diminished breath sounds, other (no wheeze or rhonchi ) Cardiovascular: regular rate and rhythm Gastrointestinal: normoactive bowel sounds, soft, non-tender Extremities: pink and warm, pulses normal, edema (trace LE edema ) normal mental status, non-focal exam mood appropriate Results - Laboratory Findings CBC and BMP: 01/26/18 03:50 01/26/18 03:50 ABG ABG pH 7.39 pH Units (7.32-7.45) 01/21/18 14:54 ABG pCO2 44 mmHg (35-45) 01/21/18 14:54 ABG pO2 68 mmHg (85-104) L 01/21/18 14:54 ABG O2 Saturation 93 % (95-98) L 01/21/18 14:54 PT/INR, D-dimer PT 16.3 Seconds (9.4-12.1) H 01/26/18 03:50 Abnormal lab findings: Abnormal lab results WBC 14.9 K/mcL (4.3-11.1) H 01/26/18 03:50 Hgb 10.7 g/dL (11.5-15.4) L 01/26/18 03:50 MCH 24.7 pg (28.0-33.3) L 01/26/18 03:50 MCHC 29.7 g/dL (31.6-35.5) L 01/26/18 03:50 RDW 17.9 % (11.5-14.5) H 01/26/18 03:50 Myelocytes % 6.0 % (0) H 01/19/18 08:05 Neutrophils # 12.6 K/mcL (1.6-8.9) H 01/26/18 03:50 Nucleated RBCs/100 WBC 0.2 /100 WBC (0) H 01/24/18 04:00 Toxic Granulation Present (Not Present) A 01/19/18 08:05 Hypochromasia Present (Not Present) A 01/24/18 04:00 Poikilocytosis 1+ (Not Present) A 01/24/18 04:00 Anisocytosis 1+ (Not Present) A 01/24/18 04:00 Microcytosis Present (Not Present) A 01/24/18 04:00 Spherocytes 1+ (Not Present) A 01/24/18 04:00 PT 16.3 Seconds (9.4-12.1) H 01/26/18 03:50 ABG pO2 68 mmHg (85-104) L 01/21/18 14:54 ABG Total CO2 28 mEq/L (20-26) H 01/21/18 14:54 ABG O2 Saturation 93 % (95-98) L 01/21/18 14:54 Potassium 3.1 mEq/L (3.5-5.1) L 01/26/18 03:50 Chloride 108 mEq/L (98-107) H 01/26/18 03:50 Carbon Dioxide 31 mEq/L (23-29) H 01/26/18 03:50 BUN 29 mg/dL (8-23) H 01/26/18 03:50 BUN/Creatinine Ratio 40 (6-26) H 01/26/18 03:50 Glucose 117 mg/dL (70-105) H 01/26/18 03:50 POC Glucose 121 mg/dL (70-99) H 01/26/18 07:24 Calculated Osmolality 303 (280-300) H 01/26/18 03:50 Lactic Acid 3.1 mmol/L (0.5-2.2) H 01/19/18 05:45 Calcium 8.4 mg/dL (8.6-10.3) L 01/26/18 03:50 Venous Ioniz Calcium 1.08 mmol/L (1.15-1.35) L 01/19/18 14:39 Phosphorus 5.0 mg/dL (2.7-4.5) H 01/18/18 14:00 Direct Bilirubin 0.4 mg/dL (0.0-0.2) H 01/23/18 04:00 Serum Total Protein 6.2 g/dL (6.4-8.9) L 01/23/18 04:00 Albumin 3.0 g/dL (3.5-5.7) L 01/23/18 04:00 Albumin/Globulin Ratio 0.9 (1.1-2.2) L 01/23/18 04:00 Vancomycin Trough 12 mcg/mL (5-10) H 01/20/18 04:12 - Clinical Findings Intake & Output: Intake & Output 01/25/18 01/25/18 01/26/18 15:59 23:59 07:59 Intake Total 237 / 237 123 / 123 397.2 / 397.2 Output Total 350 / 350 175 / 175 325 / 325 Balance -113 / -113 -52 / -52 72.2 / 72.2 Weight 112.2 kg Consult Discharge Plan - Plan Referrals: NONE,PCP [Primary Care Provider] -
[2018-01-26] MEDS: Insulin LISPRO 300 UNITS/3 ML VIAL SQ SCH ×4 (08:09→23:04)
[2018-01-26] MEDS: Chlorhexidine Rinse 15 ML MOUTHWASH MM SCH ×2 (08:16→20:54)
[2018-01-26] MEDS ORDERED: GuaiFENesin Liq 200 MG/10 ML UDC PO PRN (12:58)
[2018-01-26] MEDS ORDERED: Acetaminophen 325 MG TABLET PO PRN (12:58)
[2018-01-26] MEDS ORDERED: *HR* Dextrose 50 % in Water (Syg) 50 ML SYRINGE IVP PRN (12:58)
[2018-01-26] MEDS ORDERED: Potassium Chloride 40 MEQ/200 ML BAG IVPB PRN (12:58)
[2018-01-26] MEDS ORDERED: Dexmedetomidine HCl 400 MCG/100 ML MLS IVC SCH (12:58)
[2018-01-26] MEDS ORDERED: Albuterol 2.5 MG/3 ML NEBULIZER IH PRN (12:58)
[2018-01-26] MEDS ORDERED: D5% in Water 1,000 ML IVC PRN (12:58)
[2018-01-26] MEDS ORDERED: Dextrose Gel 15 GM/37.5 ML TUBE PO PRN ×2 (12:58)
[2018-01-26] MEDS ORDERED: *HR* Metoprolol 5 MG/5 ML VIAL IVP PRN (12:58)
[2018-01-26] MEDS: *HR* OxyCODONE/APAP 5/325 TABLET PO PRN (15:02)
[2018-01-26] MEDS: *HR* Warfarin 2 MG TABLET PO SCH (18:09)
[2018-01-26] MEDS: Mirtazapine 15 MG TABLET PO SCH (20:53)
[2018-01-27] MEDS: Ipratropium/Albuterol Neb 3 ML IH SCH ×11 (00:14→23:36)
[2018-01-27] MEDS: Ondansetron ODT 4 MG TAB.RAPDIS PO PRN ×2 (00:33→23:06)
[2018-01-27 04:20] LABS: INR 1.7; Prothrombin Time 18.6 Seconds (9.4-12.1)
[2018-01-27] MEDS: *HR* OxyCODONE/APAP 5/325 TABLET PO PRN (05:45)
[2018-01-27] MEDS: Multivit/Ca/Min/Fe/FA 1 TAB TABLET PO SCH (08:46)
[2018-01-27] MEDS: Magic Mouthwash 10 ML UD Cup PO SCH ×3 (08:47→17:12)
[2018-01-27] MEDS: Chlorhexidine Rinse 15 ML MOUTHWASH MM SCH ×2 (08:47→23:06)
[2018-01-27] MEDS: Loratadine 10 MG TABLET PO SCH (08:47)
[2018-01-27] MEDS: Insulin LISPRO 300 UNITS/3 ML VIAL SQ SCH ×4 (08:49→22:57)
[2018-01-27] MEDS: Budesonide/Formoterol 160/4.5 MDI IH SCH ×2 (10:58→20:07)
[2018-01-27] MEDS ORDERED: Potassium Chloride 40 MEQ, Lidocaine 1% 2 ML in D5% in Water 500 ML IVPB ONE (14:06)
--- NOTE | 2018-01-27 14:16 | Internal Med Progress Note ---
Date of Encounter: 01/27/18 Time of Encounter: 11:30 - Assessment and plan (1) Acute and chronic respiratory failure Current Visit: Yes Status: Acute Assessment and plan: Respiratory failure secondary to multilobar pneumococcal pneumonia after influenza infection. Patient was intubated 01/18 through 01/20/2018. Presently on nasal canula. Qualifiers: Respiratory failure complication: hypoxia and hypercapnia Qualified Code(s) : J96.21 - Acute and chronic respiratory failure with hypoxia; J96.22 - Acute and chronic respiratory failure with hypercapnia; J96.22 - Acute and chronic respiratory failure with hypercapnia; J96.22 - Acute and chronic respiratory failure with hypercapnia (2) HCAP (healthcare-associated pneumonia) Current Visit: Yes Status: Acute Assessment and plan: Pneumococcal pneumonia Rx: Zosyn 01/18- Rocephin 01/22-- 4 doses 1 g Also received a few doses of Levaquin and Vancomycin Plan: No further abx today (3) A-fib Current Visit: Yes Status: Chronic Assessment and plan: Continue Coreg and Coumadin Qualifiers: Atrial fibrillation type: chronic Qualified Code(s): I48.2 - Chronic atrial fibrillation (4) CAD (coronary artery disease) Current Visit: No Status: Chronic Qualifiers: Coronary Disease-Associated Artery/Lesion type: [place] artery [place] vs. transplanted heart: [place] heart Associated angina: without angina Qualified Code(s): I25.10 - Atherosclerotic heart disease of [place] coronary artery without angina pectoris (5) CKD (chronic kidney disease) stage 3, GFR 30-59 ml/min Current Visit: No Status: Chronic (6) COPD (chronic obstructive pulmonary disease) Current Visit: No Status: Chronic Qualifiers: COPD type: unspecified COPD Qualified Code(s): J44.9 - Chronic obstructive pulmonary disease, unspecified (7) Hypothyroidism Current Visit: No Status: Chronic Qualifiers: Hypothyroidism type: unspecified Qualified Code(s): E03.9 - Hypothyroidism , unspecified (8) Morbid obesity with BMI of 40.0-44.9, adult Current Visit: No Status: Chronic (9) Influenza Current Visit: No Status: Resolved Assessment and plan: Status post treatment (10) Type 2 diabetes mellitus Current Visit: No Status: Chronic Qualifiers: Diabetes mellitus retirement insulin use: with progress clerk use Diabetes mellitus complication status: with unspecified complications Qualified Code(s) : E11.8 - Type 2 diabetes mellitus with unspecified complications; Z79.4 - penitentiary (current) use of insulin; Z79.4 - penitentiary (current) use of insulin; Z79.4 - construction operations manager (current) use of insulin; Z79.4 - penitentiary (current) use of insulin - Time Spent With Patient Total time spent is greater than 50% in coordination of care (as documented) at patient's floor/unit and/or counseling patient: 25 - 35 minutes - Subjective Interval history: Episode of hypoglycemia and confusion today. Impoved with dextrose. Oriented to self only during my interview. - Constitutional Vitals: Temp Pulse Resp BP Pulse Ox 97.5 F L 119 18 129/95 95 01/27/18 07:21 01/27/18 11:38 01/27/18 11:38 01/27/18 11:38 01/27/18 11:38 General appearance: Present: severe distress (Respiratory distress) Internal Medicine: Result - Labs CBC & Chem 7: 01/26/18 03:50 01/26/18 03:50 - ABG Interpretation ABG results: ABG ABG pH 7.39 pH Units (7.32-7.45) 01/21/18 14:54 ABG pCO2 44 mmHg (35-45) 01/21/18 14:54 ABG pO2 68 mmHg (85-104) L 01/21/18 14:54 ABG O2 Saturation 93 % (95-98) L 01/21/18 14:54 PT/INR, D-dimer PT 18.6 Seconds (9.4-12.1) H 01/27/18 03:50 - VTE Documentation of Mechanical Device: Intermittent pneumatic compression device Consult Discharge Plan - Plan Referrals: NONE,PCP [Primary Care Provider] -
[2018-01-27] MEDS: *HR* Warfarin 2 MG TABLET PO SCH (17:12)
[2018-01-27] MEDS ORDERED: Warfarin perPT PO PRN (18:00)
[2018-01-27] MEDS: *HR* LORazepam 2 MG/ML VIAL IVP PRN (23:05)
[2018-01-27] MEDS: Mirtazapine 15 MG TABLET PO SCH (23:06)
[2018-01-27 23:28] LABS: Hematocrit 35.4 % (35.3-44.9); Hemoglobin 10.6 g/dL (11.5-15.4)
[2018-01-28] MEDS: Ipratropium/Albuterol Neb 3 ML IH SCH ×6 (03:54→23:27)
[2018-01-28 07:29] LABS: INR 2.1; Prothrombin Time 22.7 Seconds (9.4-12.1)
[2018-01-28 07:35] LABS: BUN/Creatinine Ratio 21 (6-26); Blood Urea Nitrogen 18 mg/dL (8-23); Calcium 8.4 mg/dL (8.6-10.3); Carbon Dioxide 27 mEq/L (23-29); Chloride 109 mEq/L (98-107); Glucose 100 mg/dL (70-105); Magnesium 2.1 mg/dL (1.6-2.6); Osmolality,Calculated 290 (280-300); Potassium 5.4 mEq/L (3.5-5.1); Sodium 139 mEq/L (136-145); eGFR For African Americans > 60 (> 60); eGFR For Non-African Americans > 60 (> 60)
[2018-01-28 07:36] LABS: Hematocrit 35.8 % (35.3-44.9); Hemoglobin 10.6 g/dL (11.5-15.4); Mean Corpuscular HGB Conc 29.6 g/dL (31.6-35.5); Mean Corpuscular Hemoglobin 24.9 pg (28.0-33.3); Mean Corpuscular Volume 84.2 fL (83.0-100.0); Mean Platelet Volume 10.7 fL (9.4-12.4); Platelet Count 270 K/mcL (140-400); Red Blood Count 4.25 M/mcL (3.82-4.97); Red Cell Distribution Width 18.8 % (11.5-14.5)
[2018-01-28] MEDS: Budesonide/Formoterol 160/4.5 MDI IH SCH ×2 (08:04→20:09)
[2018-01-28] MEDS: Magic Mouthwash 10 ML UD Cup PO SCH ×3 (08:33→17:56)
[2018-01-28] MEDS: Multivit/Ca/Min/Fe/FA 1 TAB TABLET PO SCH (08:33)
[2018-01-28] MEDS: Chlorhexidine Rinse 15 ML MOUTHWASH MM SCH ×3 (08:33→20:40)
[2018-01-28] MEDS: Loratadine 10 MG TABLET PO SCH (08:34)
[2018-01-28] MEDS: Insulin LISPRO 300 UNITS/3 ML VIAL SQ SCH ×4 (08:35→20:37)
--- NOTE | 2018-01-28 08:40 | Internal Med Progress Note ---
<Gato Lord - Last Filed: 01/28/18 11:20> Date of Encounter: 01/28/18 Time of Encounter: 08:35 - Assessment and plan (1) Acute and chronic respiratory failure Current Visit: Yes Status: Acute Assessment and plan: Respiratory failure secondary to multilobar pneumococcal pneumonia after influenza infection. Patient was intubated 01/18 through 01/20/2018. Presently on nasal canula. Apparent respiratory distress on exam. Sinus tachycardia on monitor with rate in mid-110 to 120 range; occasional premature beats. BP and saturations adequate. Antibiotics were stopped several days ago. Recurrent distress may represent recurrent infection. Also history of CHFrEF last ECHO 07/2017, current status may also represent volume overload. - reinitiate sepsis workup including CBC, BMP, chest x-ray, blood cultures, UA with culture, lactate - lungs sounded volume overload it which may be conjuring to respiratory status ; will defer fluid hydration as blood pressures are adequate at this point - likely restart antibiotics once cultures are collected; Rocephin 2g daily. - adding Lasix 20mg IV BID; attend to volume status and hemodynamic stability DVT prophylaxis: SCDs Repeat CBC (stable hemoglobin & WBC ct verified) & BMP (slightly improved hyperkalemia down to 5.0) ABG: normal pH and pCO2 Lactate: 1.3 CXR: "slight interval improvement of bilateral interstitial edema and bibasilar airspace opacities" BCs: pending UA, C&S: pending Qualifiers: Respiratory failure complication: hypoxia and hypercapnia Qualified Code(s) : J96.21 - Acute and chronic respiratory failure with hypoxia; J96.22 - Acute and chronic respiratory failure with hypercapnia; J96.22 - Acute and chronic respiratory failure with hypercapnia; J96.22 - Acute and chronic respiratory failure with hypercapnia (2) COPD (chronic obstructive pulmonary disease) Current Visit: Yes Status: Chronic Assessment and plan: No wheezes on exam; continue all current measures including plan as above. Qualifiers: COPD type: unspecified COPD Qualified Code(s): J44.9 - Chronic obstructive pulmonary disease, unspecified (3) Type 2 diabetes mellitus Current Visit: No Status: Chronic Assessment and plan: Well-controlled; continue current plan. Qualifiers: Diabetes mellitus [facility]ci insulin use: with long wall shear operator use Diabetes mellitus complication status: with unspecified complications Qualified Code(s) : E11.8 - Type 2 diabetes mellitus with unspecified complications; Z79.4 - senior care (current) use of insulin; Z79.4 - long term care pharmacist (current) use of insulin; Z79.4 - senior care (current) use of insulin; Z79.4 - long term care pharmacist (current) use of insulin (4) CAD (coronary artery disease) Current Visit: No Status: Chronic Qualifiers: Coronary Disease-Associated Artery/Lesion type: [place] artery [place] vs. transplanted heart: [place] heart Associated angina: without angina Qualified Code(s): I25.10 - Atherosclerotic heart disease of [place] coronary artery without angina pectoris (5) A-fib Current Visit: Yes Status: Chronic Assessment and plan: Currently sinus tach; continue Coreg and Coumadin. Qualifiers: Atrial fibrillation type: chronic Qualified Code(s): I48.2 - Chronic atrial fibrillation (6) Morbid obesity with BMI of 40.0-44.9, adult Current Visit: No Status: Chronic (7) Hypothyroidism Current Visit: No Status: Chronic Assessment and plan: Continue Synthroid Qualifiers: Hypothyroidism type: unspecified Qualified Code(s): E03.9 - Hypothyroidism , unspecified (8) HCAP (healthcare-associated pneumonia) Current Visit: Yes Status: Acute Assessment and plan: Pneumococcal pneumonia secondary to recent influenza, and maybe having recurrence today; has had several antibiotics to present hospital course but has not been treated in the last 2 days. All plans as above. - Time Spent With Patient Total time spent is greater than 50% in coordination of care (as documented) at patient's floor/unit and/or counseling patient: - Subjective Interval history: RN informed me the patient's white count has more than doubled this morning at 31.8 thousand. On bedside exam, patient states is ready to be discharged. Patient is clearly tachycardic on the monitor and and respiratory distress unable to complete full sentences and using accessory respiratory musculature. Patient does have adequate saturations and blood pressure, however, will reinitiate sepsis workup. - Constitutional Vitals: Temp Pulse Resp BP Pulse Ox 97.7 F 131 16 115/80 96 01/28/18 07:00 01/28/18 07:00 01/28/18 08:04 01/28/18 07:00 01/28/18 08:04 CONSTITUTIONAL: Alert and oriented X3, well-nourished, well appearing, in no apparent distress HEAD: Normocephalic; atraumatic. EYES: PER, no scleral icterus, no drainage, no conjunctival injection NOSE: The nose is normal in appearance without rhinorrhea Oropharynx: pink/moist, no tonsillar edema/erythema/exudates RESP: _speak in full sentences and uses accessory musculature to breathe, bibasilar crackles heard, no wheezes CARD: Regular rhythm, without murmurs, rubs, or gallop ABD: soft, non-tender, no guarding/distention/rigidity SKIN: normal appearance, no pallor/diaphoresis,mottling,jaundice,cyanosis EXT: Rad pulses 2+ and symmetrical; no lateralizing edema; no other lesions seen PSYCH: appropriate mood/affect Internal Medicine: Result - Labs CBC & Chem 7: 01/28/18 08:29 01/28/18 08:29 Labs: Short CBC 01/27/18 01/28/18 Range/Units 22:30 04:00 WBC 31.8 H* D (4.3-11.1) K/mcL Hgb 10.6 L 10.6 L (11.5-15.4) g/dL Hct 35.4 35.8 (35.3-44.9) % Plt Count 270 (140-400) K/mcL BMP 01/28/18 04:00 Sodium 139 Potassium 5.4 H Chloride 109 H Carbon Dioxide 27 BUN 18 Creatinine 0.85 Glucose 100 Calcium 8.4 L - ABG Interpretation ABG results: ABG ABG pH 7.39 pH Units (7.32-7.45) 01/21/18 14:54 ABG pCO2 44 mmHg (35-45) 01/21/18 14:54 ABG pO2 68 mmHg (85-104) L 01/21/18 14:54 ABG O2 Saturation 93 % (95-98) L 01/21/18 14:54 PT/INR, D-dimer PT 22.7 Seconds (9.4-12.1) H 01/28/18 04:00 - VTE Documentation of Mechanical Device: Intermittent pneumatic compression device Consult Discharge Plan - Plan Referrals: NONE,PCP [Primary Care Provider] - <Marshall Rene - Last Filed: 01/28/18 16:41> Date of Encounter: 01/28/18 - Assessment and plan (1) Acute and chronic respiratory failure Current Visit: Yes Status: Acute Qualifiers: Respiratory failure complication: hypoxia and hypercapnia Qualified Code(s) : J96.21 - Acute and chronic respiratory failure with hypoxia; J96.22 - Acute and chronic respiratory failure with hypercapnia; J96.22 - Acute and chronic respiratory failure with hypercapnia; J96.22 - Acute and chronic respiratory failure with hypercapnia (2) COPD (chronic obstructive pulmonary disease) Current Visit: Yes Status: Chronic Qualifiers: COPD type: unspecified COPD Qualified Code(s): J44.9 - Chronic obstructive pulmonary disease, unspecified (3) Type 2 diabetes mellitus Current Visit: No Status: Chronic Qualifiers: Diabetes mellitus long wall shear operator insulin use: with long wall shear operator use Diabetes mellitus complication status: with unspecified complications Qualified Code(s) : E11.8 - Type 2 diabetes mellitus with unspecified complications; Z79.4 - senior care (current) use of insulin; Z79.4 - long term care pharmacist (current) use of insulin; Z79.4 - senior care (current) use of insulin; Z79.4 - long term care pharmacist (current) use of insulin (4) CAD (coronary artery disease) Current Visit: No Status: Chronic Qualifiers: Coronary Disease-Associated Artery/Lesion type: [place] artery [place] vs. transplanted heart: [place] heart Associated angina: without angina Qualified Code(s): I25.10 - Atherosclerotic heart disease of [place] coronary artery without angina pectoris (5) A-fib Current Visit: Yes Status: Chronic Qualifiers: Atrial fibrillation type: chronic Qualified Code(s): I48.2 - Chronic atrial fibrillation (6) Morbid obesity with BMI of 40.0-44.9, adult Current Visit: No Status: Chronic (7) Hypothyroidism Current Visit: No Status: Chronic Qualifiers: Hypothyroidism type: unspecified Qualified Code(s): E03.9 - Hypothyroidism , unspecified (8) HCAP (healthcare-associated pneumonia) Current Visit: Yes Status: Acute - Time Spent With Patient Total time spent is greater than 50% in coordination of care (as documented) at patient's floor/unit and/or counseling patient: - Constitutional Vitals: Temp Pulse Resp BP Pulse Ox 98.5 F 121 17 121/74 98 01/28/18 15:00 01/28/18 15:00 01/28/18 15:00 01/28/18 15:00 01/28/18 15:00 Internal Medicine: Result - Labs CBC & Chem 7: 01/28/18 08:29 01/28/18 08:29 Labs: Short CBC 01/27/18 01/28/18 01/28/18 Range/Units 22:30 04:00 08:29 WBC 31.8 H* D 29.1 H (4.3-11.1) K/mcL Hgb 10.6 L 10.6 L 10.5 L (11.5-15.4) g/dL Hct 35.4 35.8 35.7 (35.3-44.9) % Plt Count 270 270 (140-400) K/mcL Neutrophils # 29.3 H 25.0 H (1.6-8.9) K/mcL BMP 01/28/18 01/28/18 04:00 08:29 Sodium 139 139 Potassium 5.4 H 5.0 Chloride 109 H 108 H Carbon Dioxide 27 27 BUN 18 19 Creatinine 0.85 0.83 Glucose 100 119 H Calcium 8.4 L 8.5 L - ABG Interpretation ABG results: ABG ABG pH 7.40 pH Units (7.32-7.45) 01/28/18 09:25 ABG pCO2 42 mmHg (35-45) 01/28/18 09:25 ABG pO2 80 mmHg (85-104) L 01/28/18 09:25 ABG O2 Saturation 96 % (95-98) 01/28/18 09:25 PT/INR, D-dimer PT 22.7 Seconds (9.4-12.1) H 01/28/18 04:00 - Impressions Impressions Chest X-Ray 01/28/18 08:31 IMPRESSION: Slight interval improvement of bilateral interstitial edema and bibasilar airspace opacities. D/ / 01/28/2018 09:26:36 [facility]io [facility] Inter[facility] Provider: Nicky Julio MD - Attending Attestation I examined this patient and my medical decision-making was reviewed with the Resident Physician. I agree with the documented findings, disposition and treatment plan as described except to the extent set forth below. 82 F with past medical history of atrial fibrillation, combined CHF with ejection fraction unknown, COPD, coronary artery disease, diabetes, GERD, glaucoma, hyperlipidemia, hypertension, chronic kidney disease, thyroid disease. She was admitted for septic shock, acute on chronic hypoxic and hypercapneic resp failure secondary to pneumococcal PNA, acute on chronic heart failure. She was transferred from ICU to floors 01/26.sepsis and shock resolved prior to transfer. On evaluation this morning, he is oriented to person only. She is not in respiratory distress, but because hypoxic upon arrival of oxygen. Her white count is worse. She still has diffuse crackles. Labs and imaging reviewed: Hyperkalemia with leukocytosis. Sepsis work up Unremarkable. Repeat chest x-ray shows improvement in infiltrates. Follow urine analysis and urine culture, continue diuresis, continue antibiotics to complete 10 days for pneumococcal pneumonia. Continue other medications, high risk for delirium Rest of details as in the resident physician's documentation
[2018-01-28 09:31] LABS: ABG Base Excess 1 mEq/L (-2 to 3); ABG HCO3 26 mEq/L (21-27); ABG Oxygen Saturation 96 % (95-98); ABG PCO2 42 mmHg (35-45); ABG PO2 80 mmHg (85-104); ABG TCO2 28 mEq/L (20-26)
[2018-01-28 09:53] LABS: Mean Corpuscular HGB Conc 29.4 g/dL (31.6-35.5); Mean Platelet Volume 10.6 fL (9.4-12.4)
[2018-01-28 10:03] LABS: Lymphocytes # 1.3 K/mcL (0.6-4.6); Monocytes # 1.3 K/mcL (0.0-1.3); Neutrophils # 29.3 K/mcL (1.6-8.9); Platelet Estimate Normal (Normal)
[2018-01-28 10:08] LABS: Hematocrit 35.7 % (35.3-44.9); Hemoglobin 10.5 g/dL (11.5-15.4); Mean Corpuscular Hemoglobin 24.6 pg (28.0-33.3); Mean Corpuscular Volume 83.8 fL (83.0-100.0); Platelet Count 270 K/mcL (140-400); Red Blood Count 4.26 M/mcL (3.82-4.97); Red Cell Distribution Width 18.7 % (11.5-14.5)
[2018-01-28 10:11] LABS: BUN/Creatinine Ratio 23 (6-26); Blood Urea Nitrogen 19 mg/dL (8-23); Calcium 8.5 mg/dL (8.6-10.3); Carbon Dioxide 27 mEq/L (23-29); Chloride 108 mEq/L (98-107); Glucose 119 mg/dL (70-105); Osmolality,Calculated 291 (280-300); Sodium 139 mEq/L (136-145); eGFR For African Americans > 60 (> 60); eGFR For Non-African Americans > 60 (> 60)
[2018-01-28 10:42] LABS: Lymphocytes # 3.5 K/mcL (0.6-4.6); Monocytes # 0.6 K/mcL (0.0-1.3); Platelet Estimate Normal (Normal)
[2018-01-28] MEDS: cefTRIAXone 2,000 MG in Water for inj. (sterile) 20 ML 20 ML IVP SCH (12:38)
[2018-01-28] MEDS: Furosemide 20 MG/2 ML VIAL IVP SCH ×2 (12:39→17:49)
[2018-01-28] MEDS ORDERED: *HR* Warfarin 1 MG TABLET PO ONE (18:00)
[2018-01-28] MEDS: Mirtazapine 15 MG TABLET PO SCH (20:29)
--- NOTE | 2018-01-28 21:14 | Event Note ---
Date of Encounter: 01/28/18 Time of Encounter: 21:13 Paged by RN that patient has been having significant amount of watery diarrhea, to the point of sacral excoriation. Chart reviewed, patient is also having unexplained acute leukocytosis, with recent antibiotic use, high suspicion for c.diff infection. Will order STAT c.diff stool testing, contact precautions. To start PO Vancomycin if positive.
[2018-01-29] MEDS: *HR* LORazepam 2 MG/ML VIAL IVP PRN (00:28)
[2018-01-29 00:38] LABS: Acinetobacter baumannii by PCR Not Detected (Not Detect); Candida albicans by PCR Not Detected (Not Detect); Candida glabrata by PCR Not Detected (Not Detect); Candida krusei by PCR Not Detected (Not Detect); Candida parapsilosis by PCR Not Detected (Not Detect); Candida tropicalis by PCR Not Detected (Not Detect); Enterococcus by PCR Not Detected (Not Detect); Escherichia coli by PCR ***DETECTED*** (Not Detect); Klebsiella oxytoca by PCR Not Detected (Not Detect); Klebsiella pneumoniae by PCR Not Detected (Not Detect); Pseudomonas aeruginosa by PCR Not Detected (Not Detect); Serratia marcescens by PCR Not Detected (Not Detect); Staphylococcus aureus by PCR Not Detected (Not Detect); Streptococcus agalactiae(B)PCR Not Detected (Not Detect); Streptococcus by PCR Not Detected (Not Detect); Streptococcus pneumoniae PCR Not Detected (Not Detect); Streptococcus pyogenes (A) PCR Not Detected (Not Detect); blaKPC Carbapenem-Resist Gene Not Detected (Not Detect); mecA Methicillin-Resist Gene Not Detected (Not Detect); vanA/B Vancomycin-Resist Genes Not Detected (Not Detect)
[2018-01-29 02:28] LABS: Bilirubin,Urine Negative (Negative); Blood,Urine Negative (Negative); Clarity,Urine Clear (Clear); Color,Urine Yellow (Yellow); Glucose,Urine (UA) Normal (Normal); Ketones,Urine Negative (Negative); Leukocyte Esterase,Urine Negative (Negative); Nitrite,Urine Negative (Negative); Protein,Urine Negative (Neg-Trace); Specific Gravity,Urine 1.023 (1.010-1.025); Urobilinogen,Urine Normal (Normal)
[2018-01-29] MEDS: Ipratropium/Albuterol Neb 3 ML IH SCH ×6 (03:29→23:13)
[2018-01-29 06:57] LABS: Basophils % 0.1 %; Eosinophils # 0.5 K/mcL (0.0-0.6); Eosinophils % 2.2 %; Hematocrit 32.6 % (35.3-44.9); Hemoglobin 9.7 g/dL (11.5-15.4); Immature Granulocytes % 1.2 % (0-4); Lymphocytes # 1.5 K/mcL (0.6-4.6); Lymphocytes % 7.2 %; Mean Corpuscular HGB Conc 29.8 g/dL (31.6-35.5); Mean Corpuscular Hemoglobin 25.1 pg (28.0-33.3); Mean Corpuscular Volume 84.2 fL (83.0-100.0); Mean Platelet Volume 10.6 fL (9.4-12.4); Monocytes % 4.6 %; Neutrophils # 17.8 K/mcL (1.6-8.9); Platelet Count 255 K/mcL (140-400); Red Blood Count 3.87 M/mcL (3.82-4.97); Red Cell Distribution Width 18.5 % (11.5-14.5); Segmented Neutrophils % 84.7 %
[2018-01-29 07:03] LABS: INR 2.1; Prothrombin Time 23.4 Seconds (9.4-12.1)
[2018-01-29 07:24] LABS: BUN/Creatinine Ratio 18 (6-26); Blood Urea Nitrogen 17 mg/dL (8-23); Calcium 8.1 mg/dL (8.6-10.3); Carbon Dioxide 31 mEq/L (23-29); Chloride 108 mEq/L (98-107); Glucose 88 mg/dL (70-105); Osmolality,Calculated 295 (280-300); Potassium 4.2 mEq/L (3.5-5.1); Sodium 142 mEq/L (136-145); eGFR For African Americans > 60 (> 60); eGFR For Non-African Americans 58 (> 60)
[2018-01-29] MEDS: Budesonide/Formoterol 160/4.5 MDI IH SCH ×2 (07:51→20:24)
[2018-01-29] MEDS: Nystatin POWDER 30 GM BOTTLE TP SCH ×3 (07:51→21:15)
[2018-01-29] MEDS: Insulin LISPRO 300 UNITS/3 ML VIAL SQ SCH ×4 (09:06→21:19)
[2018-01-29] MEDS: Multivit/Ca/Min/Fe/FA 1 TAB TABLET PO SCH (09:14)
[2018-01-29] MEDS: Loratadine 10 MG TABLET PO SCH (09:14)
[2018-01-29] MEDS: Furosemide 20 MG/2 ML VIAL IVP SCH ×2 (09:15→17:21)
[2018-01-29] MEDS: Magic Mouthwash 10 ML UD Cup PO SCH ×4 (09:16→21:14)
[2018-01-29] MEDS: Chlorhexidine Rinse 15 ML MOUTHWASH MM SCH (09:17)
--- NOTE | 2018-01-29 12:10 | Internal Med Progress Note ---
<Gato Lord - Last Filed: 01/29/18 12:17> Date of Encounter: 01/29/18 Time of Encounter: 12:06 - Assessment and plan (1) Acute and chronic respiratory failure Current Visit: Yes Status: Acute Assessment and plan: Respiratory failure secondary to multilobar pneumococcal pneumonia after influenza infection. Patient was intubated 01/18 through 01/20/2018. Presently on nasal canula. Apparent respiratory distress on exam. Sinus tachycardia on monitor with rate in mid-110 to 120 range; occasional premature beats. BP and saturations adequate. Antibiotics were stopped several days ago. Recurrent distress may represent recurrent infection. Also history of CHFrEF last ECHO 07/2017, current status may also represent volume overload. - Updating echocardiogram - other plans as above Qualifiers: Respiratory failure complication: hypoxia and hypercapnia Qualified Code(s) : J96.21 - Acute and chronic respiratory failure with hypoxia; J96.22 - Acute and chronic respiratory failure with hypercapnia; J96.22 - Acute and chronic respiratory failure with hypercapnia; J96.22 - Acute and chronic respiratory failure with hypercapnia (2) HCAP (healthcare-associated pneumonia) Current Visit: Yes Status: Acute Assessment and plan: Pneumococcal pneumonia secondary to recent influenza, and maybe having recurrence today; has had several antibiotics to present hospital course but has not been treated in the last 2 days. All plans as above. (3) COPD (chronic obstructive pulmonary disease) Current Visit: Yes Status: Chronic Assessment and plan: No wheezes on exam; continue all current measures including plan as above. Qualifiers: COPD type: unspecified COPD Qualified Code(s): J44.9 - Chronic obstructive pulmonary disease, unspecified (4) Type 2 diabetes mellitus Current Visit: No Status: Chronic Assessment and plan: Well-controlled; continue current plan. Qualifiers: Diabetes mellitus assisted insulin use: with electric organ checker use Diabetes mellitus complication status: with unspecified complications Qualified Code(s) : E11.8 - Type 2 diabetes mellitus with unspecified complications; Z79.4 - care home (current) use of insulin; Z79.4 - service provider (current) use of insulin; Z79.4 - service provider (current) use of insulin; Z79.4 - care home (current) use of insulin (5) CAD (coronary artery disease) Current Visit: No Status: Chronic Qualifiers: Coronary Disease-Associated Artery/Lesion type: chilkat artery [place] vs. transplanted heart: chilkat heart Associated angina: without angina Qualified Code(s): I25.10 - Atherosclerotic heart disease of chilkat coronary artery without angina pectoris (6) A-fib Current Visit: Yes Status: Chronic Assessment and plan: Currently sinus tach; continue Coreg and Coumadin. Qualifiers: Atrial fibrillation type: chronic Qualified Code(s): I48.2 - Chronic atrial fibrillation (7) Morbid obesity with BMI of 40.0-44.9, adult Current Visit: No Status: Chronic (8) Hypothyroidism Current Visit: No Status: Chronic Assessment and plan: Continue Synthroid Qualifiers: Hypothyroidism type: unspecified Qualified Code(s): E03.9 - Hypothyroidism , unspecified (9) Bacteremia due to Gram-negative bacteria Current Visit: Yes Status: Acute Assessment and plan: BCs: culture prelim gram-negative antonio; serology positive for Enterobacteriaceae and E. coli UA, C&S: pending Plan: - WBC improved today along with general condition - continue Rocephin current dose - await further differentiation of blood cultures - repeat blood culture in the morning - consider consult infectious disease as blood culture results from 01/28/2018 become available DVT prophylaxis: SCDs - Time Spent With Patient Total time spent is greater than 50% in coordination of care (as documented) at patient's floor/unit and/or counseling patient: - Subjective Interval history: Patient comfortable, mildly improved exam, improved white count today. 01/28/18, RN approached me to tell me the patient to occur oxygen often quickly desaturated into the low 70s. There were some positive serology is on blood culture; see plan for further measures. - Constitutional Vitals: Temp Pulse Resp BP Pulse Ox 97.9 F 93 18 129/75 95 01/29/18 08:10 01/29/18 08:10 01/29/18 11:22 01/29/18 08:10 01/29/18 11:22 CONSTITUTIONAL: Alert and oriented X3, well-nourished, well appearing, in no apparent distress HEAD: Normocephalic; atraumatic. EYES: PER, no scleral icterus, no drainage, no conjunctival injection NOSE: The nose is normal in appearance without rhinorrhea Oropharynx: pink/moist, no tonsillar edema/erythema/exudates RESP: continues to be O2 dependent which is baseline, no respiratory distress, no wheezes, no rales/rhonchi CARD: Regular rhythm, without murmurs, rubs, or gallop ABD: soft, non-tender, no guarding/distention/rigidity SKIN: normal appearance, no pallor/diaphoresis,mottling,jaundice,cyanosis EXT: Rad pulses 2+ and symmetrical; no lateralizing edema; no other lesions seen PSYCH: appropriate mood/affect Internal Medicine: Result - Labs CBC & Chem 7: 01/29/18 06:47 01/29/18 06:47 Labs: Short CBC 01/29/18 Range/Units 06:47 WBC 21.1 H (4.3-11.1) K/mcL Hgb 9.7 L (11.5-15.4) g/dL Hct 32.6 L (35.3-44.9) % Plt Count 255 (140-400) K/mcL Neutrophils # 17.8 H (1.6-8.9) K/mcL BMP 01/29/18 06:47 Sodium 142 Potassium 4.2 Chloride 108 H Carbon Dioxide 31 H BUN 17 Creatinine 0.93 Glucose 88 Calcium 8.1 L Urine 01/29/18 Range/Units 02:17 Urine Color Yellow (Yellow) Urine Clarity Clear (Clear) Urine pH 5.0 (5.0-8.0) pH Units Ur Specific Hines 1.023 (1.010-1.025) Urine Protein Negative (Neg-Trace) mg/dL Urine Glucose (UA) Normal (Normal) mg/dL - ABG Interpretation ABG results: ABG ABG pH 7.40 pH Units (7.32-7.45) 01/28/18 09:25 ABG pCO2 42 mmHg (35-45) 01/28/18 09:25 ABG pO2 80 mmHg (85-104) L 01/28/18 09:25 ABG O2 Saturation 96 % (95-98) 01/28/18 09:25 PT/INR, D-dimer PT 23.4 Seconds (9.4-12.1) H 01/29/18 06:47 - VTE Documentation of Mechanical Device: Intermittent pneumatic compression device Consult Discharge Plan - Plan Referrals: NONE,PCP [Primary Care Provider] - <Marshall Rene - Last Filed: 01/29/18 14:24> Date of Encounter: 01/29/18 - Assessment and plan (1) Acute and chronic respiratory failure Current Visit: Yes Status: Acute Qualifiers: Respiratory failure complication: hypoxia and hypercapnia Qualified Code(s) : J96.21 - Acute and chronic respiratory failure with hypoxia; J96.22 - Acute and chronic respiratory failure with hypercapnia; J96.22 - Acute and chronic respiratory failure with hypercapnia; J96.22 - Acute and chronic respiratory failure with hypercapnia (2) COPD (chronic obstructive pulmonary disease) Current Visit: Yes Status: Chronic Qualifiers: COPD type: unspecified COPD Qualified Code(s): J44.9 - Chronic obstructive pulmonary disease, unspecified (3) Type 2 diabetes mellitus Current Visit: No Status: Chronic Qualifiers: Diabetes mellitus assisted insulin use: with assisted use Diabetes mellitus complication status: with unspecified complications Qualified Code(s) : E11.8 - Type 2 diabetes mellitus with unspecified complications; Z79.4 - service provider (current) use of insulin; Z79.4 - service provider (current) use of insulin; Z79.4 - care home (current) use of insulin; Z79.4 - care home (current) use of insulin (4) CAD (coronary artery disease) Current Visit: No Status: Chronic Qualifiers: Coronary Disease-Associated Artery/Lesion type: chilkat artery [place] vs. transplanted heart: chilkat heart Associated angina: without angina Qualified Code(s): I25.10 - Atherosclerotic heart disease of [place] coronary artery without angina pectoris (5) A-fib Current Visit: Yes Status: Chronic Qualifiers: Atrial fibrillation type: chronic Qualified Code(s): I48.2 - Chronic atrial fibrillation (6) Morbid obesity with BMI of 40.0-44.9, adult Current Visit: No Status: Chronic (7) Hypothyroidism Current Visit: No Status: Chronic Qualifiers: Hypothyroidism type: unspecified Qualified Code(s): E03.9 - Hypothyroidism , unspecified (8) HCAP (healthcare-associated pneumonia) Current Visit: Yes Status: Acute (9) Bacteremia due to Gram-negative bacteria Current Visit: Yes Status: Acute - Time Spent With Patient Total time spent is greater than 50% in coordination of care (as documented) at patient's floor/unit and/or counseling patient: - Constitutional Vitals: Temp Pulse Resp BP Pulse Ox 97.7 F 95 18 114/57 97 01/29/18 12:32 01/29/18 12:32 01/29/18 12:32 01/29/18 12:32 01/29/18 12:32 Internal Medicine: Result - Labs CBC & Chem 7: 01/29/18 06:47 01/29/18 06:47 Labs: Short CBC 01/29/18 Range/Units 06:47 WBC 21.1 H (4.3-11.1) K/mcL Hgb 9.7 L (11.5-15.4) g/dL Hct 32.6 L (35.3-44.9) % Plt Count 255 (140-400) K/mcL Neutrophils # 17.8 H (1.6-8.9) K/mcL BMP 01/29/18 06:47 Sodium 142 Potassium 4.2 Chloride 108 H Carbon Dioxide 31 H BUN 17 Creatinine 0.93 Glucose 88 Calcium 8.1 L Urine 01/29/18 Range/Units 02:17 Urine Color Yellow (Yellow) Urine Clarity Clear (Clear) Urine pH 5.0 (5.0-8.0) pH Units Ur Specific Hines 1.023 (1.010-1.025) Urine Protein Negative (Neg-Trace) mg/dL Urine Glucose (UA) Normal (Normal) mg/dL - ABG Interpretation ABG results: ABG ABG pH 7.40 pH Units (7.32-7.45) 01/28/18 09:25 ABG pCO2 42 mmHg (35-45) 01/28/18 09:25 ABG pO2 80 mmHg (85-104) L 01/28/18 09:25 ABG O2 Saturation 96 % (95-98) 01/28/18 09:25 PT/INR, D-dimer PT 23.4 Seconds (9.4-12.1) H 01/29/18 06:47 - Attending Attestation I examined this patient and my medical decision-making was reviewed with the Resident Physician. I agree with the documented findings, disposition and treatment plan as described except to the extent set forth below. 82 F with past medical history of atrial fibrillation, combined CHF with ejection fraction unknown, COPD, coronary artery disease, diabetes, GERD, glaucoma, hyperlipidemia, hypertension, chronic kidney disease, thyroid disease. She was admitted for septic shock, acute on chronic hypoxic and hypercapneic resp failure secondary to pneumococcal PNA, acute on chronic heart failure. She was transferred from ICU to floors 01/26.sepsis and shock resolved prior to transfer. Upon evaluation on 01/28, she had mild resp distress, delirious and disoriented repeat sepsis work up showed CXR with improved infiltrates, blood culture grew E.coli She was restarted on 01/28 Rocephin 2 g based on worsening leukocytosis, UA was clean On evaluation this morning,she is awake , alert and oriented X3 this a.,m in no distress, requesting to sit out of bed to chair, which she did comfortably. She has chronic respiratory failure and is at her home O2 baseline, but refused to wear O2 or BIPAP had an episode of diarrhea overnight, resolved now. Chest is CTAB anteriorly, Chronic venous stasis changes. No edema. Labs and imaging reviewed: Leukocytosis improving. Continue current management, rest of details as in resident physician's documentation
[2018-01-29] MEDS: cefTRIAXone 2,000 MG in Water for inj. (sterile) 20 ML 20 ML IVP SCH (12:41)
[2018-01-29] MEDS ORDERED: *HR* Warfarin 2 MG TABLET PO SCH (18:00)
[2018-01-29] MEDS: Mirtazapine 15 MG TABLET PO SCH (21:15)
[2018-01-30] MEDS: *HR* LORazepam 2 MG/ML VIAL IVP PRN (02:10)
[2018-01-30] MEDS: Ipratropium/Albuterol Neb 3 ML IH SCH ×5 (03:19→20:06)
[2018-01-30 04:33] LABS: Basophils % 0.1 %; Eosinophils # 0.4 K/mcL (0.0-0.6); Eosinophils % 2.4 %; Hematocrit 32.5 % (35.3-44.9); Hemoglobin 9.7 g/dL (11.5-15.4); Immature Granulocytes % 0.9 % (0-4); Lymphocytes # 1.3 K/mcL (0.6-4.6); Lymphocytes % 7.8 %; Mean Corpuscular HGB Conc 29.8 g/dL (31.6-35.5); Mean Corpuscular Hemoglobin 24.9 pg (28.0-33.3); Mean Corpuscular Volume 83.5 fL (83.0-100.0); Mean Platelet Volume 10.7 fL (9.4-12.4); Monocytes % 5.9 %; Neutrophils # 13.7 K/mcL (1.6-8.9); Platelet Count 228 K/mcL (140-400); Red Blood Count 3.89 M/mcL (3.82-4.97); Red Cell Distribution Width 18.1 % (11.5-14.5); Segmented Neutrophils % 82.9 %
[2018-01-30 04:41] LABS: INR 2.4; Prothrombin Time 26.2 Seconds (9.4-12.1)
[2018-01-30 05:04] LABS: BUN/Creatinine Ratio 19 (6-26); Blood Urea Nitrogen 16 mg/dL (8-23); Calcium 8.1 mg/dL (8.6-10.3); Carbon Dioxide 27 mEq/L (23-29); Chloride 105 mEq/L (98-107); Glucose 85 mg/dL (70-105); Osmolality,Calculated 288 (280-300); Potassium 3.6 mEq/L (3.5-5.1); Sodium 139 mEq/L (136-145); eGFR For African Americans > 60 (> 60); eGFR For Non-African Americans > 60 (> 60)
[2018-01-30] MEDS: Multivit/Ca/Min/Fe/FA 1 TAB TABLET PO SCH (08:48)
[2018-01-30] MEDS: Loratadine 10 MG TABLET PO SCH (08:48)
[2018-01-30] MEDS: Furosemide 20 MG/2 ML VIAL IVP SCH ×2 (08:49→17:27)
[2018-01-30] MEDS: Nystatin POWDER 30 GM BOTTLE TP SCH ×2 (08:49→21:40)
[2018-01-30] MEDS: Insulin LISPRO 300 UNITS/3 ML VIAL SQ SCH ×4 (10:51→21:41)
[2018-01-30] MEDS: Magic Mouthwash 10 ML UD Cup PO SCH ×3 (10:52→19:20)
[2018-01-30] MEDS: Budesonide/Formoterol 160/4.5 MDI IH SCH ×2 (11:08→20:06)
[2018-01-30] MEDS: cefTRIAXone 2,000 MG in Water for inj. (sterile) 20 ML 20 ML IVP SCH (11:30)
[2018-01-30] MEDS ORDERED: GuaiFENesin Liq 200 MG/10 ML UDC PO PRN (11:46)
--- NOTE | 2018-01-30 11:58 | Internal Med Progress Note ---
<Gato Lord - Last Filed: 01/30/18 14:41> Date of Encounter: 01/30/18 Time of Encounter: 10:15 - Assessment and plan (1) Acute and chronic respiratory failure Current Visit: Yes Status: Acute Assessment and plan: Respiratory failure secondary to multilobar pneumococcal pneumonia after influenza infection. Patient was intubated 01/18 through 01/20/2018. Presently on nasal canula. Apparent respiratory distress on exam. Sinus tachycardia on monitor with rate in mid-110 to 120 range; occasional premature beats. BP and saturations adequate. Antibiotics were stopped several days ago. Recurrent distress may represent recurrent infection. Also history of CHFrEF last ECHO 07/2017. Current respiratory status likely represents mixed etiology including decompensated HF & respiratory infection as above. Echo result directly from report: Technically sub-optimal due to poor echocardiographic windows. LVEF 35%. Global left ventricular systolic dysfunction. Indeterminate diastolic function. Normal right ventricular size. Mild right ventricular hypokinesis. Mild aortic regurgitation. Mild mitral stenosis. Mean gradient 5 mmHg (HR 83 bpm). Mild pulmonary hypertension. Grossly, LVEF appears reduced compared to prior reports. Qualifiers: Respiratory failure complication: hypoxia and hypercapnia Qualified Code(s) : J96.21 - Acute and chronic respiratory failure with hypoxia; J96.22 - Acute and chronic respiratory failure with hypercapnia; J96.22 - Acute and chronic respiratory failure with hypercapnia; J96.22 - Acute and chronic respiratory failure with hypercapnia (2) HCAP (healthcare-associated pneumonia) Current Visit: Yes Status: Acute Assessment and plan: Pneumococcal pneumonia secondary to recent influenza, and maybe having recurrence today; has had several antibiotics to present hospital course but has not been treated in the last 2 days. All plans as above. (3) COPD (chronic obstructive pulmonary disease) Current Visit: Yes Status: Chronic Assessment and plan: No wheezes on exam; continue all current measures including plan as above. Qualifiers: COPD type: unspecified COPD Qualified Code(s): J44.9 - Chronic obstructive pulmonary disease, unspecified (4) Type 2 diabetes mellitus Current Visit: No Status: Chronic Assessment and plan: Well-controlled; continue current plan. Qualifiers: Diabetes mellitus drug abuse resistance education officer insulin use: with snf use Diabetes mellitus complication status: with unspecified complications Qualified Code(s) : E11.8 - Type 2 diabetes mellitus with unspecified complications; Z79.4 - cobol programmer (current) use of insulin; Z79.4 - cobol programmer (current) use of insulin; Z79.4 - cobol programmer (current) use of insulin; Z79.4 - correction (current) use of insulin (5) CAD (coronary artery disease) Current Visit: No Status: Chronic Qualifiers: Coronary Disease-Associated Artery/Lesion type: [place] artery [place] vs. transplanted heart: [place] heart Associated angina: without angina Qualified Code(s): I25.10 - Atherosclerotic heart disease of [place] coronary artery without angina pectoris (6) A-fib Current Visit: Yes Status: Chronic Assessment and plan: continue Coreg and Coumadin. Qualifiers: Atrial fibrillation type: chronic Qualified Code(s): I48.2 - Chronic atrial fibrillation (7) Morbid obesity with BMI of 40.0-44.9, adult Current Visit: No Status: Chronic (8) Hypothyroidism Current Visit: No Status: Chronic Assessment and plan: Continue Synthroid Qualifiers: Hypothyroidism type: unspecified Qualified Code(s): E03.9 - Hypothyroidism , unspecified (9) Bacteremia due to Gram-negative bacteria Current Visit: Yes Status: Acute Assessment and plan: BCs: culture prelim gram-negative antonio; serology positive for Enterobacteriaceae and E. coli Plan: - WBC improved today (16.5k down from 21.1k) along with general condition - continue Rocephin current dose - await BC sensitivities - repeat blood culture today pending - consider consult infectious disease if needed when final blood culture results from 01/28/2018 become available DVT prophylaxis: SCDs - Time Spent With Patient Total time spent is greater than 50% in coordination of care (as documented) at patient's floor/unit and/or counseling patient: - Subjective Interval history: Patient comfortable, mildly improved exam, white count continues to improve. Patient complains of worsening sputum production that she is unable to fully cough out. VSS. - Constitutional Vitals: Temp Pulse Resp BP Pulse Ox 97.5 F L 99 18 124/80 94 01/30/18 04:22 01/30/18 07:29 01/30/18 07:29 01/30/18 07:29 01/30/18 04:22 CONSTITUTIONAL: Alert and oriented X3, well-nourished, well appearing; somewhat agitated, but cooperative. HEAD: Normocephalic; atraumatic. EYES: PER, no scleral icterus, no drainage, no conjunctival injection NOSE: The nose is normal in appearance without rhinorrhea Oropharynx: pink/moist, no tonsillar edema/erythema/exudates RESP: continues to be O2 dependent which is baseline, no respiratory distress, no wheezes, no rales/rhonchi CARD: Regular rhythm, without murmurs, rubs, or gallop ABD: soft, non-tender, no guarding/distention/rigidity SKIN: normal appearance, no pallor/diaphoresis,mottling,jaundice,cyanosis EXT: Rad pulses 2+ and symmetrical; no lateralizing edema; no other lesions seen PSYCH: appropriate mood/affect General appearance: Present: severe distress (Respiratory distress) Internal Medicine: Result - Labs CBC & Chem 7: 01/30/18 04:12 01/30/18 04:12 Labs: Short CBC 01/30/18 Range/Units 04:12 WBC 16.5 H (4.3-11.1) K/mcL Hgb 9.7 L (11.5-15.4) g/dL Hct 32.5 L (35.3-44.9) % Plt Count 228 (140-400) K/mcL Neutrophils # 13.7 H (1.6-8.9) K/mcL BMP 01/30/18 04:12 Sodium 139 Potassium 3.6 Chloride 105 Carbon Dioxide 27 BUN 16 Creatinine 0.83 Glucose 85 Calcium 8.1 L - ABG Interpretation ABG results: ABG ABG pH 7.40 pH Units (7.32-7.45) 01/28/18 09:25 ABG pCO2 42 mmHg (35-45) 01/28/18 09:25 ABG pO2 80 mmHg (85-104) L 01/28/18 09:25 ABG O2 Saturation 96 % (95-98) 01/28/18 09:25 PT/INR, D-dimer PT 26.2 Seconds (9.4-12.1) H 01/30/18 04:12 - Impressions Impressions Chest X-Ray 01/28/18 08:31 IMPRESSION: Slight interval improvement of bilateral interstitial edema and bibasilar airspace opacities. D/ / 01/28/2018 09:26:36 Nicky Julio MD / [facility] Interpreting Provider: Nicky Julio MD Echocardiogram 01/30/18 08:00 Impressions: Technically sub-optimal due to poor echocardiographic windows. LVEF 35%. Global left ventricular systolic dysfunction. Indeterminate diastolic function. Normal right ventricular size. Mild right ventricular hypokinesis. Mild aortic regurgitation. Mild mitral stenosis. Mean gradient 5 mmHg (HR 83 bpm). Mild pulmonary hypertension. Grossly, LVEF appears reduced compared to prior reports. Consider contrast enhancement with future studies. Left Ventricular Wall Motion: Rest Echo Findings The apex, apical inferior, mid inferior, basal inferior, apical anterior, mid anterior, basal anterior, apical septal, mid inferior septal, basal inferior septal, apical lateral, mid anterior lateral, basal anterior lateral, mid anterior septal, mid inferior lateral, basal anterior septal and basal inferior lateral anand were hypokinetic. Findings: Study Quality * Technically sub-optimal due to poor echocardiographic windows. ECG Findings * Atrial fibrillation. Left Ventricle * LVEF 35%. * Global left ventricular systolic dysfunction. * Indeterminate diastolic function. Right Ventricle * Normal right ventricular size. Mild right ventricular hypokinesis. Left Atrium * Moderately dilated left atrium. Right Atrium * Mildly dilated right atrium. Interatrial Septum * Interatrial septum not well evaluated. Aortic Valve * Moderately calcified aortic valve leaflets. * Mild aortic regurgitation. * No aortic stenosis. Mitral Valve * Mild mitral annular calcification * Mildly calcified mitral valve leaflets. * Trace mitral regurgitation. * Mild mitral stenosis. Mean gradient 5 mmHg (HR 83 bpm). Tricuspid Valve * Normal tricuspid valve structure and function. * Trace tricuspid regurgitation. * Mild pulmonary hypertension. Pulmonic Valve * Pulmonic valve not well visualized. Aorta * Normally sized aortic root. Pericardium * The pericardium appears normal. IVC * Normal IVC dimensions and inspiratory collapse. Pulmonary Artery * Normal visualized portions of the main pulmonary artery. - VTE Documentation of Mechanical Device: Intermittent pneumatic compression device Consult Discharge Plan - Plan Referrals: NONE,PCP [Primary Care Provider] - <Marshall Rene - Last Filed: 01/30/18 16:36> Date of Encounter: 01/30/18 - Assessment and plan (1) Acute and chronic respiratory failure Current Visit: Yes Status: Acute Qualifiers: Respiratory failure complication: hypoxia and hypercapnia Qualified Code(s) : J96.21 - Acute and chronic respiratory failure with hypoxia; J96.22 - Acute and chronic respiratory failure with hypercapnia; J96.22 - Acute and chronic respiratory failure with hypercapnia; J96.22 - Acute and chronic respiratory failure with hypercapnia (2) COPD (chronic obstructive pulmonary disease) Current Visit: Yes Status: Chronic Qualifiers: COPD type: unspecified COPD Qualified Code(s): J44.9 - Chronic obstructive pulmonary disease, unspecified (3) Type 2 diabetes mellitus Current Visit: No Status: Chronic Qualifiers: Diabetes mellitus snf insulin use: with drug abuse resistance education officer use Diabetes mellitus complication status: with unspecified complications Qualified Code(s) : E11.8 - Type 2 diabetes mellitus with unspecified complications; Z79.4 - correction (current) use of insulin; Z79.4 - cobol programmer (current) use of insulin; Z79.4 - correction (current) use of insulin; Z79.4 - cobol programmer (current) use of insulin (4) CAD (coronary artery disease) Current Visit: No Status: Chronic Qualifiers: Coronary Disease-Associated Artery/Lesion type: [place] artery [place] vs. transplanted heart: [place] heart Associated angina: without angina Qualified Code(s): I25.10 - Atherosclerotic heart disease of [place] coronary artery without angina pectoris (5) A-fib Current Visit: Yes Status: Chronic Qualifiers: Atrial fibrillation type: chronic Qualified Code(s): I48.2 - Chronic atrial fibrillation (6) Morbid obesity with BMI of 40.0-44.9, adult Current Visit: No Status: Chronic (7) Hypothyroidism Current Visit: No Status: Chronic Qualifiers: Hypothyroidism type: unspecified Qualified Code(s): E03.9 - Hypothyroidism , unspecified (8) HCAP (healthcare-associated pneumonia) Current Visit: Yes Status: Acute (9) Bacteremia due to Gram-negative bacteria Current Visit: Yes Status: Acute - Time Spent With Patient Total time spent is greater than 50% in coordination of care (as documented) at patient's floor/unit and/or counseling patient: - Constitutional Vitals: Temp Pulse Resp BP Pulse Ox 97.5 F L 94 18 108/53 100 01/30/18 15:00 01/30/18 15:00 01/30/18 15:00 01/30/18 15:00 01/30/18 15:00 Internal Medicine: Result - Labs CBC & Chem 7: 01/30/18 04:12 01/30/18 04:12 Labs: Short CBC 01/30/18 Range/Units 04:12 WBC 16.5 H (4.3-11.1) K/mcL Hgb 9.7 L (11.5-15.4) g/dL Hct 32.5 L (35.3-44.9) % Plt Count 228 (140-400) K/mcL Neutrophils # 13.7 H (1.6-8.9) K/mcL BMP 01/30/18 04:12 Sodium 139 Potassium 3.6 Chloride 105 Carbon Dioxide 27 BUN 16 Creatinine 0.83 Glucose 85 Calcium 8.1 L - ABG Interpretation ABG results: ABG ABG pH 7.40 pH Units (7.32-7.45) 01/28/18 09:25 ABG pCO2 42 mmHg (35-45) 01/28/18 09:25 ABG pO2 80 mmHg (85-104) L 01/28/18 09:25 ABG O2 Saturation 96 % (95-98) 01/28/18 09:25 PT/INR, D-dimer PT 26.2 Seconds (9.4-12.1) H 01/30/18 04:12 - Impressions Impressions Chest X-Ray 01/28/18 08:31 IMPRESSION: Slight interval improvement of bilateral interstitial edema and bibasilar airspace opacities. D/ / 01/28/2018 09:26:36 [facility] Inter[facility] Provider: Nicky Julio MD Echocardiogram 01/30/18 08:00 Impressions: Technically sub-optimal due to poor echocardiographic windows. LVEF 35%. Global left ventricular systolic dysfunction. Indeterminate diastolic function. Normal right ventricular size. Mild right ventricular hypokinesis. Mild aortic regurgitation. Mild mitral stenosis. Mean gradient 5 mmHg (HR 83 bpm). Mild pulmonary hypertension. Grossly, LVEF appears reduced compared to prior reports. Consider contrast enhancement with future studies. Left Ventricular Wall Motion: Rest Echo Findings The apex, apical inferior, mid inferior, basal inferior, apical anterior, mid anterior, basal anterior, apical septal, mid inferior septal, basal inferior septal, apical lateral, mid anterior lateral, basal anterior lateral, mid anterior septal, mid inferior lateral, basal anterior septal and basal inferior lateral anand were hypokinetic. Findings: Study Quality * Technically sub-optimal due to poor echocardiographic windows. ECG Findings * Atrial fibrillation. Left Ventricle * LVEF 35%. * Global left ventricular systolic dysfunction. * Indeterminate diastolic function. Right Ventricle * Normal right ventricular size. Mild right ventricular hypokinesis. Left Atrium * Moderately dilated left atrium. Right Atrium * Mildly dilated right atrium. Interatrial Septum * Interatrial septum not well evaluated. Aortic Valve * Moderately calcified aortic valve leaflets. * Mild aortic regurgitation. * No aortic stenosis. Mitral Valve * Mild mitral annular calcification * Mildly calcified mitral valve leaflets. * Trace mitral regurgitation. * Mild mitral stenosis. Mean gradient 5 mmHg (HR 83 bpm). Tricuspid Valve * Normal tricuspid valve structure and function. * Trace tricuspid regurgitation. * Mild pulmonary hypertension. Pulmonic Valve * Pulmonic valve not well visualized. Aorta * Normally sized aortic root. Pericardium * The pericardium appears normal. IVC * Normal IVC dimensions and inspiratory collapse. Pulmonary Artery * Normal visualized portions of the main pulmonary artery. - Attending Attestation I examined this patient and my medical decision-making was reviewed with the Resident Physician. I agree with the documented findings, disposition and treatment plan as described except to the extent set forth below. 82 F with past medical history of atrial fibrillation, combined CHF with ejection fraction unknown, COPD, coronary artery disease, diabetes, GERD, glaucoma, hyperlipidemia, hypertension, chronic kidney disease, thyroid disease. She was admitted for septic shock, acute on chronic hypoxic and hypercapneic resp failure secondary to pneumococcal PNA, acute on chronic heart failure. She was transferred from ICU to floors 01/26.sepsis and shock resolved prior to transfer. Upon evaluation on 01/28, she had mild resp distress, delirious and disoriented repeat sepsis work up showed CXR with improved infiltrates, blood culture grew E.coli No diarrhea episodes overnight, RN noted episode of confusion last night, she is AAOX3 this a.m on exam On evaluation this morning,she is awake , alert and oriented X3 this a.,m in no distress, Chest is CTAB anteriorly, Chronic venous stasis changes. No edema. Labs and imaging reviewed: Leukocytosis improving. Continue current management, add Temitopesin, await blood culture 01/28 report ( suspect contaminant as only one bottle grew) rest of details as in resident physician's documentatio
[2018-01-30] MEDS ORDERED: *HR* Warfarin 3 MG TABLET PO ONE (18:00)
[2018-01-30] MEDS: Mirtazapine 15 MG TABLET PO SCH (21:39)
[2018-01-30] MEDS ORDERED: Furosemide 20 MG/2 ML VIAL IVP ONE (21:52)
[2018-01-31] MEDS: Ipratropium/Albuterol Neb 3 ML IH SCH ×6 (00:19→21:00)
[2018-01-31 04:33] LABS: INR 2.5; Prothrombin Time 26.9 Seconds (9.4-12.1)
[2018-01-31 04:41] LABS: Basophils % 0.2 %; Eosinophils # 0.3 K/mcL (0.0-0.6); Eosinophils % 1.8 %; Hematocrit 33.3 % (35.3-44.9); Hemoglobin 9.8 g/dL (11.5-15.4); Immature Granulocytes % 0.9 % (0-4); Lymphocytes # 1.1 K/mcL (0.6-4.6); Lymphocytes % 7.7 %; Mean Corpuscular HGB Conc 29.4 g/dL (31.6-35.5); Mean Corpuscular Hemoglobin 24.5 pg (28.0-33.3); Mean Corpuscular Volume 83.3 fL (83.0-100.0); Mean Platelet Volume 10.4 fL (9.4-12.4); Monocytes # 1.1 K/mcL (0.0-1.3); Monocytes % 7.3 %; Neutrophils # 11.9 K/mcL (1.6-8.9); Platelet Count 267 K/mcL (140-400); Red Cell Distribution Width 18.3 % (11.5-14.5); Segmented Neutrophils % 82.1 %
[2018-01-31 04:52] LABS: BUN/Creatinine Ratio 17 (6-26); Blood Urea Nitrogen 14 mg/dL (8-23); Calcium 8.1 mg/dL (8.6-10.3); Carbon Dioxide 31 mEq/L (23-29); Chloride 101 mEq/L (98-107); Glucose 87 mg/dL (70-105); Osmolality,Calculated 288 (280-300); Potassium 3.8 mEq/L (3.5-5.1); Sodium 139 mEq/L (136-145); eGFR For African Americans > 60 (> 60); eGFR For Non-African Americans > 60 (> 60)
[2018-01-31] MEDS: Budesonide/Formoterol 160/4.5 MDI IH SCH ×2 (07:32→21:00)
[2018-01-31] MEDS: Insulin LISPRO 300 UNITS/3 ML VIAL SQ SCH ×4 (08:43→21:57)
[2018-01-31] MEDS: Loratadine 10 MG TABLET PO SCH (08:48)
[2018-01-31] MEDS: Multivit/Ca/Min/Fe/FA 1 TAB TABLET PO SCH (08:48)
[2018-01-31] MEDS: Magic Mouthwash 10 ML UD Cup PO SCH ×3 (08:49→17:41)
[2018-01-31] MEDS: Furosemide 20 MG/2 ML VIAL IVP SCH ×2 (08:49→17:46)
[2018-01-31] MEDS: Nystatin POWDER 30 GM BOTTLE TP SCH ×2 (08:49→21:57)
--- NOTE | 2018-01-31 09:45 | Internal Med Progress Note ---
<Sadiq Cavazos - Last Filed: 01/31/18 11:26> Date of Encounter: 01/31/18 Time of Encounter: 09:43 - Assessment and plan (1) HCAP (healthcare-associated pneumonia) Current Visit: Yes Status: Acute Assessment and plan: Pneumococcal pneumonia secondary to recent influenza (2) Acute and chronic respiratory failure Current Visit: Yes Status: Acute Assessment and plan: Respiratory failure secondary to multilobar pneumococcal pneumonia after influenza infection. Patient was intubated 01/18 through 01/20/2018. Presently on nasal canula. No respiratory distress on exam. Respiratory status likely mixed etiology including decompensated CHFrEF last ECHO 07/2017 & respiratory infection as above. Qualifiers: Respiratory failure complication: hypoxia and hypercapnia Qualified Code(s) : J96.21 - Acute and chronic respiratory failure with hypoxia; J96.22 - Acute and chronic respiratory failure with hypercapnia; J96.22 - Acute and chronic respiratory failure with hypercapnia; J96.22 - Acute and chronic respiratory failure with hypercapnia (3) COPD (chronic obstructive pulmonary disease) Current Visit: Yes Status: Chronic Assessment and plan: No wheezes on exam; continue all current measures including plan as above. Qualifiers: COPD type: unspecified COPD Qualified Code(s): J44.9 - Chronic obstructive pulmonary disease, unspecified (4) Type 2 diabetes mellitus Current Visit: No Status: Chronic Assessment and plan: Well-controlled; continue current plan. Qualifiers: Diabetes mellitus terminal makeup operator insulin use: with terminal makeup operator use Diabetes mellitus complication status: with unspecified complications Qualified Code(s) : E11.8 - Type 2 diabetes mellitus with unspecified complications; Z79.4 - intermodal dispatcher (current) use of insulin; Z79.4 - senior care (current) use of insulin; Z79.4 - intermodal dispatcher (current) use of insulin; Z79.4 - senior care (current) use of insulin (5) A-fib Current Visit: Yes Status: Chronic Assessment and plan: Continue Coreg and Coumadin. Qualifiers: Atrial fibrillation type: chronic Qualified Code(s): I48.2 - Chronic atrial fibrillation (6) CAD (coronary artery disease) Current Visit: No Status: Chronic Assessment and plan: Continue monitoring Qualifiers: Coronary Disease-Associated Artery/Lesion type: [place] artery [place] vs. transplanted heart: [place] heart Associated angina: without angina Qualified Code(s): I25.10 - Atherosclerotic heart disease of [place] coronary artery without angina pectoris (7) CKD (chronic kidney disease) stage 3, GFR 30-59 ml/min Current Visit: No Status: Chronic (8) Hypothyroidism Current Visit: No Status: Chronic Assessment and plan: Continue Synthroid Qualifiers: Hypothyroidism type: unspecified Qualified Code(s): E03.9 - Hypothyroidism , unspecified (9) Morbid obesity with BMI of 40.0-44.9, adult Current Visit: No Status: Chronic Assessment and plan: Diet modification (10) Bacteremia due to Gram-negative bacteria Current Visit: Yes Status: Acute Assessment and plan: Blood culture reveals E. coli MDRO WBC improved today Continue Rocephin at current dose Repeat blood culture shows no growth to date Consulted infectious disease for further recommendations - Time Spent With Patient Total time spent is greater than 50% in coordination of care (as documented) at patient's floor/unit and/or counseling patient: - Subjective Interval history: Patient seen and examined resting comfortably in bed after eating breakfast. Patient denies fever, chills, CP, productive cough, or any new c/o. She reports feeling improved today and requests discharge back to nursing facility soon. Infectious disease was consulted today due to E. coli MDRO bacteremia. - Constitutional Vitals: Temp Pulse Resp BP Pulse Ox 97.6 F 107 18 117/65 95 01/31/18 07:21 01/31/18 07:21 01/31/18 07:32 01/31/18 07:21 01/31/18 07:32 General appearance: Present: cooperative, A&O X 3, morbidly obese, pleasant, severe distress (Respiratory distress), answers questions appropriately - Head Head exam: Present: atraumatic, normocephalic - Eye Eye exam: Present: PERRL, conjuntiva pink, sclera anicteric Pupils: Present: PERRL - ENT ENT exam: Present: mucous membranes moist, normal oropharynx - Neck Neck exam general surgery: Present: supple, trachea midline. Absent: lymphadenopathy - Respiratory Respiratory exam: Present: CTAB. Absent: accessory muscle use, rales, rhonchi, wheezes - Cardiovascular Cardiovascular exam: Present: RRR, +S1, +S2. Absent: diastolic murmur, gallop, rubs, systolic murmur - GI/Abdominal GI/Abdominal exam: Present: normal bowel sounds, soft, no peritoneal signs. Absent: distended, guarding, tenderness - Additional comments: kahn in place - Extremities Exam Extremities exam: Present: warm, radial pulses palpable and symmetrical. Absent : calf tenderness, cyanotic, pedal edema (chronic venous stasis changes) - Neurological Exam Neurological exam: Present: CN II-XII intact, oriented X3, no focal deficits. Absent: pronater drift, facial droop, speech deficit - Psychiatric Psychiatric exam: Present: normal affect, normal mood - Skin Skin exam: Present: dry, intact, warm. Absent: normal color Additional comments: chronic venous stasis changes Internal Medicine: Result - Labs CBC & Chem 7: 01/31/18 04:10 01/31/18 04:10 Labs: Short CBC 01/31/18 Range/Units 04:10 WBC 14.5 H (4.3-11.1) K/mcL Hgb 9.8 L (11.5-15.4) g/dL Hct 33.3 L (35.3-44.9) % Plt Count 267 (140-400) K/mcL Neutrophils # 11.9 H (1.6-8.9) K/mcL BMP 01/31/18 04:10 Sodium 139 Potassium 3.8 Chloride 101 Carbon Dioxide 31 H BUN 14 Creatinine 0.84 Glucose 87 Calcium 8.1 L - ABG Interpretation ABG results: ABG ABG pH 7.40 pH Units (7.32-7.45) 01/28/18 09:25 ABG pCO2 42 mmHg (35-45) 01/28/18 09:25 ABG pO2 80 mmHg (85-104) L 01/28/18 09:25 ABG O2 Saturation 96 % (95-98) 01/28/18 09:25 PT/INR, D-dimer PT 26.9 Seconds (9.4-12.1) H 01/31/18 04:10 - Pulse Oximetry Interpretation Digit-Finger Pulse Oximetry Readin (3L O2 via NC) - Impressions Impressions Echocardiogram 01/30/18 08:00 Impressions: Technically sub-optimal due to poor echocardiographic windows. LVEF 35%. Global left ventricular systolic dysfunction. Indeterminate diastolic function. Normal right ventricular size. Mild right ventricular hypokinesis. Mild aortic regurgitation. Mild mitral stenosis. Mean gradient 5 mmHg (HR 83 bpm). Mild pulmonary hypertension. Grossly, LVEF appears reduced compared to prior reports. Consider contrast enhancement with future studies. Left Ventricular Wall Motion: Rest Echo Findings The apex, apical inferior, mid inferior, basal inferior, apical anterior, mid anterior, basal anterior, apical septal, mid inferior septal, basal inferior septal, apical lateral, mid anterior lateral, basal anterior lateral, mid anterior septal, mid inferior lateral, basal anterior septal and basal inferior lateral anand were hypokinetic. Findings: Study Quality * Technically sub-optimal due to poor echocardiographic windows. ECG Findings * Atrial fibrillation. Left Ventricle * LVEF 35%. * Global left ventricular systolic dysfunction. * Indeterminate diastolic function. Right Ventricle * Normal right ventricular size. Mild right ventricular hypokinesis. Left Atrium * Moderately dilated left atrium. Right Atrium * Mildly dilated right atrium. Interatrial Septum * Interatrial septum not well evaluated. Aortic Valve * Moderately calcified aortic valve leaflets. * Mild aortic regurgitation. * No aortic stenosis. Mitral Valve * Mild mitral annular calcification * Mildly calcified mitral valve leaflets. * Trace mitral regurgitation. * Mild mitral stenosis. Mean gradient 5 mmHg (HR 83 bpm). Tricuspid Valve * Normal tricuspid valve structure and function. * Trace tricuspid regurgitation. * Mild pulmonary hypertension. Pulmonic Valve * Pulmonic valve not well visualized. Aorta * Normally sized aortic root. Pericardium * The pericardium appears normal. IVC * Normal IVC dimensions and inspiratory collapse. Pulmonary Artery * Normal visualized portions of the main pulmonary artery. - VTE Documentation of Mechanical Device: Intermittent pneumatic compression device Consult Discharge Plan - Plan Referrals: NONE,PCP [Primary Care Provider] - <Marshall Rene - Last Filed: 01/31/18 17:41> Date of Encounter: 01/31/18 - Assessment and plan (1) Acute and chronic respiratory failure Current Visit: Yes Status: Acute Qualifiers: Respiratory failure complication: hypoxia and hypercapnia Qualified Code(s) : J96.21 - Acute and chronic respiratory failure with hypoxia; J96.22 - Acute and chronic respiratory failure with hypercapnia; J96.22 - Acute and chronic respiratory failure with hypercapnia; J96.22 - Acute and chronic respiratory failure with hypercapnia (2) COPD (chronic obstructive pulmonary disease) Current Visit: Yes Status: Chronic Qualifiers: COPD type: unspecified COPD Qualified Code(s): J44.9 - Chronic obstructive pulmonary disease, unspecified (3) Type 2 diabetes mellitus Current Visit: No Status: Chronic Qualifiers: Diabetes mellitus terminal makeup operator insulin use: with terminal makeup operator use Diabetes mellitus complication status: with unspecified complications Qualified Code(s) : E11.8 - Type 2 diabetes mellitus with unspecified complications; Z79.4 - senior care (current) use of insulin; Z79.4 - senior care (current) use of insulin; Z79.4 - senior care (current) use of insulin; Z79.4 - senior care (current) use of insulin (4) CAD (coronary artery disease) Current Visit: No Status: Chronic Qualifiers: Coronary Disease-Associated Artery/Lesion type: [place] artery [place] vs. transplanted heart: [place] heart Associated angina: without angina Qualified Code(s): I25.10 - Atherosclerotic heart disease of [place] coronary artery without angina pectoris (5) A-fib Current Visit: Yes Status: Chronic Qualifiers: Atrial fibrillation type: chronic Qualified Code(s): I48.2 - Chronic atrial fibrillation (6) Morbid obesity with BMI of 40.0-44.9, adult Current Visit: No Status: Chronic (7) CKD (chronic kidney disease) stage 3, GFR 30-59 ml/min Current Visit: No Status: Chronic (8) Hypothyroidism Current Visit: No Status: Chronic Qualifiers: Hypothyroidism type: unspecified Qualified Code(s): E03.9 - Hypothyroidism , unspecified (9) HCAP (healthcare-associated pneumonia) Current Visit: Yes Status: Acute (10) Bacteremia due to Gram-negative bacteria Current Visit: Yes Status: Acute - Time Spent With Patient Total time spent is greater than 50% in coordination of care (as documented) at patient's floor/unit and/or counseling patient: - Constitutional Vitals: Temp Pulse Resp BP Pulse Ox 98.1 F 96 18 123/76 100 01/31/18 16:00 01/31/18 16:00 01/31/18 16:00 01/31/18 16:00 01/31/18 16:00 Internal Medicine: Result - Labs CBC & Chem 7: 01/31/18 04:10 01/31/18 04:10 Labs: Short CBC 01/31/18 Range/Units 04:10 WBC 14.5 H (4.3-11.1) K/mcL Hgb 9.8 L (11.5-15.4) g/dL Hct 33.3 L (35.3-44.9) % Plt Count 267 (140-400) K/mcL Neutrophils # 11.9 H (1.6-8.9) K/mcL BMP 01/31/18 04:10 Sodium 139 Potassium 3.8 Chloride 101 Carbon Dioxide 31 H BUN 14 Creatinine 0.84 Glucose 87 Calcium 8.1 L - ABG Interpretation ABG results: ABG ABG pH 7.40 pH Units (7.32-7.45) 01/28/18 09:25 ABG pCO2 42 mmHg (35-45) 01/28/18 09:25 ABG pO2 80 mmHg (85-104) L 01/28/18 09:25 ABG O2 Saturation 96 % (95-98) 01/28/18 09:25 PT/INR, D-dimer PT 26.9 Seconds (9.4-12.1) H 01/31/18 04:10 - Attending Attestation I examined this patient and my medical decision-making was reviewed with the Resident Physician. I agree with the documented findings, disposition and treatment plan as described except to the extent set forth below. 82 F with past medical history of atrial fibrillation, combined CHF with ejection fraction unknown, COPD, coronary artery disease, diabetes, GERD, glaucoma, hyperlipidemia, hypertension, chronic kidney disease, thyroid disease. She was admitted for septic shock, acute on chronic hypoxic and hypercapneic resp failure secondary to pneumococcal PNA, acute on chronic heart failure. She was transferred from ICU to floors 01/26.sepsis and shock resolved prior to transfer. Upon evaluation on 01/28, she had mild resp distress, delirious and disoriented repeat sepsis work up showed CXR with improved infiltrates, blood culture grew E.coli No more diarrhea episodes She is sitting up in bed during evaluation, requesting to be discharged home. Blood cultures growing MDR Escherichia colisuspect to be contaminant as only 1 out of 2 bottles grew Escherichia coli. Patient is making clinical improvement, and repeat blood cultures done 01/30 were negative. On evaluation this morning,she is awake , alert and oriented X3 this a.,m in no distress, Chest is CTAB anteriorly, Chronic venous stasis changes. No edema. Labs and imaging reviewed: Leukocytosis continues to improve, hemoglobin is stable, INR is therapeutic. Continue Rocephin 2 g daily. Continue other management. Consult infectious diseases due to MDRO blood culture. Disontinue urinary catheter. rest of details as in resident physician's documentatio
--- NOTE | 2018-01-31 11:47 | Infectious Disease Consult ---
Date of Encounter: 01/31/18 Time of Encounter: 11:39 Assessment and Plan (1) Septic shock Status: Resolved Assessment and plan: The patient had four SIRS criteria plus lactic acidosis, RODOLFO, acute respiratory failure, and hypotension requiring vasopressors. Likely secondary to multifocal PNA. Improved. WBC is trending down. Afebrile. Tachycardia, lactic acidosis, and hypotension has resolved. Blood cultures drawn 01/17/18 at [facility] were positive 1/2 for Kocuria rosea, likely a contaminant. Repeat blood cultures drawn here 01/18/18 are negative x 2 sets. Additional blood cultures drawn 01/28/18 are positive 1/2 sets for MDRO E. coli. Repeat blood cultures drawn 01/30/18 x 1 set is NGTD. (2) Bacteremia Status: Suspected Assessment and plan: Causative organism: E. coli MDRO Blood cultures drawn 01/17/18 at [facility] were positive 1/2 for Kocuria rosea, likely a contaminant. Repeat blood cultures drawn here 01/18/18 are negative x 2 sets. Additional blood cultures drawn 01/28/18 are positive 1/2 sets for MDRO E. coli. Repeat blood cultures drawn 01/30/18 x 1 set is NGTD. Get another two sets of blood cultures now. Given the clinical picture, the E. coli MDRO is likely a contaminant. The patient has improved clinically despite inadequate antibiotic coverage. Await repeat cultures. No further antibiotics required for the bacteremia at this point. Continue contact precautions per policy. (3) HCAP (healthcare-associated pneumonia) Status: Acute Assessment and plan: Causative organism likely Influenza with superimposed bacterial pneumonia with S. pneumo. Location: Multifocal. CXR completed 01/18/18 showed bilateral asymmetric airspace disease and layering effusions. CT of the chest 01/18/18 showed findings consistent with multifocal pneumonia and patchy airway secretions. Strep pneumo UAT positive. Legionella UAT negative. Clinically improved with antibiotic treatment (Zosyn x 4 days + Rocephin x 4 days), but took a turn to the worse about 48 hours after antibiotics were stopped. Repeat CXR 01/28/18 showed slight improvement. Repeat CXR tomorrow. Continue Rocephin 2 grams IV daily. Duration of treatment depends on the clinical picture, but likely a total of 14 days. (4) UTI (urinary tract infection) Status: Acute Assessment and plan: Urine culture obtained at [facility] was positive for oneill-sensitive E. coli. Repeat urine culture 01/18/18 here was negative. Urinalysis 01/29/18 is negative. Resolved. Qualifiers: Urinary tract infection type: acute cystitis Hematuria presence: without hematuria Qualified Code(s): N30.00 - Acute cystitis without hematuria (5) Influenza Status: Resolved Assessment and plan: Completed 5 day course of Tamiflu. Resolved. (6) Lactic acidosis Status: Acute Assessment and plan: Likely secondary to sepsis. Resolved. (7) RODOLFO (acute kidney injury) Status: Acute Assessment and plan: Likely RODOLFO superimposed on CKD. Secondary to sepsis. Resolved. (8) Acute and chronic respiratory failure Status: Acute Assessment and plan: Likely secondary to PNA. Intubated 01/17/18. Extubated 01/18/18. Improved. Currently on O2 at home dose. Management per the primary team. Qualifiers: Respiratory failure complication: hypoxia and hypercapnia Qualified Code(s) : J96.21 - Acute and chronic respiratory failure with hypoxia; J96.22 - Acute and chronic respiratory failure with hypercapnia; J96.22 - Acute and chronic respiratory failure with hypercapnia; J96.22 - Acute and chronic respiratory failure with hypercapnia (9) COPD (chronic obstructive pulmonary disease) Status: Chronic Qualifiers: COPD type: unspecified COPD Qualified Code(s): J44.9 - Chronic obstructive pulmonary disease, unspecified (10) Type 2 diabetes mellitus Status: Chronic Assessment and plan: Recommend aggressive glucose monitoring and control. Management per the primary team. Qualifiers: Diabetes mellitus terminal supervisor insulin use: with fci use Diabetes mellitus complication status: with unspecified complications Qualified Code(s) : E11.8 - Type 2 diabetes mellitus with unspecified complications; Z79.4 - rat exterminator (current) use of insulin; Z79.4 - custodial (current) use of insulin; Z79.4 - custodial (current) use of insulin; Z79.4 - rat exterminator (current) use of insulin (11) Morbid obesity with BMI of 40.0-44.9, adult Status: Chronic Infectious Disease HPI - Data of Consult Patient: new to practice Consult date: 01/31/18 Requesting Physician: Marshall Rene MD Primary Care Provider: PCP NONE - Consult Narrative Reason for consult: Bacteremia History of present illness: Ms. Renee is a 82 year old female with a past medical history of A. fib, COPD with chronic O2 dependence, diabetes, chronic kidney disease, CHF and possible renal cell carcinoma. The patient was admitted to the hospital January 17 for multifocal pneumonia. We are consulted January 31 for further recommendations for bacteremia. Briefly, the patient is an 82-year-old female with past medical history as stated above. Patient was admitted to the hospital on January 17 from an outlying hospital for multifocal pneumonia. The patient is unable to recall any of the events leading up to her hospitalization, therefore, most of the information is obtained from the medical record. Apparently, the patient had recently been hospitalized at another hospital for pneumonia. She was discharged back to [facility] where she lived and was diagnosed with influenza on January 13. She started a course of Tamiflu and was doing well until January 17 when she became hypoxic, tachycardic, tachypneic, and hypotensive. She was transferred to a local emergency department. Blood cultures were obtained 2 sets and were positive for Kocuria rosea 1/2 sets. She also had a urine culture that was positive for oneill-sensitive E. coli. She had a chest x-ray that showed a left-sided effusion and bilateral infiltrates. She was started on IV antibiotics and vasopressors and transferred here to our intensive care unit. Upon arrival here, the patient was in severe respiratory distress. She was intubated and had a right IJ CVC placed. A repeat chest x- ray done here showed bilateral asymmetric airspace disease and layering effusions. She had a CT of the chest that showed findings consistent with multifocal pneumonia and patchy airway secretions. Laboratory studies here revealed leukocytosis with neutrophilic predominance, acute kidney injury, lactic acidosis. Strep pneumo urinary antigen was positive. Repeat urine culture done upon arrival was negative. Blood cultures obtained 2 sets upon arrival were negative as well. Repeat labs the following day revealed a leukemoid reaction with a white blood cell count of 56,000 with bandemia. She also had a low-grade fever. Lactic acid and acute kidney injury were improved. LFTs were normal. She is CT abdomen and pelvis that showed moderate wall thickening of the upper descending colon with mild adjacent stranding. The patient's clinical status continued to improve and she was extubated on January 20. She was transferred out of the intensive care unit on January 21, but had acute respiratory distress and ended up having to be transferred back to the intensive care unit. Antibiotics were descalated to IV Rocephin only January 22 and they were later discontinued on January 25. On January 28, the patient's respiratory status declined. Laboratory studies showed an acute worsening of her white blood cell count. Blood cultures were repeated and were +1 out of 2 sets for Escherichia coli that was multidrug resistant. She also had tachycardia at that time, but was afebrile. Biotics were restarted Rocephin 2 g daily. Since then, the patient has continued to improve clinically. Her white blood cell count has been trending down. She does have some intermittent tachycardia. Additional blood culture drawn January 30 is no growth to date 1 set. We then asked to evaluate and make further recommendations. During my exam today, the patient states that overall she feels better. She denies any fevers or chills or rigors. She denies any headache or neck pain. She denies any congestion, earache, or sore throat. She denies any chest pain or shortness of breath, but does state that she has a moist cough that is productive of a small amount of white sputum. She denies any nausea or vomiting or diarrhea. She reports that her stools are soft and she last had a bowel movement yesterday. She is a Hassan catheter that remains patent. She denies any abdominal pain. She states her appetite is okay. She complains of pain in her tailbone from lying in the bed. She denies any back, extremity, or joint pain. She denies any oral thrush or new skin lesions. She states she wants to go back to the residential. [facility] She stopped smoking in 2001. Denies alcohol or illicit drug use. Denies recent travel. CC: Marshall Rene MD Past Med Surg Social Fam HX - Past Medical History Attestation: Yes The following information was validated with the patient. Source: patient, old records reviewed, nursing notes reviewed Medical history: atrial fibrillation, CHF, COPD, coronary artery disease, diabetes, GERD, glaucoma, hyperlipidemia, hypertension, renal disease, thyroid disease Psychiatric history: anxiety, depression - Past Surgical History Surgical History: angioplasty/stent, appendectomy, cholecystectomy - Social History Smoking Status: Former smoker Smokeless Tobacco Status: No Alcohol use: none Drug use: none Occupational status: unemployed Current living situation: ECF Activity Level: Uses cane/walker Recent Out of Country Travel Within the Last 8 Weeks: No Exposure or Possible Exposure to Illness During Travel: No - Family History Father Hx Family Cancer: Yes (Cancer) Hx Family Neurologic Disorders: Yes (CVA) Infectious Disease-CN:Meds Allopurinol [Zyloprim 100 MG] 100 mg PO DAILY 02/13/17 [History] Oxygen 4 l NS AD 02/13/17 [History] Atorvastatin [Lipitor] 40 mg PO HS #30 tablet 02/18/17 [Rx] Levothyroxine Sodium [Synthroid] 200 mcg PO DAILY 08/07/17 [History] Acetaminophen [Tylenol] 650 mg PO Q6HR PRN tablet 08/18/17 [Rx] GuaiFENesin Liq [Robitussin Liq] 200 mg PO Q6HR PRN udc 08/18/17 [Rx] Ipratropium/Albuterol Neb [Duoneb] 3 ml IH [id number] inhsol 08/18/17 [Rx] LORazepam [Ativan] 0.5 mg PO TID PRN tablet 08/18/17 [Rx] Budesonide/Formoterol 160/4.5 [Symbicort 160/4.5] 2 puff IH BIDR 01/18/18 [ History] Carvedilol [Coreg] 6.25 mg PO BID 01/18/18 [History] Fexofenadine HCl 180 mg PO DAILY 01/18/18 [History] Furosemide [Lasix] 40 mg PO BID PRN 01/18/18 [History] Guaifenesin [Mucinex] 600 mg PO BID 01/18/18 [History] Mirtazapine [Remeron] 15 mg PO HS 01/18/18 [History] Mv W-Ca/Iron/FA/Lutein/Hrb#179 [[place] Multivit For Women Caplet] 1 tab PO DAILY 01/18/18 [History] Omeprazole [PriLOSEC] 40 mg PO DAILY 01/18/18 [History] Ondansetron HCl [Zofran] 4 mg PO Q8H PRN 01/18/18 [History] Oxycodone HCl/Acetaminophen [Percocet 5-325 mg Tablet] 1 tab PO DAILY PRN [History] Potassium Chloride [K-Tab ER] 20 meq PO BID 01/18/18 [History] Warfarin [Coumadin] 2 mg PO DAILY 01/18/18 [History] 3 Allergy/AdvReac Type Severity Reaction Status Date / Time meperidine [From Demerol] Allergy Anaphylaxis Verified 02/13/17 11:01 Tetracycline Allergy Anaphylaxis Verified 02/13/17 11:01 All systems: reviewed and no additional remarkable complaints except as stated Exam - Constitutional Vitals: Temp Pulse Resp BP Pulse Ox 97.6 F 107 18 117/65 95 01/31/18 07:21 01/31/18 07:21 01/31/18 07:32 01/31/18 07:21 01/31/18 07:32 General appearance: cooperative, morbidly obese, no acute distress - Head Head exam: Present: atraumatic, normal inspection, normocephalic - Eye Eye exam: Present: EOMI, normal appearance, PERRL Pupils: Present: normal accommodation - ENT ENT exam: Present: mucous membranes moist - Neck Neck exam: Present: normal inspection. Absent: meningismus - Respiratory Respiratory exam: Present: rhonchi (Throughout). Absent: rales, respiratory distress, wheezes - Cardiovascular Cardiovascular exam: Present: irregular rhythm. Absent: tachycardia - GI/Abdominal GI/Abdominal exam: Present: distended (obese), normal bowel sounds, soft. Absent: tenderness Additional comments: Hassan catheter noted to be draining clear yellow urine. - Extremities Exam Extremities exam: Present: pedal edema (1+ BLE). Absent: joint swelling, normal inspection (Venous stasis dermatitis noted to the BLE.), tenderness - Back Exam Back exam: Present: normal inspection. Absent: paraspinal tenderness, vertebral tenderness Additional comments: Allevyn dressing noted to the coccyx. - Neurological Exam Neurological exam: Present: alert, oriented X3, no focal deficits - Psychiatric Psychiatric exam: Present: normal affect, normal mood - Skin Skin exam: Present: dry, intact, normal color, warm Infectious Disease CN: Results - Labs CBC & Chem 7: 01/31/18 04:10 01/31/18 04:10 Cultures: Cultures 01/28/18 09:15 Blood Culture - Preliminary Peripheral Venipuncture Escherichia coli MDRO 01/30/18 04:12 Blood Culture - Preliminary Peripheral Venipuncture No growth. 01/28/18 09:41 Blood Culture - Preliminary Peripheral Venipuncture No growth. 01/18/18 04:02 Blood Culture - Final Peripheral Venipuncture No growth. 01/18/18 04:02 Blood Culture - Final Peripheral Venipuncture No growth. 01/18/18 12:55 Urine Culture - Final Urine,Hassan [place] No significant growth. 01/18/18 12:55 Legionella Antigen - Final Urine,Catheterized Streptococcus pneumoniae Antigen (M - Final Serology: Serology 01/29/18 01/28/18 01/27/18 Range/Units 02:17 09:15 23:25 Urine Color Yellow (Yellow) Urine Clarity Clear (Clear) Urine pH 5.0 (5.0-8.0) pH Units Ur Specific [place] 1.023 (1.010-1.025) Urine Protein Negative (Neg-Trace) mg/dL Urine Glucose (UA) Normal (Normal) mg/dL Urine Ketones Negative (Negative) mg/dL Urine Blood Negative (Negative) Urine Nitrite Negative (Negative) Urine Bilirubin Negative (Negative) Urine Urobilinogen Normal (Normal) mg/dL Ur Leukocyte Esterase Negative (Negative) Ur Culture Indicated? NO (NO) Stool Occult Blood Positive A (Negative) A. baumannii (PCR) Not Detected (Not Detect) Sarahi albicans (PCR) Not Detected (Not Detect) C. glabrata (PCR) Not Detected (Not Detect) C. krusei (PCR) Not Detected (Not Detect) C. parapsilosis (PCR) Not Detected (Not Detect) C. tropicalis (PCR) Not Detected (Not Detect) Enterobacteriac sp PCR DETECTED A (Not Detect) E. cloacae complex PCR Not Detected (Not Detect) Enterococcus sp PCR Not Detected (Not Detect) E. coli (PCR) DETECTED A (Not Detect) H. influenzae (PCR) Not Detected (Not Detect) Klebsiella oxytoca PCR Not Detected (Not Detect) Klebsiella pneumoniae Not Detected (Not Detect) List. monocytogenes PCR Not Detected (Not Detect) N. meningitidis (PCR) Not Detected (Not Detect) Proteus species (PCR) Not Detected (Not Detect) Serratia marcescens PCR Not Detected (Not Detect) Staphylococcus sp PCR Not Detected (Not Detect) Staph aureus (PCR) Not Detected (Not Detect) mecA-Methicil Res Gene Not Detected (Not Detect) Streptococcus sp PCR Not Detected (Not Detect) Group A Strep DNA Not Detected (Not Detect) Group B Strep (PCR) Not Detected (Not Detect) Strep pneumoniae (PCR) Not Detected (Not Detect) P. aeruginosa (PCR) Not Detected (Not Detect) Yordan/B-Vanco Res Genes Not Detected (Not Detect) KPC (blaKPC) Detect PCR Not Detected (Not Detect) - VTE Documentation of Mechanical Device: Intermittent pneumatic compression device Consult Discharge Plan - Plan Referrals: NONE,PCP [Primary Care Provider] - - Attending Attestation I examined this patient and my medical decision-making was reviewed with the Resident Physician. I agree with the documented findings, disposition and treatment plan as described except to the extent set forth below. This is an addendum to original report dictated by Maria Moran CNP. Please refer to Regine note for full detail. Patient is an 82-year-old woman with past medical history mentioned below who apparently on January 13 she was having hypoxia and not feeling well at the residential. Patient lives at [facility]. Patient was checked and was positive for the flu and was started on Tamiflu. Apparently on January 17 she get much worse and she had a fever 103 Fahrenheit. Patient was tachycardic and in septic shock. Patient was taken to [facility] where she was started on pressors. Cultures were obtained over there and she had a urine culture that was positive for UTI that was pansensitive the blood culture 1 out of 2 sets was positive for kocuria rosea. Patient was transferred to [place] for further workup and evaluation. Patient arrived here January 18 for she got admitted to the ICU was intubated and sedated and started on pressors. Patient was in septic shock had initial WBC of 17,000 with 85% neutrophils and on day 2 jumped to 56,000 with a leukemoid reaction. Patient also had lactic acidosis of 4.8 and had multiorgan failure. Patients workup also revealed a positive strep pneumo antigen. A CT at that time revealed multifocal pneumonia and there was a concern for possible aspiration. Patient was initially started on vancomycin and Zosyn and Levaquin and once the strep pneumo came back she was switched to Rocephin. Patient was doing much better clinically, she was extubated and her WBC continued to improve down to 23,000. Repeat chest x-ray on January 28 shows improvement of the consolidation. On January 25 Rocephin was stopped. On January 28, patient went into acute cluster distress, tachycardia and had worsening WBC up to 32,000. She had no fever. She has repeat chest x-ray which showed improvement. Patient had blood cultures and UA done at that time. The UA was negative with no signs of pyuria or any signs of infection of the blood culture 1 out of 2 sets grew Escherichia coli that was multidrug resistant with only susceptibility to Tygacil and aminoglycosides. There was a concern for CR E. Patient was started on Rocephin at that time before susceptibilities came back. We were asked to evaluate the patient make further recommendations. Currently patient seems to be doing much better. Her O2 demands are back at baseline at 3 L nasal cannula. Her WBC continued to improve his of 14,000. Overall she is doing better and ready to be discharged home. Assessment and plan: 1-septic shock: Resolved secondary to #2 and #3 2-pneumonia: Causative organism initially is the flu with superimposed strep pneumo: There was a concern for possible aspiration but the patient eats okay and no signs of choking 3-UTI causative organism is Escherichia coli pansensitive. Resolved repeat urinalysis was negative on January 28 4-bacteremia: Blood cultures on January 17 at outside hospital grew kocuria rosea and blood cultures at [place] on January 28 grew Escherichia coli that is multidrug resistant 1 out of 2 sets 5-acute respiratory failure resolved 6-acute kidney injury resolved Recommendation: At this point patient clinically doing much better and all repeat cultures are negative. The is pretty challenging because the patient has not been treated appropriately for the Escherichia coli that was positive in the blood on January 28 yet all repeat cultures were negative and the patient clinically is doing better. The only way I can explain this is either the [employer] machine was inaccurate and it is reporting and the Escherichia coli is not multidrug resistant versus this is a contaminated blood culture since the bacteremia resolved without any treatment. Vivien Bowers 2 words the fact that this is a contaminant especially that I have even a source for the Escherichia coli and the patient has no UTI. In the meantime we will repeat blood cultures 2 and repeat chest x-ray. And we will continue with the Rocephin to treat the pneumonia for 14 days total. Based on culture results we will make further recommendations. Monitor labs and for drug toxicity. No need to adjust the Rocephin based on the creatinine clearance
[2018-01-31] MEDS: cefTRIAXone 2,000 MG in Water for inj. (sterile) 20 ML 20 ML IVP SCH (12:56)
[2018-01-31] MEDS ORDERED: *HR* Warfarin 3 MG TABLET PO ONE (18:00)
[2018-01-31] MEDS: Mirtazapine 15 MG TABLET PO SCH (21:55)
[2018-02-01] MEDS: *HR* OxyCODONE/APAP 5/325 TABLET PO PRN ×2 (00:25→17:12)
[2018-02-01] MEDS: Ipratropium/Albuterol Neb 3 ML IH SCH ×6 (00:33→20:32)
[2018-02-01 05:06] LABS: Basophils % 0.2 %; Eosinophils # 0.2 K/mcL (0.0-0.6); Eosinophils % 1.5 %; Hematocrit 31.6 % (35.3-44.9); Hemoglobin 9.5 g/dL (11.5-15.4); Immature Granulocytes % 0.7 % (0-4); Lymphocytes # 1.3 K/mcL (0.6-4.6); Lymphocytes % 11.4 %; Mean Corpuscular HGB Conc 30.1 g/dL (31.6-35.5); Mean Corpuscular Hemoglobin 24.8 pg (28.0-33.3); Mean Corpuscular Volume 82.5 fL (83.0-100.0); Mean Platelet Volume 10.1 fL (9.4-12.4); Monocytes % 8.7 %; Neutrophils # 8.8 K/mcL (1.6-8.9); Platelet Count 247 K/mcL (140-400); Red Blood Count 3.83 M/mcL (3.82-4.97); Red Cell Distribution Width 18.6 % (11.5-14.5); Segmented Neutrophils % 77.5 %
[2018-02-01 05:12] LABS: INR 2.3; Prothrombin Time 25.3 Seconds (9.4-12.1)
[2018-02-01 05:27] LABS: BUN/Creatinine Ratio 18 (6-26); Blood Urea Nitrogen 14 mg/dL (8-23); Calcium 8.1 mg/dL (8.6-10.3); Carbon Dioxide 32 mEq/L (23-29); Chloride 100 mEq/L (98-107); Glucose 80 mg/dL (70-105); Osmolality,Calculated 283 (280-300); Potassium 3.6 mEq/L (3.5-5.1); Sodium 137 mEq/L (136-145); eGFR For African Americans > 60 (> 60); eGFR For Non-African Americans > 60 (> 60)
[2018-02-01] MEDS: Budesonide/Formoterol 160/4.5 MDI IH SCH ×2 (07:36→20:32)
[2018-02-01] MEDS: Loratadine 10 MG TABLET PO SCH (09:42)
[2018-02-01] MEDS: Multivit/Ca/Min/Fe/FA 1 TAB TABLET PO SCH (09:42)
[2018-02-01] MEDS: Insulin LISPRO 300 UNITS/3 ML VIAL SQ SCH ×4 (09:43→20:51)
[2018-02-01] MEDS: Furosemide 20 MG/2 ML VIAL IVP SCH ×2 (09:43→17:13)
[2018-02-01] MEDS: Magic Mouthwash 10 ML UD Cup PO SCH ×3 (09:45→17:13)
[2018-02-01] MEDS: Nystatin POWDER 30 GM BOTTLE TP SCH ×2 (09:45→20:51)
[2018-02-01] MEDS ORDERED: cefTRIAXone 2,000 MG in Water for inj. (sterile) 20 ML 20 ML IVP SCH (12:00)
--- NOTE | 2018-02-01 12:15 | Internal Med Progress Note ---
Date of Encounter: 02/01/18 Time of Encounter: 12:15 - Assessment and plan (1) Acute and chronic respiratory failure Current Visit: Yes Status: Acute Assessment and plan: Respiratory failure secondary to multilobar pneumococcal pneumonia after influenza infection. Patient was intubated 01/18 through 01/20/2018. Presently on nasal canula. No respiratory distress on exam. Respiratory status likely mixed etiology including decompensated CHFrEF last ECHO 07/2017 & respiratory infection as above. Continue O2 by PA Qualifiers: Respiratory failure complication: hypoxia and hypercapnia Qualified Code(s) : J96.21 - Acute and chronic respiratory failure with hypoxia; J96.22 - Acute and chronic respiratory failure with hypercapnia; J96.22 - Acute and chronic respiratory failure with hypercapnia; J96.22 - Acute and chronic respiratory failure with hypercapnia (2) COPD (chronic obstructive pulmonary disease) Current Visit: Yes Status: Chronic Assessment and plan: No wheezes on exam; continue all current measures including plan as above. Qualifiers: COPD type: unspecified COPD Qualified Code(s): J44.9 - Chronic obstructive pulmonary disease, unspecified (3) Type 2 diabetes mellitus Current Visit: Yes Status: Chronic Assessment and plan: Well-controlled; continue current plan. Qualifiers: Diabetes mellitus intermodal customer service insulin use: with intermodal customer service use Diabetes mellitus complication status: with unspecified complications Qualified Code(s) : E11.8 - Type 2 diabetes mellitus with unspecified complications; Z79.4 - long term care pharmacist (current) use of insulin; Z79.4 - long term care pharmacist (current) use of insulin; Z79.4 - care home (current) use of insulin; Z79.4 - care home (current) use of insulin (4) CAD (coronary artery disease) Current Visit: Yes Status: Chronic Assessment and plan: Continue monitoring Qualifiers: Coronary Disease-Associated Artery/Lesion type: [place] artery [place] vs. transplanted heart: [place] heart Associated angina: without angina Qualified Code(s): I25.10 - Atherosclerotic heart disease of [place] coronary artery without angina pectoris (5) A-fib Current Visit: Yes Status: Chronic Assessment and plan: Continue Coreg and Coumadin Qualifiers: Atrial fibrillation type: chronic Qualified Code(s): I48.2 - Chronic atrial fibrillation (6) Morbid obesity with BMI of 40.0-44.9, adult Current Visit: No Status: Chronic Assessment and plan: Diet modification (7) CKD (chronic kidney disease) stage 3, GFR 30-59 ml/min Current Visit: No Status: Chronic Assessment and plan: renal function stable (8) Hypothyroidism Current Visit: No Status: Chronic Qualifiers: Hypothyroidism type: unspecified Qualified Code(s): E03.9 - Hypothyroidism , unspecified (9) HCAP (healthcare-associated pneumonia) Current Visit: Yes Status: Acute Assessment and plan: Pneumococcal pneumonia secondary to recent influenza (10) Bacteremia due to Gram-negative bacteria Current Visit: Yes Status: Acute Assessment and plan: Blood culture reveals E. coli MDRO-likely contaminant as it grew in one bottle out of 2, repeat blood cultures have been negative on rocephin. WBC improved today Continue Rocephin at current dose Repeat blood culture shows no growth to date Infectious disease recommendation noted-to complete 14 days of treatment for pneumococcal PNA, and no treatment indicated for bacteremia. Repeat CXR and blood cultures pending - Time Spent With Patient Total time spent is greater than 50% in coordination of care (as documented) at patient's floor/unit and/or counseling patient: - Subjective Interval history: Seen and examined at bedside Patient is clincally stable Awaiting repeat CXR and blood culture as recommended by the Infectious disease team She is eager to go back to her SNF - Constitutional Vitals: Temp Pulse Resp BP Pulse Ox 97.5 F L 89 18 136/80 99 02/01/18 06:53 02/01/18 06:53 02/01/18 11:30 02/01/18 06:53 02/01/18 11:30 General appearance: Present: cooperative, A&O X 3, morbidly obese, pleasant, no acute distress, answers questions appropriately - Head Head exam: Present: atraumatic, normocephalic - Eye Eye exam: Present: PERRL, conjuntiva pink, sclera anicteric Pupils: Present: PERRL - Neck Neck exam general surgery: Present: supple, trachea midline. Absent: lymphadenopathy - Respiratory Respiratory exam: Present: CTAB. Absent: accessory muscle use, rales, rhonchi, wheezes - Cardiovascular Cardiovascular exam: Present: RRR, +S1, +S2. Absent: diastolic murmur, gallop, rubs, systolic murmur - GI/Abdominal GI/Abdominal exam: Present: normal bowel sounds, soft, no peritoneal signs. Absent: distended, tenderness - Extremities Exam Extremities exam: Present: warm, radial pulses palpable and symmetrical. Absent : calf tenderness, cyanotic, pedal edema - Neurological Exam Neurological exam: Present: alert, CN II-XII intact, oriented X3, no focal deficits. Absent: pronater drift, facial droop, speech deficit - Skin Skin exam: Present: dry, intact Internal Medicine: Result - Labs CBC & Chem 7: 02/01/18 04:55 02/01/18 04:55 Labs: Short CBC 02/01/18 Range/Units 04:55 WBC 11.4 H (4.3-11.1) K/mcL Hgb 9.5 L (11.5-15.4) g/dL Hct 31.6 L (35.3-44.9) % Plt Count 247 (140-400) K/mcL Neutrophils # 8.8 (1.6-8.9) K/mcL BMP 02/01/18 04:55 Sodium 137 Potassium 3.6 Chloride 100 Carbon Dioxide 32 H BUN 14 Creatinine 0.79 Glucose 80 Calcium 8.1 L - ABG Interpretation ABG results: ABG ABG pH 7.40 pH Units (7.32-7.45) 01/28/18 09:25 ABG pCO2 42 mmHg (35-45) 01/28/18 09:25 ABG pO2 80 mmHg (85-104) L 01/28/18 09:25 ABG O2 Saturation 96 % (95-98) 01/28/18 09:25 PT/INR, D-dimer PT 25.3 Seconds (9.4-12.1) H 02/01/18 04:55 - VTE Documentation of Mechanical Device: Intermittent pneumatic compression device Consult Discharge Plan - Plan Referrals: NONE,PCP [Primary Care Provider] -
[2018-02-01] MEDS ORDERED: *HR* Warfarin 3 MG TABLET PO ONE (18:00)
[2018-02-01] MEDS: Mirtazapine 15 MG TABLET PO SCH (20:08)
[2018-02-02] MEDS: Ipratropium/Albuterol Neb 3 ML IH SCH ×5 (00:44→16:12)
[2018-02-02 06:13] LABS: INR 2.3; Prothrombin Time 24.8 Seconds (9.4-12.1)
[2018-02-02 07:25] VITALS: BP 135/49
[2018-02-02] MEDS: Budesonide/Formoterol 160/4.5 MDI IH SCH (07:26)
[2018-02-02] MEDS: Loratadine 10 MG TABLET PO SCH (08:38)
[2018-02-02] MEDS: Multivit/Ca/Min/Fe/FA 1 TAB TABLET PO SCH (08:38)
[2018-02-02] MEDS: Insulin LISPRO 300 UNITS/3 ML VIAL SQ SCH (08:39)
[2018-02-02] MEDS: Furosemide 20 MG/2 ML VIAL IVP SCH ×2 (08:39→08:43)
[2018-02-02] MEDS: Nystatin POWDER 30 GM BOTTLE TP SCH (08:39)
[2018-02-02] MEDS: Magic Mouthwash 10 ML UD Cup PO SCH (08:39)
[2018-02-02] MEDS ORDERED: Cefdinir 300 MG CAPSULE PO SCH (09:00)
--- NOTE | 2018-02-02 11:55 | Discharge Summary ---
- NOTES TO OUTPATIENT PROVIDER Notes to Outpatient Provider: With SNF PCP. Complete 5 more days of oral antibiotics Orders not resulted at time of discharge: Pending orders 01/20/18 14:11 Sputum Culture [Culture,Sputum with Gram Stain] [RM] Routine 01/28/18 09:41 Culture,Blood [BC] Stat 01/30/18 04:12 Culture,Blood [BC] AM 0400 01/31/18 13:13 Culture,Blood [BC] Stat Culture,Blood,Additional [BC] Stat 02/03/18 04:00 PT/INR [Prothrombin Time INR] [COAG] AM 0400 Date of Encounter: 02/02/18 Time of Encounter: 11:54 - Discharge Diagnosis (1) Acute and chronic respiratory failure Priority: Primary Status: Resolved Qualifiers: Respiratory failure complication: hypoxia and hypercapnia Qualified Code(s) : J96.21 - Acute and chronic respiratory failure with hypoxia; J96.22 - Acute and chronic respiratory failure with hypercapnia; J96.22 - Acute and chronic respiratory failure with hypercapnia; J96.22 - Acute and chronic respiratory failure with hypercapnia (2) COPD (chronic obstructive pulmonary disease) Priority: Secondary Status: Chronic Qualifiers: COPD type: unspecified COPD Qualified Code(s): J44.9 - Chronic obstructive pulmonary disease, unspecified (3) Type 2 diabetes mellitus Priority: Secondary Status: Chronic Qualifiers: Diabetes mellitus termite inspector insulin use: with termite inspector use Diabetes mellitus complication status: with unspecified complications Qualified Code(s) : E11.8 - Type 2 diabetes mellitus with unspecified complications; Z79.4 - care home (current) use of insulin; Z79.4 - care home (current) use of insulin; Z79.4 - care home (current) use of insulin; Z79.4 - terminal gauger supervisor (current) use of insulin (4) CAD (coronary artery disease) Priority: Secondary Status: Chronic Qualifiers: Coronary Disease-Associated Artery/Lesion type: [place] artery [place] vs. transplanted heart: [place] heart Associated angina: without angina Qualified Code(s): I25.10 - Atherosclerotic heart disease of [place] coronary artery without angina pectoris (5) A-fib Priority: Secondary Status: Chronic Qualifiers: Atrial fibrillation type: chronic Qualified Code(s): I48.2 - Chronic atrial fibrillation (6) Morbid obesity with BMI of 40.0-44.9, adult Priority: Secondary Status: Chronic (7) CKD (chronic kidney disease) stage 3, GFR 30-59 ml/min Priority: Secondary Status: Chronic (8) Hypothyroidism Priority: Secondary Status: Chronic Qualifiers: Hypothyroidism type: unspecified Qualified Code(s): E03.9 - Hypothyroidism , unspecified (9) HCAP (healthcare-associated pneumonia) Priority: Primary Status: Acute (10) Bacteremia due to Gram-negative bacteria Priority: Primary Status: Resolved (11) Lactic acidosis Priority: Primary Status: Resolved (12) Septic shock Priority: Primary Status: Resolved (13) RODOLFO (acute kidney injury) Priority: Primary Status: Resolved (14) Supratherapeutic INR Priority: Primary Status: Resolved (15) UTI (urinary tract infection) Priority: Primary Status: Resolved Qualifiers: Urinary tract infection type: acute cystitis Hematuria presence: without hematuria Qualified Code(s): N30.00 - Acute cystitis without hematuria Hospital course: Ms. Renee is a 82 year old female She has a past medical history of atrial fibrillation, combined CHF with ejection fraction unknown, COPD, coronary artery disease, diabetes, GERD, glaucoma, hyperlipidemia, hypertension, chronic kidney disease, thyroid disease. She was seen in our emergency room on 01/14/18 for concerns of cough in the setting of recent diagnosis of influenza. She was taking Tamiflu at the residential prior to presentation and had recently been treated for pneumonia. She was discharged home with supportive care. She re-presented to the outside facility with worsening cough, fever and chills and difficulty breathing. Work up showed hypoxia on her blood gas with PO2 of 64, lactic acidosis with lactate of 2.97, complete blood count was unremarkable with no leukocytosis, creatinine was 1.32, CRP was 4.75, troponin was negative, BNP was 693. Patient presented to that facility hypoxic ,tachycardic and febrile maximum temperature was 103.8, heart rate was 140 in atrial fibrillation with rapid ventricular response. Blood pressure was 93/71. Urine analysis showed positive leukocyte esterase and suspicion for urinary tract infection. Her chest x-ray shows a left-sided pleural effusion with possible pneumonia. She was treated with vancomycin, Zosyn and Levaquin and requested to be transferred to this facility. On arrival to the ICU, the patient was febrile, hypotensive with systolic blood pressure 60-74/43-50, already started on levophed by the EMS team via peripheral line 30 minutes prior to arrival, tachycardic with heart rate ranging from 120-133, patient is toxic looking, but alert and awake, chest examination revealed diffuse crackles anteriorly, patient was tachypneic respiratory rate 36-40, with abdominal breathing and use of accessory muscles. She has chronic venostasis changes on both lower extremities without pedal edema. Hassan catheter was draining clear urine. She was admitted to the intensive care unit for management of acute on chronic hypoxic respiratory failure, septic shock with lactic acidosis, pneumonia with para-pneumonic pleural effusion (influenza pneumonia), urinary tract infection, A. fib with RVR, and supra-therapeutic INR. She had a CT of the chest that showed findings consistent with multifocal pneumonia and patchy airway secretions. Laboratory studies here revealed leukocytosis with neutrophilic predominance, acute kidney injury, lactic acidosis. Strep pneumo urinary antigen was positive. Repeat urine culture done upon arrival was negative. Blood cultures obtained 2 sets upon arrival were negative as well. Repeat labs the following day revealed a leukemoid reaction with a white blood cell count of 56,000 with bandemia. She also had a low-grade fever. Lactic acid and acute kidney injury were improved. LFTs were normal. She is CT abdomen and pelvis that showed moderate wall thickening of the upper descending colon with mild adjacent stranding. The patient's clinical status continued to improve and she was extubated on January 20 Antibiotics were descalated to IV Rocephin only January 22 and they were later discontinued on January 25. On January 28, the patient's respiratory status declined. Laboratory studies showed an acute worsening of her white blood cell count. Blood cultures were repeated and were +1 out of 2 sets for MDRO Escherichia coli. She also had tachycardia at that time, but was afebrile. Antibiotics were restarted Rocephin 2 g daily. Since then, the patient has continued to improve clinically. MDRO E.coli is a contaminant as repeat blood cultures have been negative Additional blood culture drawn January 30 and January 31 were negative till date. Repeat CXR shows resolution of PNA, and pleural effusion The patient has made significant improvement, she has no new complains and will be discharged back to the SNF, to complete 5 more days of Cephalosporin (Omnicef ), to make a total of 14 days of antibiotic therapy for her pneumonococcal PNA. Plan of care discussed with patient at the bedside who is in agreement. Discharge discussed with: patient, nurse, case management - Time Spent with Patient Total time spent providing and/or coordinating discharge services: Greater than 30 minutes - Discharge Medications Prescriptions: LORazepam [Ativan] 0.5 mg PO TID PRN 6 Days #12 tablet PRN Reason: Anxiety Home Medications: Allopurinol [Zyloprim 100 MG] 100 mg PO DAILY 02/13/17 [History] Oxygen 4 l NS AD 02/13/17 [History] Atorvastatin [Lipitor] 40 mg PO HS #30 tablet 02/18/17 [Rx] Levothyroxine Sodium [Synthroid] 200 mcg PO DAILY 08/07/17 [History] Acetaminophen [Tylenol] 650 mg PO Q6HR PRN tablet 08/18/17 [Rx] Ipratropium/Albuterol Neb [Duoneb] 3 ml IH [id number] inhsol 08/18/17 [Rx] Budesonide/Formoterol 160/4.5 [Symbicort 160/4.5] 2 puff IH BIDR 01/18/18 [ History] Fexofenadine HCl 180 mg PO DAILY 01/18/18 [History] Furosemide [Lasix] 40 mg PO BID PRN 01/18/18 [History] Guaifenesin [Mucinex] 600 mg PO BID 01/18/18 [History] Mirtazapine [Remeron] 15 mg PO HS 01/18/18 [History] Mv W-Ca/Iron/FA/Lutein/Hrb#179 [[place] Multivit For Women Caplet] 1 tab PO DAILY 01/18/18 [History] Omeprazole [PriLOSEC] 40 mg PO DAILY 01/18/18 [History] Ondansetron HCl [Zofran] 4 mg PO Q8H PRN 01/18/18 [History] Potassium Chloride [K-Tab ER] 20 meq PO BID 01/18/18 [History] Warfarin [Coumadin] 2 mg PO DAILY 01/18/18 [History] Albuterol Neb [Proventil Neb] 2.5 mg IH Q2H PRN inhsol 02/02/18 [Rx] Carvedilol [Coreg] 12.5 mg PO BIDWM tablet 02/02/18 [Rx] Cefdinir [Omnicef] 300 mg PO BID capsule 02/02/18 [Rx] LORazepam [Ativan] 0.5 mg PO TID PRN 6 Days #12 tablet 02/02/18 [Rx] Nystatin POWDER [Nystop] 1 appl TP BID bottle 02/02/18 [Rx] Oxycodone HCl/Acetaminophen [Percocet 5-325 mg Tablet] 1 tab PO DAILY PRN 4 Days #10 02/02/18 [Rx] Allergies/Adverse Reactions: 3 Allergy/AdvReac Type Severity Reaction Status Date / Time meperidine [From Demerol] Allergy Anaphylaxis Verified 02/13/17 11:01 Tetracycline Allergy Anaphylaxis Verified 02/13/17 11:01 Date of admission: 01/18/18 02:46 Primary care physician: PCP NONE Consults: 01/18/18 03:53 Consult to Critical Care [CONS] Routine Consulting Provider: [facility] Reason for Consult: Septic shock, acute on chronic respiratory failure, Supra INR Call Completed: No 01/18/18 04:32 Consult to Pulmonology [CONS] Routine Consulting Provider: [facility] Reason for Consult: ICU/Vent management Call Completed: No 01/21/18 08:31 Consult to Occupational Therapy [CONS] Stat Comment: Evaluate, develop and implement POC Reason for Consult: Eval for ECF Does patient have active BEDREST order?: No Is patient medically & hemodynamically stable?: Yes Consult to Physical Therapy [CONS] Stat Comment: Evaluate, develop and implement POC Reason for Consult: Eval for ECF Does patient have active BEDREST order?: No Is patient medically & hemodynamically stable?: Yes 01/27/18 14:34 Consult to Occupational Therapy [CONS] Routine Comment: Evaluate, develop and implement POC Reason for Consult: Recovery after prolonged illness Does patient have active BEDREST order?: No Is patient medically & hemodynamically stable?: Yes Consult to Physical Therapy [CONS] Routine Comment: Evaluate, develop and implement POC Reason for Consult: Recovery after prolonged illness Does patient have active BEDREST order?: No Is patient medically & hemodynamically stable?: Yes 01/27/18 14:48 Consult to Invasive Line Access Team [CONS] Routine Reason for Consult: limited vascular access, removing central line in RIJ Line Type: EPIV 01/31/18 09:42 Consult to Infectious Diseases [CONS] Routine Consulting Provider: Infectious Disease Jessie Reason for Consult: E. coli MDRO Bacteremia Time Notified: 09:43 Call Completed: Yes Discharging clinician: Marshall Rene Anticipated date of discharge: 02/02/18 - Constitutional Vitals: Temp Pulse Resp BP Pulse Ox 97.7 F 92 19 135/49 97 02/02/18 07:00 02/02/18 07:00 02/02/18 11:18 02/02/18 07:26 02/02/18 11:18 General appearance: Present: cooperative, A&O X 3, morbidly obese, pleasant, no acute distress, answers questions appropriately - Head Head exam: Present: atraumatic, normocephalic - Eye Eye exam: Present: PERRL, conjuntiva pink, sclera anicteric Pupils: Present: PERRL - Neck Neck exam general surgery: Present: supple, trachea midline. Absent: lymphadenopathy - Respiratory Respiratory exam: Present: CTAB. Absent: accessory muscle use, rales, rhonchi, wheezes - Cardiovascular Cardiovascular exam: Present: irregular rhythm, +S1, +S2. Absent: diastolic murmur, gallop, rubs, systolic murmur - GI/Abdominal GI/Abdominal exam: Present: normal bowel sounds, soft, no peritoneal signs. Absent: distended, tenderness - Extremities Exam Extremities exam: Present: warm, radial pulses palpable and symmetrical. Absent : calf tenderness, cyanotic, pedal edema Additional comments: chronic venous stasis changes - Neurological Exam Neurological exam: Present: alert, CN II-XII intact, oriented X3, no focal deficits. Absent: pronater drift, facial droop, speech deficit - Skin Skin exam: Present: dry, intact - Patient Status Disposition: Transfer SNF Condition: Good Functional capacity at discharge: uses cane/walker Overall status at discharge: patient is progressing back to baseline - Discharge Instructions Follow Up With: NONE,PCP [Primary Care Provider] - - Diet and Activity Activity: resume usual activities as tolerated, wear oxygen at all times Diet: diabetic diet, low fat, low cholesterol, low salt diet - VTE Documentation of Mechanical Device: Intermittent pneumatic compression device
--- NOTE | 2018-02-02 12:05 | Physician Discharge Referral ---
ExtendedCare Referral Info Transfer To: SNF Provider in Charge: eloy Rene Provider in Charge after Transfer: PCP Institutional Level of Care: Skilled - Diagnosis (1) Acute and chronic respiratory failure Priority: Primary Status: Resolved (2) COPD (chronic obstructive pulmonary disease) Priority: Secondary Status: Chronic (3) Type 2 diabetes mellitus Priority: Secondary Status: Chronic (4) CAD (coronary artery disease) Priority: Secondary Status: Chronic (5) A-fib Priority: Secondary Status: Chronic (6) Morbid obesity with BMI of 40.0-44.9, adult Priority: Secondary Status: Chronic (7) CKD (chronic kidney disease) stage 3, GFR 30-59 ml/min Priority: Secondary Status: Chronic (8) Hypothyroidism Priority: Secondary Status: Chronic (9) HCAP (healthcare-associated pneumonia) Priority: Primary Status: Acute (10) Bacteremia due to Gram-negative bacteria Priority: Primary Status: Resolved Prognosis: Fair Aware of Diagnosis: Patient Aware of Prognosis: Patient - Transfer Medications Prescriptions: LORazepam [Ativan] 0.5 mg PO TID PRN 6 Days #12 tablet PRN Reason: Anxiety Home Medications: Allopurinol [Zyloprim 100 MG] 100 mg PO DAILY 02/13/17 [History] Oxygen 4 l NS AD 02/13/17 [History] Atorvastatin [Lipitor] 40 mg PO HS #30 tablet 02/18/17 [Rx] Levothyroxine Sodium [Synthroid] 200 mcg PO DAILY 08/07/17 [History] Acetaminophen [Tylenol] 650 mg PO Q6HR PRN tablet 08/18/17 [Rx] Ipratropium/Albuterol Neb [Duoneb] 3 ml IH [id number] inhsol 08/18/17 [Rx] Budesonide/Formoterol 160/4.5 [Symbicort 160/4.5] 2 puff IH BIDR 01/18/18 [ History] Fexofenadine HCl 180 mg PO DAILY 01/18/18 [History] Furosemide [Lasix] 40 mg PO BID PRN 01/18/18 [History] Guaifenesin [Mucinex] 600 mg PO BID 01/18/18 [History] Mirtazapine [Remeron] 15 mg PO HS 01/18/18 [History] Mv W-Ca/Iron/FA/Lutein/Hrb#179 [[place] Multivit For Women Caplet] 1 tab PO DAILY 01/18/18 [History] Omeprazole [PriLOSEC] 40 mg PO DAILY 01/18/18 [History] Ondansetron HCl [Zofran] 4 mg PO Q8H PRN 01/18/18 [History] Potassium Chloride [K-Tab ER] 20 meq PO BID 01/18/18 [History] Warfarin [Coumadin] 2 mg PO DAILY 01/18/18 [History] Albuterol Neb [Proventil Neb] 2.5 mg IH Q2H PRN inhsol 02/02/18 [Rx] Carvedilol [Coreg] 12.5 mg PO BIDWM tablet 02/02/18 [Rx] Cefdinir [Omnicef] 300 mg PO BID capsule 02/02/18 [Rx] LORazepam [Ativan] 0.5 mg PO TID PRN 6 Days #12 tablet 02/02/18 [Rx] Nystatin POWDER [Nystop] 1 appl TP BID bottle 02/02/18 [Rx] Oxycodone HCl/Acetaminophen [Percocet 5-325 mg Tablet] 1 tab PO DAILY PRN 4 Days #10 02/02/18 [Rx] Allergies/Adverse Reactions: 3 Allergy/AdvReac Type Severity Reaction Status Date / Time meperidine [From Demerol] Allergy Anaphylaxis Verified 02/13/17 11:01 Tetracycline Allergy Anaphylaxis Verified 02/13/17 11:01 - Respiratory Orders Oxygen / L per min Smoking Cessation: Smoking cessation has been advised. For more information, call the [place] Tobacco Quit Line at 7-889-QACK-NOW. - Advance Directives Code Status: Full Code - Mobility Orders Ambulate - Diet Orders Cardiac CERTIFICATION: I certify that the transfer of the above named patient to an Extended Care Facility is necessary for the continuing treatment of the diagnosis listed. The above information is true and accurate reflection of patient's current condition. Confidential - Redisclosure prohibited without a patient's written consent.
[2018-02-02] MEDS ORDERED: *HR* Warfarin 3 MG TABLET PO SCH (18:00)
== END 2018-02-02 16:38 | DRG 871 ==
LOC: 2NNU 02:46 → ICNU 03:08 → 3BNU 01-21 11:42 → ICNU 01-21 17:15 → 2NENU 01-26 14:21
PROVIDERS: ADMIT Internal Medicine; ATTEND Internal Medicine